=== PATIENT | female | born 1955 | race Caucasian/White ===

== ENCOUNTER 2018-08-30 13:46 | Inpatient (IN) | payer BC ==
[2018-08-30] MEDS ORDERED: Sodium Chloride 0.9% 1,000 ML IV SCH ×2 (14:15→15:00)
[2018-08-30] MEDS ORDERED: Ondansetron 4 MG/2 ML SDV IVPUSH ONE (14:18)
--- NOTE | 2018-08-30 14:24 | EDM.PDOC ---
<Humberto Rodríguez - Last Filed: 08/30/18 16:40> ED HPI GENERAL MEDICAL PROBLEM - General Chief Complaint: Diabetic Complaint Stated Complaint: PT CAME BY [facility] Time Seen by Provider: 08/30/18 14:05 - Related Data Allergies Allergy/AdvReac Type Severity Reaction Status Date / Time No Known Allergies Allergy Verified 08/30/18 13:55 Home Meds: Home Meds Aspirin [Halfprin] 81 mg PO DAILY 08/31/18 [History] Glimepiride 4 mg PO BIDMEALS 08/31/18 [History] Insulin Glargine,Hum.Rec.Anlog [Lantus Solostar] 48 unit SQ DAILY 08/31/18 [ History] Losartan [Cozaar] 50 mg PO DAILY 08/31/18 [History] Pantoprazole [ProTONIX] 40 mg PO DAILY 08/31/18 [History] Simvastatin 20 mg PO DAILY 08/31/18 [History] SitaGLIPtin [Januvia] 100 mg PO DAILY 08/31/18 [History] carBAMazepine [Carbamazepine ER] 400 mg PO BID 08/31/18 [History] metFORMIN [Glucophage] 1,000 mg PO 2100 08/31/18 [History] metFORMIN [Glucophage] 1,500 mg PO 0800 08/31/18 [History] Course - Vital Signs Last Recorded V/S: Last Vital Signs Temp 36.7 C 09/02/18 08:00 Pulse 117 H 09/02/18 04:16 Resp 33 H 09/02/18 08:00 BP 134/80 09/02/18 08:00 Pulse Ox 88 L 09/02/18 08:00 - Orders/Labs/Meds Orders: Medication Orders Acetaminophen (Tylenol) 650 mg PO Q4H PRN PRN Reason: Pain (Mild 1-3)/fever Last Admin: 08/31/18 20:10 Dose: 650 mg Admin: 08/31/18 06:43 Dose: 650 mg Admin: 08/31/18 00:54 Dose: 650 mg Hydrocodone Bitart/Acetaminophen ([place] 325-5 Mg) 1 tab PO Q4H PRN PRN Reason: Pain (moderate 4-6) Alogliptin Benzoate (Alogliptin) 25 mg PO DAILY DAGOBERTO Last Admin: 09/01/18 09:16 Dose: 25 mg Admin: 08/31/18 10:54 Dose: 25 mg Aspirin (Halfprin) 81 mg PO DAILY [facility] Last Admin: 09/01/18 09:17 Dose: 81 mg Bisacodyl (Dulcolax) 5 mg PO DAILY PRN PRN Reason: Constipation Carbamazepine (Tegretol Tab) 400 mg PO BID [facility] Last Admin: 09/01/18 20:38 Dose: 400 mg Admin: 09/01/18 09:16 Dose: 400 mg Admin: 08/31/18 23:06 Dose: 400 mg Admin: 08/31/18 10:54 Dose: 400 mg Dextrose/Water (Dextrose 50% In Water) 50 ml IVPUSH ASDIRECTED PRN PRN Reason: Hypoglycemia Diltiazem HCl (Cardizem) 10 mg IVPUSH Q4H PRN PRN Reason: tachy >110 Last Admin: 09/02/18 06:52 Dose: 10 mg Admin: 09/02/18 02:24 Dose: 10 mg Admin: 09/01/18 18:33 Dose: 10 mg Docusate Sodium (Colace) 100 mg PO BID PRN PRN Reason: Constipation Enoxaparin Sodium (Lovenox) 40 mg SUBCUT DAILY [facility] Last Admin: 09/01/18 17:15 Dose: 40 mg Admin: 08/31/18 10:54 Dose: 40 mg Famotidine (Pepcid) 20 mg PO BID [facility] Last Admin: 09/01/18 20:40 Dose: 20 mg Admin: 09/01/18 09:17 Dose: 20 mg Admin: 08/31/18 23:07 Dose: 20 mg Admin: 08/31/18 08:48 Dose: 20 mg Admin: 08/30/18 21:24 Dose: 20 mg Glimepiride (Glimepiride) 4 mg PO BIDMEALS [facility] Last Admin: 09/02/18 06:07 Dose: 4 mg Admin: 09/01/18 16:23 Dose: 4 mg Admin: 09/01/18 09:17 Dose: 4 mg Admin: 08/31/18 21:31 Dose: Not Given Guaifenesin/Phenylephrine HCl (Robitussin Dm) 10 ml PO TID@0700,1400,2100 [facility] Last Admin: 09/02/18 06:07 Dose: 10 ml Admin: 09/01/18 20:40 Dose: 10 ml Admin: 09/01/18 14:01 Dose: 10 ml Hydralazine HCl (Apresoline) 10 mg IVPUSH Q4H PRN PRN Reason: Hypertension Hydromorphone HCl (Dilaudid) 0.25 mg IVPUSH Q2H PRN PRN Reason: Pain (severe 7-10) Promethazine HCl 6.25 mg/ (Sodium Chloride) 50.25 mls @ 100 mls/hr IV Q6H PRN PRN Reason: Nausea/Vomiting Sodium Chloride (Normal Saline) 1,000 mls @ 75 mls/hr IV ASDIRECTED [facility] Last Admin: 09/02/18 04:15 Dose: 75 mls/hr Infusion: 09/02/18 04:15 Dose: 75 mls/hr Admin: 09/01/18 15:09 Dose: 75 mls/hr Infusion: 09/01/18 14:48 Dose: 75 mls/hr Admin: 09/01/18 01:28 Dose: 75 mls/hr Infusion: 09/01/18 01:28 Dose: 75 mls/hr Admin: 08/31/18 15:29 Dose: 75 mls/hr Dexamethasone 40 mg/ Sodium (Chloride) 54 mls @ 108 mls/hr IV BID@0700,1900 [facility] Stop: 09/02/18 20:31 Last Admin: 09/02/18 06:13 Dose: 108 mls/hr Infusion: 09/01/18 18:29 Dose: 108 mls/hr Admin: 09/01/18 17:59 Dose: 108 mls/hr Infusion: 09/01/18 06:44 Dose: 108 mls/hr Admin: 09/01/18 06:14 Dose: 108 mls/hr Infusion: 08/31/18 21:26 Dose: 108 mls/hr Admin: 08/31/18 20:56 Dose: 108 mls/hr Ceftriaxone Sodium 2 gm/ (Sodium Chloride) 100 mls @ 200 mls/hr IV Q24H [facility] Last Admin: 09/01/18 22:21 Dose: 200 mls/hr Infusion: 08/31/18 23:58 Dose: 200 mls/hr Admin: 08/31/18 23:28 Dose: 200 mls/hr Levofloxacin/Dextrose 750 mg/ (Premix) 150 mls @ 100 mls/hr IV Q24H [facility] Insulin Human Lispro (Humalog) 0 unit SUBCUT QIDACANDBED [facility]; Protocol Last Admin: 09/02/18 06:52 Dose: 2 units Admin: 09/01/18 21:10 Dose: 2 units Admin: 09/01/18 17:50 Dose: 4 units Admin: 09/01/18 12:20 Dose: 8 units Admin: 09/01/18 09:13 Dose: 4 units Admin: 08/31/18 22:57 Dose: 4 units Ipratropium [place] (Atrovent) 0.5 mg NEB QIDRT [facility] Last Admin: 09/02/18 05:03 Dose: 0.5 mg Admin: 09/01/18 20:04 Dose: 0.5 mg Admin: 09/01/18 15:05 Dose: 0.5 mg Levalbuterol HCl (Xopenex) 1.25 mg NEB QIDRT [facility] Last Admin: 09/02/18 05:03 Dose: 1.25 mg Admin: 09/01/18 20:04 Dose: 1.25 mg Admin: 09/01/18 15:05 Dose: 1.25 mg Levalbuterol HCl (Xopenex) 1.25 mg NEB Q2H PRN PRN Reason: sob Last Admin: 09/02/18 07:10 Dose: 1.25 mg Admin: 09/02/18 02:37 Dose: 1.25 mg Admin: 09/01/18 17:36 Dose: 1.25 mg Lorazepam (Ativan) 2 mg IVPUSH Q4H PRN PRN Reason: Seizures Magnesium Hydroxide (Milk Of Magnesia) 30 ml PO Q12H PRN PRN Reason: Constipation Metoprolol Succinate (Toprol Xl) 25 mg PO BID [facility] Last Admin: 09/01/18 20:38 Dose: 25 mg Admin: 09/01/18 16:23 Dose: 25 mg Metoprolol Tartrate (Lopressor) 5 mg IVPUSH Q4H PRN PRN Reason: Tachycardia Last Admin: 09/02/18 04:16 Dose: 5 mg Admin: 09/01/18 22:24 Dose: 5 mg Admin: 09/01/18 17:19 Dose: 5 mg Oseltamivir Phosphate (Tamiflu) 75 mg PO BID [facility] Last Admin: 09/01/18 20:38 Dose: 75 mg Admin: 09/01/18 09:15 Dose: 75 mg Admin: 08/31/18 23:07 Dose: 75 mg Admin: 08/31/18 08:48 Dose: 75 mg Admin: 08/30/18 21:24 Dose: 75 mg Polyethylene Glycol (Miralax) 17 gm PO DAILY PRN PRN Reason: Constipation Promethazine HCl (Phenergan) 25 mg PO Q6H PRN PRN Reason: Nausea/Vomiting Saccharomyces Boulardii (Florastor) 250 mg PO BID [facility] Last Admin: 09/01/18 20:38 Dose: 250 mg Admin: 09/01/18 09:15 Dose: 250 mg Admin: 08/31/18 23:07 Dose: 250 mg Admin: 08/31/18 08:48 Dose: 250 mg Admin: 08/30/18 21:22 Dose: 250 mg Senna/Docusate Sodium (Senna Plus) 1 tab PO BID PRN PRN Reason: Constipation Temazepam (Restoril) 7.5 mg PO BEDTIME PRN PRN Reason: Sleep Labs: Laboratory Tests 08/30/18 08/30/18 08/30/18 Range/Units 13:55 14:49 14:50 WBC 4.62 (3.98-10.04) K/mm3 RBC 4.73 (3.98-5.22) M/mm3 Hgb 13.1 (11.2-15.7) gm/L Hct 38.8 (34.1-44.9) % MCV 82.0 (79.4-94.8) fl MCH 27.7 (25.6-32.2) pg MCHC 33.8 (32.2-35.5) g/dl RDW Std Deviation 40.4 (36.4-46.3) fL Plt Count 193 (182-369) K/mm3 MPV 9.2 L (9.4-12.3) fl Neutrophils % (Manual) 86 H (40-60) % Band Neutrophils % 3 (0-10) % Lymphocytes % (Manual) 9 L (20-40) % Atypical Lymphs % 0 % Monocytes % (Manual) 2 (2-10) % Eosinophils % (Manual) 0 L (0.7-5.8) % Basophils % (Manual) 0 L (0.1-1.2) Platelet Estimate Adequate Poikilocytosis 1+ slight Ovalocytes 1+ slight RBC Morph Comment Not Reportable ESR (0-20) mm/hr PT (9.5-12.1) SECONDS INR Sodium (136-145) mEq/L Potassium (3.5-5.1) mEq/L Chloride (98-107) mEq/L Carbon Dioxide (21-32) mEq/L Anion Gap (5-15) BUN (7-18) mg/dL Creatinine (0.55-1.02) mg/dL Est Cr Clr Drug Dosing Estimated GFR (MDRD) (>60) mL/min BUN/Creatinine Ratio (14-18) Glucose (80-115) mg/dL POC Glucose 320 H (80-115) mg/dL Lactic Acid (0.4-2.0) mmol/L Calcium (8.5-10.1) mg/dL Magnesium (1.8-2.4) mg/dl Total Bilirubin (0.2-1.0) mg/dL AST (15-37) U/L ALT (14-59) U/L Alkaline Phosphatase (46-116) U/L CK-MB (CK-2) (0-3.6) ng/ml Troponin I (0.00-0.056) ng/mL C-Reactive Protein (<1.0) mg/dL NT-Pro-B Natriuret Pep (0-125) pg/mL Total Protein (6.4-8.2) g/dl Albumin (3.4-5.0) g/dl Globulin gm/dL Albumin/Globulin Ratio (1-2) Urine Color Yellow (Yellow) Urine Appearance Slt cloudy H (Clear) Urine pH 5.5 (5.0-8.0) Ur Specific [place] 1.020 (1.005-1.030) Urine Protein 1+ H (Negative) Urine Glucose (UA) Trace H (Negative) Urine Ketones Trace H (Negative) Urine Occult Blood Negative (Negative) Urine Nitrite Negative (Negative) Urine Bilirubin Negative (Negative) Urine Urobilinogen 0.2 (0.2-1.0) Ur Leukocyte Esterase Negative (Negative) Urine RBC 0-5 (0-5) /hpf Urine WBC 5-10 H (0-5) /hpf Ur Epithelial Cells 0-5 (0-5) /hpf Urine Bacteria Moderate H (FEW) /hpf Hyaline Casts 0-5 (0-5) /lpf Urine Mucus Few (FEW) /hpf Mycoplasma pneumon IgM (NEGATIVE) 08/30/18 08/30/18 08/30/18 Range/Units 14:50 14:50 14:50 WBC (3.98-10.04) K/mm3 RBC (3.98-5.22) M/mm3 Hgb (11.2-15.7) gm/L Hct (34.1-44.9) % MCV (79.4-94.8) fl MCH (25.6-32.2) pg MCHC (32.2-35.5) g/dl RDW Std Deviation (36.4-46.3) fL Plt Count (182-369) K/mm3 MPV (9.4-12.3) fl Neutrophils % (Manual) (40-60) % Band Neutrophils % (0-10) % Lymphocytes % (Manual) (20-40) % Atypical Lymphs % % Monocytes % (Manual) (2-10) % Eosinophils % (Manual) (0.7-5.8) % Basophils % (Manual) (0.1-1.2) Platelet Estimate Poikilocytosis Ovalocytes RBC Morph Comment ESR (0-20) mm/hr PT (9.5-12.1) SECONDS INR Sodium 129 L (136-145) mEq/L Potassium 4.5 (3.5-5.1) mEq/L Chloride 93 L (98-107) mEq/L Carbon Dioxide 23 (21-32) mEq/L Anion Gap 17.5 H (5-15) BUN 32 H (7-18) mg/dL Creatinine 1.0 (0.55-1.02) mg/dL Est Cr Clr Drug Dosing TNP Estimated GFR (MDRD) 56 (>60) mL/min BUN/Creatinine Ratio 32.0 H (14-18) Glucose 296 H (80-115) mg/dL POC Glucose (80-115) mg/dL Lactic Acid 3.2 H (0.4-2.0) mmol/L Calcium 8.9 (8.5-10.1) mg/dL Magnesium 2.2 (1.8-2.4) mg/dl Total Bilirubin 0.2 (0.2-1.0) mg/dL AST 49 H (15-37) U/L ALT 37 (14-59) U/L Alkaline Phosphatase 71 (46-116) U/L CK-MB (CK-2) 0.9 (0-3.6) ng/ml Troponin I < 0.017 (0.00-0.056) ng/mL C-Reactive Protein 15.4 H* (<1.0) mg/dL NT-Pro-B Natriuret Pep 55 (0-125) pg/mL Total Protein 7.2 (6.4-8.2) g/dl Albumin 3.2 L (3.4-5.0) g/dl Globulin 4.0 gm/dL Albumin/Globulin Ratio 0.8 L (1-2) Urine Color (Yellow) Urine Appearance (Clear) Urine pH (5.0-8.0) Ur Specific [place] (1.005-1.030) Urine Protein (Negative) Urine Glucose (UA) (Negative) Urine Ketones (Negative) Urine Occult Blood (Negative) Urine Nitrite (Negative) Urine Bilirubin (Negative) Urine Urobilinogen (0.2-1.0) Ur Leukocyte Esterase (Negative) Urine RBC (0-5) /hpf Urine WBC (0-5) /hpf Ur Epithelial Cells (0-5) /hpf Urine Bacteria (FEW) /hpf Hyaline Casts (0-5) /lpf Urine Mucus (FEW) /hpf Mycoplasma pneumon IgM (NEGATIVE) 08/30/18 08/30/18 08/30/18 Range/Units 15:05 15:05 16:05 WBC (3.98-10.04) K/mm3 RBC (3.98-5.22) M/mm3 Hgb (11.2-15.7) gm/L Hct (34.1-44.9) % MCV (79.4-94.8) fl MCH (25.6-32.2) pg MCHC (32.2-35.5) g/dl RDW Std Deviation (36.4-46.3) fL Plt Count (182-369) K/mm3 MPV (9.4-12.3) fl Neutrophils % (Manual) (40-60) % Band Neutrophils % (0-10) % Lymphocytes % (Manual) (20-40) % Atypical Lymphs % % Monocytes % (Manual) (2-10) % Eosinophils % (Manual) (0.7-5.8) % Basophils % (Manual) (0.1-1.2) Platelet Estimate Poikilocytosis Ovalocytes RBC Morph Comment ESR 22 H (0-20) mm/hr PT 10.8 (9.5-12.1) SECONDS INR 0.99 Sodium (136-145) mEq/L Potassium (3.5-5.1) mEq/L Chloride (98-107) mEq/L Carbon Dioxide (21-32) mEq/L Anion Gap (5-15) BUN (7-18) mg/dL Creatinine (0.55-1.02) mg/dL Est Cr Clr Drug Dosing Estimated GFR (MDRD) (>60) mL/min BUN/Creatinine Ratio (14-18) Glucose (80-115) mg/dL POC Glucose (80-115) mg/dL Lactic Acid (0.4-2.0) mmol/L Calcium (8.5-10.1) mg/dL Magnesium (1.8-2.4) mg/dl Total Bilirubin (0.2-1.0) mg/dL AST (15-37) U/L ALT (14-59) U/L Alkaline Phosphatase (46-116) U/L CK-MB (CK-2) (0-3.6) ng/ml Troponin I (0.00-0.056) ng/mL C-Reactive Protein (<1.0) mg/dL NT-Pro-B Natriuret Pep (0-125) pg/mL Total Protein (6.4-8.2) g/dl Albumin (3.4-5.0) g/dl Globulin gm/dL Albumin/Globulin Ratio (1-2) Urine Color (Yellow) Urine Appearance (Clear) Urine pH (5.0-8.0) Ur Specific [place] (1.005-1.030) Urine Protein (Negative) Urine Glucose (UA) (Negative) Urine Ketones (Negative) Urine Occult Blood (Negative) Urine Nitrite (Negative) Urine Bilirubin (Negative) Urine Urobilinogen (0.2-1.0) Ur Leukocyte Esterase (Negative) Urine RBC (0-5) /hpf Urine WBC (0-5) /hpf Ur Epithelial Cells (0-5) /hpf Urine Bacteria (FEW) /hpf Hyaline Casts (0-5) /lpf Urine Mucus (FEW) /hpf Mycoplasma pneumon IgM Negative (NEGATIVE) 08/30/18 Range/Units 16:52 WBC (3.98-10.04) K/mm3 RBC (3.98-5.22) M/mm3 Hgb (11.2-15.7) gm/L Hct (34.1-44.9) % MCV (79.4-94.8) fl MCH (25.6-32.2) pg MCHC (32.2-35.5) g/dl RDW Std Deviation (36.4-46.3) fL Plt Count (182-369) K/mm3 MPV (9.4-12.3) fl Neutrophils % (Manual) (40-60) % Band Neutrophils % (0-10) % Lymphocytes % (Manual) (20-40) % Atypical Lymphs % % Monocytes % (Manual) (2-10) % Eosinophils % (Manual) (0.7-5.8) % Basophils % (Manual) (0.1-1.2) Platelet Estimate Poikilocytosis Ovalocytes RBC Morph Comment ESR (0-20) mm/hr PT (9.5-12.1) SECONDS INR Sodium (136-145) mEq/L Potassium (3.5-5.1) mEq/L Chloride (98-107) mEq/L Carbon Dioxide (21-32) mEq/L Anion Gap (5-15) BUN (7-18) mg/dL Creatinine (0.55-1.02) mg/dL Est Cr Clr Drug Dosing Estimated GFR (MDRD) (>60) mL/min BUN/Creatinine Ratio (14-18) Glucose (80-115) mg/dL POC Glucose 252 H (80-115) mg/dL Lactic Acid (0.4-2.0) mmol/L Calcium (8.5-10.1) mg/dL Magnesium (1.8-2.4) mg/dl Total Bilirubin (0.2-1.0) mg/dL AST (15-37) U/L ALT (14-59) U/L Alkaline Phosphatase (46-116) U/L CK-MB (CK-2) (0-3.6) ng/ml Troponin I (0.00-0.056) ng/mL C-Reactive Protein (<1.0) mg/dL NT-Pro-B Natriuret Pep (0-125) pg/mL Total Protein (6.4-8.2) g/dl Albumin (3.4-5.0) g/dl Globulin gm/dL Albumin/Globulin Ratio (1-2) Urine Color (Yellow) Urine Appearance (Clear) Urine pH (5.0-8.0) Ur Specific [place] (1.005-1.030) Urine Protein (Negative) Urine Glucose (UA) (Negative) Urine Ketones (Negative) Urine Occult Blood (Negative) Urine Nitrite (Negative) Urine Bilirubin (Negative) Urine Urobilinogen (0.2-1.0) Ur Leukocyte Esterase (Negative) Urine RBC (0-5) /hpf Urine WBC (0-5) /hpf Ur Epithelial Cells (0-5) /hpf Urine Bacteria (FEW) /hpf Hyaline Casts (0-5) /lpf Urine Mucus (FEW) /hpf Mycoplasma pneumon IgM (NEGATIVE) Meds: Medications Generic Name Dose Route Start Last Admin Trade Name Freq PRN Reason Stop Dose Admin Acetaminophen 650 mg 08/30/18 17:49 08/31/18 20:10 Tylenol PO 650 mg Q4H PRN Administration Pain (Mild 1-3)/fever Hydrocodone Bitart/Acetaminophen 1 tab 08/30/18 17:49 [place] 325-5 Mg PO Q4H PRN Pain (moderate 4-6) Alogliptin Benzoate 25 mg 08/31/18 09:45 09/01/18 09:16 Alogliptin PO 25 mg DAILY DAGOBERTO Administration Aspirin 81 mg 09/01/18 09:00 09/01/18 09:17 Halfprin PO 81 mg DAILY DAG[facility]ERTO Administration Bisacodyl 5 mg 08/30/18 17:49 Dulcolax PO DAILY PRN Constipation Carbamazepine 400 mg 08/31/18 09:45 09/01/18 20:38 Tegretol Tab PO 400 mg BID DAG[facility]ERTO Administration Dextrose/Water 50 ml 08/30/18 17:44 Dextrose 50% In Water IVPUSH ASDIRECTED PRN Hypoglycemia Diltiazem HCl 10 mg 09/01/18 16:43 09/02/18 06:52 Cardizem IVPUSH 10 mg Q4H PRN Administration tachy >110 Docusate Sodium 100 mg 08/30/18 17:49 Colace PO BID PRN Constipation Enoxaparin Sodium 40 mg 08/31/18 09:00 09/01/18 17:15 Lovenox SUBCUT 40 mg DAILY [facility]AG[facility]ERTO Administration Famotidine 20 mg 08/30/18 21:00 09/01/18 20:40 Pepcid PO 20 mg BID DAG[facility]ERTO Administration Glimepiride 4 mg 08/31/18 17:00 09/02/18 06:07 Glimepiride PO 4 mg BIDMEALS DAGOBERTO Administration Guaifenesin/Phenylephrine HCl 10 ml 09/01/18 14:00 09/02/18 06:07 Robitussin Dm PO 10 ml TID@0700,1400,2100 [facility] Administration Hydralazine HCl 10 mg 08/30/18 17:45 Apresoline IVPUSH Q4H PRN Hypertension Hydromorphone HCl 0.25 mg 08/30/18 17:49 Dilaudid IVPUSH Q2H PRN Pain (severe 7-10) Promethazine HCl 6.25 mg/ 50.25 mls @ 100 mls/hr 08/30/18 17:49 Sodium Chloride IV Q6H PRN Nausea/Vomiting Sodium Chloride 1,000 mls @ 75 mls/hr 08/31/18 13:15 09/02/18 04:15 Normal Saline IV 75 mls/hr ASDIRECTED [facility]AGOBERTO Administration Dexamethasone 40 mg/ Sodium 54 mls @ 108 mls/hr 08/31/18 20:30 09/02/18 06:13 Chloride IV 09/02/18 20:31 108 mls/hr BID@0700,1900 [facility] Administration Ceftriaxone Sodium 2 gm/ 100 mls @ 200 mls/hr 08/31/18 23:00 09/01/18 22:21 Sodium Chloride IV 200 mls/hr Q24H [facility] Administration Levofloxacin/Dextrose 750 mg/ 150 mls @ 100 mls/hr 09/02/18 10:30 Premix IV Q24H [facility] Insulin Human Lispro 0 unit 08/31/18 22:00 09/02/18 06:52 Humalog SUBCUT 2 units QIDACANDBED [facility]AGOBERTO Administration Protocol Ipratropium [place] 0.5 mg 09/01/18 16:00 09/02/18 05:03 Atrovent NEB 0.5 mg QIDRT [facility]AG[facility]ERTO Administration Levalbuterol HCl 1.25 mg 09/01/18 16:00 09/02/18 05:03 Xopenex NEB 1.25 mg QIDRT [facility]AG[facility]ERTO Administration Levalbuterol HCl 1.25 mg 09/01/18 17:28 09/02/18 07:10 Xopenex NEB 1.25 mg Q2H PRN Administration sob Lorazepam 2 mg 08/30/18 17:53 Ativan IVPUSH Q4H PRN Seizures Magnesium Hydroxide 30 ml 08/30/18 17:49 Milk Of Magnesia PO Q12H PRN Constipation Metoprolol Succinate 25 mg 09/01/18 16:15 09/01/18 20:38 Toprol Xl PO 25 mg BID DAGOBERTO Administration Metoprolol Tartrate 5 mg 08/30/18 17:46 09/02/18 04:16 Lopressor IVPUSH 5 mg Q4H PRN Administration Tachycardia Oseltamivir Phosphate 75 mg 08/30/18 21:00 09/01/18 20:38 Tamiflu PO 75 mg BID DAGOBERTO Administration Polyethylene Glycol 17 gm 08/30/18 17:49 Miralax PO DAILY PRN Constipation Promethazine HCl 25 mg 08/30/18 17:49 Phenergan PO Q6H PRN Nausea/Vomiting Saccharomyces Boulardii 250 mg 08/30/18 21:00 09/01/18 20:38 Florastor PO 250 mg BID DAG[facility]ERTO Administration Senna/Docusate Sodium 1 tab 08/30/18 17:49 Senna Plus PO BID PRN Constipation Temazepam 7.5 mg 08/30/18 17:49 Restoril PO BEDTIME PRN Sleep Discontinued Medications Generic Name Dose Route Start Last Admin Trade Name Freq PRN Reason Stop Dose Admin Acetaminophen 975 mg 08/30/18 14:26 08/30/18 14:51 Tylenol PO 08/30/18 14:27 975 mg NOW ONE Administration Albuterol 2.5 mg 08/30/18 17:49 08/31/18 23:15 Proventil Neb Soln NEB 2.5 mg Q2H PRN Administration Shortness Of Breath/wheezing Albuterol/Ipratropium 3 ml 08/30/18 17:49 08/31/18 10:44 Duoneb 3.0-0.5 Mg/3 Ml NEB 3 ml Q4H PRN Administration Shortness Of Breath/wheezing Albuterol/Ipratropium 3 ml 08/31/18 16:00 09/01/18 08:59 Duoneb 3.0-0.5 Mg/3 Ml NEB 3 ml QIDRT DAGOBERTO Administration Ampicillin Sodium Confirm 08/31/18 21:18 08/31/18 21:33 Ampicillin Administered 08/31/18 21:19 Not Given Dose 1 gm .ROUTE .STK-MED ONE Ceftriaxone Sodium 2 gm 08/31/18 16:00 Rocephin IVPUSH Q24H DAG[facility]ERTO Dexamethasone Confirm 08/31/18 19:52 08/31/18 20:15 Dexamethasone Administered 08/31/18 19:53 Not Given Dose 40 mg .ROUTE .STK-MED ONE Dexamethasone 40 mg 09/01/18 07:00 Dexamethasone IVPUSH 09/03/18 07:01 Q12HR DAGOBERTO Furosemide 40 mg 08/30/18 14:50 08/30/18 14:58 Lasix IVPUSH 08/30/18 14:51 40 mg NOW ONE Administration Sodium Chloride 1,000 mls @ 150 mls/hr 08/30/18 14:15 08/30/18 14:26 Normal Saline IV 150 mls/hr ASDIRECTED DAGOBERTO Administration Sodium Chloride 1,000 mls @ 75 mls/hr 08/30/18 15:00 Normal Saline IV ASDIRECTED DAGOBERTO Ceftriaxone Sodium 1 gm/ 100 mls @ 200 mls/hr 08/30/18 15:59 08/30/18 16:57 Sodium Chloride IV 08/30/18 16:28 200 mls/hr ONETIME ONE Administration Azithromycin 500 mg/ Sodium 250 mls @ 250 mls/hr 08/30/18 18:00 08/30/18 21: 15 Chloride IV 250 mls/hr Q24H DAGOBERTO Administration Sodium Chloride 1,000 mls @ 125 mls/hr 08/30/18 18:00 08/31/18 00:55 Normal Saline IV 125 mls/hr ASDIRECTED DAGOBERTO Administration Ceftriaxone Sodium 1 gm/ 100 mls @ 200 mls/hr 08/30/18 18:45 08/30/18 19:28 Sodium Chloride IV 08/30/18 19:14 200 mls/hr ONETIME ONE Administration Ceftriaxone Sodium 2 gm/ 100 mls @ 200 mls/hr 08/31/18 16:00 Sodium Chloride IV Q24H DAGOBERTO Dextrose/Sodium Chloride 1,000 mls @ 125 mls/hr 08/31/18 07:45 08/31/18 08:05 Dextrose 5%-Normal Saline IV 125 mls/hr ASDIRECTED DAGOBERTO Administration Piperacillin Sod/Tazobactam 100 mls @ 200 mls/hr 08/31/18 10:00 08/31/18 11: 28 Sod 4.5 gm/ Sodium Chloride IV 08/31/18 10:29 Not Given ONETIME ONE Piperacillin Sod/Tazobactam 100 mls @ 25 mls/hr 08/31/18 18:00 08/31/18 23:34 Sod 4.5 gm/ Sodium Chloride IV Not Given Q8H DAGOBERTO Vancomycin HCl 1 gm/ Sodium 250 mls @ 250 mls/hr 08/31/18 10:30 09/01/18 21: 37 Chloride IV 250 mls/hr Q12H DAGOBERTO Administration Sodium Chloride Confirm 08/31/18 10:48 08/31/18 11:29 Normal Saline Administered 08/31/18 10:49 Not Given Dose 100 mls @ as directed .ROUTE .STK-MED ONE Piperacillin Sod/Tazobactam 100 mls @ 200 mls/hr 08/31/18 11:15 08/31/18 12: 56 Sod 4.5 gm/ Sodium Chloride IV 08/31/18 11:44 200 mls/hr ONETIME ONE Administration Magnesium Sulfate/Dextrose Confirm 08/31/18 19:52 08/31/18 20:15 Magnesium 1 Gm In D5w 100 Ml Administered 08/31/18 19:53 Not Given Dose 100 mls @ as directed .ROUTE .STK-MED ONE Acyclovir 1,000 mg/ Sodium 120 mls @ 100 mls/hr 08/31/18 20:00 09/02/18 04:09 Chloride IV 100 mls/hr Q8H DAGOBERTO Administration Ampicillin Sodium 1 gm/ Sodium 100 mls @ 200 mls/hr 08/31/18 20:00 08/31/18 23:34 Chloride IV Not Given Q4H DAGOBERTO Magnesium Sulfate 2 gm/ Premix 50 mls @ 25 mls/hr 08/31/18 20:14 08/31/18 21: 26 IV 08/31/18 22:13 Not Given ONETIME ONE Magnesium Sulfate/Dextrose 1 100 mls @ 100 mls/hr 08/31/18 20:30 08/31/18 20: 35 gm/ Premix IV 08/31/18 21:29 100 mls/hr ONETIME ONE Administration Ampicillin Sodium 1 gm/ Sodium 100 mls @ 200 mls/hr 08/31/18 21:20 09/01/18 11:17 Chloride IV Not Given Q4H DAGOBERTO Sodium Chloride Confirm 08/31/18 21:20 08/31/18 21:29 Normal Saline Administered 08/31/18 21:21 Not Given Dose 100 mls @ as directed .ROUTE .STK-MED ONE Sodium Chloride 250 mls @ 999 mls/hr 08/31/18 21:10 08/31/18 23:07 Normal Saline IV 08/31/18 21:25 Not Given ONETIME ONE Ampicillin Sodium 1 gm/ Sodium 100 mls @ 200 mls/hr 09/01/18 10:00 09/02/18 05:41 Chloride IV 200 mls/hr Q4H DAGOBERTO Administration Insulin Human Lispro 0 unit 08/30/18 22:00 08/31/18 20:54 Humalog SUBCUT 3 unit QIDACANDBED DAGOBERTO Administration Protocol Insulin Human Regular 8 unit 08/30/18 14:54 08/30/18 15:06 Humulin R SUBCUT 08/30/18 14:55 8 units ONETIME ONE Administration Ondansetron HCl 4 mg 08/30/18 14:18 08/30/18 14:29 Zofran IVPUSH 08/30/18 14:19 4 mg ONETIME ONE Administration Oseltamivir Phosphate 75 mg 08/30/18 14:42 08/30/18 15:02 Tamiflu PO 08/30/18 14:43 75 mg ONETIME ONE Administration Vancomycin HCl 1 dose 08/31/18 09:30 Pharmacy To Dose - Vancomycin .XX ASDIRECTED [facility] - Re-Assessments/Exams Free Text/Narrative Re-Assessment/Exam: 08/30/18 16: 20. Have assumed care from Dr. Jade after changes shift, awaiting lab work. As noted she does have influenza A. Catheter UA does show some bacteria, 5-10 WBCs so she does have UTI as well. Blood Cultures were obtained. Lactic acid was mildly elevated. Rocephin 1 g IV has been ordered. 08/30/18 16:44. He will be admitted Med Surg. Telemetry for further treatment. Departure - Departure Time of Disposition: 16:43 Disposition: Admitted As Inpatient 65 Clinical Impression: Influenza A Congestive heart failure Qualifiers: Heart failure type: systolic Heart failure chronicity: acute on chronic Qualified Code(s): I50.23 - Acute on chronic systolic (congestive) heart failure Type 2 diabetes mellitus Qualifiers: Diabetes mellitus intermodal truck driver insulin use: with intermodal truck driver use Diabetes mellitus complication status: with hyperglycemia Qualified Code(s): E11.65 - Type 2 diabetes mellitus with hyperglycemia - Discharge Information ED Communication - Discussed Case With (1) Discussed Case With (1): Admitting Provider (Dr Petty, decision to admit at about 16:30) <Brian Jade - Last Filed: 09/02/18 08:33> ED HPI GENERAL MEDICAL PROBLEM - General Source of Information: Reports: Patient, Family History Limitations: Reports: No Limitations - History of Present Illness INITIAL COMMENTS - FREE TEXT/NARRATIVE: 63-year-old female presents to the ED per ambulance. She has been struggling with illness for the last 3 days. Recent productive sounding cough. Increased weakness to the point that she went down on the bathroom floor this afternoon and was unable to get up even with the help of her . For the ambulance was summoned. Here she is identified of a favorable 102.1. Post rectal. Her productive sounding cough. She reports she is short of breath on exertion. She missed a dose of insulin yesterday but didn't take her insulin this morning. In blood sugar this morning was 389. Blood sugar at this time is to 269. She has not had any Tylenol for fever relief today. She is mildly nauseated with no diarrhea. O2 sats only 82% on arrival. Placed on 3 L/m by nasal prongs Onset: Gradual Onset Date: 08/28/18 Duration: Day(s):, Getting Worse Location: Reports: Chest (Generalized weakness. Increased fever with associated chills and productive cough active sounding cough), Generalized Quality: Reports: Other Severity: Moderate (Cough) Improves with: Reports: None Worsens with: Reports: None Context: Denies: Activity, Exercise, Lifting, Sick Contact, Trauma, Other Associated Symptoms: Reports: Chest Pain, Cough (Dr. newton she's not spitting anything up.), cough w sputum, Diaphoresis, Fever/Chills, Loss of Appetite, Malaise, Nausea/Vomiting, Shortness of Breath (She did have some cereal this morning), Weakness (Nausea without vomiting generalized weakness). Denies: No Other Symptoms (Port some central chest pain most likely from coughing), Confusion, Headaches, Rash, Seizure, Syncope Treatments MGMT CONSULTANT: Reports: IV/IO, Oxygen Past Medical History Cardiovascular History: Reports: High Cholesterol, Hypertension Gastrointestinal History: Reports: GERD Neurological History: Reports: Seizure Other Neuro History: is on tegretol, last seizure in 2002 Endocrine/Metabolic History: Reports: Diabetes, Type II Social & Family History - Family History Family Medical History: Noncontributory - Tobacco Use Smoking Status *Q: Never Smoker - Caffeine Use Caffeine Use: Reports: Coffee - Recreational Drug Use Recreational Drug Use: No - Living Situation & Occupation Living situation: Reports: with Spouse Occupation: Employed ED ROS GENERAL - Review of Systems Review Of Systems: See Below Constitutional: Reports: Fever, Chills, Malaise, Weakness, Fatigue, Decreased Appetite HEENT: Reports: Glasses Respiratory: Reports: Shortness of Breath, Wheezing, Cough, Sputum Cardiovascular: Reports: Chest Pain (Antral chest pain from coughing presumably) , Blood Pressure Problem, Dyspnea on Exertion (Chronically). Denies: Claudication, Edema, Lightheadedness, Orthopnea Endocrine: Reports: Fatigue GI/Abdominal: Denies: Abdominal Pain : Reports: Frequency, Incontinence (Has had a bladder sling procedure for stress incontinence.) Musculoskeletal: Reports: Back Pain, Joint Pain (Knees hips neck at times) Skin: Reports: Other (Has a chronic skin lesion right upper back for many years. No formal diagnosis is ever been made.) Neurological: Reports: No Symptoms Psychiatric: Reports: No Symptoms Hematologic/Lymphatic: Reports: No Symptoms Immunologic: Reports: No Symptoms ED EXAM GENERAL NO PERIP PULSE - Physical Exam Exam: See Below Exam Limited By: No Limitations General Appearance: Alert, Lethargic, Other (She appears to be mildly lethargic. She is very warm to palpation.) Eye Exam: Bilateral Eye: Normal Inspection (No scleral icterus.) Ears: Other (Has a right serous otitis media. Left is normal) Throat/Mouth: Other (Tongue is very dry and coated.) Head: Atraumatic, Normocephalic Neck: Normal Inspection, Supple, Non-Tender, Full Range of Motion. No: Lymphadenopathy (L), Lymphadenopathy (R) Respiratory/Chest: Respiratory Distress (Moderate tachypnea at rest 31/m. O2 sats only 82% on room air. 94% on 3 L.), Rales (Rales both lower lung temple with scattered rhonchi throughout both upper lobes anteriorly and posteriorly. No productive sounding cough.) Cardiovascular: Normal Peripheral Pulses, Regular Rate, Rhythm, No Edema, No Gallop, No Murmur GI/Abdominal: Distended ( She has a surgical scar infraumbilical compatible with bladder sling procedure. No other scars are identified distended and tympanitic to percussion throughout. Firm to palpation no organomegaly could be palpated ), Other (The abdomen is firm to palpation slightly distended and tympanitic to percussion compatible with some degree of aerophagia.) Back Exam: Normal Inspection, Full Range of Motion. No: CVA Tenderness (L), CVA Tenderness (R) Extremities: Normal Inspection, Normal Range of Motion, Non-Tender, No Pedal Edema Neurological: Alert, Oriented, CN II-XII Intact, Normal Cognition, Normal Gait, No Motor/Sensory Deficits Psychiatric: Flat Affect Skin Exam: Warm, Dry, Intact, Normal Color, Other (Patient has a circular 4.5 cm diameter lesion right upper back over the shoulder blade with no irregular edges and perhaps some mild central clearing. Etiology of this lesion is unclear.-Reports is been present for years he has no other areas of psoriasis) EKG INTERPRETATION EKG Date: 08/30/18 Time: 14:42 Rhythm: NSR Rate (Beats/Min): 93 [place]: Normal P-Wave: Enlarged QRS: Other (Etc. left atrial hypertrophy pattern there is a nonspecific intraventricular conduction delay. There is a diffuse early repolarization pattern. Q waves in leads 3 and aVF consider old inferior wall myocardial infarction) ST-T: Normal QT: Normal EKG Interpretation Comments: Abnormal ECG Course - Orders/Labs/Meds Labs: Laboratory Tests 08/30/18 08/30/18 08/30/18 Range/Units 13:55 14:49 14:50 WBC 4.62 (3.98-10.04) K/mm3 RBC 4.73 (3.98-5.22) M/mm3 Hgb 13.1 (11.2-15.7) gm/L Hct 38.8 (34.1-44.9) % MCV 82.0 (79.4-94.8) fl MCH 27.7 (25.6-32.2) pg MCHC 33.8 (32.2-35.5) g/dl RDW Std Deviation 40.4 (36.4-46.3) fL Plt Count 193 (182-369) K/mm3 MPV 9.2 L (9.4-12.3) fl Neutrophils % (Manual) 86 H (40-60) % Band Neutrophils % 3 (0-10) % Lymphocytes % (Manual) 9 L (20-40) % Atypical Lymphs % 0 % Monocytes % (Manual) 2 (2-10) % Eosinophils % (Manual) 0 L (0.7-5.8) % Basophils % (Manual) 0 L (0.1-1.2) Platelet Estimate Adequate Poikilocytosis 1+ slight Ovalocytes 1+ slight RBC Morph Comment Not Reportable ESR (0-20) mm/hr PT (9.5-12.1) SECONDS INR Sodium (136-145) mEq/L Potassium (3.5-5.1) mEq/L Chloride (98-107) mEq/L Carbon Dioxide (21-32) mEq/L Anion Gap (5-15) BUN (7-18) mg/dL Creatinine (0.55-1.02) mg/dL Est Cr Clr Drug Dosing Estimated GFR (MDRD) (>60) mL/min BUN/Creatinine Ratio (14-18) Glucose (80-115) mg/dL POC Glucose 320 H (80-115) mg/dL Lactic Acid (0.4-2.0) mmol/L Calcium (8.5-10.1) mg/dL Magnesium (1.8-2.4) mg/dl Total Bilirubin (0.2-1.0) mg/dL AST (15-37) U/L ALT (14-59) U/L Alkaline Phosphatase (46-116) U/L CK-MB (CK-2) (0-3.6) ng/ml Troponin I (0.00-0.056) ng/mL C-Reactive Protein (<1.0) mg/dL NT-Pro-B Natriuret Pep (0-125) pg/mL Total Protein (6.4-8.2) g/dl Albumin (3.4-5.0) g/dl Globulin gm/dL Albumin/Globulin Ratio (1-2) Urine Color Yellow (Yellow) Urine Appearance Slt cloudy H (Clear) Urine pH 5.5 (5.0-8.0) Ur Specific [place] 1.020 (1.005-1.030) Urine Protein 1+ H (Negative) Urine Glucose (UA) Trace H (Negative) Urine Ketones Trace H (Negative) Urine Occult Blood Negative (Negative) Urine Nitrite Negative (Negative) Urine Bilirubin Negative (Negative) Urine Urobilinogen 0.2 (0.2-1.0) Ur Leukocyte Esterase Negative (Negative) Urine RBC 0-5 (0-5) /hpf Urine WBC 5-10 H (0-5) /hpf Ur Epithelial Cells 0-5 (0-5) /hpf Urine Bacteria Moderate H (FEW) /hpf Hyaline Casts 0-5 (0-5) /lpf Urine Mucus Few (FEW) /hpf Mycoplasma pneumon IgM (NEGATIVE) 08/30/18 08/30/18 08/30/18 Range/Units 14:50 14:50 14:50 WBC (3.98-10.04) K/mm3 RBC (3.98-5.22) M/mm3 Hgb (11.2-15.7) gm/L Hct (34.1-44.9) % MCV (79.4-94.8) fl MCH (25.6-32.2) pg MCHC (32.2-35.5) g/dl RDW Std Deviation (36.4-46.3) fL Plt Count (182-369) K/mm3 MPV (9.4-12.3) fl Neutrophils % (Manual) (40-60) % Band Neutrophils % (0-10) % Lymphocytes % (Manual) (20-40) % Atypical Lymphs % % Monocytes % (Manual) (2-10) % Eosinophils % (Manual) (0.7-5.8) % Basophils % (Manual) (0.1-1.2) Platelet Estimate Poikilocytosis Ovalocytes RBC Morph Comment ESR (0-20) mm/hr PT (9.5-12.1) SECONDS INR Sodium 129 L (136-145) mEq/L Potassium 4.5 (3.5-5.1) mEq/L Chloride 93 L (98-107) mEq/L Carbon Dioxide 23 (21-32) mEq/L Anion Gap 17.5 H (5-15) BUN 32 H (7-18) mg/dL Creatinine 1.0 (0.55-1.02) mg/dL Est Cr Clr Drug Dosing TNP Estimated GFR (MDRD) 56 (>60) mL/min BUN/Creatinine Ratio 32.0 H (14-18) Glucose 296 H (80-115) mg/dL POC Glucose (80-115) mg/dL Lactic Acid 3.2 H (0.4-2.0) mmol/L Calcium 8.9 (8.5-10.1) mg/dL Magnesium 2.2 (1.8-2.4) mg/dl Total Bilirubin 0.2 (0.2-1.0) mg/dL AST 49 H (15-37) U/L ALT 37 (14-59) U/L Alkaline Phosphatase 71 (46-116) U/L CK-MB (CK-2) 0.9 (0-3.6) ng/ml Troponin I < 0.017 (0.00-0.056) ng/mL C-Reactive Protein 15.4 H* (<1.0) mg/dL NT-Pro-B Natriuret Pep 55 (0-125) pg/mL Total Protein 7.2 (6.4-8.2) g/dl Albumin 3.2 L (3.4-5.0) g/dl Globulin 4.0 gm/dL Albumin/Globulin Ratio 0.8 L (1-2) Urine Color (Yellow) Urine Appearance (Clear) Urine pH (5.0-8.0) Ur Specific [place] (1.005-1.030) Urine Protein (Negative) Urine Glucose (UA) (Negative) Urine Ketones (Negative) Urine Occult Blood (Negative) Urine Nitrite (Negative) Urine Bilirubin (Negative) Urine Urobilinogen (0.2-1.0) Ur Leukocyte Esterase (Negative) Urine RBC (0-5) /hpf Urine WBC (0-5) /hpf Ur Epithelial Cells (0-5) /hpf Urine Bacteria (FEW) /hpf Hyaline Casts (0-5) /lpf Urine Mucus (FEW) /hpf Mycoplasma pneumon IgM (NEGATIVE) 08/30/18 08/30/18 08/30/18 Range/Units 15:05 15:05 16:05 WBC (3.98-10.04) K/mm3 RBC (3.98-5.22) M/mm3 Hgb (11.2-15.7) gm/L Hct (34.1-44.9) % MCV (79.4-94.8) fl MCH (25.6-32.2) pg MCHC (32.2-35.5) g/dl RDW Std Deviation (36.4-46.3) fL Plt Count (182-369) K/mm3 MPV (9.4-12.3) fl Neutrophils % (Manual) (40-60) % Band Neutrophils % (0-10) % Lymphocytes % (Manual) (20-40) % Atypical Lymphs % % Monocytes % (Manual) (2-10) % Eosinophils % (Manual) (0.7-5.8) % Basophils % (Manual) (0.1-1.2) Platelet Estimate Poikilocytosis Ovalocytes RBC Morph Comment ESR 22 H (0-20) mm/hr PT 10.8 (9.5-12.1) SECONDS INR 0.99 Sodium (136-145) mEq/L Potassium (3.5-5.1) mEq/L Chloride (98-107) mEq/L Carbon Dioxide (21-32) mEq/L Anion Gap (5-15) BUN (7-18) mg/dL Creatinine (0.55-1.02) mg/dL Est Cr Clr Drug Dosing Estimated GFR (MDRD) (>60) mL/min BUN/Creatinine Ratio (14-18) Glucose (80-115) mg/dL POC Glucose (80-115) mg/dL Lactic Acid (0.4-2.0) mmol/L Calcium (8.5-10.1) mg/dL Magnesium (1.8-2.4) mg/dl Total Bilirubin (0.2-1.0) mg/dL AST (15-37) U/L ALT (14-59) U/L Alkaline Phosphatase (46-116) U/L CK-MB (CK-2) (0-3.6) ng/ml Troponin I (0.00-0.056) ng/mL C-Reactive Protein (<1.0) mg/dL NT-Pro-B Natriuret Pep (0-125) pg/mL Total Protein (6.4-8.2) g/dl Albumin (3.4-5.0) g/dl Globulin gm/dL Albumin/Globulin Ratio (1-2) Urine Color (Yellow) Urine Appearance (Clear) Urine pH (5.0-8.0) Ur Specific [place] (1.005-1.030) Urine Protein (Negative) Urine Glucose (UA) (Negative) Urine Ketones (Negative) Urine Occult Blood (Negative) Urine Nitrite (Negative) Urine Bilirubin (Negative) Urine Urobilinogen (0.2-1.0) Ur Leukocyte Esterase (Negative) Urine RBC (0-5) /hpf Urine WBC (0-5) /hpf Ur Epithelial Cells (0-5) /hpf Urine Bacteria (FEW) /hpf Hyaline Casts (0-5) /lpf Urine Mucus (FEW) /hpf Mycoplasma pneumon IgM Negative (NEGATIVE) 08/30/18 Range/Units 16:52 WBC (3.98-10.04) K/mm3 RBC (3.98-5.22) M/mm3 Hgb (11.2-15.7) gm/L Hct (34.1-44.9) % MCV (79.4-94.8) fl MCH (25.6-32.2) pg MCHC (32.2-35.5) g/dl RDW Std Deviation (36.4-46.3) fL Plt Count (182-369) K/mm3 MPV (9.4-12.3) fl Neutrophils % (Manual) (40-60) % Band Neutrophils % (0-10) % Lymphocytes % (Manual) (20-40) % Atypical Lymphs % % Monocytes % (Manual) (2-10) % Eosinophils % (Manual) (0.7-5.8) % Basophils % (Manual) (0.1-1.2) Platelet Estimate Poikilocytosis Ovalocytes RBC Morph Comment ESR (0-20) mm/hr PT (9.5-12.1) SECONDS INR Sodium (136-145) mEq/L Potassium (3.5-5.1) mEq/L Chloride (98-107) mEq/L Carbon Dioxide (21-32) mEq/L Anion Gap (5-15) BUN (7-18) mg/dL Creatinine (0.55-1.02) mg/dL Est Cr Clr Drug Dosing Estimated GFR (MDRD) (>60) mL/min BUN/Creatinine Ratio (14-18) Glucose (80-115) mg/dL POC Glucose 252 H (80-115) mg/dL Lactic Acid (0.4-2.0) mmol/L Calcium (8.5-10.1) mg/dL Magnesium (1.8-2.4) mg/dl Total Bilirubin (0.2-1.0) mg/dL AST (15-37) U/L ALT (14-59) U/L Alkaline Phosphatase (46-116) U/L CK-MB (CK-2) (0-3.6) ng/ml Troponin I (0.00-0.056) ng/mL C-Reactive Protein (<1.0) mg/dL NT-Pro-B Natriuret Pep (0-125) pg/mL Total Protein (6.4-8.2) g/dl Albumin (3.4-5.0) g/dl Globulin gm/dL Albumin/Globulin Ratio (1-2) Urine Color (Yellow) Urine Appearance (Clear) Urine pH (5.0-8.0) Ur Specific [place] (1.005-1.030) Urine Protein (Negative) Urine Glucose (UA) (Negative) Urine Ketones (Negative) Urine Occult Blood (Negative) Urine Nitrite (Negative) Urine Bilirubin (Negative) Urine Urobilinogen (0.2-1.0) Ur Leukocyte Esterase (Negative) Urine RBC (0-5) /hpf Urine WBC (0-5) /hpf Ur Epithelial Cells (0-5) /hpf Urine Bacteria (FEW) /hpf Hyaline Casts (0-5) /lpf Urine Mucus (FEW) /hpf Mycoplasma pneumon IgM (NEGATIVE) Meds: Medications Generic Name Dose Route Start Last Admin Trade Name Freq PRN Reason Stop Dose Admin Acetaminophen 650 mg 08/30/18 17:49 08/31/18 20:10 Tylenol PO 650 mg Q4H PRN Administration Pain (Mild 1-3)/fever Hydrocodone Bitart/Acetaminophen 1 tab 08/30/18 17:49 [place] 325-5 Mg PO Q4H PRN Pain (moderate 4-6) Alogliptin Benzoate 25 mg 08/31/18 09:45 09/01/18 09:16 Alogliptin PO 25 mg DAILY DAGOBERTO Administration Aspirin 81 mg 09/01/18 09:00 09/01/18 09:17 Halfprin PO 81 mg DAILY DAGOBERTO Administration Bisacodyl 5 mg 08/30/18 17:49 Dulcolax PO DAILY PRN Constipation Carbamazepine 400 mg 08/31/18 09:45 09/01/18 20:38 Tegretol Tab PO 400 mg BID DAGOBERTO Administration Dextrose/Water 50 ml 08/30/18 17:44 Dextrose 50% In Water IVPUSH ASDIRECTED PRN Hypoglycemia Diltiazem HCl 10 mg 09/01/18 16:43 09/02/18 06:52 Cardizem IVPUSH 10 mg Q4H PRN Administration tachy >110 Docusate Sodium 100 mg 08/30/18 17:49 Colace PO BID PRN Constipation Enoxaparin Sodium 40 mg 08/31/18 09:00 09/01/18 17:15 Lovenox SUBCUT 40 mg DAILY DAGOBERTO Administration Famotidine 20 mg 08/30/18 21:00 09/01/18 20:40 Pepcid PO 20 mg BID DAGOBERTO Administration Glimepiride 4 mg 08/31/18 17:00 09/02/18 06:07 Glimepiride PO 4 mg BIDMEALS DAGOBERTO Administration Guaifenesin/Phenylephrine HCl 10 ml 09/01/18 14:00 09/02/18 06:07 Robitussin Dm PO 10 ml TID@0700,1400,2100 DAGOBERTO Administration Hydralazine HCl 10 mg 08/30/18 17:45 Apresoline IVPUSH Q4H PRN Hypertension Hydromorphone HCl 0.25 mg 08/30/18 17:49 Dilaudid IVPUSH Q2H PRN Pain (severe 7-10) Promethazine HCl 6.25 mg/ 50.25 mls @ 100 mls/hr 08/30/18 17:49 Sodium Chloride IV Q6H PRN Nausea/Vomiting Sodium Chloride 1,000 mls @ 75 mls/hr 08/31/18 13:15 09/02/18 04:15 Normal Saline IV 75 mls/hr ASDIRECTED DAGOBERTO Administration Dexamethasone 40 mg/ Sodium 54 mls @ 108 mls/hr 08/31/18 20:30 09/02/18 06:13 Chloride IV 09/02/18 20:31 108 mls/hr BID@0700,1900 [facility] Administration Ceftriaxone Sodium 2 gm/ 100 mls @ 200 mls/hr 08/31/18 23:00 09/01/18 22:21 Sodium Chloride IV 200 mls/hr Q24H DAGOBERTO Administration Levofloxacin/Dextrose 750 mg/ 150 mls @ 100 mls/hr 09/02/18 10:30 Premix IV Q24H [facility] Insulin Human Lispro 0 unit 08/31/18 22:00 09/02/18 06:52 Humalog SUBCUT 2 units QIDACANDBED [facility] Administration Protocol Ipratropium [place] 0.5 mg 09/01/18 16:00 09/02/18 05:03 Atrovent NEB 0.5 mg QIDRT DAGOBERTO Administration Levalbuterol HCl 1.25 mg 09/01/18 16:00 09/02/18 05:03 Xopenex NEB 1.25 mg QIDRT DAGOBERTO Administration Levalbuterol HCl 1.25 mg 09/01/18 17:28 09/02/18 07:10 Xopenex NEB 1.25 mg Q2H PRN Administration sob Lorazepam 2 mg 08/30/18 17:53 Ativan IVPUSH Q4H PRN Seizures Magnesium Hydroxide 30 ml 08/30/18 17:49 Milk Of Magnesia PO Q12H PRN Constipation Metoprolol Succinate 25 mg 09/01/18 16:15 09/01/18 20:38 Toprol Xl PO 25 mg BID DAGOBERTO Administration Metoprolol Tartrate 5 mg 08/30/18 17:46 09/02/18 04:16 Lopressor IVPUSH 5 mg Q4H PRN Administration Tachycardia Oseltamivir Phosphate 75 mg 08/30/18 21:00 09/01/18 20:38 Tamiflu PO 75 mg BID [facility] Administration Polyethylene Glycol 17 gm 08/30/18 17:49 Miralax PO DAILY PRN Constipation Promethazine HCl 25 mg 08/30/18 17:49 Phenergan PO Q6H PRN Nausea/Vomiting Saccharomyces Boulardii 250 mg 08/30/18 21:00 09/01/18 20:38 Florastor PO 250 mg BID DAGOBERTO Administration Senna/Docusate Sodium 1 tab 08/30/18 17:49 Senna Plus PO BID PRN Constipation Temazepam 7.5 mg 08/30/18 17:49 Restoril PO BEDTIME PRN Sleep Discontinued Medications Generic Name Dose Route Start Last Admin Trade Name Freq PRN Reason Stop Dose Admin Acetaminophen 975 mg 08/30/18 14:26 08/30/18 14:51 Tylenol PO 08/30/18 14:27 975 mg NOW ONE Administration Albuterol 2.5 mg 08/30/18 17:49 08/31/18 23:15 Proventil Neb Soln NEB 2.5 mg Q2H PRN Administration Shortness Of Breath/wheezing Albuterol/Ipratropium 3 ml 08/30/18 17:49 08/31/18 10:44 Duoneb 3.0-0.5 Mg/3 Ml NEB 3 ml Q4H PRN Administration Shortness Of Breath/wheezing Albuterol/Ipratropium 3 ml 08/31/18 16:00 09/01/18 08:59 Duoneb 3.0-0.5 Mg/3 Ml NEB 3 ml QIDRT DAGOBERTO Administration Ampicillin Sodium Confirm 08/31/18 21:18 08/31/18 21:33 Ampicillin Administered 08/31/18 21:19 Not Given Dose 1 gm .ROUTE .STK-MED ONE Ceftriaxone Sodium 2 gm 08/31/18 16:00 Rocephin IVPUSH Q24H DAGOBERTO Dexamethasone Confirm 08/31/18 19:52 08/31/18 20:15 Dexamethasone Administered 08/31/18 19:53 Not Given Dose 40 mg .ROUTE .STK-MED ONE Dexamethasone 40 mg 09/01/18 07:00 Dexamethasone IVPUSH 09/03/18 07:01 Q12HR DAGOBERTO Furosemide 40 mg 08/30/18 14:50 08/30/18 14:58 Lasix IVPUSH 08/30/18 14:51 40 mg NOW ONE Administration Sodium Chloride 1,000 mls @ 150 mls/hr 08/30/18 14:15 08/30/18 14:26 Normal Saline IV 150 mls/hr ASDIRECTED DAGOBERTO Administration Sodium Chloride 1,000 mls @ 75 mls/hr 08/30/18 15:00 Normal Saline IV ASDIRECTED DAGOBERTO Ceftriaxone Sodium 1 gm/ 100 mls @ 200 mls/hr 08/30/18 15:59 08/30/18 16:57 Sodium Chloride IV 08/30/18 16:28 200 mls/hr ONETIME ONE Administration Azithromycin 500 mg/ Sodium 250 mls @ 250 mls/hr 08/30/18 18:00 08/30/18 21: 15 Chloride IV 250 mls/hr Q24H DAGOBERTO Administration Sodium Chloride 1,000 mls @ 125 mls/hr 08/30/18 18:00 08/31/18 00:55 Normal Saline IV 125 mls/hr ASDIRECTED DAGOBERTO Administration Ceftriaxone Sodium 1 gm/ 100 mls @ 200 mls/hr 08/30/18 18:45 08/30/18 19:28 Sodium Chloride IV 08/30/18 19:14 200 mls/hr ONETIME ONE Administration Ceftriaxone Sodium 2 gm/ 100 mls @ 200 mls/hr 08/31/18 16:00 Sodium Chloride IV Q24H DAGOBERTO Dextrose/Sodium Chloride 1,000 mls @ 125 mls/hr 08/31/18 07:45 08/31/18 08:05 Dextrose 5%-Normal Saline IV 125 mls/hr ASDIRECTED DAGOBERTO Administration Piperacillin Sod/Tazobactam 100 mls @ 200 mls/hr 08/31/18 10:00 08/31/18 11: 28 Sod 4.5 gm/ Sodium Chloride IV 08/31/18 10:29 Not Given ONETIME ONE Piperacillin Sod/Tazobactam 100 mls @ 25 mls/hr 08/31/18 18:00 08/31/18 23:34 Sod 4.5 gm/ Sodium Chloride IV Not Given Q8H DAGOBERTO Vancomycin HCl 1 gm/ Sodium 250 mls @ 250 mls/hr 08/31/18 10:30 09/01/18 21: 37 Chloride IV 250 mls/hr Q12H DAGOBERTO Administration Sodium Chloride Confirm 08/31/18 10:48 08/31/18 11:29 Normal Saline Administered 08/31/18 10:49 Not Given Dose 100 mls @ as directed .ROUTE .STK-MED ONE Piperacillin Sod/Tazobactam 100 mls @ 200 mls/hr 08/31/18 11:15 08/31/18 12: 56 Sod 4.5 gm/ Sodium Chloride IV 08/31/18 11:44 200 mls/hr ONETIME ONE Administration Magnesium Sulfate/Dextrose Confirm 08/31/18 19:52 08/31/18 20:15 Magnesium 1 Gm In D5w 100 Ml Administered 08/31/18 19:53 Not Given Dose 100 mls @ as directed .ROUTE .STK-MED ONE Acyclovir 1,000 mg/ Sodium 120 mls @ 100 mls/hr 08/31/18 20:00 09/02/18 04:09 Chloride IV 100 mls/hr Q8H DAGOBERTO Administration Ampicillin Sodium 1 gm/ Sodium 100 mls @ 200 mls/hr 08/31/18 20:00 08/31/18 23:34 Chloride IV Not Given Q4H DAGOBERTO Magnesium Sulfate 2 gm/ Premix 50 mls @ 25 mls/hr 08/31/18 20:14 08/31/18 21: 26 IV 08/31/18 22:13 Not Given ONETIME ONE Magnesium Sulfate/Dextrose 1 100 mls @ 100 mls/hr 08/31/18 20:30 08/31/18 20: 35 gm/ Premix IV 08/31/18 21:29 100 mls/hr ONETIME ONE Administration Ampicillin Sodium 1 gm/ Sodium 100 mls @ 200 mls/hr 08/31/18 21:20 09/01/18 11:17 Chloride IV Not Given Q4H DAGOBERTO Sodium Chloride Confirm 08/31/18 21:20 08/31/18 21:29 Normal Saline Administered 08/31/18 21:21 Not Given Dose 100 mls @ as directed .ROUTE .STK-MED ONE Sodium Chloride 250 mls @ 999 mls/hr 08/31/18 21:10 08/31/18 23:07 Normal Saline IV 08/31/18 21:25 Not Given ONETIME ONE Ampicillin Sodium 1 gm/ Sodium 100 mls @ 200 mls/hr 09/01/18 10:00 09/02/18 05:41 Chloride IV 200 mls/hr Q4H DAGOBERTO Administration Insulin Human Lispro 0 unit 08/30/18 22:00 08/31/18 20:54 Humalog SUBCUT 3 unit QIDACANDBED DAGOBERTO Administration Protocol Insulin Human Regular 8 unit 08/30/18 14:54 08/30/18 15:06 Humulin R SUBCUT 08/30/18 14:55 8 units ONETIME ONE Administration Ondansetron HCl 4 mg 08/30/18 14:18 08/30/18 14:29 Zofran IVPUSH 08/30/18 14:19 4 mg ONETIME ONE Administration Oseltamivir Phosphate 75 mg 08/30/18 14:42 08/30/18 15:02 Tamiflu PO 08/30/18 14:43 75 mg ONETIME ONE Administration Vancomycin HCl 1 dose 08/31/18 09:30 Pharmacy To Dose - Vancomycin .XX ASDIRECTED DAGOBERTO - Radiology Interpretation Free Text/Narrative:: 63-year-old female presents to the ED by ambulance. This was after collapse and fall to the floor in the bathroom at home. She does not appear to have suffered any injuries from the fall. She has a healing lesion to her left forehead which is a couple days old. She is febrile at 102.1 rectally. She has a very productive sounding cough suggestive of underlying pneumonia. She is an insulin- dependent diabetic and current blood sugars were 269 and I believe. She missed yesterday's insulin but hasn't eaten very much the last 2 days. There's been no nausea or vomiting. Generalized weakness. Plan septic workup to be carried out including lactic acid at this time as well as repeat in 6 hours time. - Re-Assessments/Exams Free Text/Narrative Re-Assessment/Exam: 08/30/18 14:55 portable chest x-ray reveals evidence of marked congestive failure particularly centrally. No pleural effusion is evident. The left costophrenic angle is mildly blunted by the heart this is the reason for her significant hypoxia her elevated fever and heart rate has pushed her into congestive failure. Will give her 40 mg of Lasix IV. Blood sugar is currently 320. I will therefore give her 8 units of regular insulin subcutaneously. 08/30/18 15:01 Urinalysis obtained by catheterization shows 1+ proteinuria and 5 -10 wbc's by high power field. Moderate bacteria present. Urine culture ordered the remainder the labs are not yet available. She is positive for influenza A virus. She does not receive a flu shot. Will therefore give first dose of Tamiflu 75 mg by mouth. 08/30/18 15:19 I did speak with insulation cutter and former hospitalist Dr. Petty and let him know that this patient will require admission to the hospital. I am going off shift and Dr. Enriquez is taking over her care. The only thing that isn't back is her labs. Saleem Moyeren will give him a call in the labs are back. Departure - Departure Condition: Poor - Discharge Information *PRESCRIPTION DRUG MONITORING PROGRAM REVIEWED*: Not Applicable *COPY OF PRESCRIPTION DRUG MONITORING REPORT IN PATIENT ISIAH: Not Applicable
[2018-08-30] MEDS ORDERED: Acetaminophen 325 MG Tab PO ONE (14:26)
[2018-08-30] MEDS ORDERED: Oseltamivir 75 MG Cap PO ONE (14:42)
[2018-08-30] MEDS ORDERED: Furosemide 40 MG/4 ML VIAL IVPUSH ONE (14:50)
[2018-08-30] MEDS ORDERED: Insulin Regular, Human 100 Units/ML 3 ML Vial SUBCUT ONE (14:54)
--- NOTE | 2018-08-30 15:30 | CR ---
Chest: Portable view of the chest was obtained. Comparison: No previous chest x-ray. Heart size is normal. Tortuous thoracic aorta is seen. Increased density is noted within the left mid and lower lung. Right lung shows mild increased central lung markings. Bony structures are grossly intact. Impression: 1. Findings felt compatible with mild bilateral bronchitis with areas of pneumonia within the left mid and lower lung. Diagnostic code #3
[2018-08-30] MEDS ORDERED: cefTRIAXone 1 GM in Sodium Chloride 0.9% 100 ML IV ONE ×2 (15:59→18:45)
--- NOTE | 2018-08-30 17:16 | PCM.HP ---
H&P History of Present Illness - General Date of Service: 08/30/18 Source of Information: Patient, Provider History Limitations: Reports: No Limitations - History of Present Illness Initial Comments - Free Text/Narative: This is a 63 yo female with past medical h/o HLD, HTN, GERD, Seizures on tegretol (last seizure 2002), DM2 who comes in for PNA, Influenza A, possible UTI, Sepsis. She c/o of F/C, productive cough, SOB w/ exertion, nausea, increased weakness x3 days. Denies chest pain, abdominal pain, vomiting, diarrhea or other GI/ complaints. Her initial workup in the ED shows a CBC remarkable for MPV 9.2, Neut 86% with 3 % bandemia, Lymph 9%, ESR 22. Coagulation studies show PT 10.8, INR 0.99. Her chemistry is remarkable for Na 129, Cl 93, AGap 17.5, BUN 32, GFR 56, Glu 296, POC Glu 320, LA 3.2, AST 49, CRP 15.4, Albumin 3.2. Temperature 102.2F. O2 82% RA. Mycoplasma negative. Influenza A positive. UA suspicious for UTI. CXR shows mild bilateral bronchitis with areas of PNA within the left mid and lower lung. She is subsequently admitted to the medical floor. She is a Full Code. PCP is Dr. Nasreen Edmond. - Related Data Allergies/Adverse Reactions: Allergies Allergy/AdvReac Type Severity Reaction Status Date / Time No Known Allergies Allergy Verified 08/30/18 13:55 Past Medical History Cardiovascular History: Reports: High Cholesterol, Hypertension Gastrointestinal History: Reports: GERD Neurological History: Reports: Seizure Other Neuro History: is on tegretol, last seizure in 2002 Endocrine/Metabolic History: Reports: Diabetes, Type II Social & Family History - Family History Family Medical History: Noncontributory - Tobacco Use Smoking Status *Q: Never Smoker - Caffeine Use Caffeine Use: Reports: Coffee - Recreational Drug Use Recreational Drug Use: No - Living Situation & Occupation Living situation: Reports: with Spouse Occupation: Employed H&P Review of Systems - Review of Systems: Review Of Systems: See Below General: Reports: Fever, Chills, Malaise, Weakness, Fatigue, Decreased Appetite HEENT: Reports: Glasses Pulmonary: Reports: Shortness of Breath, Wheezing, Cough, Sputum Cardiovascular: Reports: Chest Pain, Dyspnea on Exertion, Blood Pressure Problem. Denies: Orthopnea, Edema, Lightheadedness, Claudication Gastrointestinal: Reports: Decreased Appetite. Denies: Abdominal Pain, Diarrhea , Nausea, Vomiting Genitourinary: Reports: Frequency, Incontinence. Denies: Dysuria, Burning, Pain , Hematuria Musculoskeletal: Reports: Back Pain (chronic), Joint Pain (chronic) Skin: Reports: No Symptoms Psychiatric: Reports: No Symptoms Neurological: Reports: No Symptoms Hematologic/Lymphatic: Reports: No Symptoms Immunologic: Reports: No Symptoms Exam - Exam Exam: See Below - Vital Signs Vital Signs: Last Vital Signs Temp 96.9 F 08/30/18 16:50 Pulse 92 08/30/18 16:50 Resp 30 H 08/30/18 16:50 BP 108/56 L 08/30/18 16:50 Pulse Ox 92 L 08/30/18 16:50 Weight: 180 lb - Exam Quality Assessment: Supplemental Oxygen (4L NC), Urinary Catheter, DVT Prophylaxis General: Alert, Oriented, Cooperative HEENT: Conjunctiva Clear, EACs Clear, EOMI, Hearing Intact, Mucosa Moist & [place] , Nares Patent, Normal Nasal Septum, Posterior Pharynx Clear, PERRLA Neck: Supple, Trachea Midline, 2 Lungs: Rales (lower lungs), Rhonchi (upper lungs) Cardiovascular: Regular Rate, Regular Rhythm GI/Abdominal Exam: Normal Bowel Sounds, Soft, Non-Tender, No Organomegaly, No Distention, No Abnormal Bruit, No Mass, Pelvis Stable (Female) Exam: Deferred Rectal (Female) Exam: Deferred Back Exam: Normal Inspection Extremities: Normal Inspection, Normal Range of Motion, Non-Tender, No Pedal Edema, Normal Capillary Refill Peripheral Pulses: 2+: Posterior Tibial (L), Posterior Tibial (R), Dorsalis Pedis (L), Dorsalis Pedis (R) Skin: Warm, Dry, Intact Neurological: Cranial Nerves Intact (grossly) Neuro Extensive - Mental Status: Alert, Oriented x3, Normal Mood/Affect, Normal Cognition, Memory Intact Psychiatric: Alert, Other (flat affect) - Patient Data Lab Results Last 24 hrs: Laboratory Results - last 24 hr 08/30/18 08/30/18 08/30/18 Range/Units 13:55 14:49 14:50 WBC 4.62 (3.98-10.04) K/mm3 RBC 4.73 (3.98-5.22) M/mm3 Hgb 13.1 (11.2-15.7) gm/L Hct 38.8 (34.1-44.9) % MCV 82.0 (79.4-94.8) fl MCH 27.7 (25.6-32.2) pg MCHC 33.8 (32.2-35.5) g/dl RDW Std Deviation 40.4 (36.4-46.3) fL Plt Count 193 (182-369) K/mm3 MPV 9.2 L (9.4-12.3) fl Neutrophils % (Manual) 86 H (40-60) % Band Neutrophils % 3 (0-10) % Lymphocytes % (Manual) 9 L (20-40) % Atypical Lymphs % 0 % Monocytes % (Manual) 2 (2-10) % Eosinophils % (Manual) 0 L (0.7-5.8) % Basophils % (Manual) 0 L (0.1-1.2) Platelet Estimate Adequate Poikilocytosis 1+ slight Ovalocytes 1+ slight RBC Morph Comment Not Reportable ESR (0-20) mm/hr PT (9.5-12.1) SECONDS INR Sodium (136-145) mEq/L Potassium (3.5-5.1) mEq/L Chloride (98-107) mEq/L Carbon Dioxide (21-32) mEq/L Anion Gap (5-15) BUN (7-18) mg/dL Creatinine (0.55-1.02) mg/dL Est Cr Clr Drug Dosing Estimated GFR (MDRD) (>60) mL/min BUN/Creatinine Ratio (14-18) Glucose (80-115) mg/dL POC Glucose 320 H (80-115) mg/dL Lactic Acid (0.4-2.0) mmol/L Calcium (8.5-10.1) mg/dL Magnesium (1.8-2.4) mg/dl Total Bilirubin (0.2-1.0) mg/dL AST (15-37) U/L ALT (14-59) U/L Alkaline Phosphatase (46-116) U/L CK-MB (CK-2) (0-3.6) ng/ml Troponin I (0.00-0.056) ng/mL C-Reactive Protein (<1.0) mg/dL NT-Pro-B Natriuret Pep (0-125) pg/mL Total Protein (6.4-8.2) g/dl Albumin (3.4-5.0) g/dl Globulin gm/dL Albumin/Globulin Ratio (1-2) Urine Color Yellow (Yellow) Urine Appearance Slt cloudy H (Clear) Urine pH 5.5 (5.0-8.0) Ur Specific Brice 1.020 (1.005-1.030) Urine Protein 1+ H (Negative) Urine Glucose (UA) Trace H (Negative) Urine Ketones Trace H (Negative) Urine Occult Blood Negative (Negative) Urine Nitrite Negative (Negative) Urine Bilirubin Negative (Negative) Urine Urobilinogen 0.2 (0.2-1.0) Ur Leukocyte Esterase Negative (Negative) Urine RBC 0-5 (0-5) /hpf Urine WBC 5-10 H (0-5) /hpf Ur Epithelial Cells 0-5 (0-5) /hpf Urine Bacteria Moderate H (FEW) /hpf Hyaline Casts 0-5 (0-5) /lpf Urine Mucus Few (FEW) /hpf Mycoplasma pneumon IgM (NEGATIVE) 08/30/18 08/30/18 08/30/18 Range/Units 14:50 14:50 14:50 WBC (3.98-10.04) K/mm3 RBC (3.98-5.22) M/mm3 Hgb (11.2-15.7) gm/L Hct (34.1-44.9) % MCV (79.4-94.8) fl MCH (25.6-32.2) pg MCHC (32.2-35.5) g/dl RDW Std Deviation (36.4-46.3) fL Plt Count (182-369) K/mm3 MPV (9.4-12.3) fl Neutrophils % (Manual) (40-60) % Band Neutrophils % (0-10) % Lymphocytes % (Manual) (20-40) % Atypical Lymphs % % Monocytes % (Manual) (2-10) % Eosinophils % (Manual) (0.7-5.8) % Basophils % (Manual) (0.1-1.2) Platelet Estimate Poikilocytosis Ovalocytes RBC Morph Comment ESR (0-20) mm/hr PT (9.5-12.1) SECONDS INR Sodium 129 L (136-145) mEq/L Potassium 4.5 (3.5-5.1) mEq/L Chloride 93 L (98-107) mEq/L Carbon Dioxide 23 (21-32) mEq/L Anion Gap 17.5 H (5-15) BUN 32 H (7-18) mg/dL Creatinine 1.0 (0.55-1.02) mg/dL Est Cr Clr Drug Dosing TNP Estimated GFR (MDRD) 56 (>60) mL/min BUN/Creatinine Ratio 32.0 H (14-18) Glucose 296 H (80-115) mg/dL POC Glucose (80-115) mg/dL Lactic Acid 3.2 H (0.4-2.0) mmol/L Calcium 8.9 (8.5-10.1) mg/dL Magnesium 2.2 (1.8-2.4) mg/dl Total Bilirubin 0.2 (0.2-1.0) mg/dL AST 49 H (15-37) U/L ALT 37 (14-59) U/L Alkaline Phosphatase 71 (46-116) U/L CK-MB (CK-2) 0.9 (0-3.6) ng/ml Troponin I < 0.017 (0.00-0.056) ng/mL C-Reactive Protein 15.4 H* (<1.0) mg/dL NT-Pro-B Natriuret Pep 55 (0-125) pg/mL Total Protein 7.2 (6.4-8.2) g/dl Albumin 3.2 L (3.4-5.0) g/dl Globulin 4.0 gm/dL Albumin/Globulin Ratio 0.8 L (1-2) Urine Color (Yellow) Urine Appearance (Clear) Urine pH (5.0-8.0) Ur Specific Brice (1.005-1.030) Urine Protein (Negative) Urine Glucose (UA) (Negative) Urine Ketones (Negative) Urine Occult Blood (Negative) Urine Nitrite (Negative) Urine Bilirubin (Negative) Urine Urobilinogen (0.2-1.0) Ur Leukocyte Esterase (Negative) Urine RBC (0-5) /hpf Urine WBC (0-5) /hpf Ur Epithelial Cells (0-5) /hpf Urine Bacteria (FEW) /hpf Hyaline Casts (0-5) /lpf Urine Mucus (FEW) /hpf Mycoplasma pneumon IgM (NEGATIVE) 08/30/18 08/30/18 08/30/18 Range/Units 15:05 15:05 16:05 WBC (3.98-10.04) K/mm3 RBC (3.98-5.22) M/mm3 Hgb (11.2-15.7) gm/L Hct (34.1-44.9) % MCV (79.4-94.8) fl MCH (25.6-32.2) pg MCHC (32.2-35.5) g/dl RDW Std Deviation (36.4-46.3) fL Plt Count (182-369) K/mm3 MPV (9.4-12.3) fl Neutrophils % (Manual) (40-60) % Band Neutrophils % (0-10) % Lymphocytes % (Manual) (20-40) % Atypical Lymphs % % Monocytes % (Manual) (2-10) % Eosinophils % (Manual) (0.7-5.8) % Basophils % (Manual) (0.1-1.2) Platelet Estimate Poikilocytosis Ovalocytes RBC Morph Comment ESR 22 H (0-20) mm/hr PT 10.8 (9.5-12.1) SECONDS INR 0.99 Sodium (136-145) mEq/L Potassium (3.5-5.1) mEq/L Chloride (98-107) mEq/L Carbon Dioxide (21-32) mEq/L Anion Gap (5-15) BUN (7-18) mg/dL Creatinine (0.55-1.02) mg/dL Est Cr Clr Drug Dosing Estimated GFR (MDRD) (>60) mL/min BUN/Creatinine Ratio (14-18) Glucose (80-115) mg/dL POC Glucose (80-115) mg/dL Lactic Acid (0.4-2.0) mmol/L Calcium (8.5-10.1) mg/dL Magnesium (1.8-2.4) mg/dl Total Bilirubin (0.2-1.0) mg/dL AST (15-37) U/L ALT (14-59) U/L Alkaline Phosphatase (46-116) U/L CK-MB (CK-2) (0-3.6) ng/ml Troponin I (0.00-0.056) ng/mL C-Reactive Protein (<1.0) mg/dL NT-Pro-B Natriuret Pep (0-125) pg/mL Total Protein (6.4-8.2) g/dl Albumin (3.4-5.0) g/dl Globulin gm/dL Albumin/Globulin Ratio (1-2) Urine Color (Yellow) Urine Appearance (Clear) Urine pH (5.0-8.0) Ur Specific [place] (1.005-1.030) Urine Protein (Negative) Urine Glucose (UA) (Negative) Urine Ketones (Negative) Urine Occult Blood (Negative) Urine Nitrite (Negative) Urine Bilirubin (Negative) Urine Urobilinogen (0.2-1.0) Ur Leukocyte Esterase (Negative) Urine RBC (0-5) /hpf Urine WBC (0-5) /hpf Ur Epithelial Cells (0-5) /hpf Urine Bacteria (FEW) /hpf Hyaline Casts (0-5) /lpf Urine Mucus (FEW) /hpf Mycoplasma pneumon IgM Negative (NEGATIVE) 08/30/18 Range/Units 16:52 WBC (3.98-10.04) K/mm3 RBC (3.98-5.22) M/mm3 Hgb (11.2-15.7) gm/L Hct (34.1-44.9) % MCV (79.4-94.8) fl MCH (25.6-32.2) pg MCHC (32.2-35.5) g/dl RDW Std Deviation (36.4-46.3) fL Plt Count (182-369) K/mm3 MPV (9.4-12.3) fl Neutrophils % (Manual) (40-60) % Band Neutrophils % (0-10) % Lymphocytes % (Manual) (20-40) % Atypical Lymphs % % Monocytes % (Manual) (2-10) % Eosinophils % (Manual) (0.7-5.8) % Basophils % (Manual) (0.1-1.2) Platelet Estimate Poikilocytosis Ovalocytes RBC Morph Comment ESR (0-20) mm/hr PT (9.5-12.1) SECONDS INR Sodium (136-145) mEq/L Potassium (3.5-5.1) mEq/L Chloride (98-107) mEq/L Carbon Dioxide (21-32) mEq/L Anion Gap (5-15) BUN (7-18) mg/dL Creatinine (0.55-1.02) mg/dL Est Cr Clr Drug Dosing Estimated GFR (MDRD) (>60) mL/min BUN/Creatinine Ratio (14-18) Glucose (80-115) mg/dL POC Glucose 252 H (80-115) mg/dL Lactic Acid (0.4-2.0) mmol/L Calcium (8.5-10.1) mg/dL Magnesium (1.8-2.4) mg/dl Total Bilirubin (0.2-1.0) mg/dL AST (15-37) U/L ALT (14-59) U/L Alkaline Phosphatase (46-116) U/L CK-MB (CK-2) (0-3.6) ng/ml Troponin I (0.00-0.056) ng/mL C-Reactive Protein (<1.0) mg/dL NT-Pro-B Natriuret Pep (0-125) pg/mL Total Protein (6.4-8.2) g/dl Albumin (3.4-5.0) g/dl Globulin gm/dL Albumin/Globulin Ratio (1-2) Urine Color (Yellow) Urine Appearance (Clear) Urine pH (5.0-8.0) Ur Specific [place]ice (1.005-1.030) Urine Protein (Negative) Urine Glucose (UA) (Negative) Urine Ketones (Negative) Urine Occult Blood (Negative) Urine Nitrite (Negative) Urine Bilirubin (Negative) Urine Urobilinogen (0.2-1.0) Ur Leukocyte Esterase (Negative) Urine RBC (0-5) /hpf Urine WBC (0-5) /hpf Ur Epithelial Cells (0-5) /hpf Urine Bacteria (FEW) /hpf Hyaline Casts (0-5) /lpf Urine Mucus (FEW) /hpf Mycoplasma pneumon IgM (NEGATIVE) Result Diagrams: 08/30/18 14:50 08/30/18 14:50 Alireza Results Last 24 hrs: Microbiology 08/30/18 14:05 Influenza Type A Antigen Screen - Final Nasal, Left Positive Influenza A Ag Influenza Type B Antigen Screen - Final NEGATIVE INFLUENZA B VIRUS AG - Problem List (1) Influenza A SNOMED Code(s): 620264259 ICD Code: J10.1 - FLU DUE TO OTH IDENT INFLUENZA VIRUS W OTH RESP MANIFEST Status: Acute Priority: High Current Visit: Yes (2) Type 2 diabetes mellitus SNOMED Code(s): 27383875 ICD Code: E11.9 - TYPE 2 DIABETES MELLITUS WITHOUT COMPLICATIONS Status: Acute Priority: High Current Visit: Yes Qualifiers: Diabetes mellitus residential insulin use: with residential use Diabetes mellitus complication status: with hyperglycemia Qualified Code(s): E11.65 - Type 2 diabetes mellitus with hyperglycemia; Z79.4 - senior living (current) use of insulin (3) PNA (pneumonia) SNOMED Code(s): 614736276 ICD Code: J18.9 - PNEUMONIA, UNSPECIFIED ORGANISM Status: Acute Priority : High Current Visit: Yes Qualifiers: Pneumonia type: due to unspecified organism Laterality: left Lung location: lower lobe of lung Qualified Code(s): J18.1 - Lobar pneumonia, unspecified organism (4) Sepsis SNOMED Code(s): 77022294 ICD Code: A41.9 - SEPSIS, UNSPECIFIED ORGANISM Status: Acute Priority: High Current Visit: Yes Qualifiers: Sepsis type: sepsis due to unspecified organism Qualified Code(s): A41.9 - Sepsis, unspecified organism Problem List Initiated/Reviewed/Updated: Yes Orders Last 24hrs: Active Orders 24 hr Category Date Time Status Blood Glucose Check, Bedside [RC] ONETIME Care 08/30/18 14:21 Active EKG Documentation Completion [RC] STAT Care 08/30/18 14:21 Active Insert Kam Catheter [Insert Urinary Catheter] [OM.PC] Care 08/30/18 13:30 Ordered Stat Oxygen Therapy [RC] ASDIRECTED Care 08/30/18 14:22 Active Oxygen Therapy [RC] ASDIRECTED Care 08/30/18 14:28 Active Urinary Catheter Assessment [RC] ASDIRECTED Care 08/30/18 13:30 Active CULTURE BLOOD [BC] Stat Lab 08/30/18 14:50 Received CULTURE BLOOD [BC] Stat Lab 08/30/18 15:05 Received CULTURE URINE [RM] Stat Lab 08/30/18 15:12 Ordered LACTATE SEPSIS W/ REFLEX [CHEM] Routine Lab 08/30/18 19:00 Ordered LACTIC ACID [CHEM] Stat Lab 08/30/18 20:23 Ordered Sodium Chloride 0.9% [Normal Saline] 1,000 ml Med 08/30/18 15:00 Active IV ASDIRECTED Blood Culture x2 Reflex Set [OM.PC] Stat Oth 08/30/18 14:22 Ordered Medication Orders Sodium Chloride (Normal Saline) 1,000 mls @ 75 mls/hr IV ASDIRECTED DAGOBERTO Assessment/Plan Comment:: Assessment/Plan: Acute: PNA L lower and mid lung w/ hypoxia * Fever, productive cough, SOB w/ exertion x 3 days * O2 82% RA--> 92% 4L NC * No leukocytosis, Neut 86% with 3% bandemia, CRP 15.4 * CXR: Findings felt compatible with mild bilateral bronchitis with areas of pneumonia within the left mid and lower lung. * Mycoplasma negative * RVP, Strep pneumo, Sputum culture pending * RT/Duonebs/IS/Acapella * Repeat CXR in 2 days * Rocephin started in ED--> Continue and add Azithromycin Influenza A * Fever and increased weakness x3 days * Tamiflu started in ED--> continue BID Possible UTI * Risk factors: Frequency, Incontinence * UA suspicious for UTI * Urine culture pending * Rocephin started in ED--> continue Sepsis, Improving * Likely 2/2 above * Temperature 102.2F, Hypoxic, Tachypneic, Tachycardia, source of infection present * LA 3.2--> 2.1 * Serial LA * Rocephin started in ED--> continue * IVF started in ED--> continue * Blood cultures pending Dehydration * Likely 2/2 decreased intake * AGap 17.5 * IVF started in ED--> Continue * Monitor Hyperglycemia w/ DM2 * She missed a dose of insulin yesterday, didn't take her insulin this AM * Blood sugar this AM 389, Blood sugar in ED 320 * Blood glucose checks, insulin sliding scale * A1C pending Chronic: HLD * Lipids pending HTN GERD Seizures on Tegretol (last seizure 2002) DM2 Plan: Admit to Medical Floor Droplet precautions Routine AM Labs ADA diet DVT/GI prophylaxis CM/SW PT/OT Code Status: Full Code; PCP: Dr. Nasreen Edmond
[2018-08-30] MEDS ORDERED: 50% Dextrose in Water 50 ML Syringe IVPUSH PRN (17:44)
[2018-08-30] MEDS ORDERED: Temazepam 7.5 MG Cap PO PRN (17:49)
[2018-08-30] MEDS ORDERED: Magnesium Hydroxide 400 MG/5 ML Susp 30 ML Cup PO PRN (17:49)
[2018-08-30] MEDS ORDERED: Polyethylene Glycol 3350 Powder 17 GM Packet PO PRN (17:49)
[2018-08-30] MEDS ORDERED: Acetaminophen/HYDROcodone 325-5 MG Tab PO PRN (17:49)
[2018-08-30] MEDS ORDERED: HYDROmorphone 1 MG/ML Syringe IVPUSH PRN (17:49)
[2018-08-30] MEDS ORDERED: Promethazine 25 MG Tab PO PRN (17:49)
[2018-08-30] MEDS ORDERED: Promethazine 6.25 MG in Sodium Chloride 0.9% 50 ML IV PRN (17:49)
[2018-08-30] MEDS ORDERED: Docusate Sodium 100 MG Cap PO PRN (17:49)
[2018-08-30] MEDS ORDERED: Bisacodyl 5 MG Tab PO PRN (17:49)
[2018-08-30] MEDS ORDERED: LORazepam 2 MG/ML SDV IVPUSH PRN (17:53)
[2018-08-30] MEDS ORDERED: Azithromycin 500 MG in Sodium Chloride 0.9% 250 ML IV SCH (18:00)
[2018-08-30] MEDS: Albuterol/Ipratropium 3.0-0.5 MG/3 ML Neb Soln NEB PRN (20:06)
[2018-08-30] MEDS: Sodium Chloride 0.9% 1,000 ML IV SCH (20:50)
[2018-08-30] MEDS: Saccharomyces Boulardii (Probiotic) 250 MG Cap PO SCH (21:22)
[2018-08-30] MEDS: Famotidine 20 MG Tab PO SCH (21:24)
[2018-08-30] MEDS: Oseltamivir 75 MG Cap PO SCH (21:24)
[2018-08-30] MEDS: Insulin Lispro 100 UNIT/ML 10 ML VIAL SUBCUT SCH (21:43)
[2018-08-31] MEDS: Acetaminophen 325 MG Tab PO PRN ×3 (00:54→20:10)
[2018-08-31] MEDS: Sodium Chloride 0.9% 1,000 ML IV SCH ×2 (00:55→15:29)
[2018-08-31] MEDS: Albuterol/Ipratropium 3.0-0.5 MG/3 ML Neb Soln NEB PRN ×2 (05:33→10:44)
[2018-08-31] MEDS: Insulin Lispro 100 UNIT/ML 10 ML VIAL SUBCUT SCH ×5 (06:52→22:57)
[2018-08-31 06:59] LABS: HEMOGLOBIN A1C 7.7 % (4.50-6.20)
[2018-08-31] MEDS ORDERED: Dextrose 5%-0.9% NaCl 1,000 ML IV SCH (07:45)
[2018-08-31] MEDS: Albuterol 0.083% 2.5 MG/3 ML Neb Soln NEB PRN ×2 (07:58→23:15)
[2018-08-31] MEDS: Famotidine 20 MG Tab PO SCH ×2 (08:48→23:07)
[2018-08-31] MEDS: Saccharomyces Boulardii (Probiotic) 250 MG Cap PO SCH ×2 (08:48→23:07)
[2018-08-31] MEDS: Oseltamivir 75 MG Cap PO SCH ×2 (08:48→23:07)
[2018-08-31] MEDS ORDERED: Piperacillin/Tazobactam 4.5 GM in Sodium Chloride 0.9% 100 ML IV ONE ×2 (10:00→11:15)
--- NOTE | 2018-08-31 10:00 | CT ---
Head CT Technique: Multiple axial sections through the brain were obtained. Intravenous contrast was not utilized. Comparison: No prior intracranial imaging is available. Findings: Ventricles along with basal cisterns and sulci over the convexities are mildly prominent. No abnormal parenchymal densities are seen. No evidence of intracranial hemorrhage. No midline shift or mass effect is seen. Bone window settings were reviewed which show mucosal thickening within the ethmoid and sphenoid sinus. Minimal mucosal thickening is seen within a portion of the inferior right mastoid sinuses. No acute calvarial abnormality is appreciated. Impression: 1. Sinus disease most likely chronic if patient has no acute symptoms. 2. Mild generalized atrophy. 3. Nothing acute is otherwise seen on noncontrast head CT exam. Diagnostic code #2
[2018-08-31] MEDS ORDERED: Sodium Chloride 0.9% 100 ML ONE ×2 (10:48→21:20)
[2018-08-31] MEDS: Enoxaparin 40 MG/0.4 ML Syringe SUBCUT SCH (10:54)
[2018-08-31] MEDS: carBAMazepine 200 MG Tab PO SCH ×2 (10:54→23:06)
--- NOTE | 2018-08-31 12:27 | PCM.SN ---
- Free Text/Narrative Note: Notified by nursing this AM that Shereen has been having worsening mental status and increased oxygen demand. Chart reviewed and it was noted patient fell in bathroom and was found by . At bedside patient was more alert and neuro exam was negative. Head CT scan was ordered and was negative for acute findings. Lactic acid was noted to be elevated on admission and repeat lactic acid was drawn and WNL. Patient has had continuing fevers so antibiotics were changed to zosyn and Vancomycin after discussion with Dr. Petty. Chest physiotherapy was ordered. ABG was obtained noting low oxygen saturations and RT was going to work with patient on this aggressively. CT of chest ordered. Of note patient does had left sided eyelid droop and small tremor on left hand that reports is baseline for her. Plan to repeat ABG later this afternoon. Patient was up to bathroom with nursing and no deficits were noted then aside from her being sleepy. CT of chest is back showing worsening densities in both lungs and swollen lymph nodes, most likely 2/2 infectious process. Patient was also placed on continuous pulse oximetry.
--- NOTE | 2018-08-31 13:39 | CT ---
CT chest Technique: Multiple axial sections through the chest were obtained from above the lung apices inferiorly through the lung bases. Intravenous contrast was not utilized. Comparison: Previous chest x-ray of 08/30/18. Findings: Slightly prominent mediastinal and right hilar lymph nodes are seen. Fullness to the left hilum is seen uncertain if this is due to lymph nodes or vascular structures. Lymph nodes may be prominent on an inflammatory basis. Aorta shows no aneurysm. No pericardial thickening is seen. Small portion of the noncontrast visualized upper abdomen appears within normal limits. Diffuse scattered parenchymal densities are seen within both sides of the chest being more confluent within the lingula and within both lower lungs. No pleural effusions are seen. No acute bony abnormality is identified. Impression: 1. Diffuse parenchymal densities throughout both size of the chest more confluent within the lingula and within both lower lungs. Findings have progressed from prior chest x-ray. Findings are most likely infectious in etiology. Continued follow-up is recommended. 2. Mildly prominent lymph nodes most likely on an inflammatory basis from the lung process. Diagnostic code #3
--- NOTE | 2018-08-31 15:31 | PCM.PN ---
- General Info Date of Service: 08/31/18 Admission Dx/Problem (Free Text): Influenza A Subjective Update: In to see Shereen. She is laying comfortably in bed sleeping. She awakens when I say her name, but does not open her eyes. She is able to answer all questions, she is A+O x3, so at this point this seems to be more of lethargy than AMS which was a concern this AM. Her Head CT came back showing no acute changes. Lactic Acid has trended down. Procalcitonin pending. Her need for O2 has increased as she is now 91% on 12L O2. RT working with her and giving treatments and chest physiotherapy. ABG and repeat ABG done showing low O2 saturation. CT chest showed worsening densities within the lungs. She did have continuous fever per morning report, so antibiotics have been switched to Zosyn and Vanco for more aggressive treatment. Will monitor progress. May need to consider LP if she starts to have AMS. No other concerns from nursing at this time. Will discuss results with when he returns to the hospital. Functional Status: Reports: Pain Controlled, Tolerating Diet, Ambulating, Urinating - Review of Systems General: Reports: Fatigue, Malaise. Denies: Fever, Chills HEENT: Reports: Glasses Pulmonary: Reports: Shortness of Breath, Cough, Sputum Cardiovascular: Reports: Dyspnea on Exertion. Denies: Chest Pain, Edema Gastrointestinal: Reports: No Symptoms. Denies: Abdominal Pain, Diarrhea, Difficulty Swallowing, Nausea, Vomiting Genitourinary: Reports: Frequency, Incontinence. Denies: Dysuria, Burning, Pain , Urgency Musculoskeletal: Reports: No Symptoms Skin: Reports: No Symptoms Neurological: Reports: Pre-Existing Deficit (left sided eyelid droop and small tremor on left hand, baseline per ), Weakness. Denies: Confusion Psychiatric: Reports: No Symptoms. Denies: Confusion - Patient Data Vitals - Most Recent: Last Vital Signs Temp 98.6 F 08/31/18 11:27 Pulse 90 08/31/18 11:30 Resp 24 H 08/31/18 11:27 BP 136/53 L 08/31/18 11:27 Pulse Ox 92 L 08/31/18 11:30 Weight - Most Recent: 200 lb 8 oz I&O - Last 24 Hours: Intake & Output 08/31/18 08/31/18 08/31/18 06:59 14:59 22:59 Intake Total 1883 300 Balance 1883 300 Lab Results Last 24 Hours: Laboratory Results - last 24 hr 08/30/18 08/30/18 08/30/18 Range/Units 14:50 14:50 14:50 WBC 4.62 (3.98-10.04) K/mm3 RBC 4.73 (3.98-5.22) M/mm3 Hgb 13.1 (11.2-15.7) gm/L Hct 38.8 (34.1-44.9) % MCV 82.0 (79.4-94.8) fl MCH 27.7 (25.6-32.2) pg MCHC 33.8 (32.2-35.5) g/dl RDW Std Deviation 40.4 (36.4-46.3) fL Plt Count 193 (182-369) K/mm3 MPV 9.2 L (9.4-12.3) fl Neut % (Auto) (34.0-71.1) % Lymph % (Auto) (19.3-51.7) % [place] % (Auto) (4.7-12.5) % Eos % (Auto) (0.7-5.8) Baso % (Auto) (0.1-1.2) % Neut # (Auto) (1.56-6.13) K/mm3 Lymph # (Auto) (1.18-3.74) K/mm3 [place] # (Auto) (0.24-0.36) K/mm3 Eos # (Auto) (0.04-0.36) K/mm3 Baso # (Auto) (0.01-0.08) K/mm3 Neutrophils % (Manual) 86 H (40-60) % Band Neutrophils % 3 (0-10) % Lymphocytes % (Manual) 9 L (20-40) % Atypical Lymphs % 0 % Monocytes % (Manual) 2 (2-10) % Eosinophils % (Manual) 0 L (0.7-5.8) % Basophils % (Manual) 0 L (0.1-1.2) Manual Slide Review Platelet Estimate Adequate Poikilocytosis 1+ slight Ovalocytes 1+ slight RBC Morph Comment Not Reportable ESR (0-20) mm/hr PT (9.5-12.1) SECONDS INR Puncture Site ABG pH (7.35-7.45) ABG pCO2 (35.0-45.0) mmHg ABG pO2 (80.0-100.0) mmHg ABG HCO3 (22.0-26.0) meq/L ABG O2 Saturation (96.0-97.0) % ABG Base Excess (-2-2.0) Aston Test O2 Delivery Device Oxygen Flow Rate FiO2 (21.00-100.00) % Pressure Support cmH2O Sodium 129 L (136-145) mEq/L Potassium 4.5 (3.5-5.1) mEq/L Chloride 93 L (98-107) mEq/L Carbon Dioxide 23 (21-32) mEq/L Anion Gap 17.5 H (5-15) BUN 32 H (7-18) mg/dL Creatinine 1.0 (0.55-1.02) mg/dL Est Cr Clr Drug Dosing TNP Estimated GFR (MDRD) 56 (>60) mL/min BUN/Creatinine Ratio 32.0 H (14-18) Glucose 296 H (80-115) mg/dL POC Glucose (80-115) mg/dL Hemoglobin A1c (4.50-6.20) % Lactic Acid (0.4-2.0) mmol/L Calcium 8.9 (8.5-10.1) mg/dL Magnesium 2.2 (1.8-2.4) mg/dl Total Bilirubin 0.2 (0.2-1.0) mg/dL AST 49 H (15-37) U/L ALT 37 (14-59) U/L Alkaline Phosphatase 71 (46-116) U/L CK-MB (CK-2) 0.9 (0-3.6) ng/ml Troponin I < 0.017 (0.00-0.056) ng/mL C-Reactive Protein 15.4 H* (<1.0) mg/dL NT-Pro-B Natriuret Pep 55 (0-125) pg/mL Total Protein 7.2 (6.4-8.2) g/dl Albumin 3.2 L (3.4-5.0) g/dl Globulin 4.0 gm/dL Albumin/Globulin Ratio 0.8 L (1-2) Triglycerides (<150) mg/dL Cholesterol (<200) mg/dL LDL Cholesterol Direct (<100) mg/dL HDL Cholesterol (40-59) mg/dL Mycoplasma pneumon IgM (NEGATIVE) MRSA (PCR) 08/30/18 08/30/18 08/30/18 Range/Units 14:50 15:05 15:05 WBC (3.98-10.04) K/mm3 RBC (3.98-5.22) M/mm3 Hgb (11.2-15.7) gm/L Hct (34.1-44.9) % MCV (79.4-94.8) fl MCH (25.6-32.2) pg MCHC (32.2-35.5) g/dl RDW Std Deviation (36.4-46.3) fL Plt Count (182-369) K/mm3 MPV (9.4-12.3) fl Neut % (Auto) (34.0-71.1) % Lymph % (Auto) (19.3-51.7) % [place] % (Auto) (4.7-12.5) % Eos % (Auto) (0.7-5.8) Baso % (Auto) (0.1-1.2) % Neut # (Auto) (1.56-6.13) K/mm3 Lymph # (Auto) (1.18-3.74) K/mm3 [place] # (Auto) (0.24-0.36) K/mm3 Eos # (Auto) (0.04-0.36) K/mm3 Baso # (Auto) (0.01-0.08) K/mm3 Neutrophils % (Manual) (40-60) % Band Neutrophils % (0-10) % Lymphocytes % (Manual) (20-40) % Atypical Lymphs % % Monocytes % (Manual) (2-10) % Eosinophils % (Manual) (0.7-5.8) % Basophils % (Manual) (0.1-1.2) Manual Slide Review Platelet Estimate Poikilocytosis Ovalocytes RBC Morph Comment ESR 22 H (0-20) mm/hr PT 10.8 (9.5-12.1) SECONDS INR 0.99 Puncture Site ABG pH (7.35-7.45) ABG pCO2 (35.0-45.0) mmHg ABG pO2 (80.0-100.0) mmHg ABG HCO3 (22.0-26.0) meq/L ABG O2 Saturation (96.0-97.0) % ABG Base Excess (-2-2.0) Aston Test O2 Delivery Device Oxygen Flow Rate FiO2 (21.00-100.00) % Pressure Support cmH2O Sodium (136-145) mEq/L Potassium (3.5-5.1) mEq/L Chloride (98-107) mEq/L Carbon Dioxide (21-32) mEq/L Anion Gap (5-15) BUN (7-18) mg/dL Creatinine (0.55-1.02) mg/dL Est Cr Clr Drug Dosing Estimated GFR (MDRD) (>60) mL/min BUN/Creatinine Ratio (14-18) Glucose (80-115) mg/dL POC Glucose (80-115) mg/dL Hemoglobin A1c (4.50-6.20) % Lactic Acid 3.2 H (0.4-2.0) mmol/L Calcium (8.5-10.1) mg/dL Magnesium (1.8-2.4) mg/dl Total Bilirubin (0.2-1.0) mg/dL AST (15-37) U/L ALT (14-59) U/L Alkaline Phosphatase (46-116) U/L CK-MB (CK-2) (0-3.6) ng/ml Troponin I (0.00-0.056) ng/mL C-Reactive Protein (<1.0) mg/dL NT-Pro-B Natriuret Pep (0-125) pg/mL Total Protein (6.4-8.2) g/dl Albumin (3.4-5.0) g/dl Globulin gm/dL Albumin/Globulin Ratio (1-2) Triglycerides (<150) mg/dL Cholesterol (<200) mg/dL LDL Cholesterol Direct (<100) mg/dL HDL Cholesterol (40-59) mg/dL Mycoplasma pneumon IgM (NEGATIVE) MRSA (PCR) 08/30/18 08/30/18 08/30/18 Range/Units 16:05 16:52 18:55 WBC (3.98-10.04) K/mm3 RBC (3.98-5.22) M/mm3 Hgb (11.2-15.7) gm/L Hct (34.1-44.9) % MCV (79.4-94.8) fl MCH (25.6-32.2) pg MCHC (32.2-35.5) g/dl RDW Std Deviation (36.4-46.3) fL Plt Count (182-369) K/mm3 MPV (9.4-12.3) fl Neut % (Auto) (34.0-71.1) % Lymph % (Auto) (19.3-51.7) % [place] % (Auto) (4.7-12.5) % Eos % (Auto) (0.7-5.8) Baso % (Auto) (0.1-1.2) % Neut # (Auto) (1.56-6.13) K/mm3 Lymph # (Auto) (1.18-3.74) K/mm3 [place] # (Auto) (0.24-0.36) K/mm3 Eos # (Auto) (0.04-0.36) K/mm3 Baso # (Auto) (0.01-0.08) K/mm3 Neutrophils % (Manual) (40-60) % Band Neutrophils % (0-10) % Lymphocytes % (Manual) (20-40) % Atypical Lymphs % % Monocytes % (Manual) (2-10) % Eosinophils % (Manual) (0.7-5.8) % Basophils % (Manual) (0.1-1.2) Manual Slide Review Platelet Estimate Poikilocytosis Ovalocytes RBC Morph Comment ESR (0-20) mm/hr PT (9.5-12.1) SECONDS INR Puncture Site ABG pH (7.35-7.45) ABG pCO2 (35.0-45.0) mmHg ABG pO2 (80.0-100.0) mmHg ABG HCO3 (22.0-26.0) meq/L ABG O2 Saturation (96.0-97.0) % ABG Base Excess (-2-2.0) Aston Test O2 Delivery Device Oxygen Flow Rate FiO2 (21.00-100.00) % Pressure Support cmH2O Sodium (136-145) mEq/L Potassium (3.5-5.1) mEq/L Chloride (98-107) mEq/L Carbon Dioxide (21-32) mEq/L Anion Gap (5-15) BUN (7-18) mg/dL Creatinine (0.55-1.02) mg/dL Est Cr Clr Drug Dosing Estimated GFR (MDRD) (>60) mL/min BUN/Creatinine Ratio (14-18) Glucose (80-115) mg/dL POC Glucose 252 H (80-115) mg/dL Hemoglobin A1c (4.50-6.20) % Lactic Acid 2.1 H (0.4-2.0) mmol/L Calcium (8.5-10.1) mg/dL Magnesium (1.8-2.4) mg/dl Total Bilirubin (0.2-1.0) mg/dL AST (15-37) U/L ALT (14-59) U/L Alkaline Phosphatase (46-116) U/L CK-MB (CK-2) (0-3.6) ng/ml Troponin I (0.00-0.056) ng/mL C-Reactive Protein (<1.0) mg/dL NT-Pro-B Natriuret Pep (0-125) pg/mL Total Protein (6.4-8.2) g/dl Albumin (3.4-5.0) g/dl Globulin gm/dL Albumin/Globulin Ratio (1-2) Triglycerides (<150) mg/dL Cholesterol (<200) mg/dL LDL Cholesterol Direct (<100) mg/dL HDL Cholesterol (40-59) mg/dL Mycoplasma pneumon IgM Negative (NEGATIVE) MRSA (PCR) 08/30/18 08/31/18 08/31/18 Range/Units 21:26 05:25 05:25 WBC (3.98-10.04) K/mm3 RBC (3.98-5.22) M/mm3 Hgb (11.2-15.7) gm/L Hct (34.1-44.9) % MCV (79.4-94.8) fl MCH (25.6-32.2) pg MCHC (32.2-35.5) g/dl RDW Std Deviation (36.4-46.3) fL Plt Count (182-369) K/mm3 MPV (9.4-12.3) fl Neut % (Auto) (34.0-71.1) % Lymph % (Auto) (19.3-51.7) % [place] % (Auto) (4.7-12.5) % Eos % (Auto) (0.7-5.8) Baso % (Auto) (0.1-1.2) % Neut # (Auto) (1.56-6.13) K/mm3 Lymph # (Auto) (1.18-3.74) K/mm3 [place] # (Auto) (0.24-0.36) K/mm3 Eos # (Auto) (0.04-0.36) K/mm3 Baso # (Auto) (0.01-0.08) K/mm3 Neutrophils % (Manual) (40-60) % Band Neutrophils % (0-10) % Lymphocytes % (Manual) (20-40) % Atypical Lymphs % % Monocytes % (Manual) (2-10) % Eosinophils % (Manual) (0.7-5.8) % Basophils % (Manual) (0.1-1.2) Manual Slide Review Platelet Estimate Poikilocytosis Ovalocytes RBC Morph Comment ESR (0-20) mm/hr PT (9.5-12.1) SECONDS INR Puncture Site ABG pH (7.35-7.45) ABG pCO2 (35.0-45.0) mmHg ABG pO2 (80.0-100.0) mmHg ABG HCO3 (22.0-26.0) meq/L ABG O2 Saturation (96.0-97.0) % ABG Base Excess (-2-2.0) Aston Test O2 Delivery Device Oxygen Flow Rate FiO2 (21.00-100.00) % Pressure Support cmH2O Sodium 136 (136-145) mEq/L Potassium 3.9 (3.5-5.1) mEq/L Chloride 101 (98-107) mEq/L Carbon Dioxide 25 (21-32) mEq/L Anion Gap 13.9 (5-15) BUN 25 H (7-18) mg/dL Creatinine 0.8 (0.55-1.02) mg/dL Est Cr Clr Drug Dosing 63.93 Estimated GFR (MDRD) > 60 (>60) mL/min BUN/Creatinine Ratio 31.3 H (14-18) Glucose 69 L (80-115) mg/dL POC Glucose 150 H (80-115) mg/dL Hemoglobin A1c 7.70 H (4.50-6.20) % Lactic Acid (0.4-2.0) mmol/L Calcium 8.4 L (8.5-10.1) mg/dL Magnesium 2.0 (1.8-2.4) mg/dl Total Bilirubin (0.2-1.0) mg/dL AST (15-37) U/L ALT (14-59) U/L Alkaline Phosphatase (46-116) U/L CK-MB (CK-2) (0-3.6) ng/ml Troponin I (0.00-0.056) ng/mL C-Reactive Protein 17.6 H* (<1.0) mg/dL NT-Pro-B Natriuret Pep (0-125) pg/mL Total Protein (6.4-8.2) g/dl Albumin (3.4-5.0) g/dl Globulin gm/dL Albumin/Globulin Ratio (1-2) Triglycerides 82 (<150) mg/dL Cholesterol 86 (<200) mg/dL LDL Cholesterol Direct 40 (<100) mg/dL HDL Cholesterol 41.0 (40-59) mg/dL Mycoplasma pneumon IgM (NEGATIVE) MRSA (PCR) 08/31/18 08/31/18 08/31/18 Range/Units 05:25 06:35 07:13 WBC 4.31 (3.98-10.04) K/mm3 RBC 4.35 (3.98-5.22) M/mm3 Hgb 12.0 (11.2-15.7) gm/L Hct 36.1 (34.1-44.9) % MCV 83.0 (79.4-94.8) fl MCH 27.6 (25.6-32.2) pg MCHC 33.2 (32.2-35.5) g/dl RDW Std Deviation 41.5 (36.4-46.3) fL Plt Count 184 (182-369) K/mm3 MPV 9.7 (9.4-12.3) fl Neut % (Auto) 78.9 H (34.0-71.1) % Lymph % (Auto) 17.4 L (19.3-51.7) % [place] % (Auto) 3.0 L (4.7-12.5) % Eos % (Auto) 0 L (0.7-5.8) Baso % (Auto) 0.5 (0.1-1.2) % Neut # (Auto) 3.40 (1.56-6.13) K/mm3 Lymph # (Auto) 0.75 L (1.18-3.74) K/mm3 [place] # (Auto) 0.13 L (0.24-0.36) K/mm3 Eos # (Auto) 0.00 L (0.04-0.36) K/mm3 Baso # (Auto) 0.02 (0.01-0.08) K/mm3 Neutrophils % (Manual) (40-60) % Band Neutrophils % (0-10) % Lymphocytes % (Manual) (20-40) % Atypical Lymphs % % Monocytes % (Manual) (2-10) % Eosinophils % (Manual) (0.7-5.8) % Basophils % (Manual) (0.1-1.2) Manual Slide Review Normal smear Platelet Estimate Poikilocytosis Ovalocytes RBC Morph Comment ESR (0-20) mm/hr PT (9.5-12.1) SECONDS INR Puncture Site ABG pH (7.35-7.45) ABG pCO2 (35.0-45.0) mmHg ABG pO2 (80.0-100.0) mmHg ABG HCO3 (22.0-26.0) meq/L ABG O2 Saturation (96.0-97.0) % ABG Base Excess (-2-2.0) Aston Test O2 Delivery Device Oxygen Flow Rate FiO2 (21.00-100.00) % Pressure Support cmH2O Sodium (136-145) mEq/L Potassium (3.5-5.1) mEq/L Chloride (98-107) mEq/L Carbon Dioxide (21-32) mEq/L Anion Gap (5-15) BUN (7-18) mg/dL Creatinine (0.55-1.02) mg/dL Est Cr Clr Drug Dosing Estimated GFR (MDRD) (>60) mL/min BUN/Creatinine Ratio (14-18) Glucose (80-115) mg/dL POC Glucose 82 (80-115) mg/dL Hemoglobin A1c (4.50-6.20) % Lactic Acid 0.9 (0.4-2.0) mmol/L Calcium (8.5-10.1) mg/dL Magnesium (1.8-2.4) mg/dl Total Bilirubin (0.2-1.0) mg/dL AST (15-37) U/L ALT (14-59) U/L Alkaline Phosphatase (46-116) U/L CK-MB (CK-2) (0-3.6) ng/ml Troponin I (0.00-0.056) ng/mL C-Reactive Protein (<1.0) mg/dL NT-Pro-B Natriuret Pep (0-125) pg/mL Total Protein (6.4-8.2) g/dl Albumin (3.4-5.0) g/dl Globulin gm/dL Albumin/Globulin Ratio (1-2) Triglycerides (<150) mg/dL Cholesterol (<200) mg/dL LDL Cholesterol Direct (<100) mg/dL HDL Cholesterol (40-59) mg/dL Mycoplasma pneumon IgM (NEGATIVE) MRSA (PCR) 08/31/18 08/31/18 08/31/18 Range/Units 08:04 08:19 10:58 WBC (3.98-10.04) K/mm3 RBC (3.98-5.22) M/mm3 Hgb (11.2-15.7) gm/L Hct (34.1-44.9) % MCV (79.4-94.8) fl MCH (25.6-32.2) pg MCHC (32.2-35.5) g/dl RDW Std Deviation (36.4-46.3) fL Plt Count (182-369) K/mm3 MPV (9.4-12.3) fl Neut % (Auto) (34.0-71.1) % Lymph % (Auto) (19.3-51.7) % [place] % (Auto) (4.7-12.5) % Eos % (Auto) (0.7-5.8) Baso % (Auto) (0.1-1.2) % Neut # (Auto) (1.56-6.13) K/mm3 Lymph # (Auto) (1.18-3.74) K/mm3 [place] # (Auto) (0.24-0.36) K/mm3 Eos # (Auto) (0.04-0.36) K/mm3 Baso # (Auto) (0.01-0.08) K/mm3 Neutrophils % (Manual) (40-60) % Band Neutrophils % (0-10) % Lymphocytes % (Manual) (20-40) % Atypical Lymphs % % Monocytes % (Manual) (2-10) % Eosinophils % (Manual) (0.7-5.8) % Basophils % (Manual) (0.1-1.2) Manual Slide Review Platelet Estimate Poikilocytosis Ovalocytes RBC Morph Comment ESR (0-20) mm/hr PT (9.5-12.1) SECONDS INR Puncture Site Lt radial ABG pH 7.37 (7.35-7.45) ABG pCO2 37.4 (35.0-45.0) mmHg ABG pO2 53.0 L (80.0-100.0) mmHg ABG HCO3 20.9 L (22.0-26.0) meq/L ABG O2 Saturation 86.8 L (96.0-97.0) % ABG Base Excess -3.4 L (-2-2.0) Aston Test Positive O2 Delivery Device Nasal cannula Oxygen Flow Rate 5.0 FiO2 0.00 L (21.00-100.00) % Pressure Support 0.0 cmH2O Sodium (136-145) mEq/L Potassium (3.5-5.1) mEq/L Chloride (98-107) mEq/L Carbon Dioxide (21-32) mEq/L Anion Gap (5-15) BUN (7-18) mg/dL Creatinine (0.55-1.02) mg/dL Est Cr Clr Drug Dosing Estimated GFR (MDRD) (>60) mL/min BUN/Creatinine Ratio (14-18) Glucose (80-115) mg/dL POC Glucose 94 306 H (80-115) mg/dL Hemoglobin A1c (4.50-6.20) % Lactic Acid (0.4-2.0) mmol/L Calcium (8.5-10.1) mg/dL Magnesium (1.8-2.4) mg/dl Total Bilirubin (0.2-1.0) mg/dL AST (15-37) U/L ALT (14-59) U/L Alkaline Phosphatase (46-116) U/L CK-MB (CK-2) (0-3.6) ng/ml Troponin I (0.00-0.056) ng/mL C-Reactive Protein (<1.0) mg/dL NT-Pro-B Natriuret Pep (0-125) pg/mL Total Protein (6.4-8.2) g/dl Albumin (3.4-5.0) g/dl Globulin gm/dL Albumin/Globulin Ratio (1-2) Triglycerides (<150) mg/dL Cholesterol (<200) mg/dL LDL Cholesterol Direct (<100) mg/dL HDL Cholesterol (40-59) mg/dL Mycoplasma pneumon IgM (NEGATIVE) MRSA (PCR) 08/31/18 08/31/18 Range/Units 11:00 14:27 WBC (3.98-10.04) K/mm3 RBC (3.98-5.22) M/mm3 Hgb (11.2-15.7) gm/L Hct (34.1-44.9) % MCV (79.4-94.8) fl MCH (25.6-32.2) pg MCHC (32.2-35.5) g/dl RDW Std Deviation (36.4-46.3) fL Plt Count (182-369) K/mm3 MPV (9.4-12.3) fl Neut % (Auto) (34.0-71.1) % Lymph % (Auto) (19.3-51.7) % [place] % (Auto) (4.7-12.5) % Eos % (Auto) (0.7-5.8) Baso % (Auto) (0.1-1.2) % Neut # (Auto) (1.56-6.13) K/mm3 Lymph # (Auto) (1.18-3.74) K/mm3 [place] # (Auto) (0.24-0.36) K/mm3 Eos # (Auto) (0.04-0.36) K/mm3 Baso # (Auto) (0.01-0.08) K/mm3 Neutrophils % (Manual) (40-60) % Band Neutrophils % (0-10) % Lymphocytes % (Manual) (20-40) % Atypical Lymphs % % Monocytes % (Manual) (2-10) % Eosinophils % (Manual) (0.7-5.8) % Basophils % (Manual) (0.1-1.2) Manual Slide Review Platelet Estimate Poikilocytosis Ovalocytes RBC Morph Comment ESR (0-20) mm/hr PT (9.5-12.1) SECONDS INR Puncture Site Rt radial ABG pH 7.34 L (7.35-7.45) ABG pCO2 40.2 (35.0-45.0) mmHg ABG pO2 59.0 L (80.0-100.0) mmHg ABG HCO3 20.8 L (22.0-26.0) meq/L ABG O2 Saturation 89.7 L (96.0-97.0) % ABG Base Excess -4.1 L (-2-2.0) Aston Test Positive O2 Delivery Device Mask Oxygen Flow Rate 12.0 FiO2 0.00 L (21.00-100.00) % Pressure Support cmH2O Sodium (136-145) mEq/L Potassium (3.5-5.1) mEq/L Chloride (98-107) mEq/L Carbon Dioxide (21-32) mEq/L Anion Gap (5-15) BUN (7-18) mg/dL Creatinine (0.55-1.02) mg/dL Est Cr Clr Drug Dosing Estimated GFR (MDRD) (>60) mL/min BUN/Creatinine Ratio (14-18) Glucose (80-115) mg/dL POC Glucose (80-115) mg/dL Hemoglobin A1c (4.50-6.20) % Lactic Acid (0.4-2.0) mmol/L Calcium (8.5-10.1) mg/dL Magnesium (1.8-2.4) mg/dl Total Bilirubin (0.2-1.0) mg/dL AST (15-37) U/L ALT (14-59) U/L Alkaline Phosphatase (46-116) U/L CK-MB (CK-2) (0-3.6) ng/ml Troponin I (0.00-0.056) ng/mL C-Reactive Protein (<1.0) mg/dL NT-Pro-B Natriuret Pep (0-125) pg/mL Total Protein (6.4-8.2) g/dl Albumin (3.4-5.0) g/dl Globulin gm/dL Albumin/Globulin Ratio (1-2) Triglycerides (<150) mg/dL Cholesterol (<200) mg/dL LDL Cholesterol Direct (<100) mg/dL HDL Cholesterol (40-59) mg/dL Mycoplasma pneumon IgM (NEGATIVE) MRSA (PCR) Negative [facility] Results Last 24 Hours: Microbiology 08/30/18 14:50 Aerobic Blood Culture - Preliminary Blood - Venous NO GROWTH AFTER 1 DAY Anaerobic Blood Culture - Preliminary NO GROWTH AFTER 1 DAY 08/30/18 15:05 Aerobic Blood Culture - Preliminary Blood - Venous - Lab Draw NO GROWTH AFTER 1 DAY Anaerobic Blood Culture - Final 08/30/18 15:35 Urine Culture - Preliminary Urine, Catheterized NO GROWTH AFTER 1 DAY 08/30/18 14:05 Influenza Type A Antigen Screen - Final Nasal, Left Positive Influenza A Ag Influenza Type B Antigen Screen - Final NEGATIVE INFLUENZA B VIRUS AG Med Orders - Current: Current Medications Acetaminophen (Tylenol) 650 mg PO Q4H PRN PRN Reason: Pain (Mild 1-3)/fever Last Admin: 08/31/18 06:43 Dose: 650 mg Hydrocodone Bitart/Acetaminophen ([place] 325-5 Mg) 1 tab PO Q4H PRN PRN Reason: Pain (moderate 4-6) Albuterol (Proventil Neb Soln) 2.5 mg NEB Q2H PRN PRN Reason: Shortness Of Breath/wheezing Last Admin: 08/31/18 07:58 Dose: 2.5 mg Albuterol/Ipratropium (Duoneb 3.0-0.5 Mg/3 Ml) 3 ml NEB QIDRT [facility] Alogliptin Benzoate (Alogliptin) 25 mg PO DAILY [facility] Last Admin: 08/31/18 10:54 Dose: 25 mg Bisacodyl (Dulcolax) 5 mg PO DAILY PRN PRN Reason: Constipation Carbamazepine (Tegretol Tab) 400 mg PO BID [facility] Last Admin: 08/31/18 10:54 Dose: 400 mg Dextrose/Water (Dextrose 50% In Water) 50 ml IVPUSH ASDIRECTED PRN PRN Reason: Hypoglycemia Docusate Sodium (Colace) 100 mg PO BID PRN PRN Reason: Constipation Enoxaparin Sodium (Lovenox) 40 mg SUBCUT DAILY [facility] Last Admin: 08/31/18 10:54 Dose: 40 mg Famotidine (Pepcid) 20 mg PO BID [facility] Last Admin: 08/31/18 08:48 Dose: 20 [facility] Hydral[facility] (Apresoline) 10 mg IVPUSH Q4H PRN PRN Reason: Hypertension Hydromorphone HCl (Dilaudid) 0.25 mg IVPUSH Q2H PRN PRN Reason: Pain (severe 7-10) Promethazine HCl 6.25 mg/ (Sodium Chloride) 50.25 mls @ 100 mls/hr IV Q6H PRN PRN Reason: Nausea/Vomiting Piperacillin Sod/Tazobactam (Sod 4.5 gm/ Sodium Chloride) 100 mls @ 25 mls/hr IV Q8H [facility] Vancomycin HCl 1 gm/ Sodium (Chloride) 250 mls @ 250 mls/hr IV Q12H [facility] Last Admin: 08/31/18 11:19 Dose: 250 mls/hr Sodium Chloride (Normal Saline) 1,000 mls @ 75 mls/hr IV ASDIRECTED [facility] Insulin Human Lispro (Humalog) 0 unit SUBCUT QIDACANDBED [facility]; Protocol Last Admin: 08/31/18 11:49 Dose: 4 unit Lorazepam (Ativan) 2 mg IVPUSH Q4H PRN PRN Reason: Seizures Magnesium Hydroxide (Milk Of Magnesia) 30 ml PO Q12H PRN PRN Reason: Constipation Metoprolol Tartrate (Lopressor) 5 mg IVPUSH Q4H PRN PRN Reason: Tachycardia Oseltamivir Phosphate (Tamiflu) 75 mg PO BID [facility] Last Admin: 08/31/18 08:48 Dose: 75 mg Polyethylene Glycol (Miralax) 17 gm PO DAILY PRN PRN Reason: Constipation Promethazine HCl (Phenergan) 25 mg PO Q6H PRN PRN Reason: Nausea/Vomiting Saccharomyces Boulardii (Florastor) 250 mg PO BID [facility] Last Admin: 08/31/18 08:48 Dose: 250 mg Senna/Docusate Sodium (Senna Plus) 1 tab PO BID PRN PRN Reason: Constipation Temazepam (Restoril) 7.5 mg PO BEDTIME PRN PRN Reason: Sleep Vancomycin HCl (Pharmacy To Dose - Vancomycin) 1 dose .XX ASDIRECTED [facility] Discontinued Medications Acetaminophen (Tylenol) 975 mg PO NOW ONE Stop: 08/30/18 14:27 Last Admin: 08/30/18 14:51 Dose: 975 mg Albuterol/Ipratropium (Duoneb 3.0-0.5 Mg/3 Ml) 3 ml NEB Q4H PRN PRN Reason: Shortness Of Breath/wheezing Last Admin: 08/31/18 10:44 Dose: 3 ml Ceftriaxone Sodium (Rocephin) 2 gm IVPUSH Q24H [facility] Furosemide (Lasix) 40 mg IVPUSH NOW ONE Stop: 08/30/18 14:51 Last Admin: 08/30/18 14:58 Dose: 40 mg Sodium Chloride (Normal Saline) 1,000 mls @ 150 mls/hr IV ASDIRECTED [facility] Last Admin: 08/30/18 14:26 Dose: 150 mls/hr Sodium Chloride (Normal Saline) 1,000 mls @ 75 mls/hr IV ASDIRECTED [facility] Ceftriaxone Sodium 1 gm/ (Sodium Chloride) 100 mls @ 200 mls/hr IV ONETIME ONE Stop: 08/30/18 16:28 Last Admin: 08/30/18 16:57 Dose: 200 mls/hr Azithromycin 500 mg/ Sodium (Chloride) 250 mls @ 250 mls/hr IV Q24H [facility] Last Admin: 08/30/18 21:15 Dose: 250 mls/hr Sodium Chloride (Normal Saline) 1,000 mls @ 125 mls/hr IV ASDIRECTED [facility] Last Admin: 08/31/18 00:55 Dose: 125 mls/hr Ceftriaxone Sodium 1 gm/ (Sodium Chloride) 100 mls @ 200 mls/hr IV ONETIME ONE Stop: 08/30/18 19:14 Last Admin: 08/30/18 19:28 Dose: 200 mls/hr Ceftriaxone Sodium 2 gm/ (Sodium Chloride) 100 mls @ 200 mls/hr IV Q24H [facility] Dextrose/Sodium Chloride (Dextrose 5%-Normal Saline) 1,000 mls @ 125 mls/hr IV ASDIRECTED [facility] Last Admin: 08/31/18 08:05 Dose: 125 mls/hr Piperacillin Sod/Tazobactam (Sod 4.5 gm/ Sodium Chloride) 100 mls @ 200 mls/hr IV ONETIME ONE Stop: 08/31/18 10:29 Last Admin: 08/31/18 11:28 Dose: Not Given Sodium Chloride (Normal Saline) Confirm Administered Dose 100 mls @ as directed .ROUTE .STK-MED ONE Stop: 08/31/18 10:49 Last Admin: 08/31/18 11:29 Dose: Not Given Piperacillin Sod/Tazobactam (Sod 4.5 gm/ Sodium Chloride) 100 mls @ 200 mls/hr IV ONETIME ONE Stop: 08/31/18 11:44 Last Admin: 08/31/18 12:56 Dose: 200 mls/hr Insulin Human Regular (Humulin R) 8 unit SUBCUT ONETIME ONE Stop: 08/30/18 14:55 Last Admin: 08/30/18 15:06 Dose: 8 units Ondansetron HCl (Zofran) 4 mg IVPUSH ONETIME ONE Stop: 08/30/18 14:19 Last Admin: 08/30/18 14:29 Dose: 4 mg Oseltamivir Phosphate (Tamiflu) 75 mg PO ONETIME ONE Stop: 08/30/18 14:43 Last Admin: 08/30/18 15:02 Dose: 75 mg - Exam Quality Assessment: Supplemental Oxygen (12L ), Urine Catheter, DVT Prophylaxis General: Alert, Oriented, Cooperative, Lethargic HEENT: Pupils Equal, Pupils Reactive, EOMI, Mucous Membr. Moist/Sebastian Neck: Supple Lungs: Rales, Rhonchi Cardiovascular: Regular Rate, Regular Rhythm GI/Abdominal Exam: Normal Bowel Sounds, Soft, Non-Tender, No Organomegaly, No Distention, No Abnormal Bruit, No Mass, Pelvis Stable (Female) Exam: Deferred Back Exam: Normal Inspection Extremities: Normal Inspection, Normal Range of Motion, Non-Tender, No Pedal Edema, Normal Capillary Refill Peripheral Pulses: 2+: Posterior Tibial (L), Posterior Tibial (R), Dorsalis Pedis (L), Dorsalis Pedis (R) Skin: Warm, Dry, Intact Neurological: No New Focal Deficit Psy/Mental Status: Alert - Problem List & Annotations (1) Influenza A SNOMED Code(s): 992889056 Code(s): J10.1 - FLU DUE TO OTH IDENT INFLUENZA VIRUS W OTH RESP MANIFEST Status: Acute Priority: High Current Visit: Yes (2) Type 2 diabetes mellitus SNOMED Code(s): 89501364 Code(s): E11.9 - TYPE 2 DIABETES MELLITUS WITHOUT COMPLICATIONS Status: Acute Priority: High Current Visit: Yes Qualifiers: Diabetes mellitus watermaster insulin use: with detention use Diabetes mellitus complication status: with hyperglycemia Qualified Code(s): E11.65 - Type 2 diabetes mellitus with hyperglycemia; Z79.4 - residential (current) use of insulin (3) PNA (pneumonia) SNOMED Code(s): 491212350 Code(s): J18.9 - PNEUMONIA, UNSPECIFIED ORGANISM Status: Acute Priority: High Current Visit: Yes Qualifiers: Pneumonia type: due to unspecified organism Laterality: left Lung location: lower lobe of lung Qualified Code(s): J18.1 - Lobar pneumonia, unspecified organism (4) Sepsis SNOMED Code(s): 53073284 Code(s): A41.9 - SEPSIS, UNSPECIFIED ORGANISM Status: Acute Priority: High Current Visit: Yes Qualifiers: Sepsis type: sepsis due to unspecified organism Qualified Code(s): A41.9 - Sepsis, unspecified organism - Problem List Review Problem List Initiated/Reviewed/Updated: Yes - My Orders Last 24 Hours: My Active Orders 08/30/18 17:44 Dextrose 50% in Water 50 ml IVPUSH ASDIRECTED PRN 08/30/18 17:45 Blood Glucose Check, Bedside [RC] QIDACANDBED hydrALAZINE [Apresoline] 10 mg IVPUSH Q4H PRN 08/30/18 17:46 CULTURE SPUTUM + SMEAR [RM] Routine Metoprolol Tartrate [Lopressor] 5 mg IVPUSH Q4H PRN 08/30/18 17:49 Height and Weight [RC] 04 Intake and Output [RC] ,08 December Shower [RC] DAILY Up With Assistance [RC] DAILY VTE/DVT Education [RC] BID Vital Signs [RC] 00,04,08,12,16,20 Consult to Case Management/Industrial Roofer Helper [CONS] Routine Consult to Diabetic Nurse Specialist [CONS] Routine OT Evaluation and Treatment [CONS] Routine PT Evaluation and Treatment [CONS] Routine Respiratory Care Assess and Treatment [CONS] Routine Acetaminophen [Tylenol] 650 mg PO Q4H PRN Acetaminophen/HYDROcodone [Wild Rose 325-5 MG] 1 tab PO Q4H PRN Albuterol [Proventil Neb Soln] 2.5 mg NEB Q2H PRN Bisacodyl [Dulcolax] 5 mg PO DAILY PRN Docusate Sodium [Colace] 100 mg PO BID PRN Docusate Sodium/Sennosides [Senna Plus] 1 tab PO BID PRN HYDROmorphone [Dilaudid] 0.25 mg IVPUSH Q2H PRN Magnesium Hydroxide [Milk of Magnesia] 30 ml PO Q12H PRN Polyethylene Glycol 3350 [MiraLAX] 17 gm PO DAILY PRN Promethazine [Phenergan] 25 mg PO Q6H PRN Promethazine [Phenergan] 6.25 mg Sodium Chloride 0.9% [Normal Saline] 50 ml IV Q6H Temazepam [Restoril] 7.5 mg PO BEDTIME PRN 08/30/18 17:51 RT Aerosol Therapy [RC] .PRN 08/30/18 17:53 LORazepam [Ativan] 2 mg IVPUSH Q4H PRN 08/30/18 19:35 Code Status [Resuscitation Status] Routine 08/30/18 21:00 Famotidine [Pepcid] 20 mg PO BID Oseltamivir [Tamiflu] 75 mg PO BID Saccharomyces Boulardii [Florastor] 250 mg PO BID 08/30/18 22:00 Insulin Lispro [HumaLOG] See Protocol SUBCUT QIDACANDBED 08/31/18 09:00 Enoxaparin [Lovenox] 40 mg SUBCUT DAILY 08/31/18 Breakfast [employer] Diet [DIET] 09/01/18 05:11 BASIC METABOLIC PANEL,BMP [CHEM] AM C-REACTIVE PROTEIN [CHEM] AM CBC WITH AUTO DIFF [HEME] AM MAGNESIUM [CHEM] AM 09/01/18 09:00 CXR [Chest 2V] [CR] Routine 09/02/18 05:11 BASIC METABOLIC PANEL,BMP [CHEM] AM C-REACTIVE PROTEIN [CHEM] AM CBC WITH AUTO DIFF [HEME] AM MAGNESIUM [CHEM] AM 09/03/18 05:11 BASIC METABOLIC PANEL,BMP [CHEM] AM C-REACTIVE PROTEIN [CHEM] AM CBC WITH AUTO DIFF [HEME] AM MAGNESIUM [CHEM] AM 09/04/18 05:11 BASIC METABOLIC PANEL,BMP [CHEM] AM C-REACTIVE PROTEIN [CHEM] AM CBC WITH AUTO DIFF [HEME] AM MAGNESIUM [CHEM] AM - Plan Plan:: Assessment/Plan: Acute: PNA L lower and mid lung w/ hypoxia, worsening * Fever, productive cough, SOB w/ exertion x 3 days * O2 82% RA--> 92% 4L NC--> 91% 12L mask--> 89-91% 15L non-rebreather * No leukocytosis, Neut 86% with 3% bandemia, CRP 15.4--> 17.6 * CXR 08/30/18: Findings felt compatible with mild bilateral bronchitis with areas of pneumonia within the left mid and lower lung. * CT Chest 08/31/18: * 1. Diffuse parenchymal densities throughout both size of the chest more confluent within the lingula and within both lower lungs. Findings have progressed from prior chest x-ray. Findings are most likely infectious in etiology. Continued follow-up is recommended. * 2. Mildly prominent lymph nodes most likely on an inflammatory basis from the lung process. * Mycoplasma negative * RVP, Strep pneumo, Sputum culture pending * RT/Duonebs/IS/Acapella/Chest Physiotherapy * ABG shows low O2 sat: 86.8%--> 89.7% * Repeat CXR in 2 days * Rocephin started in ED--> Continue and add Azithromycin--> D/C * Start Zosyn and Vanco for more aggressive tx * d/t increased O2 demand and lethargy, D/C Zosyn, continue Vanco, add Rocephin , Ampicillin, Acyclovir * Dexamethasone BID x2 days * Magnesium 1g x1 dose for bronchospasm * R/O PE: * D-dimer elevated at 1.1 * CTA pending * ECHO pending Influenza A * Fever and increased weakness x3 days * Tamiflu started in ED--> continue BID Sepsis * Likely 2/2 above * Temperature 102.2F, Hypoxic, Tachypneic, Tachycardia, source of infection present * LA 3.2--> 2.1--> 0.9 * Procalcitonin elevated at 0.18 * Rocephin started in ED--> continue * IVF started in ED--> continue * Blood cultures show no growth Possible AMS * Per , seemed more confused than usual this AM * Risk Factors: Current illness/sepsis, increased O2 demand, unwitnessed fall yesterday ( unsure if she hit her head; she does have a scab on her forehead but per notes it is a couple days old) * CT Head 08/31/18: * 1. Diffuse parenchymal densities throughout both sides of the chest more confluent within the lingual and within both lower lungs. Findings have progressed from prior chest x-ray. Findings are most likely infectious in etiology. Continued follow-up is recommended. * 2. Mildly prominent lymph nodes most likely on an inflammatory basis from the lung process. * Normal neuro exam, A+O x3, seems to be very lethargic * If continues to worsen/has AMS: * Transfer to ICU * LP in AM (hold Lovenox) * Switch Abx to Rocephin, Ampicillin, Acyclovir, continue Vanco and D/C Zosyn * CT Head in AM if still lethargic or AMS Hyperglycemia w/ DM2 * She missed a dose of insulin yesterday, didn't take her insulin this AM * Blood sugar this AM 389, Blood sugar in ED 320 * Blood glucose checks, insulin sliding scale * A1C 7.7 * Started on Dexamethasone--> increase ISS to medium dose Resolved: Dehydration * Likely 2/2 decreased intake * AGap 17.5--> * IVF started in ED--> Continue * Monitor Possible UTI--> CULTURE NEGATIVE * Risk factors: Frequency, Incontinence * UA suspicious for UTI * Urine culture shows no growth * Rocephin started in ED--> continue Chronic: HLD * Lipids WNL HTN GERD Seizures on Tegretol (last seizure 2002) DM2 Plan: Admit to Medical Floor Droplet precautions Routine AM Labs ADA diet DVT/GI prophylaxis CM/SW PT/OT Code Status: Full Code; PCP: Dr. Nasreen Edmond
[2018-08-31] MEDS ORDERED: cefTRIAXone 2 GM in Sodium Chloride 0.9% 100 ML IV SCH (16:00)
[2018-08-31] MEDS ORDERED: cefTRIAXone 2 GM Vial IVPUSH SCH ×2 (16:00→21:00)
[2018-08-31] MEDS: Albuterol/Ipratropium 3.0-0.5 MG/3 ML Neb Soln NEB SCH ×2 (16:08→20:40)
[2018-08-31] MEDS ORDERED: Piperacillin/Tazobactam 4.5 GM in Sodium Chloride 0.9% 100 ML IV SCH (18:00)
[2018-08-31] MEDS ORDERED: Dexamethasone 10 MG/ML SDV ONE (19:52)
[2018-08-31] MEDS ORDERED: Ampicillin 1 GM in Sodium Chloride 0.9% 100 ML IV SCH (20:00)
[2018-08-31] MEDS ORDERED: Magnesium Sulfate/Water 2 GM in Premix Bag 1 BAG IV ONE (20:14)
[2018-08-31] MEDS: Dexamethasone 40 MG in Sodium Chloride 0.9% 50 ML IV SCH (20:56)
[2018-08-31] MEDS ORDERED: Sodium Chloride 0.9% 250 ML IV ONE (21:10)
[2018-08-31] MEDS ORDERED: Ampicillin 1 GM Vial ONE (21:18)
[2018-08-31] MEDS: Ampicillin 1 GM in Sodium Chloride 0.9% 100 ML IV SCH (21:30)
[2018-08-31] MEDS: Glimepiride 4 MG Tab PO SCH (21:31)
[2018-08-31] MEDS: cefTRIAXone 2 GM in Sodium Chloride 0.9% 100 ML IV SCH (23:28)
[2018-09-01] MEDS: Ampicillin 1 GM in Sodium Chloride 0.9% 100 ML IV SCH ×7 (00:37→21:47)
[2018-09-01] MEDS: Sodium Chloride 0.9% 1,000 ML IV SCH ×2 (01:28→15:09)
[2018-09-01] MEDS: Albuterol/Ipratropium 3.0-0.5 MG/3 ML Neb Soln NEB SCH ×2 (05:20→08:59)
[2018-09-01] MEDS: Dexamethasone 40 MG in Sodium Chloride 0.9% 50 ML IV SCH ×2 (06:14→17:59)
[2018-09-01] MEDS ORDERED: Dexamethasone 10 MG/ML SDV IVPUSH SCH (07:00)
[2018-09-01] MEDS: Insulin Lispro 100 UNIT/ML 10 ML VIAL SUBCUT SCH ×4 (09:13→21:10)
[2018-09-01] MEDS: Saccharomyces Boulardii (Probiotic) 250 MG Cap PO SCH ×2 (09:15→20:38)
[2018-09-01] MEDS: Oseltamivir 75 MG Cap PO SCH ×2 (09:15→20:38)
[2018-09-01] MEDS: carBAMazepine 200 MG Tab PO SCH ×2 (09:16→20:38)
[2018-09-01] MEDS: Famotidine 20 MG Tab PO SCH ×2 (09:17→20:40)
[2018-09-01] MEDS: Aspirin 81 MG Tab.EC PO SCH (09:17)
[2018-09-01] MEDS: Glimepiride 4 MG Tab PO SCH ×2 (09:17→16:23)
--- NOTE | 2018-09-01 10:19 | CT ---
CT chest Technique: Multiple axial sections through the chest were obtained. Intravenous contrast was utilized. Study has been performed as a pulmonary angiogram protocol. Comparison: Prior CT chest performed without contrast dated performed earlier on the same day (12:48 PM). Findings: Pulmonary arteries are not optimally opacified. No filling defects seen within the main or segmental branches. Smaller distal subsegmental pulmonary emboli could be missed. Stable lymph nodes noted within the mediastinum and right hilar region. Diffuse increased density noted within both lung bases which appears similar to previous chest CT. Multiple gallstones seen within the gallbladder. Impression: 1. Diffuse parenchymal densities throughout both lungs which appears similar to previous CT study. 2. Less than optimal opacification of the pulmonary arteries. No larger pulmonary embolism seen within the main or segmental branches. 3. Stable mediastinal and hilar lymph nodes. 4. Multiple calcified gallstones are seen within the gallbladder. Diagnostic code #3 I agree with preliminary report from [facility], finalized on 09/01/18, 1:53 AM Central Time
--- NOTE | 2018-09-01 10:51 | CR ---
Chest: Two views of the chest are obtained. Comparison: Prior chest x-ray of 08/30/18 and previous chest CTs performed on 08/31/18. Diffuse parenchymal densities are noted on both sides of the chest, worse on the left side. Findings are an interval change from prior chest x-ray but appear similar to the prior two chest CTs. Heart size is slightly enlarged. Tortuous thoracic aorta is seen. Bony structures are unremarkable. Impression: 1. Diffuse parenchymal densities as described above. Differential includes irregular areas of pulmonary edema versus diffuse multifocal areas of pneumonia. 2. Heart is slightly enlarged. Diagnostic code #3
[2018-09-01] MEDS: guaiFENesin/Dextromethorphan 100-10 MG/5 ML Soln 5 ML Cup PO SCH ×2 (14:01→20:40)
--- NOTE | 2018-09-01 14:38 | PCM.PN ---
- General Info Date of Service: 09/01/18 Admission Dx/Problem (Free Text): Influenza A Subjective Update: In to see Shereen. She is laying comfortably in bed resting with her BiPAP on. She currently has no complaints. CTA negative for pulmonary embolism. ECHO pending. CXR stable. ABG improved to 93.3% O2 sat. RVP and Strep pneumo pending. LP canceled d/t improvement of clinical disposition. Continue current antibiotic/antiviral treatment as she seems to be improving. Continue breathing treatments with RT- change to Xopenex d/t tachycardia. BiPAP as needed- was able to tolerate just NC this morning. No other concerns from nursing. Pt ambulating and more alert today. Updated by nursing that pt has gone into new-onset Afib. Likely 2/2 Sepsis. 12 lead EKG ordered. Will start metoprolol 25 BID and restart Lovenox for DVT/PE prophylaxis. Continue to monitor on telemetry. O2 need also increasing- is now on 15L BiPAP at 90%. Continue to monitor and use BiPAP. ABG as needed. Functional Status: Reports: Pain Controlled, Tolerating Diet, Ambulating, Urinating - Review of Systems General: Reports: Fatigue (improving), Malaise (improving). Denies: Fever, Chills HEENT: Reports: Glasses Pulmonary: Reports: Shortness of Breath, Cough, Sputum. Denies: Pleuritic Chest Pain Cardiovascular: Reports: No Symptoms. Denies: Chest Pain, Edema Gastrointestinal: Reports: No Symptoms. Denies: Abdominal Pain, Diarrhea, Nausea, Vomiting Genitourinary: Reports: No Symptoms Musculoskeletal: Reports: No Symptoms Skin: Reports: No Symptoms Neurological: Reports: No Symptoms Psychiatric: Reports: No Symptoms - Patient Data Vitals - Most Recent: Last Vital Signs Temp 98.9 F 09/01/18 12:00 Pulse 83 09/01/18 12:00 Resp 16 09/01/18 12:00 BP 126/74 09/01/18 12:00 Pulse Ox 90 L 09/01/18 12:00 Weight - Most Recent: 213 lb 9.6 oz I&O - Last 24 Hours: Intake & Output 08/31/18 09/01/18 09/01/18 22:59 06:59 14:59 Intake Total 680 1880 120 Output Total 400 350 Balance 280 1530 120 Lab Results Last 24 Hours: Laboratory Results - last 24 hr 08/31/18 08/31/18 08/31/18 Range/Units 10:23 14:27 17:13 WBC (3.98-10.04) K/mm3 RBC (3.98-5.22) M/mm3 Hgb (11.2-15.7) gm/L Hct (34.1-44.9) % MCV (79.4-94.8) fl MCH (25.6-32.2) pg MCHC (32.2-35.5) g/dl RDW Std Deviation (36.4-46.3) fL Plt Count (182-369) K/mm3 MPV (9.4-12.3) fl Neut % (Auto) (34.0-71.1) % Lymph % (Auto) (19.3-51.7) % [place] % (Auto) (4.7-12.5) % Eos % (Auto) (0.7-5.8) Baso % (Auto) (0.1-1.2) % Neut # (Auto) (1.56-6.13) K/mm3 Lymph # (Auto) (1.18-3.74) K/mm3 [place] # (Auto) (0.24-0.36) K/mm3 Eos # (Auto) (0.04-0.36) K/mm3 Baso # (Auto) (0.01-0.08) K/mm3 Manual Slide Review D-Dimer, Quantitative (0.19-0.50) mg/L Puncture Site Rt radial ABG pH 7.34 L (7.35-7.45) ABG pCO2 40.2 (35.0-45.0) mmHg ABG pO2 59.0 L (80.0-100.0) mmHg ABG HCO3 20.8 L (22.0-26.0) meq/L ABG O2 Saturation 89.7 L (96.0-97.0) % ABG Base Excess -4.1 L (-2-2.0) Aston Test Positive A-a Gradient mmHg O2 Delivery Device Mask Oxygen Flow Rate 12.0 FiO2 0.00 L (21.00-100.00) % Sodium (136-145) mEq/L Potassium (3.5-5.1) mEq/L Chloride (98-107) mEq/L Carbon Dioxide (21-32) mEq/L Anion Gap (5-15) BUN (7-18) mg/dL Creatinine (0.55-1.02) mg/dL Est Cr Clr Drug Dosing mL/min Estimated GFR (MDRD) (>60) mL/min BUN/Creatinine Ratio (14-18) Glucose (80-115) mg/dL POC Glucose 259 H (80-115) mg/dL Calcium (8.5-10.1) mg/dL Magnesium (1.8-2.4) mg/dl Troponin I (0.00-0.056) ng/mL C-Reactive Protein (<1.0) mg/dL Procalcitonin 0.18 H (<0.10) ng/mL 08/31/18 08/31/18 08/31/18 Range/Units 19:52 19:52 19:59 WBC (3.98-10.04) K/mm3 RBC (3.98-5.22) M/mm3 Hgb (11.2-15.7) gm/L Hct (34.1-44.9) % MCV (79.4-94.8) fl MCH (25.6-32.2) pg MCHC (32.2-35.5) g/dl RDW Std Deviation (36.4-46.3) fL Plt Count (182-369) K/mm3 MPV (9.4-12.3) fl Neut % (Auto) (34.0-71.1) % Lymph % (Auto) (19.3-51.7) % [place] % (Auto) (4.7-12.5) % Eos % (Auto) (0.7-5.8) Baso % (Auto) (0.1-1.2) % Neut # (Auto) (1.56-6.13) K/mm3 Lymph # (Auto) (1.18-3.74) K/mm3 [place] # (Auto) (0.24-0.36) K/mm3 Eos # (Auto) (0.04-0.36) K/mm3 Baso # (Auto) (0.01-0.08) K/mm3 Manual Slide Review D-Dimer, Quantitative 1.10 H (0.19-0.50) mg/L Puncture Site ABG pH (7.35-7.45) ABG pCO2 (35.0-45.0) mmHg ABG pO2 (80.0-100.0) mmHg ABG HCO3 (22.0-26.0) meq/L ABG O2 Saturation (96.0-97.0) % ABG Base Excess (-2-2.0) Aston Test A-a Gradient mmHg O2 Delivery Device Oxygen Flow Rate FiO2 (21.00-100.00) % Sodium (136-145) mEq/L Potassium (3.5-5.1) mEq/L Chloride (98-107) mEq/L Carbon Dioxide (21-32) mEq/L Anion Gap (5-15) BUN (7-18) mg/dL Creatinine (0.55-1.02) mg/dL Est Cr Clr Drug Dosing mL/min Estimated GFR (MDRD) (>60) mL/min BUN/Creatinine Ratio (14-18) Glucose (80-115) mg/dL POC Glucose 253 H (80-115) mg/dL Calcium (8.5-10.1) mg/dL Magnesium (1.8-2.4) mg/dl Troponin I 0.028 (0.00-0.056) ng/mL C-Reactive Protein (<1.0) mg/dL Procalcitonin (<0.10) ng/mL 08/31/18 08/31/18 09/01/18 Range/Units 20:00 22:50 00:10 WBC (3.98-10.04) K/mm3 RBC (3.98-5.22) M/mm3 Hgb (11.2-15.7) gm/L Hct (34.1-44.9) % MCV (79.4-94.8) fl MCH (25.6-32.2) pg MCHC (32.2-35.5) g/dl RDW Std Deviation (36.4-46.3) fL Plt Count (182-369) K/mm3 MPV (9.4-12.3) fl Neut % (Auto) (34.0-71.1) % Lymph % (Auto) (19.3-51.7) % [place] % (Auto) (4.7-12.5) % Eos % (Auto) (0.7-5.8) Baso % (Auto) (0.1-1.2) % Neut # (Auto) (1.56-6.13) K/mm3 Lymph # (Auto) (1.18-3.74) K/mm3 [place] # (Auto) (0.24-0.36) K/mm3 Eos # (Auto) (0.04-0.36) K/mm3 Baso # (Auto) (0.01-0.08) K/mm3 Manual Slide Review D-Dimer, Quantitative (0.19-0.50) mg/L Puncture Site Rt radial Rt radial ABG pH 7.37 7.35 (7.35-7.45) ABG pCO2 37.9 39.9 (35.0-45.0) mmHg ABG pO2 64.0 L 59.0 L (80.0-100.0) mmHg ABG HCO3 21.1 L 21.3 L (22.0-26.0) meq/L ABG O2 Saturation 92.0 L 89.5 L (96.0-97.0) % ABG Base Excess -3.3 L -3.6 L (-2-2.0) Aston Test Positive Positive A-a Gradient 324 531 mmHg O2 Delivery Device Nonrebreather Nonrebreather Oxygen Flow Rate 12.0 15.0 FiO2 (21.00-100.00) % Sodium (136-145) mEq/L Potassium (3.5-5.1) mEq/L Chloride (98-107) mEq/L Carbon Dioxide (21-32) mEq/L Anion Gap (5-15) BUN (7-18) mg/dL Creatinine (0.55-1.02) mg/dL Est Cr Clr Drug Dosing mL/min Estimated GFR (MDRD) (>60) mL/min BUN/Creatinine Ratio (14-18) Glucose (80-115) mg/dL POC Glucose 236 H (80-115) mg/dL Calcium (8.5-10.1) mg/dL Magnesium (1.8-2.4) mg/dl Troponin I (0.00-0.056) ng/mL C-Reactive Protein (<1.0) mg/dL Procalcitonin (<0.10) ng/mL 09/01/18 09/01/18 09/01/18 Range/Units 05:09 05:59 06:00 WBC 3.61 L (3.98-10.04) K/mm3 RBC 3.90 L (3.98-5.22) M/mm3 Hgb 10.7 L (11.2-15.7) gm/L Hct 32.7 L (34.1-44.9) % MCV 83.8 (79.4-94.8) fl MCH 27.4 (25.6-32.2) pg MCHC 32.7 (32.2-35.5) g/dl RDW Std Deviation 41.5 (36.4-46.3) fL Plt Count 163 L (182-369) K/mm3 MPV 9.9 (9.4-12.3) fl Neut % (Auto) 82.7 H (34.0-71.1) % Lymph % (Auto) 13.9 L (19.3-51.7) % [place] % (Auto) 2.5 L (4.7-12.5) % Eos % (Auto) 0 L (0.7-5.8) Baso % (Auto) 0.6 (0.1-1.2) % Neut # (Auto) 2.99 (1.56-6.13) K/mm3 Lymph # (Auto) 0.50 L (1.18-3.74) K/mm3 [place] # (Auto) 0.09 L (0.24-0.36) K/mm3 Eos # (Auto) 0.00 L (0.04-0.36) K/mm3 Baso # (Auto) 0.02 (0.01-0.08) K/mm3 Manual Slide Review Abnormal smear D-Dimer, Quantitative (0.19-0.50) mg/L Puncture Site Lt radial ABG pH 7.33 L (7.35-7.45) ABG pCO2 41.0 (35.0-45.0) mmHg ABG pO2 69.0 L (80.0-100.0) mmHg ABG HCO3 21.2 L (22.0-26.0) meq/L ABG O2 Saturation 93.3 L (96.0-97.0) % ABG Base Excess -3.8 L (-2-2.0) Aston Test Positive A-a Gradient 238 mmHg O2 Delivery Device Bipap Oxygen Flow Rate 9.0 FiO2 (21.00-100.00) % Sodium (136-145) mEq/L Potassium (3.5-5.1) mEq/L Chloride (98-107) mEq/L Carbon Dioxide (21-32) mEq/L Anion Gap (5-15) BUN (7-18) mg/dL Creatinine (0.55-1.02) mg/dL Est Cr Clr Drug Dosing mL/min Estimated GFR (MDRD) (>60) mL/min BUN/Creatinine Ratio (14-18) Glucose (80-115) mg/dL POC Glucose 232 H (80-115) mg/dL Calcium (8.5-10.1) mg/dL Magnesium (1.8-2.4) mg/dl Troponin I (0.00-0.056) ng/mL C-Reactive Protein (<1.0) mg/dL Procalcitonin (<0.10) ng/mL 09/01/18 09/01/18 Range/Units 06:00 11:06 WBC (3.98-10.04) K/mm3 RBC (3.98-5.22) M/mm3 Hgb (11.2-15.7) gm/L Hct (34.1-44.9) % MCV (79.4-94.8) fl MCH (25.6-32.2) pg MCHC (32.2-35.5) g/dl RDW Std Deviation (36.4-46.3) fL Plt Count (182-369) K/mm3 MPV (9.4-12.3) fl Neut % (Auto) (34.0-71.1) % Lymph % (Auto) (19.3-51.7) % [place] % (Auto) (4.7-12.5) % Eos % (Auto) (0.7-5.8) Baso % (Auto) (0.1-1.2) % Neut # (Auto) (1.56-6.13) K/mm3 Lymph # (Auto) (1.18-3.74) K/mm3 [place] # (Auto) (0.24-0.36) K/mm3 Eos # (Auto) (0.04-0.36) K/mm3 Baso # (Auto) (0.01-0.08) K/mm3 Manual Slide Review D-Dimer, Quantitative (0.19-0.50) mg/L Puncture Site ABG pH (7.35-7.45) ABG pCO2 (35.0-45.0) mmHg ABG pO2 (80.0-100.0) mmHg ABG HCO3 (22.0-26.0) meq/L ABG O2 Saturation (96.0-97.0) % ABG Base Excess (-2-2.0) Aston Test A-a Gradient mmHg O2 Delivery Device Oxygen Flow Rate FiO2 (21.00-100.00) % Sodium 134 L (136-145) mEq/L Potassium 4.1 (3.5-5.1) mEq/L Chloride 100 (98-107) mEq/L Carbon Dioxide 24 (21-32) mEq/L Anion Gap 14.1 (5-15) BUN 14 (7-18) mg/dL Creatinine 0.6 (0.55-1.02) mg/dL Est Cr Clr Drug Dosing 85.24 mL/min Estimated GFR (MDRD) > 60 (>60) mL/min BUN/Creatinine Ratio 23.3 H (14-18) Glucose 230 H (80-115) mg/dL POC Glucose 321 H (80-115) mg/dL Calcium 7.6 L (8.5-10.1) mg/dL Magnesium 1.9 (1.8-2.4) mg/dl Troponin I (0.00-0.056) ng/mL C-Reactive Protein 16.1 H* (<1.0) mg/dL Procalcitonin (<0.10) ng/mL Alireza Results Last 24 Hours: Microbiology 08/30/18 15:35 Urine Culture - Final Urine, Catheterized NO GROWTH AFTER 2 DAYS 08/30/18 14:50 Aerobic Blood Culture - Preliminary Blood - Venous NO GROWTH AFTER 1 DAY Anaerobic Blood Culture - Preliminary NO GROWTH AFTER 1 DAY 08/30/18 15:05 Aerobic Blood Culture - Preliminary Blood - Venous - Lab Draw NO GROWTH AFTER 1 DAY Anaerobic Blood Culture - Final Med Orders - Current: Current Medications Acetaminophen (Tylenol) 650 mg PO Q4H PRN PRN Reason: Pain (Mild 1-3)/fever Last Admin: 08/31/18 20:10 Dose: 650 mg Hydrocodone Bitart/Acetaminophen ([place] 325-5 Mg) 1 tab PO Q4H PRN PRN Reason: Pain (moderate 4-6) Albuterol (Proventil Neb Soln) 2.5 mg NEB Q2H PRN PRN Reason: Shortness Of Breath/wheezing Last Admin: 08/31/18 23:15 Dose: 2.5 mg Alogliptin Benzoate (Alogliptin) 25 mg PO DAILY REPLACED BY [facility] Last Admin: 09/01/18 09:16 Dose: 25 mg Aspirin (Halfprin) 81 mg PO DAILY REPLACED BY [facility] Last Admin: 09/01/18 09:17 Dose: 81 mg Bisacodyl (Dulcolax) 5 mg PO DAILY PRN PRN Reason: Constipation Carbamazepine (Tegretol Tab) 400 mg PO BID REPLACED BY [facility] Last Admin: 09/01/18 09:16 Dose: 400 mg Dextrose/Water (Dextrose 50% In Water) 50 ml IVPUSH ASDIRECTED PRN PRN Reason: Hypoglycemia Docusate Sodium (Colace) 100 mg PO BID PRN PRN Reason: Constipation Enoxaparin Sodium (Lovenox) 40 mg SUBCUT DAILY REPLACED BY [facility] Last Admin: 08/31/18 10:54 Dose: 40 mg Famotidine (Pepcid) 20 mg PO BID REPLACED BY [facility] Last Admin: 09/01/18 09:17 Dose: 20 mg Glimepiride (Glimepiride) 4 mg PO BIDMEALS REPLACED BY [facility] Last Admin: 09/01/18 09:17 Dose: 4 mg Guaifenesin/Phenylephrine HCl (Robitussin Dm) 10 ml PO TID@0700,1400,2100 REPLACED BY [facility] Last Admin: 09/01/18 14:01 Dose: 10 ml Hydralazine HCl (Apresoline) 10 mg IVPUSH Q4H PRN PRN Reason: Hypertension Hydromorphone HCl (Dilaudid) 0.25 mg IVPUSH Q2H PRN PRN Reason: Pain (severe 7-10) Promethazine HCl 6.25 mg/ (Sodium Chloride) 50.25 mls @ 100 mls/hr IV Q6H PRN PRN Reason: Nausea/Vomiting Vancomycin HCl 1 gm/ Sodium (Chloride) 250 mls @ 250 mls/hr IV Q12H REPLACED BY [facility] Last Admin: 09/01/18 10:59 Dose: 250 mls/hr Sodium Chloride (Normal Saline) 1,000 mls @ 75 mls/hr IV ASDIRECTED REPLACED BY [facility] Last Admin: 09/01/18 01:28 Dose: 75 mls/hr Acyclovir 1,000 mg/ Sodium (Chloride) 120 mls @ 100 mls/hr IV Q8H REPLACED BY [facility] Last Admin: 09/01/18 12:20 Dose: 100 mls/hr Dexamethasone 40 mg/ Sodium (Chloride) 54 mls @ 108 mls/hr IV BID@0700,1900 REPLACED BY [facility] Stop: 09/02/18 20:31 Last Admin: 09/01/18 06:14 Dose: 108 mls/hr Ceftriaxone Sodium 2 gm/ (Sodium Chloride) 100 mls @ 200 mls/hr IV Q24H REPLACED BY [facility] Last Admin: 08/31/18 23:28 Dose: 200 mls/hr Ampicillin Sodium 1 gm/ Sodium (Chloride) 100 mls @ 200 mls/hr IV Q4H REPLACED BY [facility] Last Admin: 09/01/18 14:01 Dose: 200 mls/hr Insulin Human Lispro (Humalog) 0 unit SUBCUT QIDACANDBED REPLACED BY [facility]; Protocol Last Admin: 09/01/18 12:20 Dose: 8 units Ipratropium [place] (Atrovent) 0.5 mg NEB QIDRT REPLACED BY [facility] Levalbuterol HCl (Xopenex) 1.25 mg NEB QIDRT DAGOBERTO Lorazepam (Ativan) 2 mg IVPUSH Q4H PRN PRN Reason: Seizures Magnesium Hydroxide (Milk Of Magnesia) 30 ml PO Q12H PRN PRN Reason: Constipation Metoprolol Tartrate (Lopressor) 5 mg IVPUSH Q4H PRN PRN Reason: Tachycardia Oseltamivir Phosphate (Tamiflu) 75 mg PO BID REPLACED BY [facility] Last Admin: 09/01/18 09:15 Dose: 75 mg Polyethylene Glycol (Miralax) 17 gm PO DAILY PRN PRN Reason: Constipation Promethazine HCl (Phenergan) 25 mg PO Q6H PRN PRN Reason: Nausea/Vomiting Saccharomyces Boulardii (Florastor) 250 mg PO BID REPLACED BY [facility] Last Admin: 09/01/18 09:15 Dose: 250 mg Senna/Docusate Sodium (Senna Plus) 1 tab PO BID PRN PRN Reason: Constipation Temazepam (Restoril) 7.5 mg PO BEDTIME PRN PRN Reason: Sleep Vancomycin HCl (Pharmacy To Dose - Vancomycin) 1 dose .XX ASDIRECTED REPLACED BY [facility] Discontinued Medications Acetaminophen (Tylenol) 975 mg PO NOW ONE Stop: 08/30/18 14:27 Last Admin: 08/30/18 14:51 Dose: 975 mg Albuterol/Ipratropium (Duoneb 3.0-0.5 Mg/3 Ml) 3 ml NEB Q4H PRN PRN Reason: Shortness Of Breath/wheezing Last Admin: 08/31/18 10:44 Dose: 3 ml Albuterol/Ipratropium (Duoneb 3.0-0.5 Mg/3 Ml) 3 ml NEB QIDRT REPLACED BY [facility] Last Admin: 09/01/18 08:59 Dose: 3 ml Ampicillin Sodium (Ampicillin) Confirm Administered Dose 1 gm .ROUTE .STK-MED ONE Stop: 08/31/18 21:19 Last Admin: 08/31/18 21:33 Dose: Not Given Ceftriaxone Sodium (Rocephin) 2 gm IVPUSH Q24H REPLACED BY [facility] Dexamethasone (Dexamethasone) Confirm Administered Dose 40 mg .ROUTE .STK-MED ONE Stop: 08/31/18 19:53 Last Admin: 08/31/18 20:15 Dose: Not Given Dexamethasone (Dexamethasone) 40 mg IVPUSH Q12HR DAGOBERTO Stop: 09/03/18 07:01 Furosemide (Lasix) 40 mg IVPUSH NOW ONE Stop: 08/30/18 14:51 Last Admin: 08/30/18 14:58 Dose: 40 mg Sodium Chloride (Normal Saline) 1,000 mls @ 150 mls/hr IV ASDIRECTED REPLACED BY [facility] Last Admin: 08/30/18 14:26 Dose: 150 mls/hr Sodium Chloride (Normal Saline) 1,000 mls @ 75 mls/hr IV ASDIRECTED REPLACED BY [facility] Ceftriaxone Sodium 1 gm/ (Sodium Chloride) 100 mls @ 200 mls/hr IV ONETIME ONE Stop: 08/30/18 16:28 Last Admin: 08/30/18 16:57 Dose: 200 mls/hr Azithromycin 500 mg/ Sodium (Chloride) 250 mls @ 250 mls/hr IV Q24H REPLACED BY [facility] Last Admin: 08/30/18 21:15 Dose: 250 mls/hr Sodium Chloride (Normal Saline) 1,000 mls @ 125 mls/hr IV ASDIRECTED REPLACED BY [facility] Last Admin: 08/31/18 00:55 Dose: 125 mls/hr Ceftriaxone Sodium 1 gm/ (Sodium Chloride) 100 mls @ 200 mls/hr IV ONETIME ONE Stop: 08/30/18 19:14 Last Admin: 08/30/18 19:28 Dose: 200 mls/hr Ceftriaxone Sodium 2 gm/ (Sodium Chloride) 100 mls @ 200 mls/hr IV Q24H REPLACED BY [facility] Dextrose/Sodium Chloride (Dextrose 5%-Normal Saline) 1,000 mls @ 125 mls/hr IV ASDIRECTED REPLACED BY [facility] Last Admin: 08/31/18 08:05 Dose: 125 mls/hr Piperacillin Sod/Tazobactam (Sod 4.5 gm/ Sodium Chloride) 100 mls @ 200 mls/hr IV ONETIME ONE Stop: 08/31/18 10:29 Last Admin: 08/31/18 11:28 Dose: Not Given Piperacillin Sod/Tazobactam (Sod 4.5 gm/ Sodium Chloride) 100 mls @ 25 mls/hr IV Q8H REPLACED BY [facility] Last Admin: 08/31/18 23:34 Dose: Not Given Sodium Chloride (Normal Saline) Confirm Administered Dose 100 mls @ as directed .ROUTE .STK-MED ONE Stop: 08/31/18 10:49 Last Admin: 08/31/18 11:29 Dose: Not Given Piperacillin Sod/Tazobactam (Sod 4.5 gm/ Sodium Chloride) 100 mls @ 200 mls/hr IV ONETIME ONE Stop: 08/31/18 11:44 Last Admin: 08/31/18 12:56 Dose: 200 mls/hr Magnesium Sulfate/Dextrose (Magnesium 1 Gm In D5w 100 Ml) Confirm Administered Dose 100 mls @ as directed .ROUTE .STK-MED ONE Stop: 08/31/18 19:53 Last Admin: 08/31/18 20:15 Dose: Not Given Ampicillin Sodium 1 gm/ Sodium (Chloride) 100 mls @ 200 mls/hr IV Q4H REPLACED BY [facility] Last Admin: 08/31/18 23:34 Dose: Not Given Magnesium Sulfate 2 gm/ Premix 50 mls @ 25 mls/hr IV ONETIME ONE Stop: 08/31/18 22:13 Last Admin: 08/31/18 21:26 Dose: Not Given Magnesium Sulfate/Dextrose 1 (gm/ Premix) 100 mls @ 100 mls/hr IV ONETIME ONE Stop: 08/31/18 21:29 Last Admin: 08/31/18 20:35 Dose: 100 mls/hr Ampicillin Sodium 1 gm/ Sodium (Chloride) 100 mls @ 200 mls/hr IV Q4H REPLACED BY [facility] Last Admin: 09/01/18 11:17 Dose: Not Given Sodium Chloride (Normal Saline) Confirm Administered Dose 100 mls @ as directed .ROUTE .STK-MED ONE Stop: 08/31/18 21:21 Last Admin: 08/31/18 21:29 Dose: Not Given Sodium Chloride (Normal Saline) 250 mls @ 999 mls/hr IV ONETIME ONE Stop: 08/31/18 21:25 Last Admin: 08/31/18 23:07 Dose: Not Given Insulin Human Lispro (Humalog) 0 unit SUBCUT QIDACANDBED REPLACED BY [facility]; Protocol Last Admin: 08/31/18 20:54 Dose: 3 unit Insulin Human Regular (Humulin R) 8 unit SUBCUT ONETIME ONE Stop: 08/30/18 14:55 Last Admin: 08/30/18 15:06 Dose: 8 units Ondansetron HCl (Zofran) 4 mg IVPUSH ONETIME ONE Stop: 08/30/18 14:19 Last Admin: 08/30/18 14:29 Dose: 4 mg Oseltamivir Phosphate (Tamiflu) 75 mg PO ONETIME ONE Stop: 08/30/18 14:43 Last Admin: 08/30/18 15:02 Dose: 75 mg - Exam Quality Assessment: Supplemental Oxygen (8L BiPAP), DVT Prophylaxis General: Alert, Oriented, Cooperative HEENT: Pupils Equal, Pupils Reactive, EOMI, Mucous Membr. Moist/[place] Neck: Supple Lungs: Rales, Rhonchi Cardiovascular: Regular Rate, Regular Rhythm GI/Abdominal Exam: Normal Bowel Sounds, Soft, Non-Tender, No Organomegaly, No Distention, No Abnormal Bruit, No Mass, Pelvis Stable (Female) Exam: Deferred Back Exam: Normal Inspection Extremities: Normal Inspection, Normal Range of Motion, Non-Tender, No Pedal Edema, Normal Capillary Refill Peripheral Pulses: 2+: Posterior Tibial (L), Posterior Tibial (R), Dorsalis Pedis (L), Dorsalis Pedis (R) Skin: Warm, Dry, Intact Neurological: No New Focal Deficit Psy/Mental Status: Alert, Normal Affect, Normal Mood - Problem List & Annotations (1) Influenza A SNOMED Code(s): 970145890 Code(s): J10.1 - FLU DUE TO OTH IDENT INFLUENZA VIRUS W OTH RESP MANIFEST Status: Acute Priority: High Current Visit: Yes (2) Type 2 diabetes mellitus SNOMED Code(s): 32488821 Code(s): E11.9 - TYPE 2 DIABETES MELLITUS WITHOUT COMPLICATIONS Status: Acute Priority: High Current Visit: Yes Qualifiers: Diabetes mellitus [facility] insulin use: with [facility] use Diabetes mellitus complication status: with hyperglycemia Qualified Code(s): E11.65 - Type 2 diabetes mellitus with hyperglycemia; Z79.4 - intermediate (current) use of insulin (3) PNA (pneumonia) SNOMED Code(s): 922090023 Code(s): J18.9 - PNEUMONIA, UNSPECIFIED ORGANISM Status: Acute Priority: High Current Visit: Yes Qualifiers: Pneumonia type: due to unspecified organism Laterality: left Lung location: lower lobe of lung Qualified Code(s): J18.1 - Lobar pneumonia, unspecified organism (4) Sepsis SNOMED Code(s): 15181703 Code(s): A41.9 - SEPSIS, UNSPECIFIED ORGANISM Status: Acute Priority: High Current Visit: Yes Qualifiers: Sepsis type: sepsis due to unspecified organism Qualified Code(s): A41.9 - Sepsis, unspecified organism - Problem List Review Problem List Initiated/Reviewed/Updated: Yes - My Orders Last 24 Hours: My Active Orders 08/31/18 16:21 Assess Neurological Status [RC] Q4HR 08/31/18 20:00 Acyclovir [Zovirax] 1,000 mg Sodium Chloride 0.9% [Normal Saline] 100 ml IV Q8H 08/31/18 20:30 Dexamethasone 40 mg Sodium Chloride 0.9% [Normal Saline] 50 ml IV BID@0700, 1900 08/31/18 20:58 Flat in Bed [RC] AM Procedure Tray at Bedside [RC] AM Verify Patient Consent Obtain [RC] AMPROC 08/31/18 21:02 Antiembolic Devices [RC] PER UNIT ROUTINE SCD [Sequential Compression Device] [OM.PC] Routine 08/31/18 22:00 Insulin Lispro [HumaLOG] See Protocol SUBCUT QIDACANDBED 08/31/18 22:07 RESPIRATORY PANEL Routine STREP PNEUMONIAE ANTIGEN [MREF] Routine 08/31/18 23:00 cefTRIAXone [Rocephin] 2 gm Sodium Chloride 0.9% [Normal Saline] 100 ml IV Q24H 09/01/18 00:00 RT Arterial Blood Gases, ABG [RC] Click to Edit 09/01/18 00:23 RT BiPAP/CPAP [RC] ASDIRECTED 09/01/18 09:00 Aspirin [Halfprin] 81 mg PO DAILY 09/01/18 10:00 Ampicillin 1 gm Sodium Chloride 0.9% [Normal Saline] 100 ml IV Q4H 09/02/18 05:11 BASIC METABOLIC PANEL,BMP [CHEM] AM C-REACTIVE PROTEIN [CHEM] AM CBC WITH AUTO DIFF [HEME] AM MAGNESIUM [CHEM] AM 09/02/18 09:00 Echo Comp wo Cont [US] Routine 09/03/18 05:11 BASIC METABOLIC PANEL,BMP [CHEM] AM C-REACTIVE PROTEIN [CHEM] AM CBC WITH AUTO DIFF [HEME] AM MAGNESIUM [CHEM] AM 09/04/18 05:11 BASIC METABOLIC PANEL,BMP [CHEM] AM C-REACTIVE PROTEIN [CHEM] AM CBC WITH AUTO DIFF [HEME] AM MAGNESIUM [CHEM] AM - Plan Plan:: Assessment/Plan: Acute: PNA L lower and mid lung w/ hypoxia, clinically improving but O2 demand worsening * Fever, productive cough, SOB w/ exertion x 3 days * O2 82% RA--> 92% 4L NC--> 91% 12L mask--> 89-91% 15L non-rebreather--> 15L BiPAP * No leukocytosis, Neut 86% with 3% bandemia, CRP 15.4--> 17.6 * CXR 08/30/18: Findings felt compatible with mild bilateral bronchitis with areas of pneumonia within the left mid and lower lung. * CT Chest 08/31/18: * 1. Diffuse parenchymal densities throughout both size of the chest more confluent within the lingula and within both lower lungs. Findings have progressed from prior chest x-ray. Findings are most likely infectious in etiology. Continued follow-up is recommended. * 2. Mildly prominent lymph nodes most likely on an inflammatory basis from the lung process. * Mycoplasma negative * RVP, Strep pneumo, Sputum culture pending * RT/Duonebs/IS/Acapella/Chest Physiotherapy * ABG shows low O2 sat: 86.8%--> 89.7%--> 93.3 * Repeat CXR 09/01/18: * 1. Diffuse parenchymal densities as described above. Differential includes irregular areas of pulmonary edema vs diffuse multifocal areas of pneumonia. * 2. Heart is slightly enlarged * Rocephin started in ED--> Continue and add Azithromycin--> D/C * Start Zosyn and Vanco for more aggressive tx * d/t increased O2 demand and lethargy, D/C Zosyn, continue Vanco, add Rocephin , Ampicillin, Acyclovir * Dexamethasone BID x2 days * Magnesium 1g x1 dose for bronchospasm * R/O PE: * D-dimer elevated at 1.1 * CTA negative for PE * ECHO pending * Recommend PFT outpt Influenza A, Improving * Fever and increased weakness x3 days--> Increased energy and alertness today * Tamiflu started in ED--> continue BID Sepsis * Likely 2/2 above * Temperature 102.2F, Hypoxic, Tachypneic, Tachycardia, source of infection present * LA 3.2--> 2.1--> 0.9 * Procalcitonin elevated at 0.18 * Rocephin started in ED--> continue * IVF started in ED--> continue * Blood cultures show no growth Possible AMS * Per , seemed more confused than usual this AM * Risk Factors: Current illness/sepsis, increased O2 demand, unwitnessed fall yesterday ( unsure if she hit her head; she does have a scab on her forehead but per notes it is a couple days old) * CT Head 08/31/18: * 1. Diffuse parenchymal densities throughout both sides of the chest more confluent within the lingual and within both lower lungs. Findings have progressed from prior chest x-ray. Findings are most likely infectious in etiology. Continued follow-up is recommended. * 2. Mildly prominent lymph nodes most likely on an inflammatory basis from the lung process. * Normal neuro exam, A+O x3, seems to be very lethargic * If continues to worsen/has AMS: * Transfer to ICU * LP in AM --> Cancelled d/t improved clinical disposition * Switch Abx to Rocephin, Ampicillin, Acyclovir, continue Vanco and D/C Zosyn * CT Head in AM if still lethargic or AMS--> not needed at this time Hyperglycemia w/ DM2 * She missed a dose of insulin yesterday, didn't take her insulin this AM * Blood sugar this AM 389, Blood sugar in ED 320 * Blood glucose checks, insulin sliding scale * A1C 7.7 * Started on Dexamethasone--> increase ISS to medium dose New-onset Afib * Risk factor: Sepsis * 12 lead EKG done, HR 100's-118 * Metoprolol 25 BID * Lovenox 40 restarted * ECHO pending * Monitor on telemetry Resolved: Dehydration * Likely 2/2 decreased intake * AGap 17.5--> 14.1 * IVF started in ED--> Continue * Monitor Possible UTI--> CULTURE NEGATIVE * Risk factors: Frequency, Incontinence * UA suspicious for UTI * Urine culture shows no growth * Rocephin started in ED--> continue Chronic: HLD * Lipids WNL HTN GERD Seizures on Tegretol (last seizure 2002) DM2 Plan: Admit to Medical Floor Droplet precautions Routine AM Labs ADA diet DVT/GI prophylaxis CM/SW PT/OT Code Status: Full Code; PCP: Dr. Nasreen Edmond
[2018-09-01] MEDS: Levalbuterol HCl 1.25 MG/0.5 ML Neb NEB SCH ×2 (15:05→20:04)
[2018-09-01] MEDS: Ipratropium 0.02% 0.5 MG/2.5 ML Neb Soln NEB SCH ×2 (15:05→20:04)
[2018-09-01] MEDS: Metoprolol Succinate 25 MG Tab.ER PO SCH ×2 (16:23→20:38)
[2018-09-01] MEDS: Enoxaparin 40 MG/0.4 ML Syringe SUBCUT SCH (17:15)
[2018-09-01] MEDS: Metoprolol Tartrate 5 MG/5 ML SDV IVPUSH PRN ×2 (17:19→22:24)
[2018-09-01] MEDS: Levalbuterol HCl 1.25 MG/3 ML Neb NEB PRN (17:36)
[2018-09-01] MEDS: Diltiazem 50 MG/10 ML SDV IVPUSH PRN (18:33)
[2018-09-01] MEDS: cefTRIAXone 2 GM in Sodium Chloride 0.9% 100 ML IV SCH (22:21)
[2018-09-02] MEDS: Ampicillin 1 GM in Sodium Chloride 0.9% 100 ML IV SCH ×2 (01:47→05:41)
[2018-09-02] MEDS: Diltiazem 50 MG/10 ML SDV IVPUSH PRN ×2 (02:24→06:52)
[2018-09-02] MEDS: Levalbuterol HCl 1.25 MG/3 ML Neb NEB PRN ×2 (02:37→07:10)
[2018-09-02] MEDS: Sodium Chloride 0.9% 1,000 ML IV SCH (04:15)
[2018-09-02] MEDS: Metoprolol Tartrate 5 MG/5 ML SDV IVPUSH PRN (04:16)
[2018-09-02] MEDS: Levalbuterol HCl 1.25 MG/0.5 ML Neb NEB SCH ×4 (05:03→20:08)
[2018-09-02] MEDS: Ipratropium 0.02% 0.5 MG/2.5 ML Neb Soln NEB SCH ×4 (05:03→20:08)
[2018-09-02] MEDS: Glimepiride 4 MG Tab PO SCH ×2 (06:07→17:22)
[2018-09-02] MEDS: guaiFENesin/Dextromethorphan 100-10 MG/5 ML Soln 5 ML Cup PO SCH ×3 (06:07→20:18)
[2018-09-02] MEDS: Dexamethasone 40 MG in Sodium Chloride 0.9% 50 ML IV SCH ×2 (06:13→18:08)
[2018-09-02] MEDS: Insulin Lispro 100 UNIT/ML 10 ML VIAL SUBCUT SCH ×4 (06:52→21:16)
--- NOTE | 2018-09-02 07:55 | PCM.SN ---
- Free Text/Narrative Note: Patient seen and examined at beside. 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 She is on BIPAP with a flow rate of 15 pretty much overnight. Her RR has been in the 30s all night but this morning she starts to go up in the 40s. She is however arousable and able to engage. She opens her eyes with verbal calls and able to maintain a good conversations. Her heart rate is controlled and her repeat EKG shows sinus rhythm (no longer in afib). Ordered ABG with pending result. Talked to patient at bedside, informed her she would need intubation at this point. She said "no". Again, re-iterated the need for more invasive airway ( vent machine) but she refused it in front of the respiratory therapist (Nenita) . Called her and let him know his 's wishes. He said he will be coming over to speak with her.
[2018-09-02] MEDS: Saccharomyces Boulardii (Probiotic) 250 MG Cap PO SCH ×2 (09:07→20:19)
[2018-09-02] MEDS: Oseltamivir 75 MG Cap PO SCH ×2 (09:07→20:18)
[2018-09-02] MEDS: Metoprolol Succinate 25 MG Tab.ER PO SCH ×2 (09:07→20:19)
[2018-09-02] MEDS: carBAMazepine 200 MG Tab PO SCH ×2 (09:07→20:19)
[2018-09-02] MEDS: Famotidine 20 MG Tab PO SCH ×2 (09:07→20:19)
[2018-09-02] MEDS: Enoxaparin 40 MG/0.4 ML Syringe SUBCUT SCH (09:08)
[2018-09-02] MEDS: Aspirin 81 MG Tab.EC PO SCH (09:08)
[2018-09-02] MEDS: Levofloxacin/Dextrose 5%-Water 750 MG in Premix Bag 1 BAG IV SCH (11:28)
[2018-09-02] MEDS ORDERED: Furosemide 20 MG/2 ML VIAL IVPUSH ONE ×2 (12:17→21:00)
--- NOTE | 2018-09-02 13:48 | PCM.PN ---
- General Info Date of Service: 09/02/18 Functional Status: Reports: Pain Controlled, Tolerating Diet (minimal oral intake), Urinating - Review of Systems General: Reports: Weakness, Malaise HEENT: Reports: No Symptoms Pulmonary: Reports: Shortness of Breath Cardiovascular: Reports: No Symptoms Gastrointestinal: Reports: No Symptoms Genitourinary: Reports: No Symptoms Musculoskeletal: Reports: No Symptoms Skin: Reports: No Symptoms Neurological: Reports: No Symptoms Psychiatric: Reports: No Symptoms - Patient Data Vitals - Most Recent: Last Vital Signs Temp 36.9 C 09/02/18 12:00 Pulse 84 09/02/18 09:07 Resp 28 H 09/02/18 12:00 BP 143/79 H 09/02/18 12:00 Pulse Ox 95 09/02/18 12:00 Weight - Most Recent: 97.069 kg I&O - Last 24 Hours: Intake & Output 09/01/18 09/02/18 09/02/18 22:59 06:59 14:59 Intake Total 2230 1595 Balance 2230 1595 Lab Results Last 24 Hours: Laboratory Results - last 24 hr 08/31/18 09/01/18 09/01/18 Range/Units 22:07 17:17 20:35 WBC (3.98-10.04) K/mm3 RBC (3.98-5.22) M/mm3 Hgb (11.2-15.7) gm/L Hct (34.1-44.9) % MCV (79.4-94.8) fl MCH (25.6-32.2) pg MCHC (32.2-35.5) g/dl RDW Std Deviation (36.4-46.3) fL Plt Count (182-369) K/mm3 MPV (9.4-12.3) fl Neut % (Auto) (34.0-71.1) % Lymph % (Auto) (19.3-51.7) % Prentiss % (Auto) (4.7-12.5) % Eos % (Auto) (0.7-5.8) Baso % (Auto) (0.1-1.2) % Neut # (Auto) (1.56-6.13) K/mm3 Lymph # (Auto) (1.18-3.74) K/mm3 Prentiss # (Auto) (0.24-0.36) K/mm3 Eos # (Auto) (0.04-0.36) K/mm3 Baso # (Auto) (0.01-0.08) K/mm3 Manual Slide Review Puncture Site ABG pH (7.35-7.45) ABG pCO2 (35.0-45.0) mmHg ABG pO2 (80.0-100.0) mmHg ABG HCO3 (22.0-26.0) meq/L ABG O2 Saturation (96.0-97.0) % ABG Base Excess (-2-2.0) Aston Test O2 Delivery Device Oxygen Flow Rate FiO2 (21.00-100.00) % PEEP cmH20 Pressure Support cmH2O Sodium (136-145) mEq/L Potassium (3.5-5.1) mEq/L Chloride (98-107) mEq/L Carbon Dioxide (21-32) mEq/L Anion Gap (5-15) BUN (7-18) mg/dL Creatinine (0.55-1.02) mg/dL Est Cr Clr Drug Dosing mL/min Estimated GFR (MDRD) (>60) mL/min BUN/Creatinine Ratio (14-18) Glucose (80-115) mg/dL POC Glucose 240 H 189 H (80-115) mg/dL Lactic Acid (0.4-2.0) mmol/L Calcium (8.5-10.1) mg/dL Magnesium (1.8-2.4) mg/dl C-Reactive Protein (<1.0) mg/dL NT-Pro-B Natriuret Pep (0-125) pg/mL Adenovirus (PCR) Not detected (Not Detected) B. pertussis DNA (PCR) Not detected (Not Detected) B.parapertussis DNA PCR Not detected (Not Detected) C. pneumoniae DNA (PCR) Not detected (Not Detected) Coronavirus (PCR) Not detected (Not Detected) Human Metapneumovir PCR Not detected (Not Detected) Influ A (H1N1/09) PCR Detected H (Not Detected) Influenza B (RT-PCR) Not detected (Not Detected) M. pneumoniae (PCR) Not detected (Not Detected) Parainfluen 1,2,3,4 PCR Not detected (Not Detected) RSV (PCR) Not detected (Not Detected) Entero/Rhino (PCR) Not detected (Not Detected) 09/02/18 09/02/18 09/02/18 Range/Units 06:04 06:08 06:08 WBC 6.90 (3.98-10.04) K/mm3 RBC 4.37 (3.98-5.22) M/mm3 Hgb 11.8 (11.2-15.7) gm/L Hct 36.0 (34.1-44.9) % MCV 82.4 (79.4-94.8) fl MCH 27.0 (25.6-32.2) pg MCHC 32.8 (32.2-35.5) g/dl RDW Std Deviation 41.9 (36.4-46.3) fL Plt Count 208 (182-369) K/mm3 MPV 9.6 (9.4-12.3) fl Neut % (Auto) 79.9 H (34.0-71.1) % Lymph % (Auto) 15.8 L (19.3-51.7) % Prentiss % (Auto) 3.6 L (4.7-12.5) % Eos % (Auto) 0 L (0.7-5.8) Baso % (Auto) 0.3 (0.1-1.2) % Neut # (Auto) 5.51 (1.56-6.13) K/mm3 Lymph # (Auto) 1.09 L (1.18-3.74) K/mm3 Prentiss # (Auto) 0.25 (0.24-0.36) K/mm3 Eos # (Auto) 0.00 L (0.04-0.36) K/mm3 Baso # (Auto) 0.02 (0.01-0.08) K/mm3 Manual Slide Review Abnormal smear Puncture Site ABG pH (7.35-7.45) ABG pCO2 (35.0-45.0) mmHg ABG pO2 (80.0-100.0) mmHg ABG HCO3 (22.0-26.0) meq/L ABG O2 Saturation (96.0-97.0) % ABG Base Excess (-2-2.0) Aston Test O2 Delivery Device Oxygen Flow Rate FiO2 (21.00-100.00) % PEEP cmH20 Pressure Support cmH2O Sodium 140 (136-145) mEq/L Potassium 3.5 (3.5-5.1) mEq/L Chloride 105 (98-107) mEq/L Carbon Dioxide 23 (21-32) mEq/L Anion Gap 15.5 H (5-15) BUN 14 (7-18) mg/dL Creatinine 0.6 (0.55-1.02) mg/dL Est Cr Clr Drug Dosing 85.24 mL/min Estimated GFR (MDRD) > 60 (>60) mL/min BUN/Creatinine Ratio 23.3 H (14-18) Glucose 192 H (80-115) mg/dL POC Glucose 182 H (80-115) mg/dL Lactic Acid (0.4-2.0) mmol/L Calcium 7.5 L (8.5-10.1) mg/dL Magnesium 1.9 (1.8-2.4) mg/dl C-Reactive Protein 6.5 H* (<1.0) mg/dL NT-Pro-B Natriuret Pep (0-125) pg/mL Adenovirus (PCR) (Not Detected) B. pertussis DNA (PCR) (Not Detected) B.parapertussis DNA PCR (Not Detected) C. pneumoniae DNA (PCR) (Not Detected) Coronavirus (PCR) (Not Detected) Human Metapneumovir PCR (Not Detected) Influ A (H1N1/09) PCR (Not Detected) Influenza B (RT-PCR) (Not Detected) M. pneumoniae (PCR) (Not Detected) Parainfluen 1,2,3,4 PCR (Not Detected) RSV (PCR) (Not Detected) Entero/Rhino (PCR) (Not Detected) 09/02/18 09/02/18 09/02/18 Range/Units 07:52 10:12 10:12 WBC (3.98-10.04) K/mm3 RBC (3.98-5.22) M/mm3 Hgb (11.2-15.7) gm/L Hct (34.1-44.9) % MCV (79.4-94.8) fl MCH (25.6-32.2) pg MCHC (32.2-35.5) g/dl RDW Std Deviation (36.4-46.3) fL Plt Count (182-369) K/mm3 MPV (9.4-12.3) fl Neut % (Auto) (34.0-71.1) % Lymph % (Auto) (19.3-51.7) % Prentiss % (Auto) (4.7-12.5) % Eos % (Auto) (0.7-5.8) Baso % (Auto) (0.1-1.2) % Neut # (Auto) (1.56-6.13) K/mm3 Lymph # (Auto) (1.18-3.74) K/mm3 Prentiss # (Auto) (0.24-0.36) K/mm3 Eos # (Auto) (0.04-0.36) K/mm3 Baso # (Auto) (0.01-0.08) K/mm3 Manual Slide Review Puncture Site Rt radial ABG pH 7.37 (7.35-7.45) ABG pCO2 36.4 (35.0-45.0) mmHg ABG pO2 57.0 L (80.0-100.0) mmHg ABG HCO3 20.5 L (22.0-26.0) meq/L ABG O2 Saturation 88.1 L (96.0-97.0) % ABG Base Excess -3.7 L (-2-2.0) Aston Test Positive O2 Delivery Device Bipap Oxygen Flow Rate 15.0 FiO2 0.00 L (21.00-100.00) % PEEP 7.0 cmH20 Pressure Support 14.0 cmH2O Sodium (136-145) mEq/L Potassium (3.5-5.1) mEq/L Chloride (98-107) mEq/L Carbon Dioxide (21-32) mEq/L Anion Gap (5-15) BUN (7-18) mg/dL Creatinine (0.55-1.02) mg/dL Est Cr Clr Drug Dosing mL/min Estimated GFR (MDRD) (>60) mL/min BUN/Creatinine Ratio (14-18) Glucose (80-115) mg/dL POC Glucose (80-115) mg/dL Lactic Acid 1.0 (0.4-2.0) mmol/L Calcium (8.5-10.1) mg/dL Magnesium (1.8-2.4) mg/dl C-Reactive Protein (<1.0) mg/dL NT-Pro-B Natriuret Pep 2906 H (0-125) pg/mL Adenovirus (PCR) (Not Detected) B. pertussis DNA (PCR) (Not Detected) B.parapertussis DNA PCR (Not Detected) C. pneumoniae DNA (PCR) (Not Detected) Coronavirus (PCR) (Not Detected) Human Metapneumovir PCR (Not Detected) Influ A (H1N1/09) PCR (Not Detected) Influenza B (RT-PCR) (Not Detected) M. pneumoniae (PCR) (Not Detected) Parainfluen 1,2,3,4 PCR (Not Detected) RSV (PCR) (Not Detected) Entero/Rhino (PCR) (Not Detected) 09/02/18 Range/Units 11:28 WBC (3.98-10.04) K/mm3 RBC (3.98-5.22) M/mm3 Hgb (11.2-15.7) gm/L Hct (34.1-44.9) % MCV (79.4-94.8) fl MCH (25.6-32.2) pg MCHC (32.2-35.5) g/dl RDW Std Deviation (36.4-46.3) fL Plt Count (182-369) K/mm3 MPV (9.4-12.3) fl Neut % (Auto) (34.0-71.1) % Lymph % (Auto) (19.3-51.7) % Prentiss % (Auto) (4.7-12.5) % Eos % (Auto) (0.7-5.8) Baso % (Auto) (0.1-1.2) % Neut # (Auto) (1.56-6.13) K/mm3 Lymph # (Auto) (1.18-3.74) K/mm3 Prentiss # (Auto) (0.24-0.36) K/mm3 Eos # (Auto) (0.04-0.36) K/mm3 Baso # (Auto) (0.01-0.08) K/mm3 Manual Slide Review Puncture Site ABG pH (7.35-7.45) ABG pCO2 (35.0-45.0) mmHg ABG pO2 (80.0-100.0) mmHg ABG HCO3 (22.0-26.0) meq/L ABG O2 Saturation (96.0-97.0) % ABG Base Excess (-2-2.0) Aston Test O2 Delivery Device Oxygen Flow Rate FiO2 (21.00-100.00) % PEEP cmH20 Pressure Support cmH2O Sodium (136-145) mEq/L Potassium (3.5-5.1) mEq/L Chloride (98-107) mEq/L Carbon Dioxide (21-32) mEq/L Anion Gap (5-15) BUN (7-18) mg/dL Creatinine (0.55-1.02) mg/dL Est Cr Clr Drug Dosing mL/min Estimated GFR (MDRD) (>60) mL/min BUN/Creatinine Ratio (14-18) Glucose (80-115) mg/dL POC Glucose 228 H (80-115) mg/dL Lactic Acid (0.4-2.0) mmol/L Calcium (8.5-10.1) mg/dL Magnesium (1.8-2.4) mg/dl C-Reactive Protein (<1.0) mg/dL NT-Pro-B Natriuret Pep (0-125) pg/mL Adenovirus (PCR) (Not Detected) B. pertussis DNA (PCR) (Not Detected) B.parapertussis DNA PCR (Not Detected) C. pneumoniae DNA (PCR) (Not Detected) Coronavirus (PCR) (Not Detected) Human Metapneumovir PCR (Not Detected) Influ A (H1N1/09) PCR (Not Detected) Influenza B (RT-PCR) (Not Detected) M. pneumoniae (PCR) (Not Detected) Parainfluen 1,2,3,4 PCR (Not Detected) RSV (PCR) (Not Detected) Entero/Rhino (PCR) (Not Detected) Alireza Results Last 24 Hours: Microbiology 08/30/18 13:55 Streptococcus pneumoniae Antigen (M - Final Urine 08/30/18 14:50 Aerobic Blood Culture - Preliminary Blood - Venous NO GROWTH AFTER 2 DAYS Anaerobic Blood Culture - Preliminary NO GROWTH AFTER 2 DAYS 08/30/18 15:05 Aerobic Blood Culture - Preliminary Blood - Venous - Lab Draw NO GROWTH AFTER 2 DAYS Anaerobic Blood Culture - Final 08/30/18 15:35 Urine Culture - Final Urine, Catheterized NO GROWTH AFTER 2 DAYS Med Orders - Current: Current Medications Acetaminophen (Tylenol) 650 mg PO Q4H PRN PRN Reason: Pain (Mild 1-3)/fever Last Admin: 08/31/18 20:10 Dose: 650 mg Hydrocodone Bitart/Acetaminophen ([place] 325-5 Mg) 1 tab PO Q4H PRN PRN Reason: Pain (moderate 4-6) Alogliptin Benzoate (Alogliptin) 25 mg PO DAILY [facility] Last Admin: 09/02/18 09:07 Dose: 25 mg Aspirin (Halfprin) 81 mg PO DAILY [facility] Last Admin: 09/02/18 09:08 Dose: 81 mg Bisacodyl (Dulcolax) 5 mg PO DAILY PRN PRN Reason: Constipation Carbamazepine (Tegretol Tab) 400 mg PO BID [facility] Last Admin: 09/02/18 09:07 Dose: 400 mg Dextrose/Water (Dextrose 50% In Water) 50 ml IVPUSH ASDIRECTED PRN PRN Reason: Hypoglycemia Diltiazem HCl (Cardizem) 10 mg IVPUSH Q4H PRN PRN Reason: tachy >110 Last Admin: 09/02/18 06:52 Dose: 10 mg Docusate Sodium (Colace) 100 mg PO BID PRN PRN Reason: Constipation Enoxaparin Sodium (Lovenox) 40 mg SUBCUT DAILY [facility] Last Admin: 09/02/18 09:08 Dose: 40 mg Famotidine (Pepcid) 20 mg PO BID [facility] Last Admin: 09/02/18 09:07 Dose: 20 mg Glimepiride (Glimepiride) 4 mg PO BIDMEALS [facility] Last Admin: 09/02/18 06:07 Dose: 4 mg Guaifenesin/Phenylephrine HCl (Robitussin Dm) 10 ml PO TID@0700,1400,2100 [facility] Last Admin: 09/02/18 13:46 Dose: 10 ml Hydralazine HCl (Apresoline) 10 mg IVPUSH Q4H PRN PRN Reason: Hypertension Hydromorphone HCl (Dilaudid) 0.25 mg IVPUSH Q2H PRN PRN Reason: Pain (severe 7-10) Promethazine HCl 6.25 mg/ (Sodium Chloride) 50.25 mls @ 100 mls/hr IV Q6H PRN PRN Reason: Nausea/Vomiting Sodium Chloride (Normal Saline) 1,000 mls @ 75 mls/hr IV ASDIRECTED [facility] Last Admin: 09/02/18 04:15 Dose: 75 mls/hr Dexamethasone 40 mg/ Sodium (Chloride) 54 mls @ 108 mls/hr IV BID@0700,1900 [facility] Stop: 09/02/18 20:31 Last Admin: 09/02/18 06:13 Dose: 108 mls/hr Ceftriaxone Sodium 2 gm/ (Sodium Chloride) 100 mls @ 200 mls/hr IV Q24H [facility] Last Admin: 09/01/18 22:21 Dose: 200 mls/hr Levofloxacin/Dextrose 750 mg/ (Premix) 150 mls @ 100 mls/hr IV Q24H [facility] Last Admin: 09/02/18 11:28 Dose: 100 mls/hr Insulin Human Lispro (Humalog) 0 unit SUBCUT QIDACANDBED [facility]; Protocol Last Admin: 09/02/18 12:14 Dose: 4 units Ipratropium [place] (Atrovent) 0.5 mg NEB QIDRT [facility] Last Admin: 09/02/18 09:20 Dose: 0.5 mg Levalbuterol HCl (Xopenex) 1.25 mg NEB QIDRT [facility] Last Admin: 09/02/18 09:20 Dose: 1.25 mg Levalbuterol HCl (Xopenex) 1.25 mg NEB Q2H PRN PRN Reason: sob Last Admin: 09/02/18 07:10 Dose: 1.25 mg Lorazepam (Ativan) 2 mg IVPUSH Q4H PRN PRN Reason: Seizures Magnesium Hydroxide (Milk Of Magnesia) 30 ml PO Q12H PRN PRN Reason: Constipation Metoprolol Succinate (Toprol Xl) 25 mg PO BID [facility] Last Admin: 09/02/18 09:07 Dose: 25 mg Metoprolol Tartrate (Lopressor) 5 mg IVPUSH Q4H PRN PRN Reason: Tachycardia Last Admin: 09/02/18 04:16 Dose: 5 mg Oseltamivir Phosphate (Tamiflu) 75 mg PO BID [facility] Last Admin: 09/02/18 09:07 Dose: 75 mg Polyethylene Glycol (Miralax) 17 gm PO DAILY PRN PRN Reason: Constipation Promethazine HCl (Phenergan) 25 mg PO Q6H PRN PRN Reason: Nausea/Vomiting Saccharomyces Boulardii (Florastor) 250 mg PO BID [facility] Last Admin: 09/02/18 09:07 Dose: 250 mg Senna/Docusate Sodium (Senna Plus) 1 tab PO BID PRN PRN Reason: Constipation Temazepam (Restoril) 7.5 mg PO BEDTIME PRN PRN Reason: Sleep Discontinued Medications Acetaminophen (Tylenol) 975 mg PO NOW ONE Stop: 08/30/18 14:27 Last Admin: 08/30/18 14:51 Dose: 975 mg Albuterol (Proventil Neb Soln) 2.5 mg NEB Q2H PRN PRN Reason: Shortness Of Breath/wheezing Last Admin: 08/31/18 23:15 Dose: 2.5 mg Albuterol/Ipratropium (Duoneb 3.0-0.5 Mg/3 Ml) 3 ml NEB Q4H PRN PRN Reason: Shortness Of Breath/wheezing Last Admin: 08/31/18 10:44 Dose: 3 ml Albuterol/Ipratropium (Duoneb 3.0-0.5 Mg/3 Ml) 3 ml NEB QIDRT [facility] Last Admin: 09/01/18 08:59 Dose: 3 ml Ampicillin Sodium (Ampicillin) Confirm Administered Dose 1 gm .ROUTE .STK-MED ONE Stop: 08/31/18 21:19 Last Admin: 08/31/18 21:33 Dose: Not Given Ceftriaxone Sodium (Rocephin) 2 gm IVPUSH Q24H [facility] Dexamethasone (Dexamethasone) Confirm Administered Dose 40 mg .ROUTE .STK-MED ONE Stop: 08/31/18 19:53 Last Admin: 08/31/18 20:15 Dose: Not Given Dexamethasone (Dexamethasone) 40 mg IVPUSH Q12HR DAGOBERTO Stop: 09/03/18 07:01 Furosemide (Lasix) 40 mg IVPUSH NOW ONE Stop: 08/30/18 14:51 Last Admin: 08/30/18 14:58 Dose: 40 mg Furosemide (Lasix) 20 mg IVPUSH NOW ONE Stop: 09/02/18 12:18 Last Admin: 09/02/18 13:45 Dose: 20 mg Sodium Chloride (Normal Saline) 1,000 mls @ 150 mls/hr IV ASDIRECTED [facility] Last Admin: 08/30/18 14:26 Dose: 150 mls/hr Sodium Chloride (Normal Saline) 1,000 mls @ 75 mls/hr IV ASDIRECTED [facility] Ceftriaxone Sodium 1 gm/ (Sodium Chloride) 100 mls @ 200 mls/hr IV ONETIME ONE Stop: 08/30/18 16:28 Last Admin: 08/30/18 16:57 Dose: 200 mls/hr Azithromycin 500 mg/ Sodium (Chloride) 250 mls @ 250 mls/hr IV Q24H [facility] Last Admin: 08/30/18 21:15 Dose: 250 mls/hr Sodium Chloride (Normal Saline) 1,000 mls @ 125 mls/hr IV ASDIRECTED [facility] Last Admin: 08/31/18 00:55 Dose: 125 mls/hr Ceftriaxone Sodium 1 gm/ (Sodium Chloride) 100 mls @ 200 mls/hr IV ONETIME ONE Stop: 08/30/18 19:14 Last Admin: 08/30/18 19:28 Dose: 200 mls/hr Ceftriaxone Sodium 2 gm/ (Sodium Chloride) 100 mls @ 200 mls/hr IV Q24H [facility] Dextrose/Sodium Chloride (Dextrose 5%-Normal Saline) 1,000 mls @ 125 mls/hr IV ASDIRECTED [facility] Last Admin: 08/31/18 08:05 Dose: 125 mls/hr Piperacillin Sod/Tazobactam (Sod 4.5 gm/ Sodium Chloride) 100 mls @ 200 mls/hr IV ONETIME ONE Stop: 08/31/18 10:29 Last Admin: 08/31/18 11:28 Dose: Not Given Piperacillin Sod/Tazobactam (Sod 4.5 gm/ Sodium Chloride) 100 mls @ 25 mls/hr IV Q8H [facility] Last Admin: 08/31/18 23:34 Dose: Not Given Vancomycin HCl 1 gm/ Sodium (Chloride) 250 mls @ 250 mls/hr IV Q12H [facility] Last Admin: 09/01/18 21:37 Dose: 250 mls/hr Sodium Chloride (Normal Saline) Confirm Administered Dose 100 mls @ as directed .ROUTE .STK-MED ONE Stop: 08/31/18 10:49 Last Admin: 08/31/18 11:29 Dose: Not Given Piperacillin Sod/Tazobactam (Sod 4.5 gm/ Sodium Chloride) 100 mls @ 200 mls/hr IV ONETIME ONE Stop: 08/31/18 11:44 Last Admin: 08/31/18 12:56 Dose: 200 mls/hr Magnesium Sulfate/Dextrose (Magnesium 1 Gm In D5w 100 Ml) Confirm Administered Dose 100 mls @ as directed .ROUTE .[facility] ONE Stop: 08/31/18 19:53 Last Admin: 08/31/18 20:15 Dose: Not Given Acyclovir 1,000 mg/ Sodium (Chloride) 120 mls @ 100 mls/hr IV Q8H [facility] Last Admin: 09/02/18 04:09 Dose: 100 mls/hr Ampicillin Sodium 1 gm/ Sodium (Chloride) 100 mls @ 200 mls/hr IV Q4H [facility] Last Admin: 08/31/18 23:34 Dose: Not Given Magnesium Sulfate 2 gm/ Premix 50 mls @ 25 mls/hr IV ONETIME ONE Stop: 08/31/18 22:13 Last Admin: 08/31/18 21:26 Dose: Not Given Magnesium Sulfate/Dextrose 1 (gm/ Premix) 100 mls @ 100 mls/hr IV ONETIME ONE Stop: 08/31/18 21:29 Last Admin: 08/31/18 20:35 Dose: 100 mls/hr Ampicillin Sodium 1 gm/ Sodium (Chloride) 100 mls @ 200 mls/hr IV Q4H [facility] Last Admin: 09/01/18 11:17 Dose: Not Given Sodium Chloride (Normal Saline) Confirm Administered Dose 100 mls @ as directed .ROUTE .[facility] ONE Stop: 08/31/18 21:21 Last Admin: 08/31/18 21:29 Dose: Not Given Sodium Chloride (Normal Saline) 250 mls @ 999 mls/hr IV ONETIME ONE Stop: 08/31/18 21:25 Last Admin: 08/31/18 23:07 Dose: Not Given Ampicillin Sodium 1 gm/ Sodium (Chloride) 100 mls @ 200 mls/hr IV Q4H [facility] Last Admin: 09/02/18 05:41 Dose: 200 mls/hr Insulin Human Lispro (Humalog) 0 unit SUBCUT QIDACANDBED [facility]; Protocol Last Admin: 08/31/18 20:54 Dose: 3 unit Insulin Human Regular (Humulin R) 8 unit SUBCUT ONETIME ONE Stop: 08/30/18 14:55 Last Admin: 08/30/18 15:06 Dose: 8 units Ondansetron HCl (Zofran) 4 mg IVPUSH ONETIME ONE Stop: 08/30/18 14:19 Last Admin: 08/30/18 14:29 Dose: 4 mg Oseltamivir Phosphate (Tamiflu) 75 mg PO ONETIME ONE Stop: 08/30/18 14:43 Last Admin: 08/30/18 15:02 Dose: 75 mg Vancomycin HCl (Pharmacy To Dose - Vancomycin) 1 dose .XX ASDIRECTED DAGOBERTO - Exam Quality Assessment: Supplemental Oxygen, Urine Catheter, DVT Prophylaxis General: Alert, Oriented, Cooperative, No Acute Distress HEENT: Pupils Equal, Pupils Reactive, EOMI Neck: Trachea Midline, No JVD Lungs: Normal Respiratory Effort, Decreased Breath Sounds, Rhonchi Cardiovascular: Regular Rate, Regular Rhythm GI/Abdominal Exam: Normal Bowel Sounds, Soft, Non-Tender, No Organomegaly, No Distention (Female) Exam: Deferred Back Exam: Normal Inspection Extremities: Normal Capillary Refill Skin: Warm Neurological: No New Focal Deficit Psy/Mental Status: Alert - Problem List Review Problem List Initiated/Reviewed/Updated: Yes - My Orders Last 24 Hours: My Active Orders 09/02/18 11:49 C DIFFICILE BY PCR W/NAP1 [MOLEC] Stat - Plan Plan:: Assessment/Plan: Acute: Influenza with secondary bacterial PNA PNA L lower and mid lung w/ hypoxia, clinically lalitha hypoxic * Fever, productive cough, SOB w/ exertion x 3 days * O2 82% RA--> 92% 4L NC--> 91% 12L mask--> 89-91% 15L non-rebreather--> 15L BiPAP; frequent changes required; improved O2 sat after diuresis * No leukocytosis, Neut 86% with 3% bandemia, CRP 15.4--> 17.6 * CXR 08/30/18: Findings felt compatible with mild bilateral bronchitis with areas of pneumonia within the left mid and lower lung. * CT Chest 08/31/18: * 1. Diffuse parenchymal densities throughout both size of the chest more confluent within the lingula and within both lower lungs. Findings have progressed from prior chest x-ray. Findings are most likely infectious in etiology. Continued follow-up is recommended. * 2. Mildly prominent lymph nodes most likely on an inflammatory basis from the lung process. * Mycoplasma negative * RVP, Strep pneumo, Sputum culture pending * RT/Duonebs/IS/Acapella/Chest Physiotherapy * ABG shows low O2 sat: 86.8%--> 89.7%--> 93.3 * Repeat CXR 09/01/18: * 1. Diffuse parenchymal densities as described above. Differential includes irregular areas of pulmonary edema vs diffuse multifocal areas of pneumonia. * 2. Heart is slightly enlarged Most recent ATB : Rocephin/Levoquin * Dexamethasone BID x2 days * Magnesium 1g x1 dose for bronchospasm * R/O PE: * D-dimer elevated at 1.1 * CTA negative for PE * ECHO LVEF--WNL; grade 2/4 diastolic dysfunction * * Recommend PFT outpt Influenza A, Improving * Fever and increased weakness x3 days--> Increased energy and alertness today * Tamiflu started in ED--> continue BID Sepsis * Likely 2/2 above * Temperature 102.2F, Hypoxic, Tachypneic, Tachycardia, source of infection present * LA 3.2--> 2.1--> 0.9 * Procalcitonin elevated at 0.18 * Rocephin started in ED--> continue * IVF started in ED--> continue * Blood cultures show no growth Possible AMS * Per , seemed more confused than usual this AM * Risk Factors: Current illness/sepsis, increased O2 demand, unwitnessed fall yesterday ( unsure if she hit her head; she does have a scab on her forehead but per notes it is a couple days old) * CT Head 08/31/18: * 1. Diffuse parenchymal densities throughout both sides of the chest more confluent within the lingual and within both lower lungs. Findings have progressed from prior chest x-ray. Findings are most likely infectious in etiology. Continued follow-up is recommended. * 2. Mildly prominent lymph nodes most likely on an inflammatory basis from the lung process. * Normal neuro exam, A+O x3, seems to be very lethargic * If continues to worsen/has AMS: * ICU care * LP in AM --> Cancelled d/t improved clinical disposition * CT Head in AM if still lethargic or AMS--> not needed at this time Hyperglycemia w/ DM2 * She missed a dose of insulin yesterday, didn't take her insulin this AM * Blood sugar this AM 389, Blood sugar in ED 320 * Blood glucose checks, insulin sliding scale * A1C 7.7 * Started on Dexamethasone--> increase ISS to medium dose New-onset Afib * Risk factor: Sepsis * 12 lead EKG done, HR 100's-118 * Metoprolol 25 BID * Lovenox 40 restarted * ECHO pending * Monitor on telemetry Resolved: Dehydration * Likely 2/2 decreased intake * AGap 17.5--> 14.1 * IVF started in ED--> Continue * Monitor Possible UTI--> CULTURE NEGATIVE * Risk factors: Frequency, Incontinence * UA suspicious for UTI * Urine culture shows no growth * Rocephin started in ED--> continue Chronic: HLD * Lipids WNL HTN GERD Seizures on Tegretol (last seizure 2002) DM2 Plan: Admit to Medical Floor Droplet precautions Routine AM Labs ADA diet DVT/GI prophylaxis CM/SW PT/OT Code Status: Full Code; PCP: Dr. Nasreen Edmond
--- NOTE | 2018-09-02 14:43 | PCM.PN ---
- General Info Date of Service: 09/02/18 - Patient Data Vitals - Most Recent: Last Vital Signs Temp 36.9 C 09/02/18 12:00 Pulse 84 09/02/18 09:07 Resp 28 H 09/02/18 12:00 BP 143/79 H 09/02/18 12:00 Pulse Ox 94 L 09/02/18 14:27 Weight - Most Recent: 97.069 kg I&O - Last 24 Hours: Intake & Output 09/01/18 09/02/18 09/02/18 22:59 06:59 14:59 Intake Total 2230 1595 Output Total 800 Balance 2230 1595 -800 Lab Results Last 24 Hours: Laboratory Results - last 24 hr 08/31/18 09/01/18 09/01/18 Range/Units 22:07 17:17 20:35 WBC (3.98-10.04) K/mm3 RBC (3.98-5.22) M/mm3 Hgb (11.2-15.7) gm/L Hct (34.1-44.9) % MCV (79.4-94.8) fl MCH (25.6-32.2) pg MCHC (32.2-35.5) g/dl RDW Std Deviation (36.4-46.3) fL Plt Count (182-369) K/mm3 MPV (9.4-12.3) fl Neut % (Auto) (34.0-71.1) % Lymph % (Auto) (19.3-51.7) % [place] % (Auto) (4.7-12.5) % Eos % (Auto) (0.7-5.8) Baso % (Auto) (0.1-1.2) % Neut # (Auto) (1.56-6.13) K/mm3 Lymph # (Auto) (1.18-3.74) K/mm3 [place] # (Auto) (0.24-0.36) K/mm3 Eos # (Auto) (0.04-0.36) K/mm3 Baso # (Auto) (0.01-0.08) K/mm3 Manual Slide Review Puncture Site ABG pH (7.35-7.45) ABG pCO2 (35.0-45.0) mmHg ABG pO2 (80.0-100.0) mmHg ABG HCO3 (22.0-26.0) meq/L ABG O2 Saturation (96.0-97.0) % ABG Base Excess (-2-2.0) Aston Test O2 Delivery Device Oxygen Flow Rate FiO2 (21.00-100.00) % PEEP cmH20 Pressure Support cmH2O Sodium (136-145) mEq/L Potassium (3.5-5.1) mEq/L Chloride (98-107) mEq/L Carbon Dioxide (21-32) mEq/L Anion Gap (5-15) BUN (7-18) mg/dL Creatinine (0.55-1.02) mg/dL Est Cr Clr Drug Dosing mL/min Estimated GFR (MDRD) (>60) mL/min BUN/Creatinine Ratio (14-18) Glucose (80-115) mg/dL POC Glucose 240 H 189 H (80-115) mg/dL Lactic Acid (0.4-2.0) mmol/L Calcium (8.5-10.1) mg/dL Magnesium (1.8-2.4) mg/dl C-Reactive Protein (<1.0) mg/dL NT-Pro-B Natriuret Pep (0-125) pg/mL Adenovirus (PCR) Not detected (Not Detected) B. pertussis DNA (PCR) Not detected (Not Detected) B.parapertussis DNA PCR Not detected (Not Detected) C. pneumoniae DNA (PCR) Not detected (Not Detected) Coronavirus (PCR) Not detected (Not Detected) Human Metapneumovir PCR Not detected (Not Detected) Influ A (H1N1/09) PCR Detected H (Not Detected) Influenza B (RT-PCR) Not detected (Not Detected) M. pneumoniae (PCR) Not detected (Not Detected) Parainfluen 1,2,3,4 PCR Not detected (Not Detected) RSV (PCR) Not detected (Not Detected) Entero/Rhino (PCR) Not detected (Not Detected) 09/02/18 09/02/18 09/02/18 Range/Units 06:04 06:08 06:08 WBC 6.90 (3.98-10.04) K/mm3 RBC 4.37 (3.98-5.22) M/mm3 Hgb 11.8 (11.2-15.7) gm/L Hct 36.0 (34.1-44.9) % MCV 82.4 (79.4-94.8) fl MCH 27.0 (25.6-32.2) pg MCHC 32.8 (32.2-35.5) g/dl RDW Std Deviation 41.9 (36.4-46.3) fL Plt Count 208 (182-369) K/mm3 MPV 9.6 (9.4-12.3) fl Neut % (Auto) 79.9 H (34.0-71.1) % Lymph % (Auto) 15.8 L (19.3-51.7) % [place] % (Auto) 3.6 L (4.7-12.5) % Eos % (Auto) 0 L (0.7-5.8) Baso % (Auto) 0.3 (0.1-1.2) % Neut # (Auto) 5.51 (1.56-6.13) K/mm3 Lymph # (Auto) 1.09 L (1.18-3.74) K/mm3 [place] # (Auto) 0.25 (0.24-0.36) K/mm3 Eos # (Auto) 0.00 L (0.04-0.36) K/mm3 Baso # (Auto) 0.02 (0.01-0.08) K/mm3 Manual Slide Review Abnormal smear Puncture Site ABG pH (7.35-7.45) ABG pCO2 (35.0-45.0) mmHg ABG pO2 (80.0-100.0) mmHg ABG HCO3 (22.0-26.0) meq/L ABG O2 Saturation (96.0-97.0) % ABG Base Excess (-2-2.0) Aston Test O2 Delivery Device Oxygen Flow Rate FiO2 (21.00-100.00) % PEEP cmH20 Pressure Support cmH2O Sodium 140 (136-145) mEq/L Potassium 3.5 (3.5-5.1) mEq/L Chloride 105 (98-107) mEq/L Carbon Dioxide 23 (21-32) mEq/L Anion Gap 15.5 H (5-15) BUN 14 (7-18) mg/dL Creatinine 0.6 (0.55-1.02) mg/dL Est Cr Clr Drug Dosing 85.24 mL/min Estimated GFR (MDRD) > 60 (>60) mL/min BUN/Creatinine Ratio 23.3 H (14-18) Glucose 192 H (80-115) mg/dL POC Glucose 182 H (80-115) mg/dL Lactic Acid (0.4-2.0) mmol/L Calcium 7.5 L (8.5-10.1) mg/dL Magnesium 1.9 (1.8-2.4) mg/dl C-Reactive Protein 6.5 H* (<1.0) mg/dL NT-Pro-B Natriuret Pep (0-125) pg/mL Adenovirus (PCR) (Not Detected) B. pertussis DNA (PCR) (Not Detected) B.parapertussis DNA PCR (Not Detected) C. pneumoniae DNA (PCR) (Not Detected) Coronavirus (PCR) (Not Detected) Human Metapneumovir PCR (Not Detected) Influ A (H1N1/09) PCR (Not Detected) Influenza B (RT-PCR) (Not Detected) M. pneumoniae (PCR) (Not Detected) Parainfluen 1,2,3,4 PCR (Not Detected) RSV (PCR) (Not Detected) Entero/Rhino (PCR) (Not Detected) 09/02/18 09/02/18 09/02/18 Range/Units 07:52 10:12 10:12 WBC (3.98-10.04) K/mm3 RBC (3.98-5.22) M/mm3 Hgb (11.2-15.7) gm/L Hct (34.1-44.9) % MCV (79.4-94.8) fl MCH (25.6-32.2) pg MCHC (32.2-35.5) g/dl RDW Std Deviation (36.4-46.3) fL Plt Count (182-369) K/mm3 MPV (9.4-12.3) fl Neut % (Auto) (34.0-71.1) % Lymph % (Auto) (19.3-51.7) % [place] % (Auto) (4.7-12.5) % Eos % (Auto) (0.7-5.8) Baso % (Auto) (0.1-1.2) % Neut # (Auto) (1.56-6.13) K/mm3 Lymph # (Auto) (1.18-3.74) K/mm3 [place] # (Auto) (0.24-0.36) K/mm3 Eos # (Auto) (0.04-0.36) K/mm3 Baso # (Auto) (0.01-0.08) K/mm3 Manual Slide Review Puncture Site Rt radial ABG pH 7.37 (7.35-7.45) ABG pCO2 36.4 (35.0-45.0) mmHg ABG pO2 57.0 L (80.0-100.0) mmHg ABG HCO3 20.5 L (22.0-26.0) meq/L ABG O2 Saturation 88.1 L (96.0-97.0) % ABG Base Excess -3.7 L (-2-2.0) Aston Test Positive O2 Delivery Device Bipap Oxygen Flow Rate 15.0 FiO2 0.00 L (21.00-100.00) % PEEP 7.0 cmH20 Pressure Support 14.0 cmH2O Sodium (136-145) mEq/L Potassium (3.5-5.1) mEq/L Chloride (98-107) mEq/L Carbon Dioxide (21-32) mEq/L Anion Gap (5-15) BUN (7-18) mg/dL Creatinine (0.55-1.02) mg/dL Est Cr Clr Drug Dosing mL/min Estimated GFR (MDRD) (>60) mL/min BUN/Creatinine Ratio (14-18) Glucose (80-115) mg/dL POC Glucose (80-115) mg/dL Lactic Acid 1.0 (0.4-2.0) mmol/L Calcium (8.5-10.1) mg/dL Magnesium (1.8-2.4) mg/dl C-Reactive Protein (<1.0) mg/dL NT-Pro-B Natriuret Pep 2906 H (0-125) pg/mL Adenovirus (PCR) (Not Detected) B. pertussis DNA (PCR) (Not Detected) B.parapertussis DNA PCR (Not Detected) C. pneumoniae DNA (PCR) (Not Detected) Coronavirus (PCR) (Not Detected) Human Metapneumovir PCR (Not Detected) Influ A (H1N1/09) PCR (Not Detected) Influenza B (RT-PCR) (Not Detected) M. pneumoniae (PCR) (Not Detected) Parainfluen 1,2,3,4 PCR (Not Detected) RSV (PCR) (Not Detected) Entero/Rhino (PCR) (Not Detected) 09/02/18 Range/Units 11:28 WBC (3.98-10.04) K/mm3 RBC (3.98-5.22) M/mm3 Hgb (11.2-15.7) gm/L Hct (34.1-44.9) % MCV (79.4-94.8) fl MCH (25.6-32.2) pg MCHC (32.2-35.5) g/dl RDW Std Deviation (36.4-46.3) fL Plt Count (182-369) K/mm3 MPV (9.4-12.3) fl Neut % (Auto) (34.0-71.1) % Lymph % (Auto) (19.3-51.7) % [place] % (Auto) (4.7-12.5) % Eos % (Auto) (0.7-5.8) Baso % (Auto) (0.1-1.2) % Neut # (Auto) (1.56-6.13) K/mm3 Lymph # (Auto) (1.18-3.74) K/mm3 [place] # (Auto) (0.24-0.36) K/mm3 Eos # (Auto) (0.04-0.36) K/mm3 Baso # (Auto) (0.01-0.08) K/mm3 Manual Slide Review Puncture Site ABG pH (7.35-7.45) ABG pCO2 (35.0-45.0) mmHg ABG pO2 (80.0-100.0) mmHg ABG HCO3 (22.0-26.0) meq/L ABG O2 Saturation (96.0-97.0) % ABG Base Excess (-2-2.0) Aston Test O2 Delivery Device Oxygen Flow Rate FiO2 (21.00-100.00) % PEEP cmH20 Pressure Support cmH2O Sodium (136-145) mEq/L Potassium (3.5-5.1) mEq/L Chloride (98-107) mEq/L Carbon Dioxide (21-32) mEq/L Anion Gap (5-15) BUN (7-18) mg/dL Creatinine (0.55-1.02) mg/dL Est Cr Clr Drug Dosing mL/min Estimated GFR (MDRD) (>60) mL/min BUN/Creatinine Ratio (14-18) Glucose (80-115) mg/dL POC Glucose 228 H (80-115) mg/dL Lactic Acid (0.4-2.0) mmol/L Calcium (8.5-10.1) mg/dL Magnesium (1.8-2.4) mg/dl C-Reactive Protein (<1.0) mg/dL NT-Pro-B Natriuret Pep (0-125) pg/mL Adenovirus (PCR) (Not Detected) B. pertussis DNA (PCR) (Not Detected) B.parapertussis DNA PCR (Not Detected) C. pneumoniae DNA (PCR) (Not Detected) Coronavirus (PCR) (Not Detected) Human Metapneumovir PCR (Not Detected) Influ A (H1N1/09) PCR (Not Detected) Influenza B (RT-PCR) (Not Detected) M. pneumoniae (PCR) (Not Detected) Parainfluen 1,2,3,4 PCR (Not Detected) RSV (PCR) (Not Detected) Entero/Rhino (PCR) (Not Detected) Alireza Results Last 24 Hours: Microbiology 08/30/18 13:55 Streptococcus pneumoniae Antigen (M - Final Urine 08/30/18 14:50 Aerobic Blood Culture - Preliminary Blood - Venous NO GROWTH AFTER 2 DAYS Anaerobic Blood Culture - Preliminary NO GROWTH AFTER 2 DAYS 08/30/18 15:05 Aerobic Blood Culture - Preliminary Blood - Venous - Lab Draw NO GROWTH AFTER 2 DAYS Anaerobic Blood Culture - Final 08/30/18 15:35 Urine Culture - Final Urine, Catheterized NO GROWTH AFTER 2 DAYS Med Orders - Current: Current Medications Acetaminophen (Tylenol) 650 mg PO Q4H PRN PRN Reason: Pain (Mild 1-3)/fever Last Admin: 08/31/18 20:10 Dose: 650 mg Hydrocodone Bitart/Acetaminophen ([place] 325-5 Mg) 1 tab PO Q4H PRN PRN Reason: Pain (moderate 4-6) Alogliptin Benzoate (Alogliptin) 25 mg PO DAILY DAGOBERTO Last Admin: 09/02/18 09:07 Dose: 25 mg Aspirin (Halfprin) 81 mg PO DAILY [facility] Last Admin: 09/02/18 09:08 Dose: 81 mg Bisacodyl (Dulcolax) 5 mg PO DAILY PRN PRN Reason: Constipation Carbamazepine (Tegretol Tab) 400 mg PO BID [facility] Last Admin: 09/02/18 09:07 Dose: 400 mg Dextrose/Water (Dextrose 50% In Water) 50 ml IVPUSH ASDIRECTED PRN PRN Reason: Hypoglycemia Diltiazem HCl (Cardizem) 10 mg IVPUSH Q4H PRN PRN Reason: tachy >110 Last Admin: 09/02/18 06:52 Dose: 10 mg Docusate Sodium (Colace) 100 mg PO BID PRN PRN Reason: Constipation Enoxaparin Sodium (Lovenox) 40 mg SUBCUT DAILY [facility] Last Admin: 09/02/18 09:08 Dose: 40 mg Famotidine (Pepcid) 20 mg PO BID [facility] Last Admin: 09/02/18 09:07 Dose: 20 mg Glimepiride (Glimepiride) 4 mg PO BIDMEALS [facility] Last Admin: 09/02/18 06:07 Dose: 4 mg Guaifenesin/Phenylephrine HCl (Robitussin Dm) 10 ml PO TID@0700,1400,2100 [facility] Last Admin: 09/02/18 13:46 Dose: 10 ml Hydralazine HCl (Apresoline) 10 mg IVPUSH Q4H PRN PRN Reason: Hypertension Hydromorphone HCl (Dilaudid) 0.25 mg IVPUSH Q2H PRN PRN Reason: Pain (severe 7-10) Promethazine HCl 6.25 mg/ (Sodium Chloride) 50.25 mls @ 100 mls/hr IV Q6H PRN PRN Reason: Nausea/Vomiting Dexamethasone 40 mg/ Sodium (Chloride) 54 mls @ 108 mls/hr IV BID@0700,1900 [facility] Stop: 09/02/18 20:31 Last Admin: 09/02/18 06:13 Dose: 108 mls/hr Ceftriaxone Sodium 2 gm/ (Sodium Chloride) 100 mls @ 200 mls/hr IV Q24H [facility] Last Admin: 09/01/18 22:21 Dose: 200 mls/hr Levofloxacin/Dextrose 750 mg/ (Premix) 150 mls @ 100 mls/hr IV Q24H [facility] Last Admin: 09/02/18 11:28 Dose: 100 mls/hr Insulin Human Lispro (Humalog) 0 unit SUBCUT QIDACANDBED [facility]; Protocol Last Admin: 09/02/18 12:14 Dose: 4 units Ipratropium [place] (Atrovent) 0.5 mg NEB QIDRT [facility] Last Admin: 09/02/18 09:20 Dose: 0.5 mg Levalbuterol HCl (Xopenex) 1.25 mg NEB QIDRT [facility] Last Admin: 09/02/18 09:20 Dose: 1.25 mg Levalbuterol HCl (Xopenex) 1.25 mg NEB Q2H PRN PRN Reason: sob Last Admin: 09/02/18 07:10 Dose: 1.25 mg Lorazepam (Ativan) 2 mg IVPUSH Q4H PRN PRN Reason: Seizures Magnesium Hydroxide (Milk Of Magnesia) 30 ml PO Q12H PRN PRN Reason: Constipation Metoprolol Succinate (Toprol Xl) 25 mg PO BID [facility] Last Admin: 09/02/18 09:07 Dose: 25 mg Metoprolol Tartrate (Lopressor) 5 mg IVPUSH Q4H PRN PRN Reason: Tachycardia Last Admin: 09/02/18 04:16 Dose: 5 mg Oseltamivir Phosphate (Tamiflu) 75 mg PO BID [facility] Last Admin: 09/02/18 09:07 Dose: 75 mg Polyethylene Glycol (Miralax) 17 gm PO DAILY PRN PRN Reason: Constipation Promethazine HCl (Phenergan) 25 mg PO Q6H PRN PRN Reason: Nausea/Vomiting Saccharomyces Boulardii (Florastor) 250 mg PO BID [facility] Last Admin: 09/02/18 09:07 Dose: 250 mg Senna/Docusate Sodium (Senna Plus) 1 tab PO BID PRN PRN Reason: Constipation Temazepam (Restoril) 7.5 mg PO BEDTIME PRN PRN Reason: Sleep Discontinued Medications Acetaminophen (Tylenol) 975 mg PO NOW ONE Stop: 08/30/18 14:27 Last Admin: 08/30/18 14:51 Dose: 975 mg Albuterol (Proventil Neb Soln) 2.5 mg NEB Q2H PRN PRN Reason: Shortness Of Breath/wheezing Last Admin: 08/31/18 23:15 Dose: 2.5 mg Albuterol/Ipratropium (Duoneb 3.0-0.5 Mg/3 Ml) 3 ml NEB Q4H PRN PRN Reason: Shortness Of Breath/wheezing Last Admin: 08/31/18 10:44 Dose: 3 ml Albuterol/Ipratropium (Duoneb 3.0-0.5 Mg/3 Ml) 3 ml NEB QIDRT [facility] Last Admin: 09/01/18 08:59 Dose: 3 ml Ampicillin Sodium (Ampicillin) Confirm Administered Dose 1 gm .ROUTE .STK-MED ONE Stop: 08/31/18 21:19 Last Admin: 08/31/18 21:33 Dose: Not Given Ceftriaxone Sodium (Rocephin) 2 gm IVPUSH Q24H [facility] Dexamethasone (Dexamethasone) Confirm Administered Dose 40 mg .ROUTE .STK-MED ONE Stop: 08/31/18 19:53 Last Admin: 08/31/18 20:15 Dose: Not Given Dexamethasone (Dexamethasone) 40 mg IVPUSH Q12HR [facility]AGOBERTO Stop: 09/03/18 07:01 Furosemide (Lasix) 40 mg IVPUSH NOW ONE Stop: 08/30/18 14:51 Last Admin: 08/30/18 14:58 Dose: 40 mg Furosemide (Lasix) 20 mg IVPUSH NOW ONE Stop: 09/02/18 12:18 Last Admin: 09/02/18 13:45 Dose: 20 mg Sodium Chloride (Normal Saline) 1,000 mls @ 150 mls/hr IV ASDIRECTED [facility] Last Admin: 08/30/18 14:26 Dose: 150 mls/hr Sodium Chloride (Normal Saline) 1,000 mls @ 75 mls/hr IV ASDIRECTED [facility] Ceftriaxone Sodium 1 gm/ (Sodium Chloride) 100 mls @ 200 mls/hr IV ONETIME ONE Stop: 08/30/18 16:28 Last Admin: 08/30/18 16:57 Dose: 200 mls/hr Azithromycin 500 mg/ Sodium (Chloride) 250 mls @ 250 mls/hr IV Q24H [facility] Last Admin: 08/30/18 21:15 Dose: 250 mls/hr Sodium Chloride (Normal Saline) 1,000 mls @ 125 mls/hr IV ASDIRECTED [facility] Last Admin: 08/31/18 00:55 Dose: 125 mls/hr Ceftriaxone Sodium 1 gm/ (Sodium Chloride) 100 mls @ 200 mls/hr IV ONETIME ONE Stop: 08/30/18 19:14 Last Admin: 08/30/18 19:28 Dose: 200 mls/hr Ceftriaxone Sodium 2 gm/ (Sodium Chloride) 100 mls @ 200 mls/hr IV Q24H [facility] Dextrose/Sodium Chloride (Dextrose 5%-Normal Saline) 1,000 mls @ 125 mls/hr IV ASDIRECTED [facility] Last Admin: 08/31/18 08:05 Dose: 125 mls/hr Piperacillin Sod/Tazobactam (Sod 4.5 gm/ Sodium Chloride) 100 mls @ 200 mls/hr IV ONETIME ONE Stop: 08/31/18 10:29 Last Admin: 08/31/18 11:28 Dose: Not Given Piperacillin Sod/Tazobactam (Sod 4.5 gm/ Sodium Chloride) 100 mls @ 25 mls/hr IV Q8H [facility] Last Admin: 08/31/18 23:34 Dose: Not Given Vancomycin HCl 1 gm/ Sodium (Chloride) 250 mls @ 250 mls/hr IV Q12H [facility] Last Admin: 09/01/18 21:37 Dose: 250 mls/hr Sodium Chloride (Normal Saline) Confirm Administered Dose 100 mls @ as directed .ROUTE .STK-MED ONE Stop: 08/31/18 10:49 Last Admin: 08/31/18 11:29 Dose: Not Given Piperacillin Sod/Tazobactam (Sod 4.5 gm/ Sodium Chloride) 100 mls @ 200 mls/hr IV ONETIME ONE Stop: 08/31/18 11:44 Last Admin: 08/31/18 12:56 Dose: 200 mls/hr Sodium Chloride (Normal Saline) 1,000 mls @ 75 mls/hr IV ASDIRECTED [facility] Last Admin: 09/02/18 04:15 Dose: 75 mls/hr Magnesium Sulfate/Dextrose (Magnesium 1 Gm In D5w 100 Ml) Confirm Administered Dose 100 mls @ as directed .ROUTE .STK-MED ONE Stop: 08/31/18 19:53 Last Admin: 08/31/18 20:15 Dose: Not Given Acyclovir 1,000 mg/ Sodium (Chloride) 120 mls @ 100 mls/hr IV Q8H [facility] Last Admin: 09/02/18 04:09 Dose: 100 mls/hr Ampicillin Sodium 1 gm/ Sodium (Chloride) 100 mls @ 200 mls/hr IV Q4H [facility] Last Admin: 08/31/18 23:34 Dose: Not Given Magnesium Sulfate 2 gm/ Premix 50 mls @ 25 mls/hr IV ONETIME ONE Stop: 08/31/18 22:13 Last Admin: 08/31/18 21:26 Dose: Not Given Magnesium Sulfate/Dextrose 1 (gm/ Premix) 100 mls @ 100 mls/hr IV ONETIME ONE Stop: 08/31/18 21:29 Last Admin: 08/31/18 20:35 Dose: 100 mls/hr Ampicillin Sodium 1 gm/ Sodium (Chloride) 100 mls @ 200 mls/hr IV Q4H [facility] Last Admin: 09/01/18 11:17 Dose: Not Given Sodium Chloride (Normal Saline) Confirm Administered Dose 100 mls @ as directed .ROUTE .STK-MED ONE Stop: 08/31/18 21:21 Last Admin: 08/31/18 21:29 Dose: Not Given Sodium Chloride (Normal Saline) 250 mls @ 999 mls/hr IV ONETIME ONE Stop: 08/31/18 21:25 Last Admin: 08/31/18 23:07 Dose: Not Given Ampicillin Sodium 1 gm/ Sodium (Chloride) 100 mls @ 200 mls/hr IV Q4H [facility] Last Admin: 09/02/18 05:41 Dose: 200 mls/hr Insulin Human Lispro (Humalog) 0 unit SUBCUT QIDACANDBED [facility]; Protocol Last Admin: 08/31/18 20:54 Dose: 3 unit Insulin Human Regular (Humulin R) 8 unit SUBCUT ONETIME ONE Stop: 08/30/18 14:55 Last Admin: 08/30/18 15:06 Dose: 8 units Ondansetron HCl (Zofran) 4 mg IVPUSH ONETIME ONE Stop: 08/30/18 14:19 Last Admin: 08/30/18 14:29 Dose: 4 mg Oseltamivir Phosphate (Tamiflu) 75 mg PO ONETIME ONE Stop: 08/30/18 14:43 Last Admin: 08/30/18 15:02 Dose: 75 mg Vancomycin HCl (Pharmacy To Dose - Vancomycin) 1 dose .XX ASDIRECTED [facility] - My Orders Last 24 Hours: My Active Orders 09/02/18 11:49 C DIFFICILE BY PCR W/NAP1 [MOLEC] Stat - Plan Plan:: Assessment/Plan: Acute: PNA L lower and mid lung w/ hypoxia, clinically improving but O2 demand worsening * Fever, productive cough, SOB w/ exertion x 3 days * O2 82% RA--> 92% 4L NC--> 91% 12L mask--> 89-91% 15L non-rebreather--> 15L BiPAP * No leukocytosis, Neut 86% with 3% bandemia, CRP 15.4--> 17.6 * CXR 08/30/18: Findings felt compatible with mild bilateral bronchitis with areas of pneumonia within the left mid and lower lung. * CT Chest 08/31/18: * 1. Diffuse parenchymal densities throughout both size of the chest more confluent within the lingula and within both lower lungs. Findings have progressed from prior chest x-ray. Findings are most likely infectious in etiology. Continued follow-up is recommended. * 2. Mildly prominent lymph nodes most likely on an inflammatory basis from the lung process. * Mycoplasma negative * RVP, Strep pneumo, Sputum culture pending * RT/Duonebs/IS/Acapella/Chest Physiotherapy * ABG shows low O2 sat: 86.8%--> 89.7%--> 93.3 * Repeat CXR 09/01/18: * 1. Diffuse parenchymal densities as described above. Differential includes irregular areas of pulmonary edema vs diffuse multifocal areas of pneumonia. * 2. Heart is slightly enlarged * Rocephin started in ED--> Continue and add Azithromycin--> D/C * Start Zosyn and Vanco for more aggressive tx * d/t increased O2 demand and lethargy, D/C Zosyn, continue Vanco, add Rocephin , Ampicillin, Acyclovir * Dexamethasone BID x2 days * Magnesium 1g x1 dose for bronchospasm * R/O PE: * D-dimer elevated at 1.1 * CTA negative for PE * ECHO pending * Recommend PFT outpt Influenza A, Improving * Fever and increased weakness x3 days--> Increased energy and alertness today * Tamiflu started in ED--> continue BID Sepsis * Likely 2/2 above * Temperature 102.2F, Hypoxic, Tachypneic, Tachycardia, source of infection present * LA 3.2--> 2.1--> 0.9 * Procalcitonin elevated at 0.18 * Rocephin started in ED--> continue * IVF started in ED--> continue * Blood cultures show no growth Possible AMS * Per , seemed more confused than usual this AM * Risk Factors: Current illness/sepsis, increased O2 demand, unwitnessed fall yesterday ( unsure if she hit her head; she does have a scab on her forehead but per notes it is a couple days old) * CT Head 08/31/18: * 1. Diffuse parenchymal densities throughout both sides of the chest more confluent within the lingual and within both lower lungs. Findings have progressed from prior chest x-ray. Findings are most likely infectious in etiology. Continued follow-up is recommended. * 2. Mildly prominent lymph nodes most likely on an inflammatory basis from the lung process. * Normal neuro exam, A+O x3, seems to be very lethargic * If continues to worsen/has AMS: * Transfer to ICU * LP in AM --> Cancelled d/t improved clinical disposition * Switch Abx to Rocephin, Ampicillin, Acyclovir, continue Vanco and D/C Zosyn * CT Head in AM if still lethargic or AMS--> not needed at this time Hyperglycemia w/ DM2 * She missed a dose of insulin yesterday, didn't take her insulin this AM * Blood sugar this AM 389, Blood sugar in ED 320 * Blood glucose checks, insulin sliding scale * A1C 7.7 * Started on Dexamethasone--> increase ISS to medium dose New-onset Afib * Risk factor: Sepsis * 12 lead EKG done, HR 100's-118 * Metoprolol 25 BID * Lovenox 40 restarted * ECHO pending * Monitor on telemetry Resolved: Dehydration * Likely 2/2 decreased intake * AGap 17.5--> 14.1 * IVF started in ED--> Continue * Monitor Possible UTI--> CULTURE NEGATIVE * Risk factors: Frequency, Incontinence * UA suspicious for UTI * Urine culture shows no growth * Rocephin started in ED--> continue Chronic: HLD * Lipids WNL HTN GERD Seizures on Tegretol (last seizure 2002) DM2 Plan: Admit to Medical Floor Droplet precautions Routine AM Labs ADA diet DVT/GI prophylaxis CM/SW PT/OT Code Status: Full Code; PCP: Dr. Nasreen Edmond
[2018-09-02] MEDS: Morphine 2 MG/ML Syringe IVPUSH PRN (21:09)
[2018-09-02] MEDS: cefTRIAXone 2 GM in Sodium Chloride 0.9% 100 ML IV SCH (23:19)
[2018-09-03] MEDS: Ipratropium 0.02% 0.5 MG/2.5 ML Neb Soln NEB SCH ×4 (06:13→21:40)
[2018-09-03] MEDS: Levalbuterol HCl 1.25 MG/0.5 ML Neb NEB SCH ×4 (06:13→21:40)
[2018-09-03] MEDS: Morphine 2 MG/ML Syringe IVPUSH PRN ×5 (06:35→19:43)
[2018-09-03] MEDS: guaiFENesin/Dextromethorphan 100-10 MG/5 ML Soln 5 ML Cup PO SCH ×3 (06:43→23:11)
[2018-09-03] MEDS: Glimepiride 4 MG Tab PO SCH (09:05)
[2018-09-03] MEDS: Aspirin 81 MG Tab.EC PO SCH (09:05)
[2018-09-03] MEDS: Saccharomyces Boulardii (Probiotic) 250 MG Cap PO SCH ×2 (09:05→21:29)
[2018-09-03] MEDS: Oseltamivir 75 MG Cap PO SCH ×2 (09:06→21:30)
[2018-09-03] MEDS: Famotidine 20 MG Tab PO SCH (09:06)
[2018-09-03] MEDS: carBAMazepine 200 MG Tab PO SCH ×2 (09:06→21:29)
[2018-09-03] MEDS: Enoxaparin 40 MG/0.4 ML Syringe SUBCUT SCH (09:07)
[2018-09-03] MEDS: Insulin Lispro 100 UNIT/ML 10 ML VIAL SUBCUT SCH ×4 (09:17→22:52)
[2018-09-03] MEDS: Metoprolol Succinate 25 MG Tab.ER PO SCH ×2 (09:19→21:28)
--- NOTE | 2018-09-03 09:28 | CR ---
Chest: Portable view of the chest was obtained. Comparison: Prior chest x-ray 09/01/18. Diffuse increased parenchymal densities seen within both sides of the chest which has significantly worsened from previous exam. Uncertain how much of this represents worsening infection versus pulmonary edema versus pulmonary hemorrhage. Heart size is slightly enlarged. Tortuous thoracic aorta is seen. Impression: 1. Worsening parenchymal change within both sides of the chest. Differential as described above. Diagnostic code #5
[2018-09-03] MEDS ORDERED: Furosemide 20 MG/2 ML VIAL IVPUSH ONE (09:48)
[2018-09-03] MEDS ORDERED: LORazepam 2 MG/ML SDV IVPUSH PRN (09:55)
[2018-09-03] MEDS ORDERED: D5 1/2 NS w/ 40 mEq/L KCl 1,000 ML IV SCH (10:00)
[2018-09-03] MEDS ORDERED: Famotidine 20 MG/2 ML SDV IVPUSH SCH (10:00)
[2018-09-03] MEDS: Potassium Chloride 10 MEQ in Premix Bag 1 BAG IV SCH ×2 (11:04→12:32)
[2018-09-03] MEDS: Levofloxacin/Dextrose 5%-Water 750 MG in Premix Bag 1 BAG IV SCH (11:15)
--- NOTE | 2018-09-03 14:49 | PCM.PN ---
- General Info Date of Service: 09/03/18 Subjective Update: The patient has been occasionally short of breath and has had increased resp rate. BIPAP settings are being adjusted as needed. She has a current setting 07/01, VT > 650; ABG pH 7.45 pCO2 33.0 pO2 70 O2 sat 94.6% At the request of family (seeking a higher level of care), a discussion occurred with Jakob One [facility] with Tad and Dr Pak, hospitalist. The patient has showed improvement with lab values. CXR has documented pulm infiltrates and pulm congestion without significant improvement. Lab result for strep pneumo is positive. The patient has coverage with three ATBs: Rocephin, Levoquin, Vanco. Renal function has remained stable. Family meetings total time in person with /son and on the phone with her sister, Daria Villalobos is 45 minutes. Jakob calls total three, time spent 30 minutes. Jakob has declined transfer and will take the patient should a higher level of care is needed. Dr Pak suggested that case management be utilized to expedite transfer if the patient has no additional needs. Functional Status: Reports: Pain Controlled, Urinating - Review of Systems General: Reports: Weakness HEENT: Reports: No Symptoms Pulmonary: Reports: Shortness of Breath Cardiovascular: Reports: No Symptoms Gastrointestinal: Reports: No Symptoms Genitourinary: Reports: No Symptoms Musculoskeletal: Reports: No Symptoms Skin: Reports: No Symptoms Neurological: Reports: No Symptoms Psychiatric: Reports: No Symptoms - Patient Data Vitals - Most Recent: Last Vital Signs Temp 36.7 C 09/03/18 11:33 Pulse 81 09/03/18 11:33 Resp 35 H 09/03/18 11:33 BP 154/84 H 09/03/18 11:33 Pulse Ox 97 09/03/18 11:33 Weight - Most Recent: 97.069 kg I&O - Last 24 Hours: Intake & Output 09/02/18 09/03/18 09/03/18 22:59 06:59 14:59 Intake Total 180 120 Output Total 8025 064 5674 Balance -7990 395 -1600 Lab Results Last 24 Hours: Laboratory Results - last 24 hr 09/02/18 09/02/18 09/02/18 Range/Units 11:49 17:08 17:49 WBC (3.98-10.04) K/mm3 RBC (3.98-5.22) M/mm3 Hgb (11.2-15.7) gm/L Hct (34.1-44.9) % MCV (79.4-94.8) fl MCH (25.6-32.2) pg MCHC (32.2-35.5) g/dl RDW Std Deviation (36.4-46.3) fL Plt Count (182-369) K/mm3 MPV (9.4-12.3) fl Neut % (Auto) (34.0-71.1) % Lymph % (Auto) (19.3-51.7) % Roberts % (Auto) (4.7-12.5) % Eos % (Auto) (0.7-5.8) Baso % (Auto) (0.1-1.2) % Neut # (Auto) (1.56-6.13) K/mm3 Lymph # (Auto) (1.18-3.74) K/mm3 Roberts # (Auto) (0.24-0.36) K/mm3 Eos # (Auto) (0.04-0.36) K/mm3 Baso # (Auto) (0.01-0.08) K/mm3 Manual Slide Review Puncture Site Rt radial ABG pH 7.44 (7.35-7.45) ABG pCO2 31.9 L (35.0-45.0) mmHg ABG pO2 60.0 L (80.0-100.0) mmHg ABG HCO3 21.2 L (22.0-26.0) meq/L ABG O2 Saturation 91.9 L (96.0-97.0) % ABG Base Excess -1.8 (-2-2.0) Aston Test Positive O2 Delivery Device Bipap FiO2 0.00 L (21.00-100.00) % PEEP 7.0 cmH20 Pressure Support 14.0 cmH2O Sodium (136-145) mEq/L Potassium (3.5-5.1) mEq/L Chloride (98-107) mEq/L Carbon Dioxide (21-32) mEq/L Anion Gap (5-15) BUN (7-18) mg/dL Creatinine (0.55-1.02) mg/dL Est Cr Clr Drug Dosing mL/min Estimated GFR (MDRD) (>60) mL/min BUN/Creatinine Ratio (14-18) Glucose (80-115) mg/dL POC Glucose 256 H (80-115) mg/dL Calcium (8.5-10.1) mg/dL Magnesium (1.8-2.4) mg/dl C-Reactive Protein (<1.0) mg/dL NT-Pro-B Natriuret Pep (0-125) pg/mL C.difficile [id number] Presumptive negative C. difficile Tox (PCR) Negative 09/02/18 09/03/18 09/03/18 Range/Units 20:29 05:35 05:35 WBC 5.52 (3.98-10.04) K/mm3 RBC 4.19 (3.98-5.22) M/mm3 Hgb 11.5 (11.2-15.7) gm/L Hct 34.4 (34.1-44.9) % MCV 82.1 (79.4-94.8) fl MCH 27.4 (25.6-32.2) pg MCHC 33.4 (32.2-35.5) g/dl RDW Std Deviation 41.5 (36.4-46.3) fL Plt Count 223 (182-369) K/mm3 MPV 9.7 (9.4-12.3) fl Neut % (Auto) 74.1 H (34.0-71.1) % Lymph % (Auto) 19.0 L (19.3-51.7) % Roberts % (Auto) 6.5 (4.7-12.5) % Eos % (Auto) 0 L (0.7-5.8) Baso % (Auto) 0.2 (0.1-1.2) % Neut # (Auto) 4.09 (1.56-6.13) K/mm3 Lymph # (Auto) 1.05 L (1.18-3.74) K/mm3 Roberts # (Auto) 0.36 (0.24-0.36) K/mm3 Eos # (Auto) 0.00 L (0.04-0.36) K/mm3 Baso # (Auto) 0.01 (0.01-0.08) K/mm3 Manual Slide Review Abnormal smear Puncture Site ABG pH (7.35-7.45) ABG pCO2 (35.0-45.0) mmHg ABG pO2 (80.0-100.0) mmHg ABG HCO3 (22.0-26.0) meq/L ABG O2 Saturation (96.0-97.0) % ABG Base Excess (-2-2.0) Aston Test O2 Delivery Device FiO2 (21.00-100.00) % PEEP cmH20 Pressure Support cmH2O Sodium 141 (136-145) mEq/L Potassium 3.3 L (3.5-5.1) mEq/L Chloride 106 (98-107) mEq/L Carbon Dioxide 25 (21-32) mEq/L Anion Gap 13.3 (5-15) BUN 19 H (7-18) mg/dL Creatinine 0.6 (0.55-1.02) mg/dL Est Cr Clr Drug Dosing 85.24 mL/min Estimated GFR (MDRD) > 60 (>60) mL/min BUN/Creatinine Ratio 31.7 H (14-18) Glucose 199 H (80-115) mg/dL POC Glucose 185 H (80-115) mg/dL Calcium 7.8 L (8.5-10.1) mg/dL Magnesium 1.8 (1.8-2.4) mg/dl C-Reactive Protein 6.2 H* (<1.0) mg/dL NT-Pro-B Natriuret Pep (0-125) pg/mL C.difficile [id number] C. difficile Tox (PCR) 09/03/18 09/03/18 09/03/18 Range/Units 05:35 05:35 10:47 WBC (3.98-10.04) K/mm3 RBC (3.98-5.22) M/mm3 Hgb (11.2-15.7) gm/L Hct (34.1-44.9) % MCV (79.4-94.8) fl MCH (25.6-32.2) pg MCHC (32.2-35.5) g/dl RDW Std Deviation (36.4-46.3) fL Plt Count (182-369) K/mm3 MPV (9.4-12.3) fl Neut % (Auto) (34.0-71.1) % Lymph % (Auto) (19.3-51.7) % Roberts % (Auto) (4.7-12.5) % Eos % (Auto) (0.7-5.8) Baso % (Auto) (0.1-1.2) % Neut # (Auto) (1.56-6.13) K/mm3 Lymph # (Auto) (1.18-3.74) K/mm3 Roberts # (Auto) (0.24-0.36) K/mm3 Eos # (Auto) (0.04-0.36) K/mm3 Baso # (Auto) (0.01-0.08) K/mm3 Manual Slide Review Puncture Site Lt radial ABG pH 7.45 (7.35-7.45) ABG pCO2 33.0 L (35.0-45.0) mmHg ABG pO2 70.0 L (80.0-100.0) mmHg ABG HCO3 22.5 (22.0-26.0) meq/L ABG O2 Saturation 94.6 L (96.0-97.0) % ABG Base Excess -0.4 (-2-2.0) Aston Test Positive O2 Delivery Device Bipap FiO2 0.00 L (21.00-100.00) % PEEP 7.0 cmH20 Pressure Support 14.0 cmH2O Sodium (136-145) mEq/L Potassium (3.5-5.1) mEq/L Chloride (98-107) mEq/L Carbon Dioxide (21-32) mEq/L Anion Gap (5-15) BUN (7-18) mg/dL Creatinine (0.55-1.02) mg/dL Est Cr Clr Drug Dosing mL/min Estimated GFR (MDRD) (>60) mL/min BUN/Creatinine Ratio (14-18) Glucose (80-115) mg/dL POC Glucose 206 H (80-115) mg/dL Calcium (8.5-10.1) mg/dL Magnesium (1.8-2.4) mg/dl C-Reactive Protein (<1.0) mg/dL NT-Pro-B Natriuret Pep 2041 H (0-125) pg/mL C.difficile [id number]-NAP1-B1 C. difficile Tox (PCR) 09/03/18 09/03/18 Range/Units 12:04 12:49 WBC (3.98-10.04) K/mm3 RBC (3.98-5.22) M/mm3 Hgb (11.2-15.7) gm/L Hct (34.1-44.9) % MCV (79.4-94.8) fl MCH (25.6-32.2) pg MCHC (32.2-35.5) g/dl RDW Std Deviation (36.4-46.3) fL Plt Count (182-369) K/mm3 MPV (9.4-12.3) fl Neut % (Auto) (34.0-71.1) % Lymph % (Auto) (19.3-51.7) % Roberts % (Auto) (4.7-12.5) % Eos % (Auto) (0.7-5.8) Baso % (Auto) (0.1-1.2) % Neut # (Auto) (1.56-6.13) K/mm3 Lymph # (Auto) (1.18-3.74) K/mm3 Roberts # (Auto) (0.24-0.36) K/mm3 Eos # (Auto) (0.04-0.36) K/mm3 Baso # (Auto) (0.01-0.08) K/mm3 Manual Slide Review Puncture Site Lt radial ABG pH 7.47 H (7.35-7.45) ABG pCO2 33.0 L (35.0-45.0) mmHg ABG pO2 71.0 L (80.0-100.0) mmHg ABG HCO3 23.9 (22.0-26.0) meq/L ABG O2 Saturation 95.2 L (96.0-97.0) % ABG Base Excess 1.1 (-2-2.0) Aston Test Positive O2 Delivery Device Bipap FiO2 0.00 L (21.00-100.00) % PEEP 7.0 cmH20 Pressure Support 12.0 cmH2O Sodium (136-145) mEq/L Potassium (3.5-5.1) mEq/L Chloride (98-107) mEq/L Carbon Dioxide (21-32) mEq/L Anion Gap (5-15) BUN (7-18) mg/dL Creatinine (0.55-1.02) mg/dL Est Cr Clr Drug Dosing mL/min Estimated GFR (MDRD) (>60) mL/min BUN/Creatinine Ratio (14-18) Glucose (80-115) mg/dL POC Glucose 230 H (80-115) mg/dL Calcium (8.5-10.1) mg/dL Magnesium (1.8-2.4) mg/dl C-Reactive Protein (<1.0) mg/dL NT-Pro-B Natriuret Pep (0-125) pg/mL C.difficile [id number]-[id number] C. difficile Tox (PCR) Alireza Results Last 24 Hours: Microbiology 08/30/18 14:50 Aerobic Blood Culture - Preliminary Blood - Venous NO GROWTH AFTER 3 DAYS Anaerobic Blood Culture - Preliminary NO GROWTH AFTER 3 DAYS 08/30/18 15:05 Aerobic Blood Culture - Preliminary Blood - Venous - Lab Draw NO GROWTH AFTER 3 DAYS Anaerobic Blood Culture - Final 08/30/18 13:55 Streptococcus pneumoniae Antigen (M - Final Urine Med Orders - Current: Current Medications Acetaminophen (Tylenol) 650 mg PO Q4H PRN PRN Reason: Pain (Mild 1-3)/fever Last Admin: 08/31/18 20:10 Dose: 650 mg Hydrocodone Bitart/Acetaminophen ([place]iffard 325-5 Mg) 1 tab PO Q4H PRN PRN Reason: Pain (moderate 4-6) Alogliptin Benzoate (Alogliptin) 25 mg PO DAILY [facility] Last Admin: 09/03/18 09:05 Dose: 25 mg Aspirin (Halfprin) 81 mg PO DAILY [facility] Last Admin: 09/03/18 09:05 Dose: 81 mg Bisacodyl (Dulcolax) 5 mg PO DAILY PRN PRN Reason: Constipation Carbamazepine (Tegretol Tab) 400 mg PO BID [facility] Last Admin: 09/03/18 09:06 Dose: 400 mg Dextrose/Water (Dextrose 50% In Water) 50 ml IVPUSH ASDIRECTED PRN PRN Reason: Hypoglycemia Diltiazem HCl (Cardizem) 10 mg IVPUSH Q4H PRN PRN Reason: tachy >110 Last Admin: 09/02/18 06:52 Dose: 10 mg Docusate Sodium (Colace) 100 mg PO BID PRN PRN Reason: Constipation Enoxaparin Sodium (Lovenox) 40 mg SUBCUT DAILY [facility] Last Admin: 09/03/18 09:07 Dose: 40 mg Famotidine (Pepcid) 20 mg IVPUSH BID [facility] Guaifenesin/Phenylephrine HCl (Robitussin Dm) 10 ml PO TID@0700,1400,2100 [facility] Last Admin: 09/03/18 13:38 Dose: 10 ml Hydralazine HCl (Apresoline) 10 mg IVPUSH Q4H PRN PRN Reason: Hypertension Promethazine HCl 6.25 mg/ (Sodium Chloride) 50.25 mls @ 100 mls/hr IV Q6H PRN PRN Reason: Nausea/Vomiting Ceftriaxone Sodium 2 gm/ (Sodium Chloride) 100 mls @ 200 mls/hr IV Q24H [facility] Last Admin: 09/02/18 23:19 Dose: 200 mls/hr Levofloxacin/Dextrose 750 mg/ (Premix) 150 mls @ 100 mls/hr IV Q24H [facility] Last Admin: 09/03/18 11:15 Dose: 100 mls/hr Potassium Chloride/Dextrose/Sod Cl (D5 1/2 Ns W/ 40 Meq/L Kcl) 1,000 mls @ 75 mls/hr IV ASDIRECTED [facility] Last Admin: 09/03/18 10:51 Dose: 75 mls/hr Vancomycin HCl 1 gm/ Sodium (Chloride) 250 mls @ 250 mls/hr IV Q12H [facility] Last Admin: 09/03/18 11:25 Dose: 250 mls/hr Insulin Human Lispro (Humalog) 0 unit SUBCUT QIDACANDBED [facility]; Protocol Last Admin: 09/03/18 12:29 Dose: 2 units Ipratropium [place] (Atrovent) 0.5 mg NEB QIDRT [facility] Last Admin: 09/03/18 09:26 Dose: 0.5 mg Levalbuterol HCl (Xopenex) 1.25 mg NEB QIDRT [facility] Last Admin: 09/03/18 09:26 Dose: 1.25 mg Levalbuterol HCl (Xopenex) 1.25 mg NEB Q2H PRN PRN Reason: sob Last Admin: 09/02/18 07:10 Dose: 1.25 mg Lorazepam (Ativan) 2 mg IVPUSH Q6H PRN PRN Reason: Seizures Magnesium Hydroxide (Milk Of Magnesia) 30 ml PO Q12H PRN PRN Reason: Constipation Metoprolol Succinate (Toprol Xl) 25 mg PO BID [facility] Last Admin: 09/03/18 09:19 Dose: 25 mg Metoprolol Tartrate (Lopressor) 5 mg IVPUSH Q4H PRN PRN Reason: Tachycardia Last Admin: 09/02/18 04:16 Dose: 5 mg Morphine Sulfate (Morphine) 2 mg IVPUSH Q4H PRN PRN Reason: Shortness of Breath Last Admin: 09/03/18 13:37 Dose: 2 mg Oseltamivir Phosphate (Tamiflu) 75 mg PO BID [facility] Stop: 09/03/18 21:01 Last Admin: 09/03/18 09:06 Dose: 75 mg Polyethylene Glycol (Miralax) 17 gm PO DAILY PRN PRN Reason: Constipation Promethazine HCl (Phenergan) 25 mg PO Q6H PRN PRN Reason: Nausea/Vomiting Saccharomyces Boulardii (Florastor) 250 mg PO BID [facility] Last Admin: 09/03/18 09:05 Dose: 250 mg Senna/Docusate Sodium (Senna Plus) 1 tab PO BID PRN PRN Reason: Constipation Temazepam (Restoril) 7.5 mg PO BEDTIME PRN PRN Reason: Sleep Vancomycin HCl (Pharmacy To Dose - Vancomycin) 1 dose .XX ASDIRECTED [facility] Discontinued Medications Acetaminophen (Tylenol) 975 mg PO NOW ONE Stop: 08/30/18 14:27 Last Admin: 08/30/18 14:51 Dose: 975 mg Albuterol (Proventil Neb Soln) 2.5 mg NEB Q2H PRN PRN Reason: Shortness Of Breath/wheezing Last Admin: 08/31/18 23:15 Dose: 2.5 mg Albuterol/Ipratropium (Duoneb 3.0-0.5 Mg/3 Ml) 3 ml NEB Q4H PRN PRN Reason: Shortness Of Breath/wheezing Last Admin: 08/31/18 10:44 Dose: 3 ml Albuterol/Ipratropium (Duoneb 3.0-0.5 Mg/3 Ml) 3 ml NEB QIDRT [facility] Last Admin: 09/01/18 08:59 Dose: 3 ml Ampicillin Sodium (Ampicillin) Confirm Administered Dose 1 gm .ROUTE .STK-MED ONE Stop: 08/31/18 21:19 Last Admin: 08/31/18 21:33 Dose: Not Given Ceftriaxone Sodium (Rocephin) 2 gm IVPUSH Q24H [facility] Dexamethasone (Dexamethasone) Confirm Administered Dose 40 mg .ROUTE .STK-MED ONE Stop: 08/31/18 19:53 Last Admin: 08/31/18 20:15 Dose: Not Given Dexamethasone (Dexamethasone) 40 mg IVPUSH Q12HR DAGOBERTO Stop: 09/03/18 07:01 Famotidine (Pepcid) 20 mg PO BID [facility] Last Admin: 09/03/18 09:06 Dose: 20 mg Famotidine (Pepcid) 20 mg IVPUSH BID [facility] Furosemide (Lasix) 40 mg IVPUSH NOW ONE Stop: 08/30/18 14:51 Last Admin: 08/30/18 14:58 Dose: 40 mg Furosemide (Lasix) 20 mg IVPUSH NOW ONE Stop: 09/02/18 12:18 Last Admin: 09/02/18 13:45 Dose: 20 mg Furosemide (Lasix) 20 mg IVPUSH NOW ONE Stop: 09/02/18 21:01 Last Admin: 09/02/18 20:18 Dose: 20 mg Furosemide (Lasix) 20 mg IVPUSH NOW ONE Stop: 09/03/18 09:49 Last Admin: 09/03/18 10:27 Dose: 20 mg Glimepiride (Glimepiride) 4 mg PO BIDMEALS [facility] Last Admin: 09/03/18 09:05 Dose: 4 mg Hydromorphone HCl (Dilaudid) 0.25 mg IVPUSH Q2H PRN PRN Reason: Pain (severe 7-10) Sodium Chloride (Normal Saline) 1,000 mls @ 150 mls/hr IV ASDIRECTED [facility] Last Admin: 08/30/18 14:26 Dose: 150 mls/hr Sodium Chloride (Normal Saline) 1,000 mls @ 75 mls/hr IV ASDIRECTED [facility] Ceftriaxone Sodium 1 gm/ (Sodium Chloride) 100 mls @ 200 mls/hr IV ONETIME ONE Stop: 08/30/18 16:28 Last Admin: 08/30/18 16:57 Dose: 200 mls/hr Azithromycin 500 mg/ Sodium (Chloride) 250 mls @ 250 mls/hr IV Q24H [facility] Last Admin: 08/30/18 21:15 Dose: 250 mls/hr Sodium Chloride (Normal Saline) 1,000 mls @ 125 mls/hr IV ASDIRECTED [facility] Last Admin: 08/31/18 00:55 Dose: 125 mls/hr Ceftriaxone Sodium 1 gm/ (Sodium Chloride) 100 mls @ 200 mls/hr IV ONETIME ONE Stop: 08/30/18 19:14 Last Admin: 08/30/18 19:28 Dose: 200 mls/hr Ceftriaxone Sodium 2 gm/ (Sodium Chloride) 100 mls @ 200 mls/hr IV Q24H [facility] Dextrose/Sodium Chloride (Dextrose 5%-Normal Saline) 1,000 mls @ 125 mls/hr IV ASDIRECTED [facility] Last Admin: 08/31/18 08:05 Dose: 125 mls/hr Piperacillin Sod/Tazobactam (Sod 4.5 gm/ Sodium Chloride) 100 mls @ 200 mls/hr IV ONETIME ONE Stop: 08/31/18 10:29 Last Admin: 08/31/18 11:28 Dose: Not Given Piperacillin Sod/Tazobactam (Sod 4.5 gm/ Sodium Chloride) 100 mls @ 25 mls/hr IV Q8H [facility] Last Admin: 08/31/18 23:34 Dose: Not Given Vancomycin HCl 1 gm/ Sodium (Chloride) 250 mls @ 250 mls/hr IV Q12H [facility] Last Admin: 09/01/18 21:37 Dose: 250 mls/hr Sodium Chloride (Normal Saline) Confirm Administered Dose 100 mls @ as directed .ROUTE .STK-MED ONE Stop: 08/31/18 10:49 Last Admin: 08/31/18 11:29 Dose: Not Given Piperacillin Sod/Tazobactam (Sod 4.5 gm/ Sodium Chloride) 100 mls @ 200 mls/hr IV ONETIME ONE Stop: 08/31/18 11:44 Last Admin: 08/31/18 12:56 Dose: 200 mls/hr Sodium Chloride (Normal Saline) 1,000 mls @ 75 mls/hr IV ASDIRECTED [facility] Last Admin: 09/02/18 04:15 Dose: 75 mls/hr Magnesium Sulfate/Dextrose (Magnesium 1 Gm In D5w 100 Ml) Confirm Administered Dose 100 mls @ as directed .ROUTE .STK-MED ONE Stop: 08/31/18 19:53 Last Admin: 08/31/18 20:15 Dose: Not Given Acyclovir 1,000 mg/ Sodium (Chloride) 120 mls @ 100 mls/hr IV Q8H [facility] Last Admin: 09/02/18 04:09 Dose: 100 mls/hr Ampicillin Sodium 1 gm/ Sodium (Chloride) 100 mls @ 200 mls/hr IV Q4H [facility] Last Admin: 08/31/18 23:34 Dose: Not Given Dexamethasone 40 mg/ Sodium (Chloride) 54 mls @ 108 mls/hr IV BID@0700,1900 [facility] Stop: 09/02/18 20:31 Last Admin: 09/02/18 18:08 Dose: 108 mls/hr Magnesium Sulfate 2 gm/ Premix 50 mls @ 25 mls/hr IV ONETIME ONE Stop: 08/31/18 22:13 Last Admin: 08/31/18 21:26 Dose: Not Given Magnesium Sulfate/Dextrose 1 (gm/ Premix) 100 mls @ 100 mls/hr IV ONETIME ONE Stop: 08/31/18 21:29 Last Admin: 08/31/18 20:35 Dose: 100 mls/hr Ampicillin Sodium 1 gm/ Sodium (Chloride) 100 mls @ 200 mls/hr IV Q4H [facility] Last Admin: 09/01/18 11:17 Dose: Not Given Sodium Chloride (Normal Saline) Confirm Administered Dose 100 mls @ as directed .ROUTE .STK-MED ONE Stop: 08/31/18 21:21 Last Admin: 08/31/18 21:29 Dose: Not Given Sodium Chloride (Normal Saline) 250 mls @ 999 mls/hr IV ONETIME ONE Stop: 08/31/18 21:25 Last Admin: 08/31/18 23:07 Dose: Not Given Ampicillin Sodium 1 gm/ Sodium (Chloride) 100 mls @ 200 mls/hr IV Q4H [facility] Last Admin: 09/02/18 05:41 Dose: 200 mls/hr Potassium Chloride 10 meq/ (Premix) 100 mls @ 100 mls/hr IV Q1H [facility] Stop: 09/03/18 11:59 Last Admin: 09/03/18 12:32 Dose: 100 mls/hr Insulin Human Lispro (Humalog) 0 unit SUBCUT QIDACANDBED [facility]; Protocol Last Admin: 08/31/18 20:54 Dose: 3 unit Insulin Human Regular (Humulin R) 8 unit SUBCUT ONETIME ONE Stop: 08/30/18 14:55 Last Admin: 08/30/18 15:06 Dose: 8 units Lorazepam (Ativan) 2 mg IVPUSH Q4H PRN PRN Reason: Seizures Morphine Sulfate (Morphine) 1 mg IVPUSH Q4H PRN PRN Reason: Shortness of Breath Last Admin: 09/03/18 06:35 Dose: 1 mg Ondansetron HCl (Zofran) 4 mg IVPUSH ONETIME ONE Stop: 08/30/18 14:19 Last Admin: 08/30/18 14:29 Dose: 4 mg Oseltamivir Phosphate (Tamiflu) 75 mg PO ONETIME ONE Stop: 08/30/18 14:43 Last Admin: 08/30/18 15:02 Dose: 75 mg Vancomycin HCl (Pharmacy To Dose - Vancomycin) 1 dose .XX ASDIRECTED DAGOBERTO - Exam Quality Assessment: Supplemental Oxygen, Urine Catheter, DVT Prophylaxis General: Alert, Cooperative, No Acute Distress, Other (transient resp distress after trial of CPAP.) HEENT: Pupils Equal, Pupils Reactive, EOMI Neck: Trachea Midline Lungs: Decreased Breath Sounds, Rhonchi, Wheezing Cardiovascular: Regular Rate, Regular Rhythm GI/Abdominal Exam: Normal Bowel Sounds, Soft, Non-Tender, No Organomegaly, No Distention (Female) Exam: Deferred Back Exam: Normal Inspection Extremities: Normal Inspection, Non-Tender, Slow Capillary Refill Skin: Warm Neurological: No New Focal Deficit Psy/Mental Status: Alert - Problem List & Annotations (1) Streptococcal pneumonia SNOMED Code(s): 51087333 Code(s): J15.4 - PNEUMONIA DUE TO OTHER STREPTOCOCCI Status: Acute Current Visit: Yes (2) Hypoxia SNOMED Code(s): 586382102 Code(s): R09.02 - HYPOXEMIA Status: Acute Current Visit: Yes (3) Respiratory distress, acute SNOMED Code(s): 081307718 Code(s): R06.03 - ACUTE RESPIRATORY DISTRESS Status: Acute Current Visit : Yes - Problem List Review Problem List Initiated/Reviewed/Updated: Yes - My Orders Last 24 Hours: My Active Orders 09/03/18 09:55 LORazepam [Ativan] 2 mg IVPUSH Q6H PRN Morphine 2 mg IVPUSH Q4H PRN 09/03/18 10:00 D5 1/2 NS w/ 40 mEq/L KCl 1,000 ml IV ASDIRECTED Pharmacy to Dose - Vancomycin 1 dose .XX ASDIRECTED 09/03/18 10:30 Vancomycin [Vancocin] 1 gm Sodium Chloride 0.9% [Normal Saline] 250 ml IV Q12H 09/03/18 21:00 Famotidine [Pepcid] 20 mg IVPUSH BID 09/03/18 Lunch NPO Now [Nothing per Oral Now Diet] [DIET] 09/04/18 22:00 VANCOMYCIN TROUGH [CHEM] Timed - Plan Plan:: Assessment/Plan: Acute: Influenza with secondary bacterial PNA, Strep Pneumo PNA L lower and mid lung w/ hypoxia, clinically lalitha hypoxic * Fever, productive cough, SOB w/ exertion x 3 days * O2 82% RA--> 92% 4L NC--> 91% 12L mask--> 89-91% 15L non-rebreather--> 15L BiPAP; frequent changes required; improved O2 sat after diuresis * No leukocytosis, Neut 86% with 3% bandemia, CRP 15.4--> 17.6 * CXR 08/30/18: Findings felt compatible with mild bilateral bronchitis with areas of pneumonia within the left mid and lower lung. * CT Chest 08/31/18: * 1. Diffuse parenchymal densities throughout both size of the chest more confluent within the lingula and within both lower lungs. Findings have progressed from prior chest x-ray. Findings are most likely infectious in etiology. Continued follow-up is recommended. * 2. Mildly prominent lymph nodes most likely on an inflammatory basis from the lung process. * Mycoplasma negative * RVP was negative; Strep pneumo--->positive * RT/Duonebs/IS/Acapella/Chest Physiotherapy * ABG shows low O2 sat: 86.8%--> 89.7%--> 93.3 * Repeat CXR 09/01/18: * 1. Diffuse parenchymal densities as described above. Differential includes irregular areas of pulmonary edema vs diffuse multifocal areas of pneumonia. * 2. Heart is slightly enlarged Most recent ATB : Rocephin/Levoquin/Vanco * Dexamethasone BID x2 days-->completed; started solumedrol 125 mg daily * Magnesium as needed * R/O PE: * D-dimer elevated at 1.1 * CTA negative for PE * ECHO LVEF--WNL; grade 2/4 diastolic dysfunction * Pulmonary toilet * Recommend PFT outpt Influenza A, 8/9 day course * Fever and increased weakness x3 days--> Increased energy and alertness today * Tamiflu started in ED--> continue BID Sepsis * Likely 2/2 above * Temperature 102.2F, Hypoxic, Tachypneic, Tachycardia, source of infection present * LA 3.2--> 2.1--> 0.9 * Procalcitonin elevated at 0.18 * Rocephin started in ED--> continue * IVF started in ED--> continue * Blood cultures show no growth Possible AMS * Per , seemed more confused than usual this AM * Risk Factors: Current illness/sepsis, increased O2 demand, unwitnessed fall yesterday ( unsure if she hit her head; she does have a scab on her forehead but per notes it is a couple days old) * CT Head 08/31/18: * 1. Diffuse parenchymal densities throughout both sides of the chest more confluent within the lingual and within both lower lungs. Findings have progressed from prior chest x-ray. Findings are most likely infectious in etiology. Continued follow-up is recommended. * 2. Mildly prominent lymph nodes most likely on an inflammatory basis from the lung process. * Normal neuro exam, A+O x3, seems to be very lethargic * If continues to worsen/has AMS: * ICU care * LP in AM --> Cancelled d/t improved clinical disposition * CT Head in AM if still lethargic or AMS--> not needed at this time Hyperglycemia w/ DM2 * She missed a dose of insulin yesterday, didn't take her insulin this AM * Blood sugar this AM 389, Blood sugar in ED 320 * Blood glucose checks, insulin sliding scale * A1C 7.7 * Solumedrol 125 mg daily New-onset Afib, resolved maintaining SR * Risk factor: Sepsis * 12 lead EKG done, HR 100's-118 * Metoprolol 25 BID * Lovenox 40 restarted * ECHO ---nl LVEF, grade 2 diastolic dysfunction * Monitor on telemetry DHF * Diurese as needed; 2 D echo documented nl LVEF, grade 2 diastolic dysfunction Abnormal electrolytes * Correct K, Mg, Na as needed Resolved: Dehydration * Likely 2/2 decreased intake * AGap 17.5--> 14.1 * IVF started in ED--> Continue * Monitor Possible UTI--> CULTURE NEGATIVE * Risk factors: Frequency, Incontinence * UA suspicious for UTI * Urine culture shows no growth * Rocephin started in ED--> continue Chronic: HLD * Lipids WNL HTN GERD Seizures on Tegretol (last seizure 2002) DM2 Plan: Continue ICU care Decline for transfer, will follow closely and seek transfer if needed. Droplet precautions Routine AM Labs ADA diet as tolerated TPN may be needed, will follow; currently on D5 0.45 with KCL 40 mEq Accuchecks adjusted for minimal oral intake DVT/GI prophylaxis CM/SW PT/OT Code Status: Full Code; PCP: Dr. Nasreen Edmond LOS>96 hours with slow response to treatment for Influenza/PNA
[2018-09-03] MEDS: hydrALAZINE 20 MG/ML SDV IVPUSH PRN (18:33)
[2018-09-03] MEDS: Levalbuterol HCl 1.25 MG/3 ML Neb NEB PRN (19:24)
[2018-09-03] MEDS: Metoprolol Tartrate 5 MG/5 ML SDV IVPUSH PRN (19:25)
[2018-09-03] MEDS ORDERED: methylPREDNISolone Sodium Succinate 125 MG/2 ML SDV IVPUSH ONE (19:32)
[2018-09-03] MEDS ORDERED: Magnesium Sulfate/Water 2 GM in Premix Bag 1 BAG IV ONE (19:51)
--- NOTE | 2018-09-03 20:23 | CR ---
Chest: Portable view of the chest was obtained. Comparison: Previous chest x-ray performed on the same day (7:58 AM) Diffuse parenchymal density is seen on both sides of the chest. Findings may be slightly increased in prominence from previous exam. Heart size slightly enlarged. Bony structures are grossly intact. Impression: 1. Diffuse parenchymal densities on both sides possibly slightly increased in prominence from previous study. Differential remains the same as previous study being worsening infection as well as pulmonary edema or pulmonary hemorrhage. Diagnostic code #5
[2018-09-03] MEDS ORDERED: cefTRIAXone 2 GM Vial IVPUSH SCH (20:30)
[2018-09-03] MEDS: cefTRIAXone 2 GM in Sodium Chloride 0.9% 100 ML IV SCH (21:26)
[2018-09-03] MEDS: Famotidine 20 MG/2 ML SDV IVPUSH SCH (21:27)
[2018-09-04] MEDS: D5 1/2 NS w/ 40 mEq/L KCl 1,000 ML IV SCH ×2 (00:09→12:33)
[2018-09-04] MEDS: Morphine 2 MG/ML Syringe IVPUSH PRN ×3 (02:07→12:35)
[2018-09-04] MEDS ORDERED: Furosemide 40 MG/4 ML VIAL IVPUSH ONE (06:00)
[2018-09-04] MEDS: Levalbuterol HCl 1.25 MG/0.5 ML Neb NEB SCH ×4 (06:17→20:58)
[2018-09-04] MEDS: Ipratropium 0.02% 0.5 MG/2.5 ML Neb Soln NEB SCH ×4 (06:17→20:58)
[2018-09-04] MEDS: Insulin Lispro 100 UNIT/ML 10 ML VIAL SUBCUT SCH ×4 (06:32→22:08)
[2018-09-04] MEDS: guaiFENesin/Dextromethorphan 100-10 MG/5 ML Soln 5 ML Cup PO SCH ×3 (06:32→20:18)
[2018-09-04] MEDS ORDERED: methylPREDNISolone Sodium Succinate 125 MG/2 ML SDV IVPUSH SCH (08:00)
[2018-09-04] MEDS: methylPREDNISolone Sodium Succinate 125 MG/2 ML SDV IVPUSH SCH (08:30)
[2018-09-04] MEDS: Enoxaparin 40 MG/0.4 ML Syringe SUBCUT SCH (08:30)
[2018-09-04] MEDS: Famotidine 20 MG/2 ML SDV IVPUSH SCH ×2 (08:30→20:15)
[2018-09-04] MEDS: Saccharomyces Boulardii (Probiotic) 250 MG Cap PO SCH ×2 (08:31→20:15)
[2018-09-04] MEDS: carBAMazepine 200 MG Tab PO SCH ×2 (08:31→20:15)
[2018-09-04] MEDS: Metoprolol Succinate 25 MG Tab.ER PO SCH ×2 (08:31→20:16)
[2018-09-04] MEDS: cefTRIAXone 2 GM in Sodium Chloride 0.9% 100 ML IV SCH ×2 (08:33→20:16)
[2018-09-04] MEDS: Aspirin 81 MG Tab.EC PO SCH (08:33)
[2018-09-04] MEDS ORDERED: diphenhydrAMINE 50 MG/ML SDV IVPUSH ONE (10:24)
[2018-09-04] MEDS ORDERED: Magnesium Sulfate/Water 2 GM in Premix Bag 1 BAG IV ONE (10:44)
[2018-09-04] MEDS: hydrALAZINE 20 MG/ML SDV IVPUSH PRN (10:49)
[2018-09-04] MEDS: Levofloxacin/Dextrose 5%-Water 750 MG in Premix Bag 1 BAG IV SCH (11:10)
[2018-09-04] MEDS ORDERED: Morphine 4 MG/ML Syringe IVPUSH ONE (11:53)
[2018-09-04] MEDS ORDERED: LORazepam 2 MG/ML SDV IVPUSH ONE (11:56)
[2018-09-04] MEDS ORDERED: Furosemide 20 MG/2 ML VIAL IVPUSH ONE ×2 (12:30→20:00)
--- NOTE | 2018-09-04 12:51 | PCM.PN ---
- General Info Date of Service: 09/04/18 Subjective Update: Adjusting MSO4 for symptom relief, VSS; updated the patient's spouse. He is aware of influenza and strep pneumo and will also inform the patient's sister, Sultana Villalobos. BIPAP settings are unchanged. PICC has been requested, routine order. Functional Status: Reports: Urinating - Review of Systems General: Reports: Weakness HEENT: Reports: No Symptoms Pulmonary: Reports: Shortness of Breath Cardiovascular: Reports: No Symptoms Gastrointestinal: Reports: No Symptoms Genitourinary: Reports: No Symptoms Musculoskeletal: Reports: No Symptoms Skin: Reports: No Symptoms Neurological: Reports: No Symptoms Psychiatric: Reports: No Symptoms - Patient Data Vitals - Most Recent: Last Vital Signs Temp 37.1 C 09/04/18 12:00 Pulse 91 09/04/18 08:31 Resp 32 H 09/04/18 12:00 BP 151/78 H 09/04/18 12:00 Pulse Ox 98 09/04/18 12:08 Weight - Most Recent: 97.069 kg I&O - Last 24 Hours: Intake & Output 09/03/18 09/04/18 09/04/18 22:59 06:59 14:59 Intake Total 956 1020 60 Output Total 630 1590 1000 Balance 326 570 940 Lab Results Last 24 Hours: Laboratory Results - last 24 hr 09/03/18 09/03/18 09/03/18 Range/Units 12:49 18:06 22:39 WBC (3.98-10.04) K/mm3 RBC (3.98-5.22) M/mm3 Hgb (11.2-15.7) gm/L Hct (34.1-44.9) % MCV (79.4-94.8) fl MCH (25.6-32.2) pg MCHC (32.2-35.5) g/dl RDW Std Deviation (36.4-46.3) fL Plt Count (182-369) K/mm3 MPV (9.4-12.3) fl Neut % (Auto) (34.0-71.1) % Lymph % (Auto) (19.3-51.7) % Ripley % (Auto) (4.7-12.5) % Eos % (Auto) (0.7-5.8) Baso % (Auto) (0.1-1.2) % Neut # (Auto) (1.56-6.13) K/mm3 Lymph # (Auto) (1.18-3.74) K/mm3 Ripley # (Auto) (0.24-0.36) K/mm3 Eos # (Auto) (0.04-0.36) K/mm3 Baso # (Auto) (0.01-0.08) K/mm3 Manual Slide Review Puncture Site Lt radial ABG pH 7.47 H (7.35-7.45) ABG pCO2 33.0 L (35.0-45.0) mmHg ABG pO2 71.0 L (80.0-100.0) mmHg ABG HCO3 23.9 (22.0-26.0) meq/L ABG O2 Saturation 95.2 L (96.0-97.0) % ABG Base Excess 1.1 (-2-2.0) Aston Test Positive O2 Delivery Device Bipap FiO2 0.00 L (21.00-100.00) % PEEP 7.0 cmH20 Pressure Support 12.0 cmH2O Sodium (136-145) mEq/L Potassium (3.5-5.1) mEq/L Chloride (98-107) mEq/L Carbon Dioxide (21-32) mEq/L Anion Gap (5-15) BUN (7-18) mg/dL Creatinine (0.55-1.02) mg/dL Est Cr Clr Drug Dosing mL/min Estimated GFR (MDRD) (>60) mL/min BUN/Creatinine Ratio (14-18) Glucose (80-115) mg/dL POC Glucose 249 H 289 H (80-115) mg/dL Calcium (8.5-10.1) mg/dL Magnesium (1.8-2.4) mg/dl C-Reactive Protein (<1.0) mg/dL NT-Pro-B Natriuret Pep (0-125) pg/mL 09/04/18 09/04/18 09/04/18 Range/Units 06:13 06:13 06:13 WBC 6.05 (3.98-10.04) K/mm3 RBC 4.27 (3.98-5.22) M/mm3 Hgb 11.6 (11.2-15.7) gm/L Hct 34.9 (34.1-44.9) % MCV 81.7 (79.4-94.8) fl MCH 27.2 (25.6-32.2) pg MCHC 33.2 (32.2-35.5) g/dl RDW Std Deviation 41.5 (36.4-46.3) fL Plt Count 211 (182-369) K/mm3 MPV 9.9 (9.4-12.3) fl Neut % (Auto) 80.2 H (34.0-71.1) % Lymph % (Auto) 13.4 L (19.3-51.7) % Ripley % (Auto) 5.6 (4.7-12.5) % Eos % (Auto) 0.3 L (0.7-5.8) Baso % (Auto) 0.2 (0.1-1.2) % Neut # (Auto) 4.85 (1.56-6.13) K/mm3 Lymph # (Auto) 0.81 L (1.18-3.74) K/mm3 Ripley # (Auto) 0.34 (0.24-0.36) K/mm3 Eos # (Auto) 0.02 L (0.04-0.36) K/mm3 Baso # (Auto) 0.01 (0.01-0.08) K/mm3 Manual Slide Review Abnormal smear Puncture Site ABG pH (7.35-7.45) ABG pCO2 (35.0-45.0) mmHg ABG pO2 (80.0-100.0) mmHg ABG HCO3 (22.0-26.0) meq/L ABG O2 Saturation (96.0-97.0) % ABG Base Excess (-2-2.0) Aston Test O2 Delivery Device FiO2 (21.00-100.00) % PEEP cmH20 Pressure Support cmH2O Sodium 141 (136-145) mEq/L Potassium 3.6 (3.5-5.1) mEq/L Chloride 105 (98-107) mEq/L Carbon Dioxide 26 (21-32) mEq/L Anion Gap 13.6 (5-15) BUN 14 (7-18) mg/dL Creatinine 0.6 (0.55-1.02) mg/dL Est Cr Clr Drug Dosing 85.24 mL/min Estimated GFR (MDRD) > 60 (>60) mL/min BUN/Creatinine Ratio 23.3 H (14-18) Glucose 240 H (80-115) mg/dL POC Glucose 237 H (80-115) mg/dL Calcium 8.0 L (8.5-10.1) mg/dL Magnesium 2.0 (1.8-2.4) mg/dl C-Reactive Protein 19.8 H* (<1.0) mg/dL NT-Pro-B Natriuret Pep (0-125) pg/mL 09/04/18 09/04/18 09/04/18 Range/Units 09:51 10:13 10:14 WBC (3.98-10.04) K/mm3 RBC (3.98-5.22) M/mm3 Hgb (11.2-15.7) gm/L Hct (34.1-44.9) % MCV (79.4-94.8) fl MCH (25.6-32.2) pg MCHC (32.2-35.5) g/dl RDW Std Deviation (36.4-46.3) fL Plt Count (182-369) K/mm3 MPV (9.4-12.3) fl Neut % (Auto) (34.0-71.1) % Lymph % (Auto) (19.3-51.7) % Ripley % (Auto) (4.7-12.5) % Eos % (Auto) (0.7-5.8) Baso % (Auto) (0.1-1.2) % Neut # (Auto) (1.56-6.13) K/mm3 Lymph # (Auto) (1.18-3.74) K/mm3 Ripley # (Auto) (0.24-0.36) K/mm3 Eos # (Auto) (0.04-0.36) K/mm3 Baso # (Auto) (0.01-0.08) K/mm3 Manual Slide Review Puncture Site Lt radial ABG pH 7.48 H (7.35-7.45) ABG pCO2 31.0 L (35.0-45.0) mmHg ABG pO2 70.0 L (80.0-100.0) mmHg ABG HCO3 22.6 (22.0-26.0) meq/L ABG O2 Saturation 94.8 L (96.0-97.0) % ABG Base Excess 0.2 (-2-2.0) Aston Test Positive O2 Delivery Device Bipap FiO2 0.00 L (21.00-100.00) % PEEP 7.0 cmH20 Pressure Support 12.0 cmH2O Sodium (136-145) mEq/L Potassium (3.5-5.1) mEq/L Chloride (98-107) mEq/L Carbon Dioxide (21-32) mEq/L Anion Gap (5-15) BUN (7-18) mg/dL Creatinine (0.55-1.02) mg/dL Est Cr Clr Drug Dosing mL/min Estimated GFR (MDRD) (>60) mL/min BUN/Creatinine Ratio (14-18) Glucose (80-115) mg/dL POC Glucose 271 H (80-115) mg/dL Calcium (8.5-10.1) mg/dL Magnesium (1.8-2.4) mg/dl C-Reactive Protein (<1.0) mg/dL NT-Pro-B Natriuret Pep 3315 H (0-125) pg/mL Alireza Results Last 24 Hours: Microbiology 08/30/18 14:50 Aerobic Blood Culture - Preliminary Blood - Venous NO GROWTH AFTER 4 DAYS Anaerobic Blood Culture - Preliminary NO GROWTH AFTER 4 DAYS 08/30/18 15:05 Aerobic Blood Culture - Preliminary Blood - Venous - Lab Draw NO GROWTH AFTER 4 DAYS Anaerobic Blood Culture - Final Med Orders - Current: Current Medications Acetaminophen (Tylenol) 650 mg PO Q4H PRN PRN Reason: Pain (Mild 1-3)/fever Last Admin: 08/31/18 20:10 Dose: 650 mg Alogliptin Benzoate (Alogliptin) 25 mg PO DAILY [facility] Last Admin: 09/04/18 08:33 Dose: 25 mg Aspirin (Halfprin) 81 mg PO DAILY [facility] Last Admin: 09/04/18 08:33 Dose: 81 mg Bisacodyl (Dulcolax) 5 mg PO DAILY PRN PRN Reason: Constipation Carbamazepine (Tegretol Tab) 400 mg PO BID [facility] Last Admin: 09/04/18 08:31 Dose: 400 mg Dextrose/Water (Dextrose 50% In Water) 50 ml IVPUSH ASDIRECTED PRN PRN Reason: Hypoglycemia Diltiazem HCl (Cardizem) 10 mg IVPUSH Q4H PRN PRN Reason: tachy >110 Last Admin: 09/02/18 06:52 Dose: 10 mg Docusate Sodium (Colace) 100 mg PO BID PRN PRN Reason: Constipation Enoxaparin Sodium (Lovenox) 40 mg SUBCUT DAILY [facility] Last Admin: 09/04/18 08:30 Dose: 40 mg Famotidine (Pepcid) 20 mg IVPUSH BID [facility] Last Admin: 09/04/18 08:30 Dose: 20 mg Guaifenesin/Phenylephrine HCl (Robitussin Dm) 10 ml PO TID@0700,1400,2100 [facility] Last Admin: 09/04/18 06:32 Dose: 10 ml Hydralazine HCl (Apresoline) 10 mg IVPUSH Q4H PRN PRN Reason: Hypertension Last Admin: 09/04/18 10:49 Dose: 10 mg Promethazine HCl 6.25 mg/ (Sodium Chloride) 50.25 mls @ 100 mls/hr IV Q6H PRN PRN Reason: Nausea/Vomiting Levofloxacin/Dextrose 750 mg/ (Premix) 150 mls @ 100 mls/hr IV Q24H [facility] Last Admin: 09/04/18 11:10 Dose: 100 mls/hr Vancomycin HCl 1 gm/ Sodium (Chloride) 250 mls @ 250 mls/hr IV Q12H [facility] Last Admin: 09/04/18 10:14 Dose: 250 mls/hr Ceftriaxone Sodium 2 gm/ (Sodium Chloride) 100 mls @ 200 mls/hr IV Q12H [facility] Last Admin: 09/04/18 08:33 Dose: 200 mls/hr Potassium Chloride/Dextrose/Sod Cl (D5 1/2 Ns W/ 40 Meq/L Kcl) 1,000 mls @ 125 mls/hr IV ASDIRECTED [facility] Last Admin: 09/04/18 12:33 Dose: 75 mls/hr Insulin Human Lispro (Humalog) 0 unit SUBCUT QIDACANDBED [facility]; Protocol Last Admin: 09/04/18 11:09 Dose: 6 units Ipratropium Combes (Atrovent) 0.5 mg NEB QIDRT [facility] Last Admin: 09/04/18 09:00 Dose: 0.5 mg Levalbuterol HCl (Xopenex) 1.25 mg NEB QIDRT [facility] Last Admin: 09/04/18 09:00 Dose: 1.25 mg Levalbuterol HCl (Xopenex) 1.25 mg NEB Q2H PRN PRN Reason: sob Last Admin: 09/03/18 19:24 Dose: 1.25 mg Lorazepam (Ativan) 2 mg IVPUSH Q6H PRN PRN Reason: Seizures Last Admin: 09/03/18 16:23 Dose: 2 mg Magnesium Hydroxide (Milk Of Magnesia) 30 ml PO Q12H PRN PRN Reason: Constipation Methylprednisolone Sodium Succinate (Solu-Medrol) 125 mg IVPUSH DAILY [facility] Last Admin: 09/04/18 08:30 Dose: 125 mg Metoprolol Succinate (Toprol Xl) 25 mg PO BID [facility] Last Admin: 09/04/18 08:31 Dose: 25 mg Metoprolol Tartrate (Lopressor) 5 mg IVPUSH Q4H PRN PRN Reason: Tachycardia Last Admin: 09/03/18 19:25 Dose: 5 mg Morphine Sulfate (Morphine) 2 mg IVPUSH Q2H PRN PRN Reason: Shortness of Breath Last Admin: 09/04/18 12:35 Dose: 2 mg Polyethylene Glycol (Miralax) 17 gm PO DAILY PRN PRN Reason: Constipation Promethazine HCl (Phenergan) 25 mg PO Q6H PRN PRN Reason: Nausea/Vomiting Saccharomyces Boulardii (Florastor) 250 mg PO BID [facility] Last Admin: 09/04/18 08:31 Dose: 250 mg Senna/Docusate Sodium (Senna Plus) 1 tab PO BID PRN PRN Reason: Constipation Temazepam (Restoril) 7.5 mg PO BEDTIME PRN PRN Reason: Sleep Vancomycin HCl (Pharmacy To Dose - Vancomycin) 1 dose .XX ASDIRECTED [facility] Discontinued Medications Acetaminophen (Tylenol) 975 mg PO NOW ONE Stop: 08/30/18 14:27 Last Admin: 08/30/18 14:51 Dose: 975 mg Hydrocodone Bitart/Acetaminophen ([place] 325-5 Mg) 1 tab PO Q4H PRN PRN Reason: Pain (moderate 4-6) Albuterol (Proventil Neb Soln) 2.5 mg NEB Q2H PRN PRN Reason: Shortness Of Breath/wheezing Last Admin: 08/31/18 23:15 Dose: 2.5 mg Albuterol/Ipratropium (Duoneb 3.0-0.5 Mg/3 Ml) 3 ml NEB Q4H PRN PRN Reason: Shortness Of Breath/wheezing Last Admin: 08/31/18 10:44 Dose: 3 ml Albuterol/Ipratropium (Duoneb 3.0-0.5 Mg/3 Ml) 3 ml NEB QIDRT DAGOBERTO Last Admin: 09/01/18 08:59 Dose: 3 ml Ampicillin Sodium (Ampicillin) Confirm Administered Dose 1 gm .ROUTE .STK-MED ONE Stop: 08/31/18 21:19 Last Admin: 08/31/18 21:33 Dose: Not Given Ceftriaxone Sodium (Rocephin) 2 gm IVPUSH Q24H DAGOBERTO Ceftriaxone Sodium (Rocephin) 2 gm IVPUSH Q12H [facility] Dexamethasone (Dexamethasone) Confirm Administered Dose 40 mg .ROUTE .STK-MED ONE Stop: 08/31/18 19:53 Last Admin: 08/31/18 20:15 Dose: Not Given Dexamethasone (Dexamethasone) 40 mg IVPUSH Q12HR [facility] Stop: 09/03/18 07:01 Diphenhydramine HCl (Benadryl) 25 mg IVPUSH ONETIME ONE Stop: 09/04/18 10:25 Last Admin: 09/04/18 10:49 Dose: 25 mg Famotidine (Pepcid) 20 mg PO BID [facility] Last Admin: 09/03/18 09:06 Dose: 20 mg Famotidine (Pepcid) 20 mg IVPUSH BID [facility] Furosemide (Lasix) 40 mg IVPUSH NOW ONE Stop: 08/30/18 14:51 Last Admin: 08/30/18 14:58 Dose: 40 mg Furosemide (Lasix) 20 mg IVPUSH NOW ONE Stop: 09/02/18 12:18 Last Admin: 09/02/18 13:45 Dose: 20 mg Furosemide (Lasix) 20 mg IVPUSH NOW ONE Stop: 09/02/18 21:01 Last Admin: 09/02/18 20:18 Dose: 20 mg Furosemide (Lasix) 20 mg IVPUSH NOW ONE Stop: 09/03/18 09:49 Last Admin: 09/03/18 10:27 Dose: 20 mg Furosemide (Lasix) 20 mg IVPUSH ONETIME ONE Stop: 09/04/18 06:01 Last Admin: 09/04/18 05:48 Dose: 20 mg Furosemide (Lasix) 20 mg IVPUSH NOW ONE Stop: 09/04/18 12:31 Last Admin: 09/04/18 12:32 Dose: 20 mg Glimepiride (Glimepiride) 4 mg PO BIDMEALS [facility] Last Admin: 09/03/18 09:05 Dose: 4 mg Hydromorphone HCl (Dilaudid) 0.25 mg IVPUSH Q2H PRN PRN Reason: Pain (severe 7-10) Sodium Chloride (Normal Saline) 1,000 mls @ 150 mls/hr IV ASDIRECTED [facility] Last Admin: 08/30/18 14:26 Dose: 150 mls/hr Sodium Chloride (Normal Saline) 1,000 mls @ 75 mls/hr IV ASDIRECTED [facility] Ceftriaxone Sodium 1 gm/ (Sodium Chloride) 100 mls @ 200 mls/hr IV ONETIME ONE Stop: 08/30/18 16:28 Last Admin: 08/30/18 16:57 Dose: 200 mls/hr Azithromycin 500 mg/ Sodium (Chloride) 250 mls @ 250 mls/hr IV Q24H [facility] Last Admin: 08/30/18 21:15 Dose: 250 mls/hr Sodium Chloride (Normal Saline) 1,000 mls @ 125 mls/hr IV ASDIRECTED [facility] Last Admin: 08/31/18 00:55 Dose: 125 mls/hr Ceftriaxone Sodium 1 gm/ (Sodium Chloride) 100 mls @ 200 mls/hr IV ONETIME ONE Stop: 08/30/18 19:14 Last Admin: 08/30/18 19:28 Dose: 200 mls/hr Ceftriaxone Sodium 2 gm/ (Sodium Chloride) 100 mls @ 200 mls/hr IV Q24H [facility] Dextrose/Sodium Chloride (Dextrose 5%-Normal Saline) 1,000 mls @ 125 mls/hr IV ASDIRECTED [facility] Last Admin: 08/31/18 08:05 Dose: 125 mls/hr Piperacillin Sod/Tazobactam (Sod 4.5 gm/ Sodium Chloride) 100 mls @ 200 mls/hr IV ONETIME ONE Stop: 08/31/18 10:29 Last Admin: 08/31/18 11:28 Dose: Not Given Piperacillin Sod/Tazobactam (Sod 4.5 gm/ Sodium Chloride) 100 mls @ 25 mls/hr IV Q8H [facility] Last Admin: 08/31/18 23:34 Dose: Not Given Vancomycin HCl 1 gm/ Sodium (Chloride) 250 mls @ 250 mls/hr IV Q12H [facility] Last Admin: 09/01/18 21:37 Dose: 250 mls/hr Sodium Chloride (Normal Saline) Confirm Administered Dose 100 mls @ as directed .ROUTE .STK-MED ONE Stop: 08/31/18 10:49 Last Admin: 08/31/18 11:29 Dose: Not Given Piperacillin Sod/Tazobactam (Sod 4.5 gm/ Sodium Chloride) 100 mls @ 200 mls/hr IV ONETIME ONE Stop: 08/31/18 11:44 Last Admin: 08/31/18 12:56 Dose: 200 mls/hr Sodium Chloride (Normal Saline) 1,000 mls @ 75 mls/hr IV ASDIRECTED [facility] Last Admin: 09/02/18 04:15 Dose: 75 mls/hr Magnesium Sulfate/Dextrose (Magnesium 1 Gm In D5w 100 Ml) Confirm Administered Dose 100 mls @ as directed .ROUTE .STK-MED ONE Stop: 08/31/18 19:53 Last Admin: 08/31/18 20:15 Dose: Not Given Acyclovir 1,000 mg/ Sodium (Chloride) 120 mls @ 100 mls/hr IV Q8H [facility] Last Admin: 09/02/18 04:09 Dose: 100 mls/hr Ampicillin Sodium 1 gm/ Sodium (Chloride) 100 mls @ 200 mls/hr IV Q4H [facility] Last Admin: 08/31/18 23:34 Dose: Not Given Dexamethasone 40 mg/ Sodium (Chloride) 54 mls @ 108 mls/hr IV BID@0700,1900 [facility] Stop: 09/02/18 20:31 Last Admin: 09/02/18 18:08 Dose: 108 mls/hr Magnesium Sulfate 2 gm/ Premix 50 mls @ 25 mls/hr IV ONETIME ONE Stop: 08/31/18 22:13 Last Admin: 08/31/18 21:26 Dose: Not Given Magnesium Sulfate/Dextrose 1 (gm/ Premix) 100 mls @ 100 mls/hr IV ONETIME ONE Stop: 08/31/18 21:29 Last Admin: 08/31/18 20:35 Dose: 100 mls/hr Ampicillin Sodium 1 gm/ Sodium (Chloride) 100 mls @ 200 mls/hr IV Q4H [facility] Last Admin: 09/01/18 11:17 Dose: Not Given Sodium Chloride (Normal Saline) Confirm Administered Dose 100 mls @ as directed .ROUTE .STK-MED ONE Stop: 08/31/18 21:21 Last Admin: 08/31/18 21:29 Dose: Not Given Sodium Chloride (Normal Saline) 250 mls @ 999 mls/hr IV ONETIME ONE Stop: 08/31/18 21:25 Last Admin: 08/31/18 23:07 Dose: Not Given Ceftriaxone Sodium 2 gm/ (Sodium Chloride) 100 mls @ 200 mls/hr IV Q24H [facility] Last Admin: 09/02/18 23:19 Dose: 200 mls/hr Ampicillin Sodium 1 gm/ Sodium (Chloride) 100 mls @ 200 mls/hr IV Q4H [facility] Last Admin: 09/02/18 05:41 Dose: 200 mls/hr Potassium Chloride/Dextrose/Sod Cl (D5 1/2 Ns W/ 40 Meq/L Kcl) 1,000 mls @ 75 mls/hr IV ASDIRECTED [facility] Last Infusion: 09/03/18 20:30 Dose: 125 mls/hr Potassium Chloride 10 meq/ (Premix) 100 mls @ 100 mls/hr IV Q1H [facility] Stop: 09/03/18 11:59 Last Admin: 09/03/18 12:32 Dose: 100 mls/hr Magnesium Sulfate 2 gm/ Premix 50 mls @ 25 mls/hr IV ONETIME ONE Stop: 09/03/18 21:50 Last Admin: 09/03/18 20:13 Dose: 25 mls/hr Magnesium Sulfate 2 gm/ Premix 50 mls @ 25 mls/hr IV ONETIME ONE Stop: 09/04/18 12:43 Last Admin: 09/04/18 11:09 Dose: 25 mls/hr Insulin Human Lispro (Humalog) 0 unit SUBCUT QIDACANDBED [facility]; Protocol Last Admin: 08/31/18 20:54 Dose: 3 unit Insulin Human Regular (Humulin R) 8 unit SUBCUT ONETIME ONE Stop: 08/30/18 14:55 Last Admin: 08/30/18 15:06 Dose: 8 units Lorazepam (Ativan) 2 mg IVPUSH Q4H PRN PRN Reason: Seizures Lorazepam (Ativan) 1 mg IVPUSH ONETIME ONE Stop: 09/04/18 11:57 Last Admin: 09/04/18 12:32 Dose: 1 mg Methylprednisolone Sodium Succinate (Solu-Medrol) 125 mg IVPUSH ONETIME ONE Stop: 09/03/18 19:33 Last Admin: 09/03/18 19:39 Dose: 125 mg Methylprednisolone Sodium Succinate (Solu-Medrol) 125 mg IVPUSH Q12H DAGOBERTO Morphine Sulfate (Morphine) 1 mg IVPUSH Q4H PRN PRN Reason: Shortness of Breath Last Admin: 09/03/18 06:35 Dose: 1 mg Morphine Sulfate (Morphine) 2 mg IVPUSH Q4H PRN PRN Reason: Shortness of Breath Last Admin: 09/03/18 19:43 Dose: 2 mg Morphine Sulfate (Morphine) 4 mg IVPUSH ONETIME ONE Stop: 09/04/18 11:54 Last Admin: 09/04/18 11:57 Dose: Not Given Ondansetron HCl (Zofran) 4 mg IVPUSH ONETIME ONE Stop: 08/30/18 14:19 Last Admin: 08/30/18 14:29 Dose: 4 mg Oseltamivir Phosphate (Tamiflu) 75 mg PO ONETIME ONE Stop: 08/30/18 14:43 Last Admin: 08/30/18 15:02 Dose: 75 mg Oseltamivir Phosphate (Tamiflu) 75 mg PO BID DAGOBERTO Stop: 09/03/18 21:01 Last Admin: 09/03/18 21:30 Dose: 75 mg Vancomycin HCl (Pharmacy To Dose - Vancomycin) 1 dose .XX ASDIRECTED DAGOBERTO - Exam Quality Assessment: Supplemental Oxygen, Central Line/PICC (requested.), Urine Catheter, DVT Prophylaxis General: Alert, Oriented, Mild Distress (resolved) HEENT: Pupils Equal, Pupils Reactive, EOMI Neck: Trachea Midline, No JVD Lungs: Normal Respiratory Effort, Decreased Breath Sounds, Rhonchi, Wheezing Cardiovascular: Regular Rate, Regular Rhythm GI/Abdominal Exam: Normal Bowel Sounds, Soft, Non-Tender, No Organomegaly, No Distention (Female) Exam: Deferred Back Exam: Normal Inspection Extremities: Normal Inspection, Normal Range of Motion, Non-Tender, Normal Capillary Refill Skin: Warm Neurological: No New Focal Deficit, Normal Speech Psy/Mental Status: Alert, Normal Affect, Normal Mood - Problem List & Annotations (1) Streptococcal pneumonia SNOMED Code(s): 90633034 Code(s): J15.4 - PNEUMONIA DUE TO OTHER STREPTOCOCCI Status: Acute Current Visit: Yes (2) Hypoxia SNOMED Code(s): 338332320 Code(s): R09.02 - HYPOXEMIA Status: Acute Current Visit: Yes (3) Respiratory distress, acute SNOMED Code(s): 996214777 Code(s): R06.03 - ACUTE RESPIRATORY DISTRESS Status: Acute Current Visit : Yes - Problem List Review Problem List Initiated/Reviewed/Updated: Yes - My Orders Last 24 Hours: My Active Orders 09/03/18 20:21 Morphine 2 mg IVPUSH Q2H PRN 09/03/18 20:30 D5 1/2 NS w/ 40 mEq/L KCl 1,000 ml IV ASDIRECTED 09/03/18 20:41 Blood Culture x2 Reflex Set [OM.PC] Stat 09/03/18 21:00 Famotidine [Pepcid] 20 mg IVPUSH BID cefTRIAXone [Rocephin] 2 gm Sodium Chloride 0.9% [Normal Saline] 100 ml IV Q12H 09/03/18 21:20 CULTURE BLOOD [BC] Stat 09/03/18 21:25 CULTURE BLOOD [BC] Stat 09/04/18 09:00 methylPREDNISolone Sod Succ [Solu-MEDROL] 125 mg IVPUSH DAILY 09/04/18 10:30 PICC Line Insertion [CR] Routine 09/04/18 16:00 LACTIC ACID [CHEM] Routine 09/04/18 22:00 VANCOMYCIN TROUGH [CHEM] Timed 09/05/18 05:00 LACTIC ACID [CHEM] DAILY PRO B-TYPE NATRIUR PEPT,BNPPRO [CHEM] DAILY PROCALCITONIN [REF] Routine 09/06/18 05:00 LACTIC ACID [CHEM] DAILY PRO B-TYPE NATRIUR PEPT,BNPPRO [CHEM] DAILY 09/07/18 05:00 LACTIC ACID [CHEM] DAILY PRO B-TYPE NATRIUR PEPT,BNPPRO [CHEM] DAILY 09/08/18 05:00 LACTIC ACID [CHEM] DAILY - Plan Plan:: Assessment/Plan: Acute: Influenza with secondary bacterial PNA, Strep Pneumo PNA L lower and mid lung w/ hypoxia, clinically lalitha hypoxic * Fever, productive cough, SOB w/ exertion x 3 days * O2 82% RA--> 92% 4L NC--> 91% 12L mask--> 89-91% 15L non-rebreather--> 15L BiPAP; FIO2 0.70 12/7...O2 sat 97% on pulse ox/ABG pH 7.48 pCO2 31.0 pO2 70 sO2 94.8%; frequent changes required. * No leukocytosis, Neut 86% with 3% bandemia, CRP 15.4--> 17.6 * CXR 08/30/18: Findings felt compatible with mild bilateral bronchitis with areas of pneumonia within the left mid and lower lung. * CT Chest 08/31/18: * 1. Diffuse parenchymal densities throughout both size of the chest more confluent within the lingula and within both lower lungs. Findings have progressed from prior chest x-ray. Findings are most likely infectious in etiology. Continued follow-up is recommended. * 2. Mildly prominent lymph nodes most likely on an inflammatory basis from the lung process. * Mycoplasma negative * RVP was negative; Strep pneumo--->positive * RT/Duonebs/IS/Acapella/Chest Physiotherapy * ABG shows low O2 sat: 86.8%--> 89.7%--> 93.3 * Repeat CXR 09/01/18: * 1. Diffuse parenchymal densities as described above. Differential includes irregular areas of pulmonary edema vs diffuse multifocal areas of pneumonia. * 2. Heart is slightly enlarged Most recent ATB : Rocephin/Levoquin/Vanco * Dexamethasone BID x2 days-->completed; started solumedrol 125 mg daily * Magnesium as needed * R/O PE: * D-dimer elevated at 1.1 * CTA negative for PE * ECHO LVEF--WNL; grade 2/4 diastolic dysfunction * Pulmonary toilet * Recommend PFT outpt Influenza A, 8/9 day course * Fever and increased weakness x3 days--> Increased energy and alertness today * Tamiflu started in ED--> continue BID Sepsis * Likely 2/2 above * Temperature 102.2F, Hypoxic, Tachypneic, Tachycardia, source of infection present * LA 3.2--> 2.1--> 0.9 * Procalcitonin elevated at 0.18 * Rocephin started in ED--> continue * IVF started in ED--> continue * Blood cultures show no growth Possible AMS * Per , seemed more confused than usual this AM * Risk Factors: Current illness/sepsis, increased O2 demand, unwitnessed fall yesterday ( unsure if she hit her head; she does have a scab on her forehead but per notes it is a couple days old) * CT Head 08/31/18: * 1. Diffuse parenchymal densities throughout both sides of the chest more confluent within the lingual and within both lower lungs. Findings have progressed from prior chest x-ray. Findings are most likely infectious in etiology. Continued follow-up is recommended. * 2. Mildly prominent lymph nodes most likely on an inflammatory basis from the lung process. * Normal neuro exam, A+O x3, seems to be very lethargic * If continues to worsen/has AMS: * ICU care * LP in AM --> Cancelled d/t improved clinical disposition * CT Head in AM if still lethargic or AMS--> not needed at this time Hyperglycemia w/ DM2 * She missed a dose of insulin yesterday, didn't take her insulin this AM * Blood sugar this AM 389, Blood sugar in ED 320 * Blood glucose checks, insulin sliding scale * A1C 7.7 * Solumedrol 125 mg daily New-onset Afib, resolved maintaining SR * Risk factor: Sepsis * 12 lead EKG done, HR 100's-118 * Metoprolol 25 BID * Lovenox 40 restarted * ECHO ---nl LVEF, grade 2 diastolic dysfunction * Monitor on telemetry DHF * Diurese as needed; 2 D echo documented nl LVEF, grade 2 diastolic dysfunction * Increase Lasix 20 mg Q 8 H Abnormal electrolytes * Correct K, Mg, Na as needed Resolved: Dehydration * Likely 2/2 decreased intake * AGap 17.5--> 14.1 * IVF started in ED--> Continue * Monitor Possible UTI--> CULTURE NEGATIVE * Risk factors: Frequency, Incontinence * UA suspicious for UTI * Urine culture shows no growth * Rocephin started in ED--> continue Chronic: HLD * Lipids WNL HTN GERD Seizures on Tegretol (last seizure 2002) DM2 Plan: Continue ICU care Decline for transfer, will follow closely and seek transfer if needed. Droplet precautions Routine AM Labs ADA diet as tolerated TPN may be needed, will follow; currently on D5 0.45 with KCL 40 mEq Accuchecks adjusted for minimal oral intake DVT/GI prophylaxis CM/SW PT/OT Code Status: Full Code; PCP: Dr. Nasreen Edmond LOS>96 hours with slow response to treatment for Influenza/PNA
[2018-09-04] MEDS ORDERED: LORazepam 2 MG/ML SDV IVPUSH PRN ×2 (15:18→15:19)
[2018-09-04] MEDS ORDERED: Morphine 4 MG/ML Syringe IVPUSH SCH (15:30)
[2018-09-05] MEDS: D5 1/2 NS w/ 40 mEq/L KCl 1,000 ML IV SCH ×2 (00:58→14:41)
[2018-09-05] MEDS: guaiFENesin/Dextromethorphan 100-10 MG/5 ML Soln 5 ML Cup PO SCH ×3 (06:03→20:24)
[2018-09-05] MEDS: Ipratropium 0.02% 0.5 MG/2.5 ML Neb Soln NEB SCH ×4 (06:16→20:04)
[2018-09-05] MEDS: Levalbuterol HCl 1.25 MG/0.5 ML Neb NEB SCH ×4 (06:16→20:04)
[2018-09-05] MEDS: Insulin Lispro 100 UNIT/ML 10 ML VIAL SUBCUT SCH ×4 (06:26→21:11)
[2018-09-05] MEDS: cefTRIAXone 2 GM in Sodium Chloride 0.9% 100 ML IV SCH ×2 (08:32→20:24)
[2018-09-05] MEDS: Furosemide 40 MG/4 ML VIAL IVPUSH SCH (08:34)
[2018-09-05] MEDS: Famotidine 20 MG/2 ML SDV IVPUSH SCH ×2 (08:34→20:23)
[2018-09-05] MEDS: methylPREDNISolone Sodium Succinate 125 MG/2 ML SDV IVPUSH SCH (08:41)
[2018-09-05] MEDS: Metoprolol Succinate 25 MG Tab.ER PO SCH ×2 (08:42→20:24)
[2018-09-05] MEDS: Enoxaparin 40 MG/0.4 ML Syringe SUBCUT SCH (08:42)
[2018-09-05] MEDS: Aspirin 81 MG Tab.EC PO SCH (08:44)
[2018-09-05] MEDS: Saccharomyces Boulardii (Probiotic) 250 MG Cap PO SCH ×3 (08:44→20:24)
[2018-09-05] MEDS: carBAMazepine 200 MG Tab PO SCH ×3 (08:44→20:24)
--- NOTE | 2018-09-05 08:45 | CR ---
Chest: Portable view of the chest was obtained. Comparison: Prior chest x-ray of 04/03/19. Diffuse parenchymal densities are seen within both sides of the chest. Findings are mildly improved from previous exam. No new parenchymal change is seen. Heart size is normal. Tortuous thoracic aorta is seen. Bony structures are grossly intact. Impression: 1. Slightly improved appearance of the chest. Differential as previously described. Diagnostic code #3
[2018-09-05] MEDS: Levofloxacin/Dextrose 5%-Water 750 MG in Premix Bag 1 BAG IV SCH (10:56)
--- NOTE | 2018-09-05 12:55 | PCM.SN ---
- Free Text/Narrative Note: 09/05/18 [id number] IV started 20 guage right forearm times 1 attempt. [email or web address]
[2018-09-05] MEDS: hydrALAZINE 20 MG/ML SDV IVPUSH PRN (13:37)
--- NOTE | 2018-09-05 13:43 | PCM.PN ---
- General Info Date of Service: 09/05/18 Subjective Update: Decreased RR with less SOB, tolerating up in chair without difficulty. Has been diuresing well, some improvement on CXR. Discussed improvement with her spouse. PICC held, anticipate high flow delivery on 09/06/18. Goal is resume po intake with food on 09/06/18. Functional Status: Reports: Pain Controlled, Urinating - Review of Systems General: Reports: Weakness HEENT: Reports: No Symptoms Pulmonary: Reports: Shortness of Breath Cardiovascular: Reports: No Symptoms Gastrointestinal: Reports: No Symptoms Genitourinary: Reports: No Symptoms Musculoskeletal: Reports: No Symptoms Skin: Reports: No Symptoms Neurological: Reports: No Symptoms Psychiatric: Reports: No Symptoms - Patient Data Vitals - Most Recent: Last Vital Signs Temp 36.4 C 09/05/18 07:57 Pulse 94 09/05/18 11:58 Resp 25 H 09/05/18 11:58 BP 151/82 H 09/05/18 09:56 Pulse Ox 96 09/05/18 11:58 Weight - Most Recent: 97.069 kg I&O - Last 24 Hours: Intake & Output 09/04/18 09/05/18 09/05/18 22:59 06:59 14:59 Intake Total 1175 350 Output Total 1075 250 875 Balance 100 100 -875 Lab Results Last 24 Hours: Laboratory Results - last 24 hr 09/04/18 09/04/18 09/04/18 Range/Units 15:53 15:56 21:46 WBC (3.98-10.04) K/mm3 RBC (3.98-5.22) M/mm3 Hgb (11.2-15.7) gm/L Hct (34.1-44.9) % MCV (79.4-94.8) fl MCH (25.6-32.2) pg MCHC (32.2-35.5) g/dl RDW Std Deviation (36.4-46.3) fL Plt Count (182-369) K/mm3 MPV (9.4-12.3) fl Sodium (136-145) mEq/L Potassium (3.5-5.1) mEq/L Chloride (98-107) mEq/L Carbon Dioxide (21-32) mEq/L Anion Gap (5-15) BUN (7-18) mg/dL Creatinine (0.55-1.02) mg/dL Est Cr Clr Drug Dosing mL/min Estimated GFR (MDRD) (>60) mL/min BUN/Creatinine Ratio (14-18) Glucose (80-115) mg/dL POC Glucose 307 H 247 H (80-115) mg/dL Lactic Acid 1.5 (0.4-2.0) mmol/L Calcium (8.5-10.1) mg/dL C-Reactive Protein (<1.0) mg/dL NT-Pro-B Natriuret Pep (0-125) pg/mL Vancomycin Trough (10.0-20.0) 09/04/18 09/05/18 09/05/18 Range/Units 22:35 05:54 05:54 WBC (3.98-10.04) K/mm3 RBC (3.98-5.22) M/mm3 Hgb (11.2-15.7) gm/L Hct (34.1-44.9) % MCV (79.4-94.8) fl MCH (25.6-32.2) pg MCHC (32.2-35.5) g/dl RDW Std Deviation (36.4-46.3) fL Plt Count (182-369) K/mm3 MPV (9.4-12.3) fl Sodium (136-145) mEq/L Potassium (3.5-5.1) mEq/L Chloride (98-107) mEq/L Carbon Dioxide (21-32) mEq/L Anion Gap (5-15) BUN (7-18) mg/dL Creatinine (0.55-1.02) mg/dL Est Cr Clr Drug Dosing mL/min Estimated GFR (MDRD) (>60) mL/min BUN/Creatinine Ratio (14-18) Glucose (80-115) mg/dL POC Glucose (80-115) mg/dL Lactic Acid 1.7 (0.4-2.0) mmol/L Calcium (8.5-10.1) mg/dL C-Reactive Protein (<1.0) mg/dL NT-Pro-B Natriuret Pep 1918 H (0-125) pg/mL Vancomycin Trough 4.5 L (10.0-20.0) 02/06/1309/05/18 09/05/18 Range/Units 05:54 05:54 07:58 WBC 7.09 (3.98-10.04) K/mm3 RBC 4.26 (3.98-5.22) M/mm3 Hgb 11.7 (11.2-15.7) gm/L Hct 35.3 (34.1-44.9) % MCV 82.9 (79.4-94.8) fl MCH 27.5 (25.6-32.2) pg MCHC 33.1 (32.2-35.5) g/dl RDW Std Deviation 41.7 (36.4-46.3) fL Plt Count 190 (182-369) K/mm3 MPV 10.4 (9.4-12.3) fl Sodium 143 (136-145) mEq/L Potassium 3.5 (3.5-5.1) mEq/L Chloride 107 (98-107) mEq/L Carbon Dioxide 22 (21-32) mEq/L Anion Gap 17.5 H (5-15) BUN 16 (7-18) mg/dL Creatinine 0.6 (0.55-1.02) mg/dL Est Cr Clr Drug Dosing 85.24 mL/min Estimated GFR (MDRD) > 60 (>60) mL/min BUN/Creatinine Ratio 26.7 H (14-18) Glucose 247 H (80-115) mg/dL POC Glucose 246 H (80-115) mg/dL Lactic Acid (0.4-2.0) mmol/L Calcium 8.0 L (8.5-10.1) mg/dL C-Reactive Protein 17.5 H* (<1.0) mg/dL NT-Pro-B Natriuret Pep (0-125) pg/mL Vancomycin Trough (10.0-20.0) 09/05/18 Range/Units 10:55 WBC (3.98-10.04) K/mm3 RBC (3.98-5.22) M/mm3 Hgb (11.2-15.7) gm/L Hct (34.1-44.9) % MCV (79.4-94.8) fl MCH (25.6-32.2) pg MCHC (32.2-35.5) g/dl RDW Std Deviation (36.4-46.3) fL Plt Count (182-369) K/mm3 MPV (9.4-12.3) fl Sodium (136-145) mEq/L Potassium (3.5-5.1) mEq/L Chloride (98-107) mEq/L Carbon Dioxide (21-32) mEq/L Anion Gap (5-15) BUN (7-18) mg/dL Creatinine (0.55-1.02) mg/dL Est Cr Clr Drug Dosing mL/min Estimated GFR (MDRD) (>60) mL/min BUN/Creatinine Ratio (14-18) Glucose (80-115) mg/dL POC Glucose 315 H (80-115) mg/dL Lactic Acid (0.4-2.0) mmol/L Calcium (8.5-10.1) mg/dL C-Reactive Protein (<1.0) mg/dL NT-Pro-B Natriuret Pep (0-125) pg/mL Vancomycin Trough (10.0-20.0) Alireza Results Last 24 Hours: Microbiology 09/03/18 21:20 Aerobic Blood Culture - Preliminary Blood - Venous NO GROWTH AFTER 1 DAY Anaerobic Blood Culture - Preliminary NO GROWTH AFTER 1 DAY 09/03/18 21:25 Aerobic Blood Culture - Preliminary Blood - Venous - Lab Draw NO GROWTH AFTER 1 DAY Anaerobic Blood Culture - Preliminary NO GROWTH AFTER 1 DAY 08/30/18 14:50 Aerobic Blood Culture - Preliminary Blood - Venous NO GROWTH AFTER 5 DAYS Anaerobic Blood Culture - Preliminary NO GROWTH AFTER 5 DAYS 08/30/18 15:05 Aerobic Blood Culture - Preliminary Blood - Venous - Lab Draw NO GROWTH AFTER 5 DAYS Anaerobic Blood Culture - Final Med Orders - Current: Current Medications Acetaminophen (Tylenol) 650 mg PO Q4H PRN PRN Reason: Pain (Mild 1-3)/fever Last Admin: 08/31/18 20:10 Dose: 650 mg Alogliptin Benzoate (Alogliptin) 25 mg PO DAILY [facility] Last Admin: 09/05/18 08:54 Dose: Not Given Aspirin (Halfprin) 81 mg PO DAILY [facility] Last Admin: 09/05/18 08:44 Dose: 81 mg Bisacodyl (Dulcolax) 5 mg PO DAILY PRN PRN Reason: Constipation Carbamazepine (Tegretol Tab) 400 mg PO BID [facility] Last Admin: 09/05/18 08:53 Dose: Not Given Dextrose/Water (Dextrose 50% In Water) 50 ml IVPUSH ASDIRECTED PRN PRN Reason: Hypoglycemia Diltiazem HCl (Cardizem) 10 mg IVPUSH Q4H PRN PRN Reason: tachy >110 Last Admin: 09/02/18 06:52 Dose: 10 mg Docusate Sodium (Colace) 100 mg PO BID PRN PRN Reason: Constipation Enoxaparin Sodium (Lovenox) 40 mg SUBCUT DAILY [facility] Last Admin: 09/05/18 08:42 Dose: 40 mg Famotidine (Pepcid) 20 mg IVPUSH BID [facility] Last Admin: 09/05/18 08:34 Dose: 20 mg Furosemide (Lasix) 40 mg IVPUSH DAILY [facility] Last Admin: 09/05/18 08:34 Dose: 40 mg Furosemide (Lasix) 40 mg IVPUSH NOW ONE Stop: 09/05/18 15:01 Guaifenesin/Phenylephrine HCl (Robitussin Dm) 10 ml PO TID@0700,1400,2100 [facility] Last Admin: 09/05/18 06:03 Dose: Not Given Hydralazine HCl (Apresoline) 10 mg IVPUSH Q4H PRN PRN Reason: Hypertension Last Admin: 09/05/18 13:37 Dose: 10 mg Promethazine HCl 6.25 mg/ (Sodium Chloride) 50.25 mls @ 100 mls/hr IV Q6H PRN PRN Reason: Nausea/Vomiting Levofloxacin/Dextrose 750 mg/ (Premix) 150 mls @ 100 mls/hr IV Q24H [facility] Last Admin: 09/05/18 10:56 Dose: 100 mls/hr Ceftriaxone Sodium 2 gm/ (Sodium Chloride) 100 mls @ 200 mls/hr IV Q12H [facility] Last Admin: 09/05/18 08:32 Dose: 200 mls/hr Potassium Chloride/Dextrose/Sod Cl (D5 1/2 Ns W/ 40 Meq/L Kcl) 1,000 mls @ 125 mls/hr IV ASDIRECTED [facility] Last Admin: 09/05/18 00:58 Dose: 75 mls/hr Vancomycin HCl 1 gm/ Sodium (Chloride) 250 mls @ 250 mls/hr IV Q8H [facility] Last Admin: 09/05/18 08:31 Dose: 250 mls/hr Insulin Human Lispro (Humalog) 0 unit SUBCUT QIDACANDBED [facility]; Protocol Last Admin: 09/05/18 11:27 Dose: 8 units Ipratropium [place] (Atrovent) 0.5 mg NEB QIDRT [facility] Last Admin: 09/05/18 09:09 Dose: 0.5 mg Levalbuterol HCl (Xopenex) 1.25 mg NEB QIDRT [facility] Last Admin: 09/05/18 09:10 Dose: 1.25 mg Levalbuterol HCl (Xopenex) 1.25 mg NEB Q2H PRN PRN Reason: sob Last Admin: 09/03/18 19:24 Dose: 1.25 mg Lorazepam (Ativan) 2 mg IVPUSH Q4H PRN PRN Reason: Seizures Lorazepam (Ativan) 1 mg IVPUSH Q8H PRN PRN Reason: Anxiety Magnesium Hydroxide (Milk Of Magnesia) 30 ml PO Q12H PRN PRN Reason: Constipation Methylprednisolone Sodium Succinate (Solu-Medrol) 125 mg IVPUSH DAILY [facility] Last Admin: 09/05/18 08:41 Dose: 125 mg Metoprolol Succinate (Toprol Xl) 25 mg PO BID [facility] Last Admin: 09/05/18 08:42 Dose: 25 mg Metoprolol Tartrate (Lopressor) 5 mg IVPUSH Q4H PRN PRN Reason: Tachycardia Last Admin: 09/03/18 19:25 Dose: 5 mg Morphine Sulfate (Morphine Sulfate) 3 mg IV Q2H [facility] Last Admin: 09/05/18 13:06 Dose: Not Given Polyethylene Glycol (Miralax) 17 gm PO DAILY PRN PRN Reason: Constipation Promethazine HCl (Phenergan) 25 mg PO Q6H PRN PRN Reason: Nausea/Vomiting Saccharomyces Boulardii (Florastor) 250 mg PO BID [facility] Last Admin: 09/05/18 08:53 Dose: Not Given Senna/Docusate Sodium (Senna Plus) 1 tab PO BID PRN PRN Reason: Constipation Temazepam (Restoril) 7.5 mg PO BEDTIME PRN PRN Reason: Sleep Vancomycin HCl (Pharmacy To Dose - Vancomycin) 1 dose .XX ASDIRECTED [facility] Discontinued Medications Acetaminophen (Tylenol) 975 mg PO NOW ONE Stop: 08/30/18 14:27 Last Admin: 08/30/18 14:51 Dose: 975 mg Hydrocodone Bitart/Acetaminophen ([place] 325-5 Mg) 1 tab PO Q4H PRN PRN Reason: Pain (moderate 4-6) Albuterol (Proventil Neb Soln) 2.5 mg NEB Q2H PRN PRN Reason: Shortness Of Breath/wheezing Last Admin: 08/31/18 23:15 Dose: 2.5 mg Albuterol/Ipratropium (Duoneb 3.0-0.5 Mg/3 Ml) 3 ml NEB Q4H PRN PRN Reason: Shortness Of Breath/wheezing Last Admin: 08/31/18 10:44 Dose: 3 ml Albuterol/Ipratropium (Duoneb 3.0-0.5 Mg/3 Ml) 3 ml NEB QIDRT [facility] Last Admin: 09/01/18 08:59 Dose: 3 ml Ampicillin Sodium (Ampicillin) Confirm Administered Dose 1 gm .ROUTE .STK-MED ONE Stop: 08/31/18 21:19 Last Admin: 08/31/18 21:33 Dose: Not Given Ceftriaxone Sodium (Rocephin) 2 gm IVPUSH Q24H [facility] Ceftriaxone Sodium (Rocephin) 2 gm IVPUSH Q12H [facility] Dexamethasone (Dexamethasone) Confirm Administered Dose 40 mg .ROUTE .STK-MED ONE Stop: 08/31/18 19:53 Last Admin: 08/31/18 20:15 Dose: Not Given Dexamethasone (Dexamethasone) 40 mg IVPUSH Q12HR [facility] Stop: 09/03/18 07:01 Diphenhydramine HCl (Benadryl) 25 mg IVPUSH ONETIME ONE Stop: 09/04/18 10:25 Last Admin: 09/04/18 10:49 Dose: 25 mg Famotidine (Pepcid) 20 mg PO BID [facility] Last Admin: 09/03/18 09:06 Dose: 20 mg Famotidine (Pepcid) 20 mg IVPUSH BID [facility] Furosemide (Lasix) 40 mg IVPUSH NOW ONE Stop: 08/30/18 14:51 Last Admin: 08/30/18 14:58 Dose: 40 mg Furosemide (Lasix) 20 mg IVPUSH NOW ONE Stop: 09/02/18 12:18 Last Admin: 09/02/18 13:45 Dose: 20 mg Furosemide (Lasix) 20 mg IVPUSH NOW ONE Stop: 09/02/18 21:01 Last Admin: 09/02/18 20:18 Dose: 20 mg Furosemide (Lasix) 20 mg IVPUSH NOW ONE Stop: 09/03/18 09:49 Last Admin: 09/03/18 10:27 Dose: 20 mg Furosemide (Lasix) 20 mg IVPUSH ONETIME ONE Stop: 09/04/18 06:01 Last Admin: 09/04/18 05:48 Dose: 20 mg Furosemide (Lasix) 20 mg IVPUSH NOW ONE Stop: 09/04/18 12:31 Last Admin: 09/04/18 12:32 Dose: 20 mg Furosemide (Lasix) 20 mg IVPUSH ONETIME ONE Stop: 09/04/18 20:01 Last Admin: 09/04/18 20:15 Dose: 20 mg Glimepiride (Glimepiride) 4 mg PO BIDMEALS [facility] Last Admin: 09/03/18 09:05 Dose: 4 mg Hydromorphone HCl (Dilaudid) 0.25 mg IVPUSH Q2H PRN PRN Reason: Pain (severe 7-10) Sodium Chloride (Normal Saline) 1,000 mls @ 150 mls/hr IV ASDIRECTED [facility] Last Admin: 08/30/18 14:26 Dose: 150 mls/hr Sodium Chloride (Normal Saline) 1,000 mls @ 75 mls/hr IV ASDIRECTED [facility] Ceftriaxone Sodium 1 gm/ (Sodium Chloride) 100 mls @ 200 mls/hr IV ONETIME ONE Stop: 08/30/18 16:28 Last Admin: 08/30/18 16:57 Dose: 200 mls/hr Azithromycin 500 mg/ Sodium (Chloride) 250 mls @ 250 mls/hr IV Q24H [facility] Last Admin: 08/30/18 21:15 Dose: 250 mls/hr Sodium Chloride (Normal Saline) 1,000 mls @ 125 mls/hr IV ASDIRECTED [facility] Last Admin: 08/31/18 00:55 Dose: 125 mls/hr Ceftriaxone Sodium 1 gm/ (Sodium Chloride) 100 mls @ 200 mls/hr IV ONETIME ONE Stop: 08/30/18 19:14 Last Admin: 08/30/18 19:28 Dose: 200 mls/hr Ceftriaxone Sodium 2 gm/ (Sodium Chloride) 100 mls @ 200 mls/hr IV Q24H [facility] Dextrose/Sodium Chloride (Dextrose 5%-Normal Saline) 1,000 mls @ 125 mls/hr IV ASDIRECTED [facility] Last Admin: 08/31/18 08:05 Dose: 125 mls/hr Piperacillin Sod/Tazobactam (Sod 4.5 gm/ Sodium Chloride) 100 mls @ 200 mls/hr IV ONETIME ONE Stop: 08/31/18 10:29 Last Admin: 08/31/18 11:28 Dose: Not Given Piperacillin Sod/Tazobactam (Sod 4.5 gm/ Sodium Chloride) 100 mls @ 25 mls/hr IV Q8H [facility] Last Admin: 08/31/18 23:34 Dose: Not Given Vancomycin HCl 1 gm/ Sodium (Chloride) 250 mls @ 250 mls/hr IV Q12H [facility] Last Admin: 09/01/18 21:37 Dose: 250 mls/hr Sodium Chloride (Normal Saline) Confirm Administered Dose 100 mls @ as directed .ROUTE .STK-MED ONE Stop: 08/31/18 10:49 Last Admin: 08/31/18 11:29 Dose: Not Given Piperacillin Sod/Tazobactam (Sod 4.5 gm/ Sodium Chloride) 100 mls @ 200 mls/hr IV ONETIME ONE Stop: 08/31/18 11:44 Last Admin: 08/31/18 12:56 Dose: 200 mls/hr Sodium Chloride (Normal Saline) 1,000 mls @ 75 mls/hr IV ASDIRECTED [facility] Last Admin: 09/02/18 04:15 Dose: 75 mls/hr Magnesium Sulfate/Dextrose (Magnesium 1 Gm In D5w 100 Ml) Confirm Administered Dose 100 mls @ as directed .ROUTE .STK-MED ONE Stop: 08/31/18 19:53 Last Admin: 08/31/18 20:15 Dose: Not Given Acyclovir 1,000 mg/ Sodium (Chloride) 120 mls @ 100 mls/hr IV Q8H [facility] Last Admin: 09/02/18 04:09 Dose: 100 mls/hr Ampicillin Sodium 1 gm/ Sodium (Chloride) 100 mls @ 200 mls/hr IV Q4H [facility] Last Admin: 08/31/18 23:34 Dose: Not Given Dexamethasone 40 mg/ Sodium (Chloride) 54 mls @ 108 mls/hr IV BID@0700,1900 [facility] Stop: 09/02/18 20:31 Last Admin: 09/02/18 18:08 Dose: 108 mls/hr Magnesium Sulfate 2 gm/ Premix 50 mls @ 25 mls/hr IV ONETIME ONE Stop: 08/31/18 22:13 Last Admin: 08/31/18 21:26 Dose: Not Given Magnesium Sulfate/Dextrose 1 (gm/ Premix) 100 mls @ 100 mls/hr IV ONETIME ONE Stop: 08/31/18 21:29 Last Admin: 08/31/18 20:35 Dose: 100 mls/hr Ampicillin Sodium 1 gm/ Sodium (Chloride) 100 mls @ 200 mls/hr IV Q4H [facility] Last Admin: 09/01/18 11:17 Dose: Not Given Sodium Chloride (Normal Saline) Confirm Administered Dose 100 mls @ as directed .ROUTE .STK-MED ONE Stop: 08/31/18 21:21 Last Admin: 08/31/18 21:29 Dose: Not Given Sodium Chloride (Normal Saline) 250 mls @ 999 mls/hr IV ONETIME ONE Stop: 08/31/18 21:25 Last Admin: 08/31/18 23:07 Dose: Not Given Ceftriaxone Sodium 2 gm/ (Sodium Chloride) 100 mls @ 200 mls/hr IV Q24H [facility] Last Admin: 09/02/18 23:19 Dose: 200 mls/hr Ampicillin Sodium 1 gm/ Sodium (Chloride) 100 mls @ 200 mls/hr IV Q4H [facility] Last Admin: 09/02/18 05:41 Dose: 200 mls/hr Potassium Chloride/Dextrose/Sod Cl (D5 1/2 Ns W/ 40 Meq/L Kcl) 1,000 mls @ 75 mls/hr IV ASDIRECTED [facility] Last Infusion: 09/03/18 20:30 Dose: 125 mls/hr Vancomycin HCl 1 gm/ Sodium (Chloride) 250 mls @ 250 mls/hr IV Q12H [facility] Stop: 09/05/18 01:30 Last Admin: 09/04/18 23:52 Dose: 250 mls/hr Potassium Chloride 10 meq/ (Premix) 100 mls @ 100 mls/hr IV Q1H [facility] Stop: 09/03/18 11:59 Last Admin: 09/03/18 12:32 Dose: 100 mls/hr Magnesium Sulfate 2 gm/ Premix 50 mls @ 25 mls/hr IV ONETIME ONE Stop: 09/03/18 21:50 Last Admin: 09/03/18 20:13 Dose: 25 mls/hr Magnesium Sulfate 2 gm/ Premix 50 mls @ 25 mls/hr IV ONETIME ONE Stop: 09/04/18 12:43 Last Admin: 09/04/18 11:09 Dose: 25 mls/hr Insulin Human Lispro (Humalog) 0 unit SUBCUT QIDACANDBED [facility]; Protocol Last Admin: 08/31/18 20:54 Dose: 3 unit Insulin Human Regular (Humulin R) 8 unit SUBCUT ONETIME ONE Stop: 08/30/18 14:55 Last Admin: 08/30/18 15:06 Dose: 8 units Lorazepam (Ativan) 2 mg IVPUSH Q4H PRN PRN Reason: Seizures Lorazepam (Ativan) 2 mg IVPUSH Q6H PRN PRN Reason: Seizures Last Admin: 09/03/18 16:23 Dose: 2 mg Lorazepam (Ativan) 1 mg IVPUSH ONETIME ONE Stop: 09/04/18 11:57 Last Admin: 09/04/18 12:32 Dose: 1 mg Methylprednisolone Sodium Succinate (Solu-Medrol) 125 mg IVPUSH ONETIME ONE Stop: 09/03/18 19:33 Last Admin: 09/03/18 19:39 Dose: 125 mg Methylprednisolone Sodium Succinate (Solu-Medrol) 125 mg IVPUSH Q12H [facility] Morphine Sulfate (Morphine) 1 mg IVPUSH Q4H PRN PRN Reason: Shortness of Breath Last Admin: 09/03/18 06:35 Dose: 1 mg Morphine Sulfate (Morphine) 2 mg IVPUSH Q4H PRN PRN Reason: Shortness of Breath Last Admin: 09/03/18 19:43 Dose: 2 mg Morphine Sulfate (Morphine) 2 mg IVPUSH Q2H PRN PRN Reason: Shortness of Breath Last Admin: 09/04/18 12:35 Dose: 2 mg Morphine Sulfate (Morphine) 4 mg IVPUSH ONETIME ONE Stop: 09/04/18 11:54 Last Admin: 09/04/18 11:57 Dose: Not Given Morphine Sulfate (Morphine) 3 mg IVPUSH Q2H [facility] Last Admin: 09/04/18 15:48 Dose: 3 mg Morphine Sulfate (Morphine Sulfate) Confirm Administered Dose 4 mg IV .STK-MED ONE Stop: 09/04/18 15:45 Last Admin: 09/04/18 15:51 Dose: Not Given Ondansetron HCl (Zofran) 4 mg IVPUSH ONETIME ONE Stop: 08/30/18 14:19 Last Admin: 08/30/18 14:29 Dose: 4 mg Oseltamivir Phosphate (Tamiflu) 75 mg PO ONETIME ONE Stop: 08/30/18 14:43 Last Admin: 08/30/18 15:02 Dose: 75 mg Oseltamivir Phosphate (Tamiflu) 75 mg PO BID [facility] Stop: 09/03/18 21:01 Last Admin: 09/03/18 21:30 Dose: 75 mg Vancomycin HCl (Pharmacy To Dose - Vancomycin) 1 dose .XX ASDIRECTED [facility] - Exam Quality Assessment: Supplemental Oxygen, Urine Catheter, DVT Prophylaxis General: Alert, Oriented, Cooperative, No Acute Distress HEENT: Pupils Equal, Pupils Reactive, EOMI Neck: Trachea Midline, No JVD Lungs: Normal Respiratory Effort, Decreased Breath Sounds, Rhonchi Cardiovascular: Regular Rate, Regular Rhythm GI/Abdominal Exam: Normal Bowel Sounds, Soft, Non-Tender, No Organomegaly, No Distention (Female) Exam: Deferred Back Exam: Normal Inspection Extremities: Normal Inspection, Non-Tender, Normal Capillary Refill Skin: Warm Neurological: No New Focal Deficit Psy/Mental Status: Alert, Normal Affect, Normal Mood - Problem List & Annotations (1) Streptococcal pneumonia SNOMED Code(s): 71080450 Code(s): J15.4 - PNEUMONIA DUE TO OTHER STREPTOCOCCI Status: Acute Current Visit: Yes (2) Hypoxia SNOMED Code(s): 898677779 Code(s): R09.02 - HYPOXEMIA Status: Acute Current Visit: Yes (3) Respiratory distress, acute SNOMED Code(s): 801757468 Code(s): R06.03 - ACUTE RESPIRATORY DISTRESS Status: Acute Current Visit : Yes - Problem List Review Problem List Initiated/Reviewed/Updated: Yes - My Orders Last 24 Hours: My Active Orders 09/04/18 15:18 LORazepam [Ativan] 2 mg IVPUSH Q4H PRN 09/04/18 15:19 LORazepam [Ativan] 1 mg IVPUSH Q8H PRN 09/04/18 16:15 Morphine Sulfate 3 mg IV Q2H 09/05/18 05:54 PROCALCITONIN [REF] Routine 09/05/18 08:00 Vancomycin [Vancocin] 1 gm Sodium Chloride 0.9% [Normal Saline] 250 ml IV Q8H 09/05/18 09:00 Furosemide [Lasix] 40 mg IVPUSH DAILY 09/05/18 10:30 OR PCXR-No Charge-PICC/Central [CR] Routine 09/05/18 15:00 Furosemide [Lasix] 40 mg IVPUSH NOW ONE 09/06/18 05:00 LACTIC ACID [CHEM] DAILY PRO B-TYPE NATRIUR PEPT,BNPPRO [CHEM] DAILY 09/06/18 07:26 CBC W/O DIFF,HEMOGRAM [HEME] DAILY 09/06/18 07:30 VANCOMYCIN TROUGH [CHEM] Timed 09/06/18 08:00 Chest 1V Frontal [CR] DAILY 09/07/18 05:00 LACTIC ACID [CHEM] DAILY PRO B-TYPE NATRIUR PEPT,BNPPRO [CHEM] DAILY 09/07/18 07:26 CBC W/O DIFF,HEMOGRAM [HEME] DAILY 09/07/18 08:00 Chest 1V Frontal [CR] DAILY 09/08/18 05:00 LACTIC ACID [CHEM] DAILY 09/08/18 07:26 CBC W/O DIFF,HEMOGRAM [HEME] DAILY 09/08/18 08:00 Chest 1V Frontal [CR] DAILY 09/09/18 07:26 CBC W/O DIFF,HEMOGRAM [HEME] DAILY 09/09/18 08:00 Chest 1V Frontal [CR] DAILY - Plan Plan:: Assessment/Plan: Acute: Influenza with secondary bacterial PNA, Strep Pneumo PNA L lower and mid lung w/ hypoxia, clinically less hypoxic * Fever, productive cough, SOB w/ exertion x 3 days * O2 82% RA--> 92% 4L NC--> 91% 12L mask--> 89-91% 15L non-rebreather--> 15L BiPAP; FIO2 0.70 12/7...O2 sat 97% on pulse ox/ABG pH 7.48 pCO2 31.0 pO2 70 sO2 94.8%; frequent changes required. * No leukocytosis, Neut 86% with 3% bandemia, CRP 15.4--> 17.6 * CXR 08/30/18: Findings felt compatible with mild bilateral bronchitis with areas of pneumonia within the left mid and lower lung. * CT Chest 08/31/18: * 1. Diffuse parenchymal densities throughout both size of the chest more confluent within the lingula and within both lower lungs. Findings have progressed from prior chest x-ray. Findings are most likely infectious in etiology. Continued follow-up is recommended. * 2. Mildly prominent lymph nodes most likely on an inflammatory basis from the lung process. * Mycoplasma negative * RVP was negative; Strep pneumo--->positive * RT/Duonebs/IS/Acapella/Chest Physiotherapy * ABG shows low O2 sat: 86.8%--> 89.7%--> 93.3 * Repeat CXR 09/01/18: * 1. Diffuse parenchymal densities as described above. Differential includes irregular areas of pulmonary edema vs diffuse multifocal areas of pneumonia. * 2. Heart is slightly enlarged Most recent ATB : Rocephin/Levoquin/Vanco * Dexamethasone BID x2 days-->completed; started solumedrol 125 mg daily * Magnesium as needed * R/O PE: * D-dimer elevated at 1.1 * CTA negative for PE * ECHO LVEF--WNL; grade 2/4 diastolic dysfunction * Pulmonary toilet * Recommend PFT outpt Influenza A, 8/9 day course * Fever and increased weakness x3 days--> Increased energy and alertness today * Tamiflu started in ED--> continue BID Sepsis * Likely 2/2 above * Temperature 102.2F, Hypoxic, Tachypneic, Tachycardia, source of infection present * LA 3.2--> 2.1--> 0.9 * Procalcitonin elevated at 0.18 * Rocephin started in ED--> continue * IVF started in ED--> continue * Blood cultures show no growth Possible AMS * Per , seemed more confused than usual this AM * Risk Factors: Current illness/sepsis, increased O2 demand, unwitnessed fall yesterday ( unsure if she hit her head; she does have a scab on her forehead but per notes it is a couple days old) * CT Head 08/31/18: * 1. Diffuse parenchymal densities throughout both sides of the chest more confluent within the lingual and within both lower lungs. Findings have progressed from prior chest x-ray. Findings are most likely infectious in etiology. Continued follow-up is recommended. * 2. Mildly prominent lymph nodes most likely on an inflammatory basis from the lung process. * Normal neuro exam, A+O x3, seems to be very lethargic * If continues to worsen/has AMS: * ICU care * LP in AM --> Cancelled d/t improved clinical disposition * CT Head in AM if still lethargic or AMS--> not needed at this time Hyperglycemia w/ DM2 * She missed a dose of insulin yesterday, didn't take her insulin this AM * Blood sugar this AM 389, Blood sugar in ED 320 * Blood glucose checks, insulin sliding scale * A1C 7.7 * Solumedrol 125 mg daily New-onset Afib, resolved maintaining SR * Risk factor: Sepsis * 12 lead EKG done, HR 100's-118 * Metoprolol 25 BID * Lovenox 40 restarted * ECHO ---nl LVEF, grade 2 diastolic dysfunction * Monitor on telemetry DHF * Diurese as needed; 2 D echo documented nl LVEF, grade 2 diastolic dysfunction * Increase Lasix 20 mg Q 8 H Abnormal electrolytes * Correct K, Mg, Na as needed Resolved: Dehydration * Likely 2/2 decreased intake * AGap 17.5--> 14.1 * IVF started in ED--> Continue * Monitor Possible UTI--> CULTURE NEGATIVE * Risk factors: Frequency, Incontinence * UA suspicious for UTI * Urine culture shows no growth * Rocephin started in ED--> continue Chronic: HLD * Lipids WNL HTN GERD Seizures on Tegretol (last seizure 2002) DM2 Plan: Continue ICU care Decline for transfer, will follow closely and seek transfer if needed. Droplet precautions Routine AM Labs ADA diet as tolerated TPN may be needed, will follow; currently on D5 0.45 with KCL 40 mEq Accuchecks adjusted for minimal oral intake DVT/GI prophylaxis CM/SW PT/OT Code Status: Full Code; PCP: Dr. Nasreen [place] LOS>96 hours with slow response to treatment for Influenza/PNA
[2018-09-05] MEDS ORDERED: Furosemide 40 MG/4 ML VIAL IVPUSH ONE (15:00)
[2018-09-05] MEDS: Oseltamivir 75 MG Cap PO SCH (20:24)
[2018-09-06] MEDS: D5 1/2 NS w/ 40 mEq/L KCl 1,000 ML IV SCH ×2 (03:23→19:47)
[2018-09-06] MEDS: hydrALAZINE 20 MG/ML SDV IVPUSH PRN ×2 (04:06→14:02)
[2018-09-06] MEDS: Ipratropium 0.02% 0.5 MG/2.5 ML Neb Soln NEB SCH ×4 (05:05→21:04)
[2018-09-06] MEDS: Levalbuterol HCl 1.25 MG/0.5 ML Neb NEB SCH ×4 (05:05→21:04)
[2018-09-06] MEDS: guaiFENesin/Dextromethorphan 100-10 MG/5 ML Soln 5 ML Cup PO SCH ×4 (06:36→21:05)
[2018-09-06] MEDS: Insulin Lispro 100 UNIT/ML 10 ML VIAL SUBCUT SCH ×4 (06:36→21:06)
[2018-09-06] MEDS: cefTRIAXone 2 GM in Sodium Chloride 0.9% 100 ML IV SCH ×2 (08:33→20:24)
[2018-09-06] MEDS: Famotidine 20 MG/2 ML SDV IVPUSH SCH ×2 (08:34→20:42)
[2018-09-06] MEDS: methylPREDNISolone Sodium Succinate 125 MG/2 ML SDV IVPUSH SCH ×2 (08:34→20:36)
[2018-09-06] MEDS: Furosemide 40 MG/4 ML VIAL IVPUSH SCH (08:34)
[2018-09-06] MEDS: Enoxaparin 40 MG/0.4 ML Syringe SUBCUT SCH (08:35)
--- NOTE | 2018-09-06 08:35 | CR ---
Chest: Portable view of the chest was obtained. Comparison: Prior chest x-rays of 09/05/18 and 09/03/18. Diffuse parenchymal density is seen within both lungs. Findings are felt to be minimally improved from most recent exam. No worsening is appreciated. Heart size is normal. Tortuous thoracic aorta is seen. Bony structures are grossly intact. Impression: 1. Diffuse parenchymal densities which have minimally improved from most recent exam. Diagnostic code #3
[2018-09-06] MEDS: Metoprolol Succinate 25 MG Tab.ER PO SCH ×2 (08:43→20:31)
[2018-09-06] MEDS: Saccharomyces Boulardii (Probiotic) 250 MG Cap PO SCH ×2 (08:43→20:31)
[2018-09-06] MEDS: Aspirin 81 MG Tab.EC PO SCH (08:43)
[2018-09-06] MEDS: carBAMazepine 200 MG Tab PO SCH ×2 (08:43→20:31)
[2018-09-06] MEDS: Oseltamivir 75 MG Cap PO SCH ×2 (08:44→20:31)
[2018-09-06] MEDS: Vancomycin 1 GM, Vancomycin 250 MG in Sodium Chloride 0.9% 250 ML IV SCH ×2 (09:19→18:46)
[2018-09-06] MEDS: Levofloxacin/Dextrose 5%-Water 750 MG in Premix Bag 1 BAG IV SCH (11:43)
[2018-09-06] MEDS: Morphine 2 MG/ML Syringe IVPUSH SCH ×3 (12:18→19:48)
[2018-09-06] MEDS: Sertraline 25 MG Tab PO SCH (12:18)
--- NOTE | 2018-09-06 12:41 | PCM.PN ---
- General Info Date of Service: 09/06/18 Subjective Update: Patient will occasionally acknowledge when staff talks to her; overall, she frequently hears but doses not respond to verbal questions with speech. Functional Status: Reports: Pain Controlled, Urinating - Review of Systems General: Reports: Weakness, Malaise HEENT: Reports: No Symptoms Pulmonary: Reports: Shortness of Breath Cardiovascular: Reports: No Symptoms Gastrointestinal: Reports: No Symptoms Genitourinary: Reports: No Symptoms Musculoskeletal: Reports: No Symptoms Skin: Reports: No Symptoms Neurological: Reports: No Symptoms Psychiatric: Reports: No Symptoms - Patient Data Vitals - Most Recent: Last Vital Signs Temp 37.3 C 09/06/18 04:00 Pulse 108 H 09/06/18 08:43 Resp 27 H 09/06/18 08:00 BP 157/80 H 09/06/18 08:43 Pulse Ox 93 L 09/06/18 09:38 Weight - Most Recent: 97.069 kg I&O - Last 24 Hours: Intake & Output 09/05/18 09/06/18 09/06/18 22:59 06:59 14:59 Intake Total 1336 1297 250 Output Total 1235 375 950 Balance 101 922 -700 Lab Results Last 24 Hours: Laboratory Results - last 24 hr 09/05/18 09/05/18 09/05/18 Range/Units 05:54 16:59 18:22 WBC (3.98-10.04) K/mm3 RBC (3.98-5.22) M/mm3 Hgb (11.2-15.7) gm/L Hct (34.1-44.9) % MCV (79.4-94.8) fl MCH (25.6-32.2) pg MCHC (32.2-35.5) g/dl RDW Std Deviation (36.4-46.3) fL Plt Count (182-369) K/mm3 MPV (9.4-12.3) fl Puncture Site Lt radial ABG pH 7.50 H (7.35-7.45) ABG pCO2 30.6 L (35.0-45.0) mmHg ABG pO2 65.0 L (80.0-100.0) mmHg ABG HCO3 23.6 (22.0-26.0) meq/L ABG O2 Saturation 93.8 L (96.0-97.0) % ABG Base Excess 1.4 (-2-2.0) A-a Gradient 217 mmHg O2 Delivery Device Bipap 12/7 FiO2 50.00 (21.00-100.00) % Sodium (136-145) mEq/L Potassium (3.5-5.1) mEq/L Chloride (98-107) mEq/L Carbon Dioxide (21-32) mEq/L Anion Gap (5-15) BUN (7-18) mg/dL Creatinine (0.55-1.02) mg/dL Est Cr Clr Drug Dosing mL/min Estimated GFR (MDRD) (>60) mL/min BUN/Creatinine Ratio (14-18) Glucose (80-115) mg/dL POC Glucose 376 H (80-115) mg/dL Lactic Acid (0.4-2.0) mmol/L Calcium (8.5-10.1) mg/dL Magnesium (1.8-2.4) mg/dl C-Reactive Protein (<1.0) mg/dL NT-Pro-B Natriuret Pep (0-125) pg/mL Procalcitonin 0.15 H (<0.10) ng/mL Vancomycin Trough (10.0-20.0) 09/05/18 09/06/18 09/06/18 Range/Units 20:39 06:11 07:30 WBC (3.98-10.04) K/mm3 RBC (3.98-5.22) M/mm3 Hgb (11.2-15.7) gm/L Hct (34.1-44.9) % MCV (79.4-94.8) fl MCH (25.6-32.2) pg MCHC (32.2-35.5) g/dl RDW Std Deviation (36.4-46.3) fL Plt Count (182-369) K/mm3 MPV (9.4-12.3) fl Puncture Site ABG pH (7.35-7.45) ABG pCO2 (35.0-45.0) mmHg ABG pO2 (80.0-100.0) mmHg ABG HCO3 (22.0-26.0) meq/L ABG O2 Saturation (96.0-97.0) % ABG Base Excess (-2-2.0) A-a Gradient mmHg O2 Delivery Device FiO2 (21.00-100.00) % Sodium (136-145) mEq/L Potassium (3.5-5.1) mEq/L Chloride (98-107) mEq/L Carbon Dioxide (21-32) mEq/L Anion Gap (5-15) BUN (7-18) mg/dL Creatinine (0.55-1.02) mg/dL Est Cr Clr Drug Dosing mL/min Estimated GFR (MDRD) (>60) mL/min BUN/Creatinine Ratio (14-18) Glucose (80-115) mg/dL POC Glucose 267 H 318 H (80-115) mg/dL Lactic Acid 1.4 (0.4-2.0) mmol/L Calcium (8.5-10.1) mg/dL Magnesium (1.8-2.4) mg/dl C-Reactive Protein (<1.0) mg/dL NT-Pro-B Natriuret Pep (0-125) pg/mL Procalcitonin (<0.10) ng/mL Vancomycin Trough (10.0-20.0) 09/06/18 09/06/18 09/06/18 Range/Units 07:30 07:30 07:30 WBC 5.34 (3.98-10.04) K/mm3 RBC 4.28 (3.98-5.22) M/mm3 Hgb 11.7 (11.2-15.7) gm/L Hct 35.6 (34.1-44.9) % MCV 83.2 (79.4-94.8) fl MCH 27.3 (25.6-32.2) pg MCHC 32.9 (32.2-35.5) g/dl RDW Std Deviation 42.1 (36.4-46.3) fL Plt Count 266 (182-369) K/mm3 MPV 10.1 (9.4-12.3) fl Puncture Site ABG pH (7.35-7.45) ABG pCO2 (35.0-45.0) mmHg ABG pO2 (80.0-100.0) mmHg ABG HCO3 (22.0-26.0) meq/L ABG O2 Saturation (96.0-97.0) % ABG Base Excess (-2-2.0) A-a Gradient mmHg O2 Delivery Device FiO2 (21.00-100.00) % Sodium (136-145) mEq/L Potassium (3.5-5.1) mEq/L Chloride (98-107) mEq/L Carbon Dioxide (21-32) mEq/L Anion Gap (5-15) BUN (7-18) mg/dL Creatinine (0.55-1.02) mg/dL Est Cr Clr Drug Dosing mL/min Estimated GFR (MDRD) (>60) mL/min BUN/Creatinine Ratio (14-18) Glucose (80-115) mg/dL POC Glucose (80-115) mg/dL Lactic Acid (0.4-2.0) mmol/L Calcium (8.5-10.1) mg/dL Magnesium (1.8-2.4) mg/dl C-Reactive Protein (<1.0) mg/dL NT-Pro-B Natriuret Pep 1065 H (0-125) pg/mL Procalcitonin (<0.10) ng/mL Vancomycin Trough 10.3 (10.0-20.0) 09/06/18 09/06/18 09/06/18 Range/Units 07:30 07:30 12:20 WBC (3.98-10.04) K/mm3 RBC (3.98-5.22) M/mm3 Hgb (11.2-15.7) gm/L Hct (34.1-44.9) % MCV (79.4-94.8) fl MCH (25.6-32.2) pg MCHC (32.2-35.5) g/dl RDW Std Deviation (36.4-46.3) fL Plt Count (182-369) K/mm3 MPV (9.4-12.3) fl Puncture Site ABG pH (7.35-7.45) ABG pCO2 (35.0-45.0) mmHg ABG pO2 (80.0-100.0) mmHg ABG HCO3 (22.0-26.0) meq/L ABG O2 Saturation (96.0-97.0) % ABG Base Excess (-2-2.0) A-a Gradient mmHg O2 Delivery Device FiO2 (21.00-100.00) % Sodium 144 (136-145) mEq/L Potassium 3.6 (3.5-5.1) mEq/L Chloride 108 H (98-107) mEq/L Carbon Dioxide 22 (21-32) mEq/L Anion Gap 17.6 H (5-15) BUN 14 (7-18) mg/dL Creatinine 0.7 (0.55-1.02) mg/dL Est Cr Clr Drug Dosing 73.06 mL/min Estimated GFR (MDRD) > 60 (>60) mL/min BUN/Creatinine Ratio 20.0 H (14-18) Glucose 329 H (80-115) mg/dL POC Glucose 352 H (80-115) mg/dL Lactic Acid (0.4-2.0) mmol/L Calcium 8.0 L (8.5-10.1) mg/dL Magnesium 1.9 (1.8-2.4) mg/dl C-Reactive Protein 16.5 H* (<1.0) mg/dL NT-Pro-B Natriuret Pep (0-125) pg/mL Procalcitonin (<0.10) ng/mL Vancomycin Trough (10.0-20.0) Alireza Results Last 24 Hours: Microbiology 09/03/18 21:20 Aerobic Blood Culture - Preliminary Blood - Venous NO GROWTH AFTER 2 DAYS Anaerobic Blood Culture - Preliminary NO GROWTH AFTER 2 DAYS 09/03/18 21:25 Aerobic Blood Culture - Preliminary Blood - Venous - Lab Draw NO GROWTH AFTER 2 DAYS Anaerobic Blood Culture - Preliminary NO GROWTH AFTER 2 DAYS 08/30/18 13:55 Streptococcus pneumoniae Antigen (M - Final Urine 08/30/18 14:50 Aerobic Blood Culture - Preliminary Blood - Venous NO GROWTH AFTER 6 DAYS Anaerobic Blood Culture - Preliminary NO GROWTH AFTER 6 DAYS 08/30/18 15:05 Aerobic Blood Culture - Preliminary Blood - Venous - Lab Draw NO GROWTH AFTER 6 DAYS Anaerobic Blood Culture - Final Med Orders - Current: Current Medications Acetaminophen (Tylenol) 650 mg PO Q4H PRN PRN Reason: Pain (Mild 1-3)/fever Last Admin: 08/31/18 20:10 Dose: 650 mg Alogliptin Benzoate (Alogliptin) 25 mg PO DAILY [facility] Last Admin: 09/06/18 08:43 Dose: 25 mg Aspirin (Halfprin) 81 mg PO DAILY [facility] Last Admin: 09/06/18 08:43 Dose: 81 mg Bisacodyl (Dulcolax) 5 mg PO DAILY PRN PRN Reason: Constipation Carbamazepine (Tegretol Tab) 400 mg PO BID [facility] Last Admin: 09/06/18 08:43 Dose: 400 mg Dextrose/Water (Dextrose 50% In Water) 50 ml IVPUSH ASDIRECTED PRN PRN Reason: Hypoglycemia Diltiazem HCl (Cardizem) 10 mg IVPUSH Q4H PRN PRN Reason: tachy >110 Last Admin: 09/02/18 06:52 Dose: 10 mg Docusate Sodium (Colace) 100 mg PO BID PRN PRN Reason: Constipation Enoxaparin Sodium (Lovenox) 40 mg SUBCUT DAILY [facility] Last Admin: 09/06/18 08:35 Dose: 40 mg Famotidine (Pepcid) 20 mg IVPUSH BID [facility] Last Admin: 09/06/18 08:34 Dose: 20 mg Furosemide (Lasix) 40 mg IVPUSH DAILY [facility] Last Admin: 09/06/18 08:34 Dose: 40 mg Guaifenesin/Phenylephrine HCl (Robitussin Dm) 10 ml PO TID@0700,1400,2100 [facility] Last Admin: 09/06/18 07:55 Dose: Not Given Hydralazine HCl (Apresoline) 10 mg IVPUSH Q4H PRN PRN Reason: Hypertension Last Admin: 09/06/18 04:06 Dose: 10 mg Promethazine HCl 6.25 mg/ (Sodium Chloride) 50.25 mls @ 100 mls/hr IV Q6H PRN PRN Reason: Nausea/Vomiting Levofloxacin/Dextrose 750 mg/ (Premix) 150 mls @ 100 mls/hr IV Q24H [facility] Last Admin: 09/06/18 11:43 Dose: 100 mls/hr Ceftriaxone Sodium 2 gm/ (Sodium Chloride) 100 mls @ 200 mls/hr IV Q12H [facility] Last Admin: 09/06/18 08:33 Dose: 200 mls/hr Potassium Chloride/Dextrose/Sod Cl (D5 1/2 Ns W/ 40 Meq/L Kcl) 1,000 mls @ 125 mls/hr IV ASDIRECTED [facility] Last Admin: 09/06/18 03:23 Dose: 75 mls/hr Vancomycin HCl 1 gm/Vancomycin HCl 250 mg/ Sodium Chloride 250 mls @ 166.667 mls/hr IV Q8H [facility] Last Admin: 09/06/18 09:19 Dose: 166.667 mls/hr Insulin Human Lispro (Humalog) 0 unit SUBCUT QIDACANDBED [facility]; Protocol Last Admin: 09/06/18 12:27 Dose: 10 units Ipratropium [place] (Atrovent) 0.5 mg NEB QIDRT [facility] Last Admin: 09/06/18 09:38 Dose: 0.5 mg Levalbuterol HCl (Xopenex) 1.25 mg NEB QIDRT [facility] Last Admin: 09/06/18 09:38 Dose: 1.25 mg Levalbuterol HCl (Xopenex) 1.25 mg NEB Q2H PRN PRN Reason: sob Last Admin: 09/03/18 19:24 Dose: 1.25 mg Lorazepam (Ativan) 2 mg IVPUSH Q4H PRN PRN Reason: Seizures Lorazepam (Ativan) 1 mg IVPUSH Q8H PRN PRN Reason: Anxiety Magnesium Hydroxide (Milk Of Magnesia) 30 ml PO Q12H PRN PRN Reason: Constipation Methylprednisolone Sodium Succinate (Solu-Medrol) 125 mg IVPUSH DAILY [facility] Last Admin: 09/06/18 08:34 Dose: 125 mg Metoprolol Succinate (Toprol Xl) 25 mg PO BID [facility] Last Admin: 09/06/18 08:43 Dose: 25 mg Metoprolol Tartrate (Lopressor) 5 mg IVPUSH Q4H PRN PRN Reason: Tachycardia Last Admin: 09/03/18 19:25 Dose: 5 mg Morphine Sulfate (Morphine) 3 mg IVPUSH Q4H [facility] Last Admin: 09/06/18 12:18 Dose: 3 mg Oseltamivir Phosphate (Tamiflu) 75 mg PO BID [facility] Last Admin: 09/06/18 08:44 Dose: 75 mg Polyethylene Glycol (Miralax) 17 gm PO DAILY PRN PRN Reason: Constipation Promethazine HCl (Phenergan) 25 mg PO Q6H PRN PRN Reason: Nausea/Vomiting Saccharomyces Boulardii (Florastor) 250 mg PO BID [facility] Last Admin: 09/06/18 08:43 Dose: 250 mg Senna/Docusate Sodium (Senna Plus) 1 tab PO BID PRN PRN Reason: Constipation Sertraline HCl (Zoloft) 25 mg PO DAILY [facility] Last Admin: 09/06/18 12:18 Dose: 25 mg Temazepam (Restoril) 7.5 mg PO BEDTIME PRN PRN Reason: Sleep Vancomycin HCl (Pharmacy To Dose - Vancomycin) 1 dose .XX ASDIRECTED [facility] Discontinued Medications Acetaminophen (Tylenol) 975 mg PO NOW ONE Stop: 08/30/18 14:27 Last Admin: 08/30/18 14:51 Dose: 975 mg Hydrocodone Bitart/Acetaminophen ([place] 325-5 Mg) 1 tab PO Q4H PRN PRN Reason: Pain (moderate 4-6) Albuterol (Proventil Neb Soln) 2.5 mg NEB Q2H PRN PRN Reason: Shortness Of Breath/wheezing Last Admin: 08/31/18 23:15 Dose: 2.5 mg Albuterol/Ipratropium (Duoneb 3.0-0.5 Mg/3 Ml) 3 ml NEB Q4H PRN PRN Reason: Shortness Of Breath/wheezing Last Admin: 08/31/18 10:44 Dose: 3 ml Albuterol/Ipratropium (Duoneb 3.0-0.5 Mg/3 Ml) 3 ml NEB QIDRT [facility] Last Admin: 09/01/18 08:59 Dose: 3 ml Ampicillin Sodium (Ampicillin) Confirm Administered Dose 1 gm .ROUTE .STK-MED ONE Stop: 08/31/18 21:19 Last Admin: 08/31/18 21:33 Dose: Not Given Ceftriaxone Sodium (Rocephin) 2 gm IVPUSH Q24H [facility] Ceftriaxone Sodium (Rocephin) 2 gm IVPUSH Q12H [facility] Dexamethasone (Dexamethasone) Confirm Administered Dose 40 mg .ROUTE .STK-MED ONE Stop: 08/31/18 19:53 Last Admin: 08/31/18 20:15 Dose: Not Given Dexamethasone (Dexamethasone) 40 mg IVPUSH Q12HR [facility] Stop: 09/03/18 07:01 Diphenhydramine HCl (Benadryl) 25 mg IVPUSH ONETIME ONE Stop: 09/04/18 10:25 Last Admin: 09/04/18 10:49 Dose: 25 mg Famotidine (Pepcid) 20 mg PO BID [facility] Last Admin: 09/03/18 09:06 Dose: 20 mg Famotidine (Pepcid) 20 mg IVPUSH BID [facility] Furosemide (Lasix) 40 mg IVPUSH NOW ONE Stop: 08/30/18 14:51 Last Admin: 08/30/18 14:58 Dose: 40 mg Furosemide (Lasix) 20 mg IVPUSH NOW ONE Stop: 09/02/18 12:18 Last Admin: 09/02/18 13:45 Dose: 20 mg Furosemide (Lasix) 20 mg IVPUSH NOW ONE Stop: 09/02/18 21:01 Last Admin: 09/02/18 20:18 Dose: 20 mg Furosemide (Lasix) 20 mg IVPUSH NOW ONE Stop: 09/03/18 09:49 Last Admin: 09/03/18 10:27 Dose: 20 mg Furosemide (Lasix) 20 mg IVPUSH ONETIME ONE Stop: 09/04/18 06:01 Last Admin: 09/04/18 05:48 Dose: 20 mg Furosemide (Lasix) 20 mg IVPUSH NOW ONE Stop: 09/04/18 12:31 Last Admin: 09/04/18 12:32 Dose: 20 mg Furosemide (Lasix) 20 mg IVPUSH ONETIME ONE Stop: 09/04/18 20:01 Last Admin: 09/04/18 20:15 Dose: 20 mg Furosemide (Lasix) 40 mg IVPUSH NOW ONE Stop: 09/05/18 15:01 Last Admin: 09/05/18 14:42 Dose: 40 mg Glimepiride (Glimepiride) 4 mg PO BIDMEALS [facility] Last Admin: 09/03/18 09:05 Dose: 4 mg Hydromorphone HCl (Dilaudid) 0.25 mg IVPUSH Q2H PRN PRN Reason: Pain (severe 7-10) Sodium Chloride (Normal Saline) 1,000 mls @ 150 mls/hr IV ASDIRECTED [facility]AG[facility]ERTO Last Admin: 08/30/18 14:26 Dose: 150 mls/hr Sodium Chloride (Normal Saline) 1,000 mls @ 75 mls/hr IV ASDIRECTED [facility] Ceftriaxone Sodium 1 gm/ (Sodium Chloride) 100 mls @ 200 mls/hr IV ONETIME ONE Stop: 08/30/18 16:28 Last Admin: 08/30/18 16:57 Dose: 200 mls/hr Azithromycin 500 mg/ Sodium (Chloride) 250 mls @ 250 mls/hr IV Q24H [facility] Last Admin: 08/30/18 21:15 Dose: 250 mls/hr Sodium Chloride (Normal Saline) 1,000 mls @ 125 mls/hr IV ASDIRECTED [facility] Last Admin: 08/31/18 00:55 Dose: 125 mls/hr Ceftriaxone Sodium 1 gm/ (Sodium Chloride) 100 mls @ 200 mls/hr IV ONETIME ONE Stop: 08/30/18 19:14 Last Admin: 08/30/18 19:28 Dose: 200 mls/hr Ceftriaxone Sodium 2 gm/ (Sodium Chloride) 100 mls @ 200 mls/hr IV Q24H [facility] Dextrose/Sodium Chloride (Dextrose 5%-Normal Saline) 1,000 mls @ 125 mls/hr IV ASDIRECTED [facility] Last Admin: 08/31/18 08:05 Dose: 125 mls/hr Piperacillin Sod/Tazobactam (Sod 4.5 gm/ Sodium Chloride) 100 mls @ 200 mls/hr IV ONETIME ONE Stop: 08/31/18 10:29 Last Admin: 08/31/18 11:28 Dose: Not Given Piperacillin Sod/Tazobactam (Sod 4.5 gm/ Sodium Chloride) 100 mls @ 25 mls/hr IV Q8H [facility] Last Admin: 08/31/18 23:34 Dose: Not Given Vancomycin HCl 1 gm/ Sodium (Chloride) 250 mls @ 250 mls/hr IV Q12H [facility] Last Admin: 09/01/18 21:37 Dose: 250 mls/hr Sodium Chloride (Normal Saline) Confirm Administered Dose 100 mls @ as directed .ROUTE .STK-MED ONE Stop: 08/31/18 10:49 Last Admin: 08/31/18 11:29 Dose: Not Given Piperacillin Sod/Tazobactam (Sod 4.5 gm/ Sodium Chloride) 100 mls @ 200 mls/hr IV ONETIME ONE Stop: 08/31/18 11:44 Last Admin: 08/31/18 12:56 Dose: 200 mls/hr Sodium Chloride (Normal Saline) 1,000 mls @ 75 mls/hr IV ASDIRECTED [facility] Last Admin: 09/02/18 04:15 Dose: 75 mls/hr Magnesium Sulfate/Dextrose (Magnesium 1 Gm In D5w 100 Ml) Confirm Administered Dose 100 mls @ as directed .ROUTE .STK-MED ONE Stop: 08/31/18 19:53 Last Admin: 08/31/18 20:15 Dose: Not Given Acyclovir 1,000 mg/ Sodium (Chloride) 120 mls @ 100 mls/hr IV Q8H [facility] Last Admin: 09/02/18 04:09 Dose: 100 mls/hr Ampicillin Sodium 1 gm/ Sodium (Chloride) 100 mls @ 200 mls/hr IV Q4H [facility] Last Admin: 08/31/18 23:34 Dose: Not Given Dexamethasone 40 mg/ Sodium (Chloride) 54 mls @ 108 mls/hr IV BID@0700,1900 [facility] Stop: 09/02/18 20:31 Last Admin: 09/02/18 18:08 Dose: 108 mls/hr Magnesium Sulfate 2 gm/ Premix 50 mls @ 25 mls/hr IV ONETIME ONE Stop: 08/31/18 22:13 Last Admin: 08/31/18 21:26 Dose: Not Given Magnesium Sulfate/Dextrose 1 (gm/ Premix) 100 mls @ 100 mls/hr IV ONETIME ONE Stop: 08/31/18 21:29 Last Admin: 08/31/18 20:35 Dose: 100 mls/hr Ampicillin Sodium 1 gm/ Sodium (Chloride) 100 mls @ 200 mls/hr IV Q4H [facility] Last Admin: 09/01/18 11:17 Dose: Not Given Sodium Chloride (Normal Saline) Confirm Administered Dose 100 mls @ as directed .ROUTE .[facility] ONE Stop: 08/31/18 21:21 Last Admin: 08/31/18 21:29 Dose: Not Given Sodium Chloride (Normal Saline) 250 mls @ 999 mls/hr IV ONETIME ONE Stop: 08/31/18 21:25 Last Admin: 08/31/18 23:07 Dose: Not Given Ceftriaxone Sodium 2 gm/ (Sodium Chloride) 100 mls @ 200 mls/hr IV Q24H [facility] Last Admin: 09/02/18 23:19 Dose: 200 mls/hr Ampicillin Sodium 1 gm/ Sodium (Chloride) 100 mls @ 200 mls/hr IV Q4H [facility] Last Admin: 09/02/18 05:41 Dose: 200 mls/hr Potassium Chloride/Dextrose/Sod Cl (D5 1/2 Ns W/ 40 Meq/L Kcl) 1,000 mls @ 75 mls/hr IV ASDIRECTED [facility] Last Infusion: 09/03/18 20:30 Dose: 125 mls/hr Vancomycin HCl 1 gm/ Sodium (Chloride) 250 mls @ 250 mls/hr IV Q12H [facility] Stop: 09/05/18 01:30 Last Admin: 09/04/18 23:52 Dose: 250 mls/hr Potassium Chloride 10 meq/ (Premix) 100 mls @ 100 mls/hr IV Q1H [facility] Stop: 09/03/18 11:59 Last Admin: 09/03/18 12:32 Dose: 100 mls/hr Magnesium Sulfate 2 gm/ Premix 50 mls @ 25 mls/hr IV ONETIME ONE Stop: 09/03/18 21:50 Last Admin: 09/03/18 20:13 Dose: 25 mls/hr Magnesium Sulfate 2 gm/ Premix 50 mls @ 25 mls/hr IV ONETIME ONE Stop: 09/04/18 12:43 Last Admin: 09/04/18 11:09 Dose: 25 mls/hr Vancomycin HCl 1 gm/ Sodium (Chloride) 250 mls @ 250 mls/hr IV Q8H [facility] Last Admin: 09/06/18 09:10 Dose: Not Given Insulin Human Lispro (Humalog) 0 unit SUBCUT QIDACANDBED [facility]; Protocol Last Admin: 08/31/18 20:54 Dose: 3 unit Insulin Human Regular (Humulin R) 8 unit SUBCUT ONETIME ONE Stop: 08/30/18 14:55 Last Admin: 08/30/18 15:06 Dose: 8 units Lorazepam (Ativan) 2 mg IVPUSH Q4H PRN PRN Reason: Seizures Lorazepam (Ativan) 2 mg IVPUSH Q6H PRN PRN Reason: Seizures Last Admin: 09/03/18 16:23 Dose: 2 mg Lorazepam (Ativan) 1 mg IVPUSH ONETIME ONE Stop: 09/04/18 11:57 Last Admin: 09/04/18 12:32 Dose: 1 mg Methylprednisolone Sodium Succinate (Solu-Medrol) 125 mg IVPUSH ONETIME ONE Stop: 09/03/18 19:33 Last Admin: 09/03/18 19:39 Dose: 125 mg Methylprednisolone Sodium Succinate (Solu-Medrol) 125 mg IVPUSH Q12H [facility] Morphine Sulfate (Morphine) 1 mg IVPUSH Q4H PRN PRN Reason: Shortness of Breath Last Admin: 09/03/18 06:35 Dose: 1 mg Morphine Sulfate (Morphine) 2 mg IVPUSH Q4H PRN PRN Reason: Shortness of Breath Last Admin: 09/03/18 19:43 Dose: 2 mg Morphine Sulfate (Morphine) 2 mg IVPUSH Q2H PRN PRN Reason: Shortness of Breath Last Admin: 09/04/18 12:35 Dose: 2 mg Morphine Sulfate (Morphine) 4 mg IVPUSH ONETIME ONE Stop: 09/04/18 11:54 Last Admin: 09/04/18 11:57 Dose: Not Given Morphine Sulfate (Morphine) 3 mg IVPUSH Q2H [facility] Last Admin: 09/04/18 15:48 Dose: 3 mg Morphine Sulfate (Morphine Sulfate) Confirm Administered Dose 4 mg IV .STK-MED ONE Stop: 09/04/18 15:45 Last Admin: 09/04/18 15:51 Dose: Not Given Morphine Sulfate (Morphine Sulfate) 3 mg IV Q2H [facility] Last Admin: 09/06/18 11:15 Dose: Not Given Ondansetron HCl (Zofran) 4 mg IVPUSH ONETIME ONE Stop: 08/30/18 14:19 Last Admin: 08/30/18 14:29 Dose: 4 mg Oseltamivir Phosphate (Tamiflu) 75 mg PO ONETIME ONE Stop: 08/30/18 14:43 Last Admin: 08/30/18 15:02 Dose: 75 mg Oseltamivir Phosphate (Tamiflu) 75 mg PO BID [facility] Stop: 09/03/18 21:01 Last Admin: 09/03/18 21:30 Dose: 75 mg Vancomycin HCl (Pharmacy To Dose - Vancomycin) 1 dose .XX ASDIRECTED [facility] - Exam Quality Assessment: Supplemental Oxygen, Urine Catheter, DVT Prophylaxis General: Alert, Oriented, No Acute Distress HEENT: Pupils Equal, Pupils Reactive, EOMI Neck: Trachea Midline, No JVD Lungs: Normal Respiratory Effort, Decreased Breath Sounds, Rhonchi, Wheezing Cardiovascular: Regular Rate, Regular Rhythm GI/Abdominal Exam: Normal Bowel Sounds, Soft, Non-Tender, No Organomegaly, No Distention (Female) Exam: Deferred Back Exam: Normal Inspection, CVA Tenderness (R) Extremities: Normal Inspection, Normal Range of Motion, Non-Tender, No Pedal Edema Skin: Warm Neurological: No New Focal Deficit Psy/Mental Status: Alert - Problem List & Annotations (1) Streptococcal pneumonia SNOMED Code(s): 67840614 Code(s): J15.4 - PNEUMONIA DUE TO OTHER STREPTOCOCCI Status: Acute Current Visit: Yes (2) Hypoxia SNOMED Code(s): 591317708 Code(s): R09.02 - HYPOXEMIA Status: Acute Current Visit: Yes (3) Respiratory distress, acute SNOMED Code(s): 812435303 Code(s): R06.03 - ACUTE RESPIRATORY DISTRESS Status: Acute Current Visit : Yes - Problem List Review Problem List Initiated/Reviewed/Updated: Yes - My Orders Last 24 Hours: My Active Orders 09/05/18 21:00 Oseltamivir [Tamiflu] 75 mg PO BID 09/06/18 09:00 Vancomycin 1 gm Vancomycin 250 mg Sodium Chloride 0.9% [Normal Saline] 250 ml IV Q8H 09/06/18 12:00 Morphine 3 mg IVPUSH Q4H Sertraline [Zoloft] 25 mg PO DAILY 09/06/18 13:00 ABG [BLOOD GAS ARTERIAL] [BG] Urgent 09/07/18 05:00 LACTIC ACID [CHEM] DAILY PRO B-TYPE NATRIUR PEPT,BNPPRO [CHEM] DAILY 09/07/18 05:11 BASIC METABOLIC PANEL,BMP [CHEM] AM CRP [C-REACTIVE PROTEIN] [CHEM] AM MG [MAGNESIUM] [CHEM] AM 09/07/18 07:26 CBC W/O DIFF,HEMOGRAM [HEME] DAILY 09/07/18 08:00 Chest 1V Frontal [CR] DAILY 09/07/18 08:30 VANCOMYCIN TROUGH [CHEM] Timed 09/08/18 05:00 LACTIC ACID [CHEM] DAILY 09/08/18 05:11 BASIC METABOLIC PANEL,BMP [CHEM] AM CRP [C-REACTIVE PROTEIN] [CHEM] AM MG [MAGNESIUM] [CHEM] AM 09/08/18 07:26 CBC W/O DIFF,HEMOGRAM [HEME] DAILY 09/08/18 08:00 Chest 1V Frontal [CR] DAILY 09/09/18 05:11 BASIC METABOLIC PANEL,BMP [CHEM] AM CRP [C-REACTIVE PROTEIN] [CHEM] AM MG [MAGNESIUM] [CHEM] AM 09/09/18 07:26 CBC W/O DIFF,HEMOGRAM [HEME] DAILY 09/09/18 08:00 Chest 1V Frontal [CR] DAILY 09/10/18 05:11 BASIC METABOLIC PANEL,BMP [CHEM] AM CRP [C-REACTIVE PROTEIN] [CHEM] AM MG [MAGNESIUM] [CHEM] AM 09/11/18 05:11 CRP [C-REACTIVE PROTEIN] [CHEM] AM MG [MAGNESIUM] [CHEM] AM - Plan Plan:: Assessment/Plan: Acute: Influenza with secondary bacterial PNA, Strep Pneumo PNA L lower and mid lung w/ hypoxia, clinically less hypoxic * Fever, productive cough, SOB w/ exertion x 3 days * O2 82% RA--> 92% 4L NC--> 91% 12L mask--> 89-91% 15L non-rebreather--> 15L BiPAP; FIO2 0.70 07/01...O2 sat 97% on pulse ox/ABG pH 7.48 pCO2 31.0 pO2 70 sO2 94.8%; frequent changes required. * No leukocytosis, Neut 86% with 3% bandemia, CRP 15.4--> 17.6 * CXR 08/30/18: Findings felt compatible with mild bilateral bronchitis with areas of pneumonia within the left mid and lower lung. * CT Chest 08/31/18: * 1. Diffuse parenchymal densities throughout both size of the chest more confluent within the lingula and within both lower lungs. Findings have progressed from prior chest x-ray. Findings are most likely infectious in etiology. Continued follow-up is recommended. * 2. Mildly prominent lymph nodes most likely on an inflammatory basis from the lung process. * Mycoplasma negative * RVP was negative; Strep pneumo--->positive * RT/Duonebs/IS/Acapella/Chest Physiotherapy * ABG shows low O2 sat: 86.8%--> 89.7%--> 93.3 * Repeat CXR 09/01/18: * 1. Diffuse parenchymal densities as described above. Differential includes irregular areas of pulmonary edema vs diffuse multifocal areas of pneumonia. * 2. Heart is slightly enlarged Most recent ATB : Rocephin/Levoquin/Vanco * Dexamethasone BID x2 days-->completed; started solumedrol 125 mg daily * Magnesium as needed * R/O PE: * D-dimer elevated at 1.1 * CTA negative for PE * ECHO LVEF--WNL; grade 2/4 diastolic dysfunction * Pulmonary toilet * Recommend PFT outpt Influenza A, 8/9 day course * Fever and increased weakness x3 days--> Increased energy and alertness today * Tamiflu started in ED--> continue BID Sepsis * Likely 2/2 above * Temperature 102.2F, Hypoxic, Tachypneic, Tachycardia, source of infection present * LA 3.2--> 2.1--> 0.9 * Procalcitonin elevated at 0.18 * Rocephin started in ED--> continue * IVF started in ED--> continue * Blood cultures show no growth Possible AMS * Per , seemed more confused than usual this AM * Risk Factors: Current illness/sepsis, increased O2 demand, unwitnessed fall yesterday ( unsure if she hit her head; she does have a scab on her forehead but per notes it is a couple days old) * CT Head 08/31/18: * 1. Diffuse parenchymal densities throughout both sides of the chest more confluent within the lingual and within both lower lungs. Findings have progressed from prior chest x-ray. Findings are most likely infectious in etiology. Continued follow-up is recommended. * 2. Mildly prominent lymph nodes most likely on an inflammatory basis from the lung process. * Normal neuro exam, A+O x3, seems to be very lethargic * If continues to worsen/has AMS: * ICU care * LP in AM --> Cancelled d/t improved clinical disposition * CT Head in AM if still lethargic or AMS--> not needed at this time Hyperglycemia w/ DM2 * She missed a dose of insulin yesterday, didn't take her insulin this AM * Blood sugar this AM 389, Blood sugar in ED 320 * Blood glucose checks, insulin sliding scale * A1C 7.7 * Solumedrol 125 mg daily New-onset Afib, resolved maintaining SR * Risk factor: Sepsis * 12 lead EKG done, HR 100's-118 * Metoprolol 25 BID * Lovenox 40 restarted * ECHO ---nl LVEF, grade 2 diastolic dysfunction * Monitor on telemetry DHF * Diurese as needed; 2 D echo documented nl LVEF, grade 2 diastolic dysfunction * Increase Lasix 20 mg Q 8 H Abnormal electrolytes * Correct K, Mg, Na as needed Nutrition Follow oral care and intake Resolved: Dehydration * Likely 2/2 decreased intake * AGap 17.5--> 14.1 * IVF started in ED--> Continue * Monitor Possible UTI--> CULTURE NEGATIVE * Risk factors: Frequency, Incontinence * UA suspicious for UTI * Urine culture shows no growth * Rocephin started in ED--> continue Chronic: HLD * Lipids WNL HTN GERD Seizures on Tegretol (last seizure 2002) DM2 Plan: Continue ICU care Decline for transfer, will follow closely and seek transfer if needed. Droplet precautions Routine AM Labs ADA diet as tolerated TPN may be needed, will follow; currently on D5 0.45 with KCL 40 mEq Accuchecks adjusted for minimal oral intake DVT/GI prophylaxis CM/SW PT/OT Code Status: Full Code; PCP: Dr. Nasreen Edmond LOS>96 hours with slow response to treatment for Influenza/PNA
--- NOTE | 2018-09-06 20:01 | CT ---
Head CT Technique: Multiple axial sections through the brain were obtained. Intravenous contrast not utilized. Comparison: Previous head CT study of 08/31/18. Findings: Ventricles are dilated out of proportion to the sulci over the convexities. These appear fairly similar to previous exam. Findings presumably represent greater central atrophy. Mild diminished density is noted within portions of the periventricular white matter and basal ganglia most likely due to small vessel ischemic demyelination change. No other abnormal parenchymal densities are seen. No evidence of intracranial hemorrhage. No midline shift or mass effect is seen. Bone window settings were reviewed which shows small air-fluid level and mucosal thickening within the right maxillary sinus. Mild mucosal thickening is seen within the sphenoid and ethmoid sinuses. No acute calvarial abnormality is appreciated. Impression: 1. Sinus findings as noted above. Most of these sinus findings are likely chronic but a questionable air-fluid level within the right maxillary sinus could represent acute sinusitis or retained secretions. 2. Atrophy with greater central component as described above. 3. Other senescent change. Nothing acute is definitely appreciated. Diagnostic code #2
[2018-09-06] MEDS: LORazepam 2 MG/ML SDV IVPUSH PRN (20:26)
--- NOTE | 2018-09-06 23:46 | PCM.SN ---
<Veronica Rucker - Last Filed: 09/06/18 23:48> - Free Text/Narrative Note: Dr. Olvera, nursing, SW and I had family meeting with pt's sister and after concerns were brought up about Shereen's behavior and refusal to speak or open her eyes. We discussed that medically Shereen is improving from her PNA and influenza, as her labs and Xrays show the antibiotics are working and she is requiring less O2 (currently she is being weened off BiPAP). She was also able to eat today. However, she has been refusing to work with PT/OT/RT and has been giving the nurses a hard time intermittently by "shutting down"- she will not open her eyes when requested, will not participate in answering questions, does not follow commands, and will remain silent or get very agitated if asked to do anything. Earlier when I went to assess her, she refused to open her eyes and when I tried to do it manually to do a neuro check, she said "Stop it! Leave me alone" and pushed my hand away, keeping her eyes closed the entire time. She obviously has the strength to combat staff when she does not want to do something, which means she does not seem to have a neurological deficit at this time. Also, when she decides to participate, she is quite friendly and cooperative and able to open her eyes, answer questions, follow commands, and help with transfers. I also witnessed her watching TV in her room with her eyes open for long period of time, at least 20 minutes or so, looking very comfortable and relaxed with no issues. As soon as nursing went in to do an assessment, she again closed her eyes and refused to participate. At this point , it seems to be a choice as to whether she wants to participate in care or not. Family was concerned there may be something medically wrong, so a head CT was ordered (which came back negative for anything acute). We discussed the workup options during the meeting if there was something medically wrong, but after a long discussion, it was found that she probably does have a h/o depression ( runs in the family) and that she has a h/o being "very stubborn" and will "shut down" when she doesn't want to do things. This seems to be more consistent with her behavior at this time more than a medical issue (especially with her PNA and influenza improving) and the family agrees. At this time, it has been agreed upon with family to continue current treatment and to not pursue a transfer or other workup, as she is medically improving and this seems to be more of a psychological issue. She will see psychiatrist Dr. Vick while here via telepsych for more assessment and family is in agreement. All questions and concerns were addressed during the meeting. <Farida Olvera - Last Filed: 09/07/18 17:29> - Free Text/Narrative Note: Time spent in family meeting, 35 minutes.
[2018-09-07] MEDS: Vancomycin 1 GM, Vancomycin 250 MG in Sodium Chloride 0.9% 250 ML IV SCH ×2 (00:07→08:11)
[2018-09-07] MEDS: Morphine 2 MG/ML Syringe IVPUSH SCH ×6 (00:08→20:23)
[2018-09-07] MEDS: Levalbuterol HCl 1.25 MG/0.5 ML Neb NEB SCH ×4 (05:59→20:56)
[2018-09-07] MEDS: Ipratropium 0.02% 0.5 MG/2.5 ML Neb Soln NEB SCH ×4 (05:59→20:56)
[2018-09-07] MEDS: guaiFENesin/Dextromethorphan 100-10 MG/5 ML Soln 5 ML Cup PO SCH ×3 (08:05→20:24)
[2018-09-07] MEDS: Insulin Lispro 100 UNIT/ML 10 ML VIAL SUBCUT SCH ×4 (08:05→21:30)
[2018-09-07] MEDS: Furosemide 40 MG/4 ML VIAL IVPUSH SCH (08:08)
[2018-09-07] MEDS: methylPREDNISolone Sodium Succinate 125 MG/2 ML SDV IVPUSH SCH ×2 (08:08→20:23)
[2018-09-07] MEDS: Enoxaparin 40 MG/0.4 ML Syringe SUBCUT SCH (08:10)
[2018-09-07] MEDS: cefTRIAXone 2 GM in Sodium Chloride 0.9% 100 ML IV SCH ×2 (08:11→20:24)
[2018-09-07] MEDS: Sertraline 25 MG Tab PO SCH (08:14)
[2018-09-07] MEDS: Metoprolol Succinate 25 MG Tab.ER PO SCH ×2 (08:14→20:22)
[2018-09-07] MEDS: Aspirin 81 MG Tab.EC PO SCH (08:14)
[2018-09-07] MEDS: Oseltamivir 75 MG Cap PO SCH ×2 (08:15→20:22)
[2018-09-07] MEDS: Saccharomyces Boulardii (Probiotic) 250 MG Cap PO SCH ×2 (08:15→20:22)
[2018-09-07] MEDS: carBAMazepine 200 MG Tab PO SCH ×2 (08:15→20:22)
[2018-09-07] MEDS: Famotidine 20 MG/2 ML SDV IVPUSH SCH (09:02)
--- NOTE | 2018-09-07 09:11 | CR ---
Chest: Portable view of the chest is obtained. Comparison: Prior chest x-ray of 09/06/18. Slight decreasing parenchymal density within the right lung is noted. Other lung findings are fairly stable from previous exam. Heart size and mediastinum are unchanged. Bony structures are unchanged. Impression: 1. Minimally improved chest from previous study performed one day earlier. Diagnostic code #3
[2018-09-07] MEDS: D5 1/2 NS w/ 40 mEq/L KCl 1,000 ML IV SCH (10:33)
[2018-09-07] MEDS: Levofloxacin/Dextrose 5%-Water 750 MG in Premix Bag 1 BAG IV SCH (12:05)
[2018-09-07] MEDS: Potassium Chloride 20 MEQ Tab.ER PO SCH ×2 (16:49→20:22)
--- NOTE | 2018-09-07 17:35 | PCM.PN ---
- General Info Date of Service: 09/07/18 Functional Status: Reports: Pain Controlled, Tolerating Diet, Urinating - Review of Systems General: Reports: Weakness HEENT: Reports: No Symptoms Pulmonary: Reports: Shortness of Breath Cardiovascular: Reports: No Symptoms Gastrointestinal: Reports: No Symptoms Genitourinary: Reports: No Symptoms Musculoskeletal: Reports: No Symptoms Skin: Reports: No Symptoms Neurological: Reports: No Symptoms Psychiatric: Reports: No Symptoms - Patient Data Vitals - Most Recent: Last Vital Signs Temp 36.4 C 09/07/18 12:00 Pulse 102 H 09/07/18 16:00 Resp 20 09/07/18 16:00 BP 147/68 H 09/07/18 16:00 Pulse Ox 91 L 09/07/18 16:00 Weight - Most Recent: 93.213 kg I&O - Last 24 Hours: Intake & Output 09/07/18 09/07/18 09/07/18 06:59 14:59 22:59 Intake Total 878 354 6729 Output Total 455 2425 150 Balance 491 -2185 1165 Lab Results Last 24 Hours: Laboratory Results - last 24 hr 09/06/18 09/06/18 09/07/18 Range/Units 17:38 20:46 06:27 WBC (3.98-10.04) K/mm3 RBC (3.98-5.22) M/mm3 Hgb (11.2-15.7) gm/L Hct (34.1-44.9) % MCV (79.4-94.8) fl MCH (25.6-32.2) pg MCHC (32.2-35.5) g/dl RDW Std Deviation (36.4-46.3) fL Plt Count (182-369) K/mm3 MPV (9.4-12.3) fl Puncture Site ABG pH (7.35-7.45) ABG pCO2 (35.0-45.0) mmHg ABG pO2 (80.0-100.0) mmHg ABG HCO3 (22.0-26.0) meq/L ABG O2 Saturation (96.0-97.0) % ABG Base Excess (-2-2.0) Aston Test O2 Delivery Device Oxygen Flow Rate FiO2 (21.00-100.00) % Sodium (136-145) mEq/L Potassium (3.5-5.1) mEq/L Chloride (98-107) mEq/L Carbon Dioxide (21-32) mEq/L Anion Gap (5-15) BUN (7-18) mg/dL Creatinine (0.55-1.02) mg/dL Est Cr Clr Drug Dosing mL/min Estimated GFR (MDRD) (>60) mL/min BUN/Creatinine Ratio (14-18) Glucose (80-115) mg/dL POC Glucose 351 H 324 H 300 H (80-115) mg/dL Lactic Acid (0.4-2.0) mmol/L Calcium (8.5-10.1) mg/dL Magnesium (1.8-2.4) mg/dl C-Reactive Protein (<1.0) mg/dL NT-Pro-B Natriuret Pep (0-125) pg/mL 09/07/18 09/07/18 09/07/18 Range/Units 10:38 10:38 10:38 WBC (3.98-10.04) K/mm3 RBC (3.98-5.22) M/mm3 Hgb (11.2-15.7) gm/L Hct (34.1-44.9) % MCV (79.4-94.8) fl MCH (25.6-32.2) pg MCHC (32.2-35.5) g/dl RDW Std Deviation (36.4-46.3) fL Plt Count (182-369) K/mm3 MPV (9.4-12.3) fl Puncture Site ABG pH (7.35-7.45) ABG pCO2 (35.0-45.0) mmHg ABG pO2 (80.0-100.0) mmHg ABG HCO3 (22.0-26.0) meq/L ABG O2 Saturation (96.0-97.0) % ABG Base Excess (-2-2.0) Aston Test O2 Delivery Device Oxygen Flow Rate FiO2 (21.00-100.00) % Sodium (136-145) mEq/L Potassium (3.5-5.1) mEq/L Chloride (98-107) mEq/L Carbon Dioxide (21-32) mEq/L Anion Gap (5-15) BUN (7-18) mg/dL Creatinine (0.55-1.02) mg/dL Est Cr Clr Drug Dosing mL/min Estimated GFR (MDRD) (>60) mL/min BUN/Creatinine Ratio (14-18) Glucose (80-115) mg/dL POC Glucose (80-115) mg/dL Lactic Acid 1.8 (0.4-2.0) mmol/L Calcium (8.5-10.1) mg/dL Magnesium 1.9 (1.8-2.4) mg/dl C-Reactive Protein 11.3 H* (<1.0) mg/dL NT-Pro-B Natriuret Pep 858 H (0-125) pg/mL 09/07/18 09/07/18 09/07/18 Range/Units 10:38 12:59 16:43 WBC 5.27 (3.98-10.04) K/mm3 RBC 4.08 (3.98-5.22) M/mm3 Hgb 11.1 L (11.2-15.7) gm/L Hct 34.1 (34.1-44.9) % MCV 83.6 (79.4-94.8) fl MCH 27.2 (25.6-32.2) pg MCHC 32.6 (32.2-35.5) g/dl RDW Std Deviation 43.2 (36.4-46.3) fL Plt Count 353 (182-369) K/mm3 MPV 9.7 (9.4-12.3) fl Puncture Site Lt radial ABG pH 7.46 H (7.35-7.45) ABG pCO2 33.1 L (35.0-45.0) mmHg ABG pO2 63.0 L (80.0-100.0) mmHg ABG HCO3 23.3 (22.0-26.0) meq/L ABG O2 Saturation 92.6 L (96.0-97.0) % ABG Base Excess 0.4 (-2-2.0) Aston Test Positive O2 Delivery Device Nasal cannula Oxygen Flow Rate 4.0 FiO2 0.00 L (21.00-100.00) % Sodium 142 (136-145) mEq/L Potassium 3.3 L (3.5-5.1) mEq/L Chloride 106 (98-107) mEq/L Carbon Dioxide 24 (21-32) mEq/L Anion Gap 15.3 H (5-15) BUN 16 (7-18) mg/dL Creatinine 0.8 (0.55-1.02) mg/dL Est Cr Clr Drug Dosing 63.82 mL/min Estimated GFR (MDRD) > 60 (>60) mL/min BUN/Creatinine Ratio 20.0 H (14-18) Glucose 420 H (80-115) mg/dL POC Glucose (80-115) mg/dL Lactic Acid (0.4-2.0) mmol/L Calcium 8.5 (8.5-10.1) mg/dL Magnesium (1.8-2.4) mg/dl C-Reactive Protein (<1.0) mg/dL NT-Pro-B Natriuret Pep (0-125) pg/mL 09/07/18 Range/Units 16:43 WBC (3.98-10.04) K/mm3 RBC (3.98-5.22) M/mm3 Hgb (11.2-15.7) gm/L Hct (34.1-44.9) % MCV (79.4-94.8) fl MCH (25.6-32.2) pg MCHC (32.2-35.5) g/dl RDW Std Deviation (36.4-46.3) fL Plt Count (182-369) K/mm3 MPV (9.4-12.3) fl Puncture Site ABG pH (7.35-7.45) ABG pCO2 (35.0-45.0) mmHg ABG pO2 (80.0-100.0) mmHg ABG HCO3 (22.0-26.0) meq/L ABG O2 Saturation (96.0-97.0) % ABG Base Excess (-2-2.0) Aston Test O2 Delivery Device Oxygen Flow Rate FiO2 (21.00-100.00) % Sodium (136-145) mEq/L Potassium (3.5-5.1) mEq/L Chloride (98-107) mEq/L Carbon Dioxide (21-32) mEq/L Anion Gap (5-15) BUN (7-18) mg/dL Creatinine (0.55-1.02) mg/dL Est Cr Clr Drug Dosing mL/min Estimated GFR (MDRD) (>60) mL/min BUN/Creatinine Ratio (14-18) Glucose 497 H (80-115) mg/dL POC Glucose (80-115) mg/dL Lactic Acid (0.4-2.0) mmol/L Calcium (8.5-10.1) mg/dL Magnesium (1.8-2.4) mg/dl C-Reactive Protein (<1.0) mg/dL NT-Pro-B Natriuret Pep (0-125) pg/mL Alireza Results Last 24 Hours: Microbiology 09/03/18 21:20 Aerobic Blood Culture - Preliminary Blood - Venous NO GROWTH AFTER 3 DAYS Anaerobic Blood Culture - Preliminary NO GROWTH AFTER 3 DAYS 09/03/18 21:25 Aerobic Blood Culture - Preliminary Blood - Venous - Lab Draw NO GROWTH AFTER 3 DAYS Anaerobic Blood Culture - Preliminary NO GROWTH AFTER 3 DAYS 08/30/18 14:50 Aerobic Blood Culture - Final Blood - Venous NO GROWTH AFTER 7 DAYS Anaerobic Blood Culture - Final NO GROWTH AFTER 7 DAYS 08/30/18 15:05 Aerobic Blood Culture - Final Blood - Venous - Lab Draw NO GROWTH AFTER 7 DAYS Anaerobic Blood Culture - Final Med Orders - Current: Current Medications Acetaminophen (Tylenol) 650 mg PO Q4H PRN PRN Reason: Pain (Mild 1-3)/fever Last Admin: 08/31/18 20:10 Dose: 650 mg Alogliptin Benzoate (Alogliptin) 25 mg PO DAILY [facility] Last Admin: 09/07/18 08:14 Dose: 25 mg Aspirin (Halfprin) 81 mg PO DAILY [facility] Last Admin: 09/07/18 08:14 Dose: 81 mg Bisacodyl (Dulcolax) 5 mg PO DAILY PRN PRN Reason: Constipation Carbamazepine (Tegretol Tab) 400 mg PO BID [facility] Last Admin: 09/07/18 08:15 Dose: 400 mg Dextrose/Water (Dextrose 50% In Water) 50 ml IVPUSH ASDIRECTED PRN PRN Reason: Hypoglycemia Diltiazem HCl (Cardizem) 10 mg IVPUSH Q4H PRN PRN Reason: tachy >110 Last Admin: 09/02/18 06:52 Dose: 10 mg Docusate Sodium (Colace) 100 mg PO BID PRN PRN Reason: Constipation Enoxaparin Sodium (Lovenox) 40 mg SUBCUT DAILY [facility] Last Admin: 09/07/18 08:10 Dose: 40 mg Famotidine (Pepcid) 20 mg PO BID [facility] Furosemide (Lasix) 40 mg IVPUSH DAILY [facility] Last Admin: 09/07/18 08:08 Dose: 40 mg Guaifenesin/Phenylephrine HCl (Robitussin Dm) 10 ml PO TID@0700,1400,2100 [facility] Last Admin: 09/07/18 14:46 Dose: 10 ml Hydralazine HCl (Apresoline) 10 mg IVPUSH Q4H PRN PRN Reason: Hypertension Last Admin: 09/06/18 14:02 Dose: 10 mg Promethazine HCl 6.25 mg/ (Sodium Chloride) 50.25 mls @ 100 mls/hr IV Q6H PRN PRN Reason: Nausea/Vomiting Levofloxacin/Dextrose 750 mg/ (Premix) 150 mls @ 100 mls/hr IV Q24H [facility] Last Admin: 09/07/18 12:05 Dose: 100 mls/hr Ceftriaxone Sodium 2 gm/ (Sodium Chloride) 100 mls @ 200 mls/hr IV Q12H [facility] Last Admin: 09/07/18 08:11 Dose: 200 mls/hr Insulin Human Lispro (Humalog) 0 unit SUBCUT QIDACANDBED [facility]; Protocol Last Admin: 09/07/18 11:59 Dose: 18 units Ipratropium Adah (Atrovent) 0.5 mg NEB QIDRT [facility] Last Admin: 09/07/18 15:31 Dose: 0.5 mg Levalbuterol HCl (Xopenex) 1.25 mg NEB QIDRT [facility] Last Admin: 09/07/18 15:31 Dose: 1.25 mg Levalbuterol HCl (Xopenex) 1.25 mg NEB Q2H PRN PRN Reason: sob Last Admin: 09/03/18 19:24 Dose: 1.25 mg Lorazepam (Ativan) 2 mg IVPUSH Q4H PRN PRN Reason: Seizures Lorazepam (Ativan) 2 mg IVPUSH Q6H PRN PRN Reason: Anxiety Last Admin: 09/06/18 20:26 Dose: 2 mg Magnesium Hydroxide (Milk Of Magnesia) 30 ml PO Q12H PRN PRN Reason: Constipation Methylprednisolone Sodium Succinate (Solu-Medrol) 125 mg IVPUSH Q12H [facility] Last Admin: 09/07/18 08:08 Dose: 125 mg Metoprolol Succinate (Toprol Xl) 25 mg PO BID [facility] Last Admin: 09/07/18 08:14 Dose: 25 mg Metoprolol Tartrate (Lopressor) 5 mg IVPUSH Q4H PRN PRN Reason: Tachycardia Last Admin: 09/03/18 19:25 Dose: 5 mg Morphine Sulfate (Morphine) 3 mg IVPUSH Q4H [facility] Last Admin: 09/07/18 16:48 Dose: 3 mg Non-Formulary Medication (Insulin Glargine,Hum.Rec.Anlog) 10 unit SQ BID [facility] Oseltamivir Phosphate (Tamiflu) 75 mg PO BID [facility] Last Admin: 09/07/18 08:15 Dose: 75 mg Pantoprazole Sodium (Protonix) 40 mg PO DAILY [facility] Polyethylene Glycol (Miralax) 17 gm PO DAILY PRN PRN Reason: Constipation Potassium Chloride (Klor-Con M20) 40 meq PO BID [facility] Last Admin: 09/07/18 16:49 Dose: 40 meq Promethazine HCl (Phenergan) 25 mg PO Q6H PRN PRN Reason: Nausea/Vomiting Saccharomyces Boulardii (Florastor) 250 mg PO BID [facility] Last Admin: 09/07/18 08:15 Dose: 250 mg Senna/Docusate Sodium (Senna Plus) 1 tab PO BID PRN PRN Reason: Constipation Sertraline HCl (Zoloft) 25 mg PO DAILY [facility] Last Admin: 09/07/18 08:14 Dose: 25 mg Temazepam (Restoril) 7.5 mg PO BEDTIME PRN PRN Reason: Sleep Discontinued Medications Acetaminophen (Tylenol) 975 mg PO NOW ONE Stop: 08/30/18 14:27 Last Admin: 08/30/18 14:51 Dose: 975 mg Hydrocodone Bitart/Acetaminophen ([place] 325-5 Mg) 1 tab PO Q4H PRN PRN Reason: Pain (moderate 4-6) Albuterol (Proventil Neb Soln) 2.5 mg NEB Q2H PRN PRN Reason: Shortness Of Breath/wheezing Last Admin: 08/31/18 23:15 Dose: 2.5 mg Albuterol/Ipratropium (Duoneb 3.0-0.5 Mg/3 Ml) 3 ml NEB Q4H PRN PRN Reason: Shortness Of Breath/wheezing Last Admin: 08/31/18 10:44 Dose: 3 ml Albuterol/Ipratropium (Duoneb 3.0-0.5 Mg/3 Ml) 3 ml NEB QIDRT [facility] Last Admin: 09/01/18 08:59 Dose: 3 ml Ampicillin Sodium (Ampicillin) Confirm Administered Dose 1 gm .ROUTE .[facility] ONE Stop: 08/31/18 21:19 Last Admin: 08/31/18 21:33 Dose: Not Given Ceftriaxone Sodium (Rocephin) 2 gm IVPUSH Q24H [facility] Ceftriaxone Sodium (Rocephin) 2 gm IVPUSH Q12H [facility] Dexamethasone (Dexamethasone) Confirm Administered Dose 40 mg .ROUTE .STK-MED ONE Stop: 08/31/18 19:53 Last Admin: 08/31/18 20:15 Dose: Not Given Dexamethasone (Dexamethasone) 40 mg IVPUSH Q12HR [facility] Stop: 09/03/18 07:01 Diphenhydramine HCl (Benadryl) 25 mg IVPUSH ONETIME ONE Stop: 09/04/18 10:25 Last Admin: 09/04/18 10:49 Dose: 25 mg Famotidine (Pepcid) 20 mg PO BID [facility] Last Admin: 09/03/18 09:06 Dose: 20 mg Famotidine (Pepcid) 20 mg IVPUSH BID [facility] Famotidine (Pepcid) 20 mg IVPUSH BID [facility] Last Admin: 09/07/18 09:02 Dose: 20 mg Furosemide (Lasix) 40 mg IVPUSH NOW ONE Stop: 08/30/18 14:51 Last Admin: 08/30/18 14:58 Dose: 40 mg Furosemide (Lasix) 20 mg IVPUSH NOW ONE Stop: 09/02/18 12:18 Last Admin: 09/02/18 13:45 Dose: 20 mg Furosemide (Lasix) 20 mg IVPUSH NOW ONE Stop: 09/02/18 21:01 Last Admin: 09/02/18 20:18 Dose: 20 mg Furosemide (Lasix) 20 mg IVPUSH NOW ONE Stop: 09/03/18 09:49 Last Admin: 09/03/18 10:27 Dose: 20 mg Furosemide (Lasix) 20 mg IVPUSH ONETIME ONE Stop: 09/04/18 06:01 Last Admin: 09/04/18 05:48 Dose: 20 mg Furosemide (Lasix) 20 mg IVPUSH NOW ONE Stop: 09/04/18 12:31 Last Admin: 09/04/18 12:32 Dose: 20 mg Furosemide (Lasix) 20 mg IVPUSH ONETIME ONE Stop: 09/04/18 20:01 Last Admin: 09/04/18 20:15 Dose: 20 mg Furosemide (Lasix) 40 mg IVPUSH NOW ONE Stop: 09/05/18 15:01 Last Admin: 09/05/18 14:42 Dose: 40 mg Glimepiride (Glimepiride) 4 mg PO BIDMEALS [facility] Last Admin: 09/03/18 09:05 Dose: 4 mg Hydromorphone HCl (Dilaudid) 0.25 mg IVPUSH Q2H PRN PRN Reason: Pain (severe 7-10) Sodium Chloride (Normal Saline) 1,000 mls @ 150 mls/hr IV ASDIRECTED [facility] Last Admin: 08/30/18 14:26 Dose: 150 mls/hr Sodium Chloride (Normal Saline) 1,000 mls @ 75 mls/hr IV ASDIRECTED [facility] Ceftriaxone Sodium 1 gm/ (Sodium Chloride) 100 mls @ 200 mls/hr IV ONETIME ONE Stop: 08/30/18 16:28 Last Admin: 08/30/18 16:57 Dose: 200 mls/hr Azithromycin 500 mg/ Sodium (Chloride) 250 mls @ 250 mls/hr IV Q24H [facility] Last Admin: 08/30/18 21:15 Dose: 250 mls/hr Sodium Chloride (Normal Saline) 1,000 mls @ 125 mls/hr IV ASDIRECTED [facility] Last Admin: 08/31/18 00:55 Dose: 125 mls/hr Ceftriaxone Sodium 1 gm/ (Sodium Chloride) 100 mls @ 200 mls/hr IV ONETIME ONE Stop: 08/30/18 19:14 Last Admin: 08/30/18 19:28 Dose: 200 mls/hr Ceftriaxone Sodium 2 gm/ (Sodium Chloride) 100 mls @ 200 mls/hr IV Q24H [facility] Dextrose/Sodium Chloride (Dextrose 5%-Normal Saline) 1,000 mls @ 125 mls/hr IV ASDIRECTED [facility] Last Admin: 08/31/18 08:05 Dose: 125 mls/hr Piperacillin Sod/Tazobactam (Sod 4.5 gm/ Sodium Chloride) 100 mls @ 200 mls/hr IV ONETIME ONE Stop: 08/31/18 10:29 Last Admin: 08/31/18 11:28 Dose: Not Given Piperacillin Sod/Tazobactam (Sod 4.5 gm/ Sodium Chloride) 100 mls @ 25 mls/hr IV Q8H [facility] Last Admin: 08/31/18 23:34 Dose: Not Given Vancomycin HCl 1 gm/ Sodium (Chloride) 250 mls @ 250 mls/hr IV Q12H [facility] Last Admin: 09/01/18 21:37 Dose: 250 mls/hr Sodium Chloride (Normal Saline) Confirm Administered Dose 100 mls @ as directed .ROUTE .[facility] ONE Stop: 08/31/18 10:49 Last Admin: 08/31/18 11:29 Dose: Not Given Piperacillin Sod/Tazobactam (Sod 4.5 gm/ Sodium Chloride) 100 mls @ 200 mls/hr IV ONETIME ONE Stop: 08/31/18 11:44 Last Admin: 08/31/18 12:56 Dose: 200 mls/hr Sodium Chloride (Normal Saline) 1,000 mls @ 75 mls/hr IV ASDIRECTED [facility] Last Admin: 09/02/18 04:15 Dose: 75 mls/hr Magnesium Sulfate/Dextrose (Magnesium 1 Gm In D5w 100 Ml) Confirm Administered Dose 100 mls @ as directed .ROUTE .[facility] ONE Stop: 08/31/18 19:53 Last Admin: 08/31/18 20:15 Dose: Not Given Acyclovir 1,000 mg/ Sodium (Chloride) 120 mls @ 100 mls/hr IV Q8H [facility] Last Admin: 09/02/18 04:09 Dose: 100 mls/hr Ampicillin Sodium 1 gm/ Sodium (Chloride) 100 mls @ 200 mls/hr IV Q4H [facility] Last Admin: 08/31/18 23:34 Dose: Not Given Dexamethasone 40 mg/ Sodium (Chloride) 54 mls @ 108 mls/hr IV BID@0700,1900 [facility] Stop: 09/02/18 20:31 Last Admin: 09/02/18 18:08 Dose: 108 mls/hr Magnesium Sulfate 2 gm/ Premix 50 mls @ 25 mls/hr IV ONETIME ONE Stop: 08/31/18 22:13 Last Admin: 08/31/18 21:26 Dose: Not Given Magnesium Sulfate/Dextrose 1 (gm/ Premix) 100 mls @ 100 mls/hr IV ONETIME ONE Stop: 08/31/18 21:29 Last Admin: 08/31/18 20:35 Dose: 100 mls/hr Ampicillin Sodium 1 gm/ Sodium (Chloride) 100 mls @ 200 mls/hr IV Q4H [facility] Last Admin: 09/01/18 11:17 Dose: Not Given Sodium Chloride (Normal Saline) Confirm Administered Dose 100 mls @ as directed .ROUTE .STK-MED ONE Stop: 08/31/18 21:21 Last Admin: 08/31/18 21:29 Dose: Not Given Sodium Chloride (Normal Saline) 250 mls @ 999 mls/hr IV ONETIME ONE Stop: 08/31/18 21:25 Last Admin: 08/31/18 23:07 Dose: Not Given Ceftriaxone Sodium 2 gm/ (Sodium Chloride) 100 mls @ 200 mls/hr IV Q24H [facility] Last Admin: 09/02/18 23:19 Dose: 200 mls/hr Ampicillin Sodium 1 gm/ Sodium (Chloride) 100 mls @ 200 mls/hr IV Q4H [facility] Last Admin: 09/02/18 05:41 Dose: 200 mls/hr Potassium Chloride/Dextrose/Sod Cl (D5 1/2 Ns W/ 40 Meq/L Kcl) 1,000 mls @ 75 mls/hr IV ASDIRECTED [facility] Last Infusion: 09/03/18 20:30 Dose: 125 mls/hr Vancomycin HCl 1 gm/ Sodium (Chloride) 250 mls @ 250 mls/hr IV Q12H [facility] Stop: 09/05/18 01:30 Last Admin: 09/04/18 23:52 Dose: 250 mls/hr Potassium Chloride 10 meq/ (Premix) 100 mls @ 100 mls/hr IV Q1H [facility] Stop: 09/03/18 11:59 Last Admin: 09/03/18 12:32 Dose: 100 mls/hr Magnesium Sulfate 2 gm/ Premix 50 mls @ 25 mls/hr IV ONETIME ONE Stop: 09/03/18 21:50 Last Admin: 09/03/18 20:13 Dose: 25 mls/hr Potassium Chloride/Dextrose/Sod Cl (D5 1/2 Ns W/ 40 Meq/L Kcl) 1,000 mls @ 125 mls/hr IV ASDIRECTED [facility] Last Admin: 09/07/18 10:33 Dose: 75 mls/hr Magnesium Sulfate 2 gm/ Premix 50 mls @ 25 mls/hr IV ONETIME ONE Stop: 09/04/18 12:43 Last Admin: 09/04/18 11:09 Dose: 25 mls/hr Vancomycin HCl 1 gm/ Sodium (Chloride) 250 mls @ 250 mls/hr IV Q8H [facility] Last Admin: 09/06/18 09:10 Dose: Not Given Vancomycin HCl 1 gm/Vancomycin HCl 250 mg/ Sodium Chloride 250 mls @ 166.667 mls/hr IV Q8H [facility] Stop: 09/07/18 12:00 Last Admin: 09/07/18 08:11 Dose: 166.667 mls/hr Magnesium Sulfate/Dextrose 1 (gm/ Premix) 100 mls @ 100 mls/hr IV ONETIME ONE Stop: 09/06/18 15:12 Last Admin: 09/06/18 15:10 Dose: 100 mls/hr Insulin Human Lispro (Humalog) 0 unit SUBCUT QIDACANDBED [facility]; Protocol Last Admin: 08/31/18 20:54 Dose: 3 unit Insulin Human Lispro (Humalog) 0 unit SUBCUT QIDACANDBED [facility]; Protocol Last Admin: 09/06/18 12:27 Dose: 10 units Insulin Human Regular (Humulin R) 8 unit SUBCUT ONETIME ONE Stop: 08/30/18 14:55 Last Admin: 08/30/18 15:06 Dose: 8 units Lorazepam (Ativan) 2 mg IVPUSH Q4H PRN PRN Reason: Seizures Lorazepam (Ativan) 2 mg IVPUSH Q6H PRN PRN Reason: Seizures Last Admin: 09/03/18 16:23 Dose: 2 mg Lorazepam (Ativan) 1 mg IVPUSH ONETIME ONE Stop: 09/04/18 11:57 Last Admin: 09/04/18 12:32 Dose: 1 mg Lorazepam (Ativan) 1 mg IVPUSH Q8H PRN PRN Reason: Anxiety Last Admin: 09/06/18 16:44 Dose: 1 mg Methylprednisolone Sodium Succinate (Solu-Medrol) 125 mg IVPUSH ONETIME ONE Stop: 09/03/18 19:33 Last Admin: 09/03/18 19:39 Dose: 125 mg Methylprednisolone Sodium Succinate (Solu-Medrol) 125 mg IVPUSH Q12H [facility] Methylprednisolone Sodium Succinate (Solu-Medrol) 125 mg IVPUSH DAILY [facility] Last Admin: 09/06/18 08:34 Dose: 125 mg Morphine Sulfate (Morphine) 1 mg IVPUSH Q4H PRN PRN Reason: Shortness of Breath Last Admin: 09/03/18 06:35 Dose: 1 mg Morphine Sulfate (Morphine) 2 mg IVPUSH Q4H PRN PRN Reason: Shortness of Breath Last Admin: 09/03/18 19:43 Dose: 2 mg Morphine Sulfate (Morphine) 2 mg IVPUSH Q2H PRN PRN Reason: Shortness of Breath Last Admin: 09/04/18 12:35 Dose: 2 mg Morphine Sulfate (Morphine) 4 mg IVPUSH ONETIME ONE Stop: 09/04/18 11:54 Last Admin: 09/04/18 11:57 Dose: Not Given Morphine Sulfate (Morphine) 3 mg IVPUSH Q2H [facility] Last Admin: 09/04/18 15:48 Dose: 3 mg Morphine Sulfate (Morphine Sulfate) Confirm Administered Dose 4 mg IV .STK-MED ONE Stop: 09/04/18 15:45 Last Admin: 09/04/18 15:51 Dose: Not Given Morphine Sulfate (Morphine Sulfate) 3 mg IV Q2H [facility] Last Admin: 09/06/18 11:15 Dose: Not Given Ondansetron HCl (Zofran) 4 mg IVPUSH ONETIME ONE Stop: 08/30/18 14:19 Last Admin: 08/30/18 14:29 Dose: 4 mg Oseltamivir Phosphate (Tamiflu) 75 mg PO ONETIME ONE Stop: 08/30/18 14:43 Last Admin: 08/30/18 15:02 Dose: 75 mg Oseltamivir Phosphate (Tamiflu) 75 mg PO BID [facility] Stop: 09/03/18 21:01 Last Admin: 09/03/18 21:30 Dose: 75 mg Vancomycin HCl (Pharmacy To Dose - Vancomycin) 1 dose .XX ASDIRECTED [facility] Vancomycin HCl (Pharmacy To Dose - Vancomycin) 1 dose .XX ASDIRECTED [facility] - Exam Quality Assessment: Supplemental Oxygen, DVT Prophylaxis General: Alert, Oriented, Cooperative, No Acute Distress HEENT: Pupils Equal, Pupils Reactive, EOMI Neck: Trachea Midline, No JVD Lungs: Normal Respiratory Effort Cardiovascular: Regular Rate, Regular Rhythm GI/Abdominal Exam: Normal Bowel Sounds, Soft, Non-Tender, No Organomegaly, No Distention (Female) Exam: Deferred Back Exam: Normal Inspection Extremities: Normal Capillary Refill Skin: Warm Neurological: No New Focal Deficit Psy/Mental Status: Alert - Problem List & Annotations (1) Streptococcal pneumonia SNOMED Code(s): 56238250 Code(s): J15.4 - PNEUMONIA DUE TO OTHER STREPTOCOCCI Status: Acute Current Visit: Yes (2) Hypoxia SNOMED Code(s): 648454016 Code(s): R09.02 - HYPOXEMIA Status: Acute Current Visit: Yes (3) Respiratory distress, acute SNOMED Code(s): 848155837 Code(s): R06.03 - ACUTE RESPIRATORY DISTRESS Status: Acute Current Visit : Yes - Problem List Review Problem List Initiated/Reviewed/Updated: Yes - My Orders Last 24 Hours: My Active Orders 09/06/18 17:00 Insulin Lispro [HumaLOG] See Protocol SUBCUT QIDACANDBED 09/06/18 19:55 LORazepam [Ativan] 2 mg IVPUSH Q6H PRN 09/06/18 21:00 methylPREDNISolone Sod Succ [Solu-MEDROL] 125 mg IVPUSH Q12H 09/07/18 09:18 C DIFFICILE BY PCR W/NAP1 [MOLEC] Routine 09/07/18 11:51 Famotidine [Pepcid] 20 mg PO BID 09/07/18 12:49 RT Arterial Blood Gases, ABG [RC] Click to Edit 09/07/18 21:00 Insulin Glargine,Hum.Rec.Anlog 10 unit SQ BID 09/08/18 05:00 LACTIC ACID [CHEM] DAILY 09/08/18 05:11 BASIC METABOLIC PANEL,BMP [CHEM] AM CRP [C-REACTIVE PROTEIN] [CHEM] AM MG [MAGNESIUM] [CHEM] AM 09/08/18 07:26 CBC W/O DIFF,HEMOGRAM [HEME] DAILY 09/08/18 08:00 Chest 1V Frontal [CR] DAILY 09/08/18 09:00 Pantoprazole [ProTONIX] 40 mg PO DAILY 09/09/18 05:11 BASIC METABOLIC PANEL,BMP [CHEM] AM CRP [C-REACTIVE PROTEIN] [CHEM] AM MG [MAGNESIUM] [CHEM] AM 09/09/18 07:26 CBC W/O DIFF,HEMOGRAM [HEME] DAILY 09/09/18 08:00 Chest 1V Frontal [CR] DAILY 09/10/18 05:11 BASIC METABOLIC PANEL,BMP [CHEM] AM CRP [C-REACTIVE PROTEIN] [CHEM] AM MG [MAGNESIUM] [CHEM] AM 09/11/18 05:11 CRP [C-REACTIVE PROTEIN] [CHEM] AM MG [MAGNESIUM] [CHEM] AM - Plan Plan:: Assessment/Plan: Acute: Influenza with secondary bacterial PNA, Strep Pneumo PNA L lower and mid lung w/ hypoxia, clinically less hypoxic * Fever, productive cough, SOB w/ exertion x 3 days * O2 82% RA--> 92% 4L NC--> 91% 12L mask--> 89-91% 15L non-rebreather--> 15L BiPAP; FIO2 0.70 07/01...O2 sat 97% on pulse ox/ABG pH 7.48 pCO2 31.0 pO2 70 sO2 94.8%; frequent changes required. * No leukocytosis, Neut 86% with 3% bandemia, CRP 15.4--> 17.6 * CXR 08/30/18: Findings felt compatible with mild bilateral bronchitis with areas of pneumonia within the left mid and lower lung. * CT Chest 08/31/18: * 1. Diffuse parenchymal densities throughout both size of the chest more confluent within the lingula and within both lower lungs. Findings have progressed from prior chest x-ray. Findings are most likely infectious in etiology. Continued follow-up is recommended. * 2. Mildly prominent lymph nodes most likely on an inflammatory basis from the lung process. * Mycoplasma negative * RVP was negative; Strep pneumo--->positive * RT/Duonebs/IS/Acapella/Chest Physiotherapy * ABG shows low O2 sat: 86.8%--> 89.7%--> 93.3 * Repeat CXR 09/01/18: * 1. Diffuse parenchymal densities as described above. Differential includes irregular areas of pulmonary edema vs diffuse multifocal areas of pneumonia. * 2. Heart is slightly enlarged Most recent ATB : Rocephin/Levoquin/Vanco * Dexamethasone BID x2 days-->completed; started solumedrol 125 mg daily * Magnesium as needed * R/O PE: * D-dimer elevated at 1.1 * CTA negative for PE * ECHO LVEF--WNL; grade 2/4 diastolic dysfunction * Pulmonary toilet * Recommend PFT outpt Influenza A, 8/9 day course * Fever and increased weakness x3 days--> Increased energy and alertness today * Tamiflu started in ED--> continue BID Sepsis * Likely 2/2 above * Temperature 102.2F, Hypoxic, Tachypneic, Tachycardia, source of infection present * LA 3.2--> 2.1--> 0.9 * Procalcitonin elevated at 0.18 * Rocephin started in ED--> continue * IVF started in ED--> continue * Blood cultures show no growth Possible AMS * Per , seemed more confused than usual this AM * Risk Factors: Current illness/sepsis, increased O2 demand, unwitnessed fall yesterday ( unsure if she hit her head; she does have a scab on her forehead but per notes it is a couple days old) * CT Head 08/31/18: * 1. Diffuse parenchymal densities throughout both sides of the chest more confluent within the lingual and within both lower lungs. Findings have progressed from prior chest x-ray. Findings are most likely infectious in etiology. Continued follow-up is recommended. * 2. Mildly prominent lymph nodes most likely on an inflammatory basis from the lung process. * Normal neuro exam, A+O x3, seems to be very lethargic * If continues to worsen/has AMS: * ICU care * LP in AM --> Cancelled d/t improved clinical disposition * CT Head in AM if still lethargic or AMS--> not needed at this time Hyperglycemia w/ DM2 * She missed a dose of insulin yesterday, didn't take her insulin this AM * Blood sugar this AM 389, Blood sugar in ED 320 * Blood glucose checks, insulin sliding scale * A1C 7.7 * Solumedrol 125 mg BID New-onset Afib, resolved maintaining SR * Risk factor: Sepsis * 12 lead EKG done, HR 100's-118 * Metoprolol 25 BID * Lovenox 40 restarted * ECHO ---nl LVEF, grade 2 diastolic dysfunction * Monitor on telemetry DHF * Diurese as needed; 2 D echo documented nl LVEF, grade 2 diastolic dysfunction * Increase Lasix 40 mg daily Abnormal electrolytes * Correct K, Mg, Na as needed Nutrition Follow oral care and intake Second day, increased oral intake; resume long acting insulin. Resolved: Dehydration * Likely 2/2 decreased intake * AGap 17.5--> 14.1 * IVF started in ED--> Continue * Monitor Possible UTI--> CULTURE NEGATIVE * Risk factors: Frequency, Incontinence * UA suspicious for UTI * Urine culture shows no growth * Rocephin started in ED--> continue Chronic: HLD * Lipids WNL HTN GERD Seizures on Tegretol (last seizure 2002) DM2 Plan: Continue ICU care Decline for transfer, will follow closely and seek transfer if needed. Droplet precautions Routine AM Labs ADA diet as tolerated TPN may be needed, will follow; currently on D5 0.45 with KCL 40 mEq-->> stopped began eating, 09/06/18. DVT/GI prophylaxis CM/SW PT/OT Code Status: Full Code; PCP: Dr. Nasreen Edmond [facility] is needed for deconditioning. LOS>96 hours with slow response to treatment for Influenza/PNA
[2018-09-07] MEDS: Famotidine 20 MG Tab PO SCH (20:22)
[2018-09-07] MEDS: Insulin Glarg,Human.Rec.Analog 100 UNIT/ML ML SUBCUT SCH (21:24)
[2018-09-07] MEDS: LORazepam 2 MG/ML SDV IVPUSH PRN (23:17)
[2018-09-08] MEDS: Morphine 2 MG/ML Syringe IVPUSH SCH ×3 (00:13→08:18)
[2018-09-08] MEDS: hydrALAZINE 20 MG/ML SDV IVPUSH PRN (00:14)
[2018-09-08] MEDS: Levalbuterol HCl 1.25 MG/0.5 ML Neb NEB SCH ×4 (05:52→21:01)
[2018-09-08] MEDS: Ipratropium 0.02% 0.5 MG/2.5 ML Neb Soln NEB SCH ×4 (05:52→21:01)
[2018-09-08] MEDS ORDERED: Pantoprazole 40 MG Tab.CR PO SCH (06:00)
[2018-09-08] MEDS: guaiFENesin/Dextromethorphan 100-10 MG/5 ML Soln 5 ML Cup PO SCH ×4 (08:16→20:22)
[2018-09-08] MEDS: methylPREDNISolone Sodium Succinate 125 MG/2 ML SDV IVPUSH SCH (08:17)
[2018-09-08] MEDS: cefTRIAXone 2 GM in Sodium Chloride 0.9% 100 ML IV SCH ×2 (08:17→20:22)
[2018-09-08] MEDS: Metoprolol Succinate 25 MG Tab.ER PO SCH ×2 (08:17→20:22)
[2018-09-08] MEDS: Famotidine 20 MG Tab PO SCH (08:17)
[2018-09-08] MEDS: Furosemide 40 MG/4 ML VIAL IVPUSH SCH (08:18)
[2018-09-08] MEDS: carBAMazepine 200 MG Tab PO SCH ×2 (08:18→20:21)
[2018-09-08] MEDS: Enoxaparin 40 MG/0.4 ML Syringe SUBCUT SCH (08:18)
[2018-09-08] MEDS: Saccharomyces Boulardii (Probiotic) 250 MG Cap PO SCH ×2 (08:19→20:21)
[2018-09-08] MEDS: Oseltamivir 75 MG Cap PO SCH ×2 (08:19→20:22)
[2018-09-08] MEDS: Sertraline 25 MG Tab PO SCH (08:19)
[2018-09-08] MEDS: Pantoprazole 40 MG Tab.CR PO SCH (08:19)
[2018-09-08] MEDS: Potassium Chloride 20 MEQ Tab.ER PO SCH (08:19)
[2018-09-08] MEDS: Aspirin 81 MG Tab.EC PO SCH (08:19)
[2018-09-08] MEDS: Insulin Lispro 100 UNIT/ML 10 ML VIAL SUBCUT SCH ×4 (08:29→21:17)
[2018-09-08] MEDS: Insulin Glarg,Human.Rec.Analog 100 UNIT/ML ML SUBCUT SCH (08:46)
--- NOTE | 2018-09-08 08:52 | CR ---
Chest: Portable view of the chest was obtained. Comparison: Prior chest x-ray of 09/07/18. Heart size and mediastinum are within normal limits for portable technique. Bony structures are unchanged. Diffuse parenchymal densities are seen. Increased density within left upper chest appearing to have increased from previous exam. Other parenchymal change within the right chest appear without definite change. Impression: 1. Slight increasing density within left upper chest from prior exam. Other parenchymal densities appear without definite change from recent study. Diagnostic code #3
[2018-09-08] MEDS ORDERED: hydrALAZINE 20 MG/ML SDV IVPUSH PRN (09:23)
[2018-09-08] MEDS: Levofloxacin/Dextrose 5%-Water 750 MG in Premix Bag 1 BAG IV SCH (10:30)
--- NOTE | 2018-09-08 11:45 | PCM.PN ---
- General Info Date of Service: 09/08/18 Functional Status: Reports: Pain Controlled, Tolerating Diet, Ambulating, Urinating - Review of Systems General: Reports: Weakness HEENT: Reports: No Symptoms Pulmonary: Reports: Shortness of Breath Cardiovascular: Reports: No Symptoms Gastrointestinal: Reports: No Symptoms Genitourinary: Reports: No Symptoms Musculoskeletal: Reports: No Symptoms Skin: Reports: No Symptoms Neurological: Reports: No Symptoms Psychiatric: Reports: No Symptoms, Depression - Patient Data Vitals - Most Recent: Last Vital Signs Temp 36.9 C 09/08/18 04:00 Pulse 109 H 09/08/18 08:17 Resp 27 H 09/08/18 04:00 BP 151/71 H 09/08/18 08:17 Pulse Ox 95 09/08/18 10:00 Weight - Most Recent: 91.217 kg I&O - Last 24 Hours: Intake & Output 09/07/18 09/08/18 09/08/18 22:59 06:59 14:59 Intake Total 1855 100 Output Total 925 2250 1425 Balance 930 -2150 -1425 Lab Results Last 24 Hours: Laboratory Results - last 24 hr 09/07/18 09/07/18 09/07/18 Range/Units 12:59 16:27 16:43 WBC 5.27 (3.98-10.04) K/mm3 RBC 4.08 (3.98-5.22) M/mm3 Hgb 11.1 L (11.2-15.7) gm/L Hct 34.1 (34.1-44.9) % MCV 83.6 (79.4-94.8) fl MCH 27.2 (25.6-32.2) pg MCHC 32.6 (32.2-35.5) g/dl RDW Std Deviation 43.2 (36.4-46.3) fL Plt Count 353 (182-369) K/mm3 MPV 9.7 (9.4-12.3) fl Puncture Site Lt radial ABG pH 7.46 H (7.35-7.45) ABG pCO2 33.1 L (35.0-45.0) mmHg ABG pO2 63.0 L (80.0-100.0) mmHg ABG HCO3 23.3 (22.0-26.0) meq/L ABG O2 Saturation 92.6 L (96.0-97.0) % ABG Base Excess 0.4 (-2-2.0) Aston Test Positive O2 Delivery Device Nasal cannula Oxygen Flow Rate 4.0 FiO2 0.00 L (21.00-100.00) % Sodium (136-145) mEq/L Potassium (3.5-5.1) mEq/L Chloride (98-107) mEq/L Carbon Dioxide (21-32) mEq/L Anion Gap (5-15) BUN (7-18) mg/dL Creatinine (0.55-1.02) mg/dL Est Cr Clr Drug Dosing mL/min Estimated GFR (MDRD) (>60) mL/min BUN/Creatinine Ratio (14-18) Glucose (80-115) mg/dL Lactic Acid (0.4-2.0) mmol/L Calcium (8.5-10.1) mg/dL Magnesium (1.8-2.4) mg/dl C-Reactive Protein (<1.0) mg/dL C.difficile [id number] Presumptive negative C. difficile Tox (PCR) Negative 09/07/18 09/07/18 09/08/18 Range/Units 16:43 20:31 05:35 WBC (3.98-10.04) K/mm3 RBC (3.98-5.22) M/mm3 Hgb (11.2-15.7) gm/L Hct (34.1-44.9) % MCV (79.4-94.8) fl MCH (25.6-32.2) pg MCHC (32.2-35.5) g/dl RDW Std Deviation (36.4-46.3) fL Plt Count (182-369) K/mm3 MPV (9.4-12.3) fl Puncture Site ABG pH (7.35-7.45) ABG pCO2 (35.0-45.0) mmHg ABG pO2 (80.0-100.0) mmHg ABG HCO3 (22.0-26.0) meq/L ABG O2 Saturation (96.0-97.0) % ABG Base Excess (-2-2.0) Aston Test O2 Delivery Device Oxygen Flow Rate FiO2 (21.00-100.00) % Sodium (136-145) mEq/L Potassium (3.5-5.1) mEq/L Chloride (98-107) mEq/L Carbon Dioxide (21-32) mEq/L Anion Gap (5-15) BUN (7-18) mg/dL Creatinine (0.55-1.02) mg/dL Est Cr Clr Drug Dosing mL/min Estimated GFR (MDRD) (>60) mL/min BUN/Creatinine Ratio (14-18) Glucose 497 H 587 H (80-115) mg/dL Lactic Acid 1.3 (0.4-2.0) mmol/L Calcium (8.5-10.1) mg/dL Magnesium (1.8-2.4) mg/dl C-Reactive Protein (<1.0) mg/dL C.difficile [id number] C. difficile Tox (PCR) 09/08/18 09/08/18 09/08/18 Range/Units 05:35 05:35 05:35 WBC 4.68 (3.98-10.04) K/mm3 RBC 3.90 L (3.98-5.22) M/mm3 Hgb 10.5 L (11.2-15.7) gm/L Hct 32.8 L (34.1-44.9) % MCV 84.1 (79.4-94.8) fl MCH 26.9 (25.6-32.2) pg MCHC 32.0 L (32.2-35.5) g/dl RDW Std Deviation 42.8 (36.4-46.3) fL Plt Count 362 (182-369) K/mm3 MPV 9.9 (9.4-12.3) fl Puncture Site ABG pH (7.35-7.45) ABG pCO2 (35.0-45.0) mmHg ABG pO2 (80.0-100.0) mmHg ABG HCO3 (22.0-26.0) meq/L ABG O2 Saturation (96.0-97.0) % ABG Base Excess (-2-2.0) Aston Test O2 Delivery Device Oxygen Flow Rate FiO2 (21.00-100.00) % Sodium 140 (136-145) mEq/L Potassium 5.1 (3.5-5.1) mEq/L Chloride 106 (98-107) mEq/L Carbon Dioxide 28 (21-32) mEq/L Anion Gap 11.1 (5-15) BUN 18 (7-18) mg/dL Creatinine 0.9 (0.55-1.02) mg/dL Est Cr Clr Drug Dosing 56.73 mL/min Estimated GFR (MDRD) > 60 (>60) mL/min BUN/Creatinine Ratio 20.0 H (14-18) Glucose 469 H (80-115) mg/dL Lactic Acid (0.4-2.0) mmol/L Calcium 8.8 (8.5-10.1) mg/dL Magnesium 2.1 (1.8-2.4) mg/dl C-Reactive Protein 6.5 H* (<1.0) mg/dL C.difficile [id number] C. difficile Tox (PCR) Alireza Results Last 24 Hours: Microbiology 09/03/18 21:20 Aerobic Blood Culture - Preliminary Blood - Venous NO GROWTH AFTER 4 DAYS Anaerobic Blood Culture - Preliminary NO GROWTH AFTER 4 DAYS 09/03/18 21:25 Aerobic Blood Culture - Preliminary Blood - Venous - Lab Draw NO GROWTH AFTER 4 DAYS Anaerobic Blood Culture - Preliminary NO GROWTH AFTER 4 DAYS Med Orders - Current: Current Medications Acetaminophen (Tylenol) 650 mg PO Q4H PRN PRN Reason: Pain (Mild 1-3)/fever Last Admin: 08/31/18 20:10 Dose: 650 mg Alogliptin Benzoate (Alogliptin) 25 mg PO DAILY [facility] Last Admin: 09/08/18 08:19 Dose: 25 mg Aspirin (Halfprin) 81 mg PO DAILY [facility] Last Admin: 09/08/18 08:19 Dose: 81 mg Bisacodyl (Dulcolax) 5 mg PO DAILY PRN PRN Reason: Constipation Carbamazepine (Tegretol Tab) 400 mg PO BID [facility] Last Admin: 09/08/18 08:18 Dose: 400 mg Dextrose/Water (Dextrose 50% In Water) 50 ml IVPUSH ASDIRECTED PRN PRN Reason: Hypoglycemia Diltiazem HCl (Cardizem) 10 mg IVPUSH Q4H PRN PRN Reason: tachy >110 Last Admin: 09/02/18 06:52 Dose: 10 mg Docusate Sodium (Colace) 100 mg PO BID PRN PRN Reason: Constipation Enoxaparin Sodium (Lovenox) 40 mg SUBCUT DAILY [facility] Last Admin: 09/08/18 08:18 Dose: 40 mg Furosemide (Lasix) 40 mg IVPUSH DAILY [facility] Last Admin: 09/08/18 08:18 Dose: 40 mg Guaifenesin/Phenylephrine HCl (Robitussin Dm) 10 ml PO TID [facility] Last Admin: 09/08/18 08:16 Dose: 10 ml Hydralazine HCl (Apresoline) 20 mg IVPUSH Q6H PRN PRN Reason: Hypertension Promethazine HCl 6.25 mg/ (Sodium Chloride) 50.25 mls @ 100 mls/hr IV Q6H PRN PRN Reason: Nausea/Vomiting Levofloxacin/Dextrose 750 mg/ (Premix) 150 mls @ 100 mls/hr IV Q24H [facility] Last Admin: 09/08/18 10:30 Dose: 100 mls/hr Ceftriaxone Sodium 2 gm/ (Sodium Chloride) 100 mls @ 200 mls/hr IV Q12H [facility] Last Admin: 09/08/18 08:17 Dose: 200 mls/hr Insulin Glargine (Lantus) 15 unit SUBCUT BIDAC [facility] Insulin Human Lispro (Humalog) 0 unit SUBCUT QIDACANDBED [facility]; Protocol Last Admin: 09/08/18 08:29 Dose: 15 units Ipratropium Jean (Atrovent) 0.5 mg NEB QIDRT [facility] Last Admin: 09/08/18 09:49 Dose: 0.5 mg Levalbuterol HCl (Xopenex) 1.25 mg NEB QIDRT [facility] Last Admin: 09/08/18 09:49 Dose: 1.25 mg Levalbuterol HCl (Xopenex) 1.25 mg NEB Q2H PRN PRN Reason: sob Last Admin: 09/03/18 19:24 Dose: 1.25 mg Lorazepam (Ativan) 2 mg IVPUSH Q4H PRN PRN Reason: Seizures Lorazepam (Ativan) 2 mg IVPUSH Q6H PRN PRN Reason: Anxiety Last Admin: 09/07/18 23:17 Dose: 2 mg Magnesium Hydroxide (Milk Of Magnesia) 30 ml PO Q12H PRN PRN Reason: Constipation Methylprednisolone Sodium Succinate (Solu-Medrol) 125 mg IVPUSH DAILY [facility] Metoprolol Succinate (Toprol Xl) 25 mg PO BID [facility] Last Admin: 09/08/18 08:17 Dose: 25 mg Metoprolol Tartrate (Lopressor) 5 mg IVPUSH Q4H PRN PRN Reason: Tachycardia Last Admin: 09/03/18 19:25 Dose: 5 mg Morphine Sulfate (Morphine Sulfate) 3 mg IV Q6H PRN PRN Reason: Dyspnea Oseltamivir Phosphate (Tamiflu) 75 mg PO BID [facility] Last Admin: 09/08/18 08:19 Dose: 75 mg Pantoprazole Sodium (Protonix) 40 mg PO DAILY [facility] Last Admin: 09/08/18 08:19 Dose: 40 mg Polyethylene Glycol (Miralax) 17 gm PO DAILY PRN PRN Reason: Constipation Promethazine HCl (Phenergan) 25 mg PO Q6H PRN PRN Reason: Nausea/Vomiting Saccharomyces Boulardii (Florastor) 250 mg PO BID [facility] Last Admin: 09/08/18 08:19 Dose: 250 mg Senna/Docusate Sodium (Senna Plus) 1 tab PO BID PRN PRN Reason: Constipation Sertraline HCl (Zoloft) 25 mg PO DAILY [facility] Last Admin: 09/08/18 08:19 Dose: 25 mg Temazepam (Restoril) 7.5 mg PO BEDTIME PRN PRN Reason: Sleep Discontinued Medications Acetaminophen (Tylenol) 975 mg PO NOW ONE Stop: 08/30/18 14:27 Last Admin: 08/30/18 14:51 Dose: 975 mg Hydrocodone Bitart/Acetaminophen ([place] 325-5 Mg) 1 tab PO Q4H PRN PRN Reason: Pain (moderate 4-6) Albuterol (Proventil Neb Soln) 2.5 mg NEB Q2H PRN PRN Reason: Shortness Of Breath/wheezing Last Admin: 08/31/18 23:15 Dose: 2.5 mg Albuterol/Ipratropium (Duoneb 3.0-0.5 Mg/3 Ml) 3 ml NEB Q4H PRN PRN Reason: Shortness Of Breath/wheezing Last Admin: 08/31/18 10:44 Dose: 3 ml Albuterol/Ipratropium (Duoneb 3.0-0.5 Mg/3 Ml) 3 ml NEB QIDRT [facility] Last Admin: 09/01/18 08:59 Dose: 3 ml Ampicillin Sodium (Ampicillin) Confirm Administered Dose 1 gm .ROUTE .[facility] ONE Stop: 08/31/18 21:19 Last Admin: 08/31/18 21:33 Dose: Not Given Ceftriaxone Sodium (Rocephin) 2 gm IVPUSH Q24H [facility] Ceftriaxone Sodium (Rocephin) 2 gm IVPUSH Q12H [facility] Dexamethasone (Dexamethasone) Confirm Administered Dose 40 mg .ROUTE .STK-[facility] ONE Stop: 08/31/18 19:53 Last Admin: 08/31/18 20:15 Dose: Not Given Dexamethasone (Dexamethasone) 40 mg IVPUSH Q12HR [facility] Stop: 09/03/18 07:01 Diphenhydramine HCl (Benadryl) 25 mg IVPUSH ONETIME ONE Stop: 09/04/18 10:25 Last Admin: 09/04/18 10:49 Dose: 25 mg Famotidine (Pepcid) 20 mg PO BID [facility] Last Admin: 09/03/18 09:06 Dose: 20 mg Famotidine (Pepcid) 20 mg IVPUSH BID [facility] Famotidine (Pepcid) 20 mg IVPUSH BID [facility] Last Admin: 09/07/18 09:02 Dose: 20 mg Famotidine (Pepcid) 20 mg PO BID [facility] Last Admin: 09/08/18 08:17 Dose: 20 mg Furosemide (Lasix) 40 mg IVPUSH NOW ONE Stop: 08/30/18 14:51 Last Admin: 08/30/18 14:58 Dose: 40 mg Furosemide (Lasix) 20 mg IVPUSH NOW ONE Stop: 09/02/18 12:18 Last Admin: 09/02/18 13:45 Dose: 20 mg Furosemide (Lasix) 20 mg IVPUSH NOW ONE Stop: 09/02/18 21:01 Last Admin: 09/02/18 20:18 Dose: 20 mg Furosemide (Lasix) 20 mg IVPUSH NOW ONE Stop: 09/03/18 09:49 Last Admin: 09/03/18 10:27 Dose: 20 mg Furosemide (Lasix) 20 mg IVPUSH ONETIME ONE Stop: 09/04/18 06:01 Last Admin: 09/04/18 05:48 Dose: 20 mg Furosemide (Lasix) 20 mg IVPUSH NOW ONE Stop: 09/04/18 12:31 Last Admin: 09/04/18 12:32 Dose: 20 mg Furosemide (Lasix) 20 mg IVPUSH ONETIME ONE Stop: 09/04/18 20:01 Last Admin: 09/04/18 20:15 Dose: 20 mg Furosemide (Lasix) 40 mg IVPUSH NOW ONE Stop: 09/05/18 15:01 Last Admin: 09/05/18 14:42 Dose: 40 mg Glimepiride (Glimepiride) 4 mg PO BIDMEALS [facility] Last Admin: 09/03/18 09:05 Dose: 4 mg Guaifenesin/Phenylephrine HCl (Robitussin Dm) 10 ml PO TID@0700,1400,2100 [facility] Last Admin: 09/08/18 10:17 Dose: Not Given Hydralazine HCl (Apresoline) 10 mg IVPUSH Q4H PRN PRN Reason: Hypertension Last Admin: 09/08/18 00:14 Dose: 10 mg Hydromorphone HCl (Dilaudid) 0.25 mg IVPUSH Q2H PRN PRN Reason: Pain (severe 7-10) Sodium Chloride (Normal Saline) 1,000 mls @ 150 mls/hr IV ASDIRECTED [facility] Last Admin: 08/30/18 14:26 Dose: 150 mls/hr Sodium Chloride (Normal Saline) 1,000 mls @ 75 mls/hr IV ASDIRECTED [facility] Ceftriaxone Sodium 1 gm/ (Sodium Chloride) 100 mls @ 200 mls/hr IV ONETIME ONE Stop: 08/30/18 16:28 Last Admin: 08/30/18 16:57 Dose: 200 mls/hr Azithromycin 500 mg/ Sodium (Chloride) 250 mls @ 250 mls/hr IV Q24H [facility] Last Admin: 08/30/18 21:15 Dose: 250 mls/hr Sodium Chloride (Normal Saline) 1,000 mls @ 125 mls/hr IV ASDIRECTED [facility] Last Admin: 08/31/18 00:55 Dose: 125 mls/hr Ceftriaxone Sodium 1 gm/ (Sodium Chloride) 100 mls @ 200 mls/hr IV ONETIME ONE Stop: 08/30/18 19:14 Last Admin: 08/30/18 19:28 Dose: 200 mls/hr Ceftriaxone Sodium 2 gm/ (Sodium Chloride) 100 mls @ 200 mls/hr IV Q24H [facility] Dextrose/Sodium Chloride (Dextrose 5%-Normal Saline) 1,000 mls @ 125 mls/hr IV ASDIRECTED [facility] Last Admin: 08/31/18 08:05 Dose: 125 mls/hr Piperacillin Sod/Tazobactam (Sod 4.5 gm/ Sodium Chloride) 100 mls @ 200 mls/hr IV ONETIME ONE Stop: 08/31/18 10:29 Last Admin: 08/31/18 11:28 Dose: Not Given Piperacillin Sod/Tazobactam (Sod 4.5 gm/ Sodium Chloride) 100 mls @ 25 mls/hr IV Q8H [facility] Last Admin: 08/31/18 23:34 Dose: Not Given Vancomycin HCl 1 gm/ Sodium (Chloride) 250 mls @ 250 mls/hr IV Q12H [facility] Last Admin: 09/01/18 21:37 Dose: 250 mls/hr Sodium Chloride (Normal Saline) Confirm Administered Dose 100 mls @ as directed .ROUTE .[facility] ONE Stop: 08/31/18 10:49 Last Admin: 08/31/18 11:29 Dose: Not Given Piperacillin Sod/Tazobactam (Sod 4.5 gm/ Sodium Chloride) 100 mls @ 200 mls/hr IV ONETIME ONE Stop: 08/31/18 11:44 Last Admin: 08/31/18 12:56 Dose: 200 mls/hr Sodium Chloride (Normal Saline) 1,000 mls @ 75 mls/hr IV ASDIRECTED [facility] Last Admin: 09/02/18 04:15 Dose: 75 mls/hr Magnesium Sulfate/Dextrose (Magnesium 1 Gm In D5w 100 Ml) Confirm Administered Dose 100 mls @ as directed .ROUTE .[facility] ONE Stop: 08/31/18 19:53 Last Admin: 08/31/18 20:15 Dose: Not Given Acyclovir 1,000 mg/ Sodium (Chloride) 120 mls @ 100 mls/hr IV Q8H [facility] Last Admin: 09/02/18 04:09 Dose: 100 mls/hr Ampicillin Sodium 1 gm/ Sodium (Chloride) 100 mls @ 200 mls/hr IV Q4H [facility] Last Admin: 08/31/18 23:34 Dose: Not Given Dexamethasone 40 mg/ Sodium (Chloride) 54 mls @ 108 mls/hr IV BID@0700,1900 [facility] Stop: 09/02/18 20:31 Last Admin: 09/02/18 18:08 Dose: 108 mls/hr Magnesium Sulfate 2 gm/ Premix 50 mls @ 25 mls/hr IV ONETIME ONE Stop: 08/31/18 22:13 Last Admin: 08/31/18 21:26 Dose: Not Given Magnesium Sulfate/Dextrose 1 (gm/ Premix) 100 mls @ 100 mls/hr IV ONETIME ONE Stop: 08/31/18 21:29 Last Admin: 08/31/18 20:35 Dose: 100 mls/hr Ampicillin Sodium 1 gm/ Sodium (Chloride) 100 mls @ 200 mls/hr IV Q4H [facility] Last Admin: 09/01/18 11:17 Dose: Not Given Sodium Chloride (Normal Saline) Confirm Administered Dose 100 mls @ as directed .ROUTE .STK-[facility] ONE Stop: 08/31/18 21:21 Last Admin: 08/31/18 21:29 Dose: Not Given Sodium Chloride (Normal Saline) 250 mls @ 999 mls/hr IV ONETIME ONE Stop: 08/31/18 21:25 Last Admin: 08/31/18 23:07 Dose: Not Given Ceftriaxone Sodium 2 gm/ (Sodium Chloride) 100 mls @ 200 mls/hr IV Q24H [facility] Last Admin: 09/02/18 23:19 Dose: 200 mls/hr Ampicillin Sodium 1 gm/ Sodium (Chloride) 100 mls @ 200 mls/hr IV Q4H [facility] Last Admin: 09/02/18 05:41 Dose: 200 mls/hr Potassium Chloride/Dextrose/Sod Cl (D5 1/2 Ns W/ 40 Meq/L Kcl) 1,000 mls @ 75 mls/hr IV ASDIRECTED [facility] Last Infusion: 09/03/18 20:30 Dose: 125 mls/hr Vancomycin HCl 1 gm/ Sodium (Chloride) 250 mls @ 250 mls/hr IV Q12H [facility] Stop: 09/05/18 01:30 Last Admin: 09/04/18 23:52 Dose: 250 mls/hr Potassium Chloride 10 meq/ (Premix) 100 mls @ 100 mls/hr IV Q1H [facility] Stop: 09/03/18 11:59 Last Admin: 09/03/18 12:32 Dose: 100 mls/hr Magnesium Sulfate 2 gm/ Premix 50 mls @ 25 mls/hr IV ONETIME ONE Stop: 09/03/18 21:50 Last Admin: 09/03/18 20:13 Dose: 25 mls/hr Potassium Chloride/Dextrose/Sod Cl (D5 1/2 Ns W/ 40 Meq/L Kcl) 1,000 mls @ 125 mls/hr IV ASDIRECTED [facility] Last Admin: 09/07/18 10:33 Dose: 75 mls/hr Magnesium Sulfate 2 gm/ Premix 50 mls @ 25 mls/hr IV ONETIME ONE Stop: 09/04/18 12:43 Last Admin: 09/04/18 11:09 Dose: 25 mls/hr Vancomycin HCl 1 gm/ Sodium (Chloride) 250 mls @ 250 mls/hr IV Q8H [facility] Last Admin: 09/06/18 09:10 Dose: Not Given Vancomycin HCl 1 gm/Vancomycin HCl 250 mg/ Sodium Chloride 250 mls @ 166.667 mls/hr IV Q8H [facility] Stop: 09/07/18 12:00 Last Admin: 09/07/18 08:11 Dose: 166.667 mls/hr Magnesium Sulfate/Dextrose 1 (gm/ Premix) 100 mls @ 100 mls/hr IV ONETIME ONE Stop: 09/06/18 15:12 Last Admin: 09/06/18 15:10 Dose: 100 mls/hr Insulin Glargine (Lantus) 10 unit SUBCUT BID [facility] Last Admin: 09/08/18 08:46 Dose: 10 units Insulin Human Lispro (Humalog) 0 unit SUBCUT QIDACANDBED [facility]; Protocol Last Admin: 08/31/18 20:54 Dose: 3 unit Insulin Human Lispro (Humalog) 0 unit SUBCUT QIDACANDBED [facility]; Protocol Last Admin: 09/06/18 12:27 Dose: 10 units Insulin Human Regular (Humulin R) 8 unit SUBCUT ONETIME ONE Stop: 08/30/18 14:55 Last Admin: 08/30/18 15:06 Dose: 8 units Lorazepam (Ativan) 2 mg IVPUSH Q4H PRN PRN Reason: Seizures Lorazepam (Ativan) 2 mg IVPUSH Q6H PRN PRN Reason: Seizures Last Admin: 09/03/18 16:23 Dose: 2 mg Lorazepam (Ativan) 1 mg IVPUSH ONETIME ONE Stop: 09/04/18 11:57 Last Admin: 09/04/18 12:32 Dose: 1 mg Lorazepam (Ativan) 1 mg IVPUSH Q8H PRN PRN Reason: Anxiety Last Admin: 09/06/18 16:44 Dose: 1 mg Methylprednisolone Sodium Succinate (Solu-Medrol) 125 mg IVPUSH ONETIME ONE Stop: 09/03/18 19:33 Last Admin: 09/03/18 19:39 Dose: 125 mg Methylprednisolone Sodium Succinate (Solu-Medrol) 125 mg IVPUSH Q12H [facility] Methylprednisolone Sodium Succinate (Solu-Medrol) 125 mg IVPUSH DAILY [facility] Last Admin: 09/06/18 08:34 Dose: 125 mg Methylprednisolone Sodium Succinate (Solu-Medrol) 125 mg IVPUSH Q12H [facility] Last Admin: 09/08/18 08:17 Dose: 125 mg Morphine Sulfate (Morphine) 1 mg IVPUSH Q4H PRN PRN Reason: Shortness of Breath Last Admin: 09/03/18 06:35 Dose: 1 mg Morphine Sulfate (Morphine) 2 mg IVPUSH Q4H PRN PRN Reason: Shortness of Breath Last Admin: 09/03/18 19:43 Dose: 2 mg Morphine Sulfate (Morphine) 2 mg IVPUSH Q2H PRN PRN Reason: Shortness of Breath Last Admin: 09/04/18 12:35 Dose: 2 mg Morphine Sulfate (Morphine) 4 mg IVPUSH ONETIME ONE Stop: 09/04/18 11:54 Last Admin: 09/04/18 11:57 Dose: Not Given Morphine Sulfate (Morphine) 3 mg IVPUSH Q2H [facility] Last Admin: 09/04/18 15:48 Dose: 3 mg Morphine Sulfate (Morphine Sulfate) Confirm Administered Dose 4 mg IV .STK-[facility] ONE Stop: 09/04/18 15:45 Last Admin: 09/04/18 15:51 Dose: Not Given Morphine Sulfate (Morphine Sulfate) 3 mg IV Q2H [facility] Last Admin: 09/06/18 11:15 Dose: Not Given Morphine Sulfate (Morphine) 3 mg IVPUSH Q4H [facility] Last Admin: 09/08/18 08:18 Dose: 3 mg Ondansetron HCl (Zofran) 4 mg IVPUSH ONETIME ONE Stop: 08/30/18 14:19 Last Admin: 08/30/18 14:29 Dose: 4 mg Oseltamivir Phosphate (Tamiflu) 75 mg PO ONETIME ONE Stop: 08/30/18 14:43 Last Admin: 08/30/18 15:02 Dose: 75 mg Oseltamivir Phosphate (Tamiflu) 75 mg PO BID [facility] Stop: 09/03/18 21:01 Last Admin: 09/03/18 21:30 Dose: 75 mg Pantoprazole Sodium (Protonix) 40 mg PO ACBREAKFAST [facility] Last Admin: 09/08/18 10:17 Dose: Not Given Potassium Chloride (Klor-Con M20) 40 meq PO BID [facility] Last Admin: 09/08/18 08:19 Dose: 40 meq Vancomycin HCl (Pharmacy To Dose - Vancomycin) 1 dose .XX ASDIRECTED [facility] Vancomycin HCl (Pharmacy To Dose - Vancomycin) 1 dose .XX ASDIRECTED [facility] - Exam Quality Assessment: Supplemental Oxygen, DVT Prophylaxis General: Alert, Oriented, No Acute Distress HEENT: Pupils Equal, Pupils Reactive, EOMI Neck: Trachea Midline, No JVD Lungs: Normal Respiratory Effort, Decreased Breath Sounds, Rhonchi Cardiovascular: Regular Rate, Regular Rhythm GI/Abdominal Exam: Normal Bowel Sounds, Soft, Non-Tender, No Organomegaly, No Distention (Female) Exam: Deferred Back Exam: Normal Inspection Extremities: Normal Inspection, Non-Tender, Normal Capillary Refill Skin: Warm Neurological: No New Focal Deficit, Normal Speech Psy/Mental Status: Alert - Problem List & Annotations (1) Streptococcal pneumonia SNOMED Code(s): 37572403 Code(s): J15.4 - PNEUMONIA DUE TO OTHER STREPTOCOCCI Status: Acute Current Visit: Yes (2) Hypoxia SNOMED Code(s): 414942362 Code(s): R09.02 - HYPOXEMIA Status: Acute Current Visit: Yes (3) Respiratory distress, acute SNOMED Code(s): 063668740 Code(s): R06.03 - ACUTE RESPIRATORY DISTRESS Status: Acute Current Visit : Yes - Problem List Review Problem List Initiated/Reviewed/Updated: Yes - My Orders Last 24 Hours: My Active Orders 09/07/18 12:49 RT Arterial Blood Gases, ABG [RC] Click to Edit 09/08/18 09:00 Pantoprazole [ProTONIX] 40 mg PO DAILY 09/08/18 09:23 hydrALAZINE [Apresoline] 20 mg IVPUSH Q6H PRN 09/08/18 10:00 Communication Order [RC] ROUTINE 09/08/18 11:11 Morphine Sulfate 3 mg IV Q6H PRN 09/08/18 16:00 Insulin Glarg,Human.Rec.Analog [LantUS] 15 unit SUBCUT BIDAC 09/09/18 05:11 BASIC METABOLIC PANEL,BMP [CHEM] AM CRP [C-REACTIVE PROTEIN] [CHEM] AM MG [MAGNESIUM] [CHEM] AM 09/09/18 07:26 CBC W/O DIFF,HEMOGRAM [HEME] DAILY 09/09/18 08:00 Chest 1V Frontal [CR] DAILY 09/09/18 09:00 methylPREDNISolone Sod Succ [Solu-MEDROL] 125 mg IVPUSH DAILY 09/10/18 05:11 BASIC METABOLIC PANEL,BMP [CHEM] AM CRP [C-REACTIVE PROTEIN] [CHEM] AM MG [MAGNESIUM] [CHEM] AM 09/11/18 05:11 CRP [C-REACTIVE PROTEIN] [CHEM] AM MG [MAGNESIUM] [CHEM] AM - Plan Plan:: Assessment/Plan: Acute: Influenza with secondary bacterial PNA, Strep Pneumo PNA L lower and mid lung w/ hypoxia, clinically improved * Fever, productive cough, SOB w/ exertion x 3 days * O2 82% RA--> 92% 4L NC--> 91% 12L mask--> 89-91% 15L non-rebreather--> 15L BiPAP; FIO2 0.70 12/7...O2 sat 97% on pulse ox/ABG pH 7.48 pCO2 31.0 pO2 70 sO2 94.8%; frequent changes required. * No leukocytosis, Neut 86% with 3% bandemia, CRP 15.4--> 17.6 * CXR 08/30/18: Findings felt compatible with mild bilateral bronchitis with areas of pneumonia within the left mid and lower lung. * CT Chest 08/31/18: * 1. Diffuse parenchymal densities throughout both size of the chest more confluent within the lingula and within both lower lungs. Findings have progressed from prior chest x-ray. Findings are most likely infectious in etiology. Continued follow-up is recommended. * 2. Mildly prominent lymph nodes most likely on an inflammatory basis from the lung process. * Mycoplasma negative * RVP was negative; Strep pneumo--->positive * RT/Duonebs/IS/Acapella/Chest Physiotherapy * ABG shows low O2 sat: 86.8%--> 89.7%--> 93.3 * Repeat CXR 09/01/18: * 1. Diffuse parenchymal densities as described above. Differential includes irregular areas of pulmonary edema vs diffuse multifocal areas of pneumonia. * 2. Heart is slightly enlarged Most recent ATB : Rocephin/Levoquin/Vanco--Vanco stopped 09/07/18; Rocephin stopped 09/09/18; continue Levoquin po on 09/10/18 * Dexamethasone BID x2 days-->completed; started solumedrol 125 mg daily, change to prednisone 40 mg day, 09/09/18. * Magnesium as needed * R/O PE: * D-dimer elevated at 1.1 * CTA negative for PE * ECHO LVEF--WNL; grade 2/4 diastolic dysfunction * Pulmonary toilet * Recommend PFT outpt Influenza A, * Fever and increased weakness x3 days--> Increased energy and alertness today * Tamiflu started in ED--> continue BID Sepsis * Likely 2/2 above * Temperature 102.2F, Hypoxic, Tachypneic, Tachycardia, source of infection present * LA 3.2--> 2.1--> 0.9 * Procalcitonin elevated at 0.18 * Rocephin started in ED--> continue * IVF started in ED--> continue * Blood cultures show no growth Possible AMS * Per , seemed more confused than usual this AM * Risk Factors: Current illness/sepsis, increased O2 demand, unwitnessed fall yesterday ( unsure if she hit her head; she does have a scab on her forehead but per notes it is a couple days old) * CT Head 08/31/18: * 1. Diffuse parenchymal densities throughout both sides of the chest more confluent within the lingual and within both lower lungs. Findings have progressed from prior chest x-ray. Findings are most likely infectious in etiology. Continued follow-up is recommended. * 2. Mildly prominent lymph nodes most likely on an inflammatory basis from the lung process. * Normal neuro exam, A+O x3, seems to be very lethargic * If continues to worsen/has AMS: * ICU care * LP in AM --> Cancelled d/t improved clinical disposition * CT Head in AM if still lethargic or AMS--> not needed at this time Hyperglycemia w/ DM2 * She missed a dose of insulin yesterday, didn't take her insulin this AM * Blood sugar this AM 389, Blood sugar in ED 320 * Blood glucose checks, insulin sliding scale * A1C 7.7 * Solumedrol 125 mg BID-->decreased to once daily New-onset Afib, resolved maintaining SR * Risk factor: Sepsis * 12 lead EKG done, HR 100's-118 * Metoprolol 25 BID * Lovenox 40 restarted * ECHO ---nl LVEF, grade 2 diastolic dysfunction * Monitor on telemetry DHF * Diurese as needed; 2 D echo documented nl LVEF, grade 2 diastolic dysfunction * Increase Lasix 40 mg daily, decreased to 20 mg po daily on 09/09/18. Abnormal electrolytes * Correct K, Mg, Na as needed Nutrition Follow oral care and intake Resume long acting insulin. Resolved: Dehydration * Likely 2/2 decreased intake * AGap 17.5--> 14.1 * IVF started in ED--> Continue * Monitor Possible UTI--> CULTURE NEGATIVE * Risk factors: Frequency, Incontinence * UA suspicious for UTI * Urine culture shows no growth * Rocephin started in ED--> continue Chronic: HLD * Lipids WNL HTN GERD Seizures on Tegretol (last seizure 2002) DM2 Plan: Continue ICU care Decline for transfer, will follow closely and seek transfer if needed. Droplet precautions Routine AM Labs ADA diet as tolerated TPN may be needed, will follow; currently on D5 0.45 with KCL 40 mEq-->> stopped began eating, 09/06/18. DVT/GI prophylaxis CM/SW PT/OT Code Status: Full Code; PCP: Dr. Nasreen Ed[facility] is needed for deconditioning [facility] LOS>96 hours with slow response to treatment for Influenza/PNA
[2018-09-08] MEDS ORDERED: Insulin Glarg,Human.Rec.Analog 100 UNIT/ML ML SUBCUT ONE ×2 (12:10→21:00)
[2018-09-08] MEDS ORDERED: Sodium Chloride 0.45% 1,000 ML IV SCH (13:45)
[2018-09-08] MEDS: Sodium Chloride 0.45% 1,000 ML IV SCH ×2 (15:14→19:16)
[2018-09-08] MEDS ORDERED: Furosemide 40 MG/4 ML VIAL IVPUSH ONE (18:00)
[2018-09-08] MEDS ORDERED: Insulin Glarg,Human.Rec.Analog 100 UNIT/ML ML SUBCUT SCH (22:00)
[2018-09-09] MEDS: Ipratropium 0.02% 0.5 MG/2.5 ML Neb Soln NEB SCH ×4 (05:25→20:34)
[2018-09-09] MEDS: Levalbuterol HCl 1.25 MG/0.5 ML Neb NEB SCH ×4 (05:25→20:34)
[2018-09-09] MEDS: Insulin Lispro 100 UNIT/ML 10 ML VIAL SUBCUT SCH ×4 (06:42→23:11)
[2018-09-09] MEDS: Insulin Glarg,Human.Rec.Analog 100 UNIT/ML ML SUBCUT SCH ×2 (06:43→21:19)
[2018-09-09] MEDS ORDERED: methylPREDNISolone Sodium Succinate 125 MG/2 ML SDV IVPUSH SCH (09:00)
[2018-09-09] MEDS: carBAMazepine 200 MG Tab PO SCH ×2 (09:07→20:31)
[2018-09-09] MEDS: Pantoprazole 40 MG Tab.CR PO SCH (09:07)
[2018-09-09] MEDS: Aspirin 81 MG Tab.EC PO SCH (09:07)
[2018-09-09] MEDS: Oseltamivir 75 MG Cap PO SCH (09:07)
[2018-09-09] MEDS: Saccharomyces Boulardii (Probiotic) 250 MG Cap PO SCH ×2 (09:08→20:31)
[2018-09-09] MEDS: Furosemide 40 MG/4 ML VIAL IVPUSH SCH (09:08)
[2018-09-09] MEDS: Metoprolol Succinate 25 MG Tab.ER PO SCH ×2 (09:08→20:31)
[2018-09-09] MEDS: guaiFENesin/Dextromethorphan 100-10 MG/5 ML Soln 5 ML Cup PO SCH ×4 (09:09→20:31)
[2018-09-09] MEDS: cefTRIAXone 2 GM in Sodium Chloride 0.9% 100 ML IV SCH (09:09)
[2018-09-09] MEDS: Sertraline 50 MG Tab PO SCH (09:09)
[2018-09-09] MEDS: Enoxaparin 40 MG/0.4 ML Syringe SUBCUT SCH (09:10)
--- NOTE | 2018-09-09 09:40 | PCM.PN ---
- General Info Date of Service: 09/09/18 Subjective Update: Increase activity level as tolerated, will need in patient rehab; hyperglycemia has resolved, resuming diet, has been well tolerated. Levoquin 750 mg daily, 09/10/18, remaining ATB/Viral agents stopped. Prednisone, . Lasix 20 mg daily, 09/10/18. DC Kam, 09/10/18. Functional Status: Reports: Pain Controlled, Tolerating Diet, Ambulating, Urinating - Review of Systems General: Reports: Weakness HEENT: Reports: No Symptoms Pulmonary: Reports: No Symptoms Cardiovascular: Reports: No Symptoms Gastrointestinal: Reports: No Symptoms Genitourinary: Reports: No Symptoms Musculoskeletal: Reports: No Symptoms Skin: Reports: No Symptoms Neurological: Reports: No Symptoms Psychiatric: Reports: No Symptoms - Patient Data Vitals - Most Recent: Last Vital Signs Temp 37.6 C 09/09/18 08:00 Pulse 90 09/09/18 09:08 Resp 21 H 09/09/18 08:00 BP 126/67 09/09/18 09:08 Pulse Ox 92 L 09/09/18 08:00 Weight - Most Recent: 88.677 kg I&O - Last 24 Hours: Intake & Output 09/08/18 09/09/18 09/09/18 22:59 06:59 14:59 Intake Total 2598 2100 Output Total 825 600 100 Balance 1773 1500 -100 Lab Results Last 24 Hours: Laboratory Results - last 24 hr 09/08/18 09/08/18 09/08/18 Range/Units 12:23 16:14 17:41 WBC (3.98-10.04) K/mm3 RBC (3.98-5.22) M/mm3 Hgb (11.2-15.7) gm/L Hct (34.1-44.9) % MCV (79.4-94.8) fl MCH (25.6-32.2) pg MCHC (32.2-35.5) g/dl RDW Std Deviation (36.4-46.3) fL Plt Count (182-369) K/mm3 MPV (9.4-12.3) fl Sodium (136-145) mEq/L Potassium (3.5-5.1) mEq/L Chloride (98-107) mEq/L Carbon Dioxide (21-32) mEq/L Anion Gap (5-15) BUN (7-18) mg/dL Creatinine (0.55-1.02) mg/dL Est Cr Clr Drug Dosing mL/min Estimated GFR (MDRD) (>60) mL/min BUN/Creatinine Ratio (14-18) Glucose 629 H* (80-115) mg/dL POC Glucose 392 H 382 H (80-115) mg/dL Calcium (8.5-10.1) mg/dL Magnesium (1.8-2.4) mg/dl C-Reactive Protein (<1.0) mg/dL 09/08/18 09/08/18 09/08/18 Range/Units 18:15 18:30 20:20 WBC (3.98-10.04) K/mm3 RBC (3.98-5.22) M/mm3 Hgb (11.2-15.7) gm/L Hct (34.1-44.9) % MCV (79.4-94.8) fl MCH (25.6-32.2) pg MCHC (32.2-35.5) g/dl RDW Std Deviation (36.4-46.3) fL Plt Count (182-369) K/mm3 MPV (9.4-12.3) fl Sodium 142 (136-145) mEq/L Potassium 3.8 (3.5-5.1) mEq/L Chloride 105 (98-107) mEq/L Carbon Dioxide 27 (21-32) mEq/L Anion Gap 13.8 (5-15) BUN 21 H (7-18) mg/dL Creatinine 0.8 (0.55-1.02) mg/dL Est Cr Clr Drug Dosing 63.82 mL/min Estimated GFR (MDRD) > 60 (>60) mL/min BUN/Creatinine Ratio 26.3 H (14-18) Glucose 396 H (80-115) mg/dL POC Glucose 361 H 375 H (80-115) mg/dL Calcium 8.5 (8.5-10.1) mg/dL Magnesium (1.8-2.4) mg/dl C-Reactive Protein (<1.0) mg/dL 09/09/18 09/09/18 09/09/18 Range/Units 06:22 06:25 06:25 WBC 7.11 (3.98-10.04) K/mm3 RBC 3.86 L (3.98-5.22) M/mm3 Hgb 10.5 L (11.2-15.7) gm/L Hct 32.5 L (34.1-44.9) % MCV 84.2 (79.4-94.8) fl MCH 27.2 (25.6-32.2) pg MCHC 32.3 (32.2-35.5) g/dl RDW Std Deviation 41.9 (36.4-46.3) fL Plt Count 392 H (182-369) K/mm3 MPV 9.7 (9.4-12.3) fl Sodium (136-145) mEq/L Potassium (3.5-5.1) mEq/L Chloride (98-107) mEq/L Carbon Dioxide (21-32) mEq/L Anion Gap (5-15) BUN (7-18) mg/dL Creatinine (0.55-1.02) mg/dL Est Cr Clr Drug Dosing mL/min Estimated GFR (MDRD) (>60) mL/min BUN/Creatinine Ratio (14-18) Glucose (80-115) mg/dL POC Glucose 265 H (80-115) mg/dL Calcium (8.5-10.1) mg/dL Magnesium 1.8 (1.8-2.4) mg/dl C-Reactive Protein 4.3 H* (<1.0) mg/dL 09/09/18 Range/Units 06:25 WBC (3.98-10.04) K/mm3 RBC (3.98-5.22) M/mm3 Hgb (11.2-15.7) gm/L Hct (34.1-44.9) % MCV (79.4-94.8) fl MCH (25.6-32.2) pg MCHC (32.2-35.5) g/dl RDW Std Deviation (36.4-46.3) fL Plt Count (182-369) K/mm3 MPV (9.4-12.3) fl Sodium 138 (136-145) mEq/L Potassium 3.5 (3.5-5.1) mEq/L Chloride 101 (98-107) mEq/L Carbon Dioxide 29 (21-32) mEq/L Anion Gap 11.5 (5-15) BUN 17 (7-18) mg/dL Creatinine 0.6 (0.55-1.02) mg/dL Est Cr Clr Drug Dosing 84.54 mL/min Estimated GFR (MDRD) > 60 (>60) mL/min BUN/Creatinine Ratio 28.3 H (14-18) Glucose 277 H (80-115) mg/dL POC Glucose (80-115) mg/dL Calcium 8.1 L (8.5-10.1) mg/dL Magnesium (1.8-2.4) mg/dl C-Reactive Protein (<1.0) mg/dL Alireza Results Last 24 Hours: Microbiology 09/03/18 21:20 Aerobic Blood Culture - Preliminary Blood - Venous NO GROWTH AFTER 5 DAYS Anaerobic Blood Culture - Preliminary NO GROWTH AFTER 5 DAYS 09/03/18 21:25 Aerobic Blood Culture - Preliminary Blood - Venous - Lab Draw NO GROWTH AFTER 5 DAYS Anaerobic Blood Culture - Preliminary NO GROWTH AFTER 5 DAYS Med Orders - Current: Current Medications Acetaminophen (Tylenol) 650 mg PO Q4H PRN PRN Reason: Pain (Mild 1-3)/fever Last Admin: 08/31/18 20:10 Dose: 650 mg Alogliptin Benzoate (Alogliptin) 25 mg PO DAILY [facility] Last Admin: 09/09/18 09:07 Dose: 25 mg Aspirin (Halfprin) 81 mg PO DAILY [facility] Last Admin: 09/09/18 09:07 Dose: 81 mg Bisacodyl (Dulcolax) 5 mg PO DAILY PRN PRN Reason: Constipation Carbamazepine (Tegretol Tab) 400 mg PO BID [facility] Last Admin: 09/09/18 09:07 Dose: 400 mg Dextrose/Water (Dextrose 50% In Water) 50 ml IVPUSH ASDIRECTED PRN PRN Reason: Hypoglycemia Diltiazem HCl (Cardizem) 10 mg IVPUSH Q4H PRN PRN Reason: tachy >110 Last Admin: 09/02/18 06:52 Dose: 10 mg Docusate Sodium (Colace) 100 mg PO BID PRN PRN Reason: Constipation Enoxaparin Sodium (Lovenox) 40 mg SUBCUT DAILY [facility] Last Admin: 09/09/18 09:10 Dose: 40 mg Furosemide (Lasix) 40 mg IVPUSH DAILY [facility] Last Admin: 09/09/18 09:08 Dose: 40 mg Guaifenesin/Phenylephrine HCl (Robitussin Dm) 10 ml PO TID [facility] Last Admin: 09/09/18 09:09 Dose: 10 ml Hydralazine HCl (Apresoline) 20 mg IVPUSH Q6H PRN PRN Reason: Hypertension Promethazine HCl 6.25 mg/ (Sodium Chloride) 50.25 mls @ 100 mls/hr IV Q6H PRN PRN Reason: Nausea/Vomiting Levofloxacin/Dextrose 750 mg/ (Premix) 150 mls @ 100 mls/hr IV Q24H [facility] Last Admin: 09/08/18 10:30 Dose: 100 mls/hr Ceftriaxone Sodium 2 gm/ (Sodium Chloride) 100 mls @ 200 mls/hr IV Q12H [facility] Last Admin: 09/09/18 09:09 Dose: 200 mls/hr Sodium Chloride (Sodium Chloride 0.45%) 1,000 mls @ 250 mls/hr IV ASDIRECTED [facility] Last Admin: 09/08/18 19:16 Dose: 250 mls/hr Insulin Human Regular 100 unit (/ Sodium Chloride) 100 mls @ 9.12 mls/hr IV TITRATE [facility]; Protocol Last Titration: 09/08/18 16:27 Dose: 0 units/kg/hr, 0 mls/hr Insulin Glargine (Lantus) 15 unit SUBCUT BID@0700,2200 [facility] Last Admin: 09/09/18 06:43 Dose: 15 units Insulin Human Lispro (Humalog) 0 unit SUBCUT QIDACANDBED [facility]; Protocol Last Admin: 09/09/18 06:42 Dose: 9 units Ipratropium [place] (Atrovent) 0.5 mg NEB QIDRT [facility] Last Admin: 09/09/18 09:31 Dose: 0.5 mg Levalbuterol HCl (Xopenex) 1.25 mg NEB QIDRT [facility] Last Admin: 09/09/18 09:31 Dose: 1.25 mg Levalbuterol HCl (Xopenex) 1.25 mg NEB Q2H PRN PRN Reason: sob Last Admin: 09/03/18 19:24 Dose: 1.25 mg Lorazepam (Ativan) 2 mg IVPUSH Q4H PRN PRN Reason: Seizures Lorazepam (Ativan) 2 mg IVPUSH Q6H PRN PRN Reason: Anxiety Last Admin: 09/07/18 23:17 Dose: 2 mg Magnesium Hydroxide (Milk Of Magnesia) 30 ml PO Q12H PRN PRN Reason: Constipation Methylprednisolone Sodium Succinate (Solu-Medrol) 125 mg IVPUSH DAILY [facility] Last Admin: 09/09/18 09:08 Dose: 125 mg Metoprolol Succinate (Toprol Xl) 25 mg PO BID [facility] Last Admin: 09/09/18 09:08 Dose: 25 mg Metoprolol Tartrate (Lopressor) 5 mg IVPUSH Q4H PRN PRN Reason: Tachycardia Last Admin: 09/03/18 19:25 Dose: 5 mg Morphine Sulfate (Morphine Sulfate) 3 mg IV Q6H PRN PRN Reason: Dyspnea Oseltamivir Phosphate (Tamiflu) 75 mg PO BID [facility] Last Admin: 09/09/18 09:07 Dose: 75 mg Pantoprazole Sodium (Protonix) 40 mg PO DAILY [facility] Last Admin: 09/09/18 09:07 Dose: 40 mg Polyethylene Glycol (Miralax) 17 gm PO DAILY PRN PRN Reason: Constipation Promethazine HCl (Phenergan) 25 mg PO Q6H PRN PRN Reason: Nausea/Vomiting Saccharomyces Boulardii (Florastor) 250 mg PO BID [facility] Last Admin: 09/09/18 09:08 Dose: 250 mg Senna/Docusate Sodium (Senna Plus) 1 tab PO BID PRN PRN Reason: Constipation Sertraline HCl (Zoloft) 50 mg PO DAILY [facility] Last Admin: 09/09/18 09:09 Dose: 50 mg Temazepam (Restoril) 7.5 mg PO BEDTIME PRN PRN Reason: Sleep Discontinued Medications Acetaminophen (Tylenol) 975 mg PO NOW ONE Stop: 08/30/18 14:27 Last Admin: 08/30/18 14:51 Dose: 975 mg Hydrocodone Bitart/Acetaminophen ([place] 325-5 Mg) 1 tab PO Q4H PRN PRN Reason: Pain (moderate 4-6) Albuterol (Proventil Neb Soln) 2.5 mg NEB Q2H PRN PRN Reason: Shortness Of Breath/wheezing Last Admin: 08/31/18 23:15 Dose: 2.5 mg Albuterol/Ipratropium (Duoneb 3.0-0.5 Mg/3 Ml) 3 ml NEB Q4H PRN PRN Reason: Shortness Of Breath/wheezing Last Admin: 08/31/18 10:44 Dose: 3 ml Albuterol/Ipratropium (Duoneb 3.0-0.5 Mg/3 Ml) 3 ml NEB QIDRT [facility] Last Admin: 09/01/18 08:59 Dose: 3 ml Ampicillin Sodium (Ampicillin) Confirm Administered Dose 1 gm .ROUTE .STK-MED ONE Stop: 08/31/18 21:19 Last Admin: 08/31/18 21:33 Dose: Not Given Ceftriaxone Sodium (Rocephin) 2 gm IVPUSH Q24H [facility] Ceftriaxone Sodium (Rocephin) 2 gm IVPUSH Q12H [facility] Dexamethasone (Dexamethasone) Confirm Administered Dose 40 mg .ROUTE .STK-MED ONE Stop: 08/31/18 19:53 Last Admin: 08/31/18 20:15 Dose: Not Given Dexamethasone (Dexamethasone) 40 mg IVPUSH Q12HR [facility]AG[facility] Stop: 09/03/18 07:01 Diphenhydramine HCl (Benadryl) 25 mg IVPUSH ONETIME ONE Stop: 09/04/18 10:25 Last Admin: 09/04/18 10:49 Dose: 25 mg Famotidine (Pepcid) 20 mg PO BID [facility] Last Admin: 09/03/18 09:06 Dose: 20 mg Famotidine (Pepcid) 20 mg IVPUSH BID [facility] Famotidine (Pepcid) 20 mg IVPUSH BID [facility] Last Admin: 09/07/18 09:02 Dose: 20 mg Famotidine (Pepcid) 20 mg PO BID [facility] Last Admin: 09/08/18 08:17 Dose: 20 mg Furosemide (Lasix) 40 mg IVPUSH NOW ONE Stop: 08/30/18 14:51 Last Admin: 08/30/18 14:58 Dose: 40 mg Furosemide (Lasix) 20 mg IVPUSH NOW ONE Stop: 09/02/18 12:18 Last Admin: 09/02/18 13:45 Dose: 20 mg Furosemide (Lasix) 20 mg IVPUSH NOW ONE Stop: 09/02/18 21:01 Last Admin: 09/02/18 20:18 Dose: 20 mg Furosemide (Lasix) 20 mg IVPUSH NOW ONE Stop: 09/03/18 09:49 Last Admin: 09/03/18 10:27 Dose: 20 mg Furosemide (Lasix) 20 mg IVPUSH ONETIME ONE Stop: 09/04/18 06:01 Last Admin: 09/04/18 05:48 Dose: 20 mg Furosemide (Lasix) 20 mg IVPUSH NOW ONE Stop: 09/04/18 12:31 Last Admin: 09/04/18 12:32 Dose: 20 mg Furosemide (Lasix) 20 mg IVPUSH ONETIME ONE Stop: 09/04/18 20:01 Last Admin: 09/04/18 20:15 Dose: 20 mg Furosemide (Lasix) 40 mg IVPUSH NOW ONE Stop: 09/05/18 15:01 Last Admin: 09/05/18 14:42 Dose: 40 mg Furosemide (Lasix) 40 mg IVPUSH ONETIME ONE Stop: 09/09/18 18:01 Furosemide (Lasix) 40 mg IVPUSH ONETIME ONE Stop: 09/08/18 18:01 Last Admin: 09/08/18 18:37 Dose: 40 mg Glimepiride (Glimepiride) 4 mg PO BIDMEALS [facility] Last Admin: 09/03/18 09:05 Dose: 4 mg Guaifenesin/Phenylephrine HCl (Robitussin Dm) 10 ml PO TID@0700,1400,2100 [facility] Last Admin: 09/08/18 10:17 Dose: Not Given Hydralazine HCl (Apresoline) 10 mg IVPUSH Q4H PRN PRN Reason: Hypertension Last Admin: 09/08/18 00:14 Dose: 10 mg Hydromorphone HCl (Dilaudid) 0.25 mg IVPUSH Q2H PRN PRN Reason: Pain (severe 7-10) Sodium Chloride (Normal Saline) 1,000 mls @ 150 mls/hr IV ASDIRECTED [facility] Last Admin: 08/30/18 14:26 Dose: 150 mls/hr Sodium Chloride (Normal Saline) 1,000 mls @ 75 mls/hr IV ASDIRECTED [facility] Ceftriaxone Sodium 1 gm/ (Sodium Chloride) 100 mls @ 200 mls/hr IV ONETIME ONE Stop: 08/30/18 16:28 Last Admin: 08/30/18 16:57 Dose: 200 mls/hr Azithromycin 500 mg/ Sodium (Chloride) 250 mls @ 250 mls/hr IV Q24H [facility] Last Admin: 08/30/18 21:15 Dose: 250 mls/hr Sodium Chloride (Normal Saline) 1,000 mls @ 125 mls/hr IV ASDIRECTED [facility] Last Admin: 08/31/18 00:55 Dose: 125 mls/hr Ceftriaxone Sodium 1 gm/ (Sodium Chloride) 100 mls @ 200 mls/hr IV ONETIME ONE Stop: 08/30/18 19:14 Last Admin: 08/30/18 19:28 Dose: 200 mls/hr Ceftriaxone Sodium 2 gm/ (Sodium Chloride) 100 mls @ 200 mls/hr IV Q24H [facility] Dextrose/Sodium Chloride (Dextrose 5%-Normal Saline) 1,000 mls @ 125 mls/hr [facility]RED [facility] Last Admin: 08/31/18 08:05 Dose: 125 mls/hr Piperacillin Sod/Tazobactam (Sod 4.5 gm/ Sodium Chloride) 100 mls @ 200 mls/hr IV ONETIME ONE Stop: 08/31/18 10:29 Last Admin: 08/31/18 11:28 Dose: Not Given Piperacillin Sod/Tazobactam (Sod 4.5 gm/ Sodium Chloride) 100 mls @ 25 mls/hr IV Q8H [facility] Last Admin: 08/31/18 23:34 Dose: Not Given Vancomycin HCl 1 gm/ Sodium (Chloride) 250 mls @ 250 mls/hr IV Q12H [facility] Last Admin: 09/01/18 21:37 Dose: 250 mls/hr Sodium Chloride (Normal Saline) Confirm Administered Dose 100 mls @ as directed .ROUTE .STK-MED ONE Stop: 08/31/18 10:49 Last Admin: 08/31/18 11:29 Dose: Not Given Piperacillin Sod/Tazobactam (Sod 4.5 gm/ Sodium Chloride) 100 mls @ 200 mls/hr IV ONETIME ONE Stop: 08/31/18 11:44 Last Admin: 08/31/18 12:56 Dose: 200 mls/hr Sodium Chloride (Normal Saline) 1,000 mls @ 75 mls/hr [facility] Last Admin: 09/02/18 04:15 Dose: 75 mls/hr Magnesium Sulfate/Dextrose (Magnesium 1 Gm In D5w 100 Ml) Confirm Administered Dose 100 mls @ as directed .ROUTE .[facility] ONE Stop: 08/31/18 19:53 Last Admin: 08/31/18 20:15 Dose: Not Given Acyclovir 1,000 mg/ Sodium (Chloride) 120 mls @ 100 mls/hr IV Q8H [facility] Last Admin: 09/02/18 04:09 Dose: 100 mls/hr Ampicillin Sodium 1 gm/ Sodium (Chloride) 100 mls @ 200 mls/hr IV Q4H [facility] Last Admin: 08/31/18 23:34 Dose: Not Given Dexamethasone 40 mg/ Sodium (Chloride) 54 mls @ 108 mls/hr IV BID@0700,1900 [facility] Stop: 09/02/18 20:31 Last Admin: 09/02/18 18:08 Dose: 108 mls/hr Magnesium Sulfate 2 gm/ Premix 50 mls @ 25 mls/hr IV ONETIME ONE Stop: 08/31/18 22:13 Last Admin: 08/31/18 21:26 Dose: Not Given Magnesium Sulfate/Dextrose 1 (gm/ Premix) 100 mls @ 100 mls/hr IV ONETIME ONE Stop: 08/31/18 21:29 Last Admin: 08/31/18 20:35 Dose: 100 mls/hr Ampicillin Sodium 1 gm/ Sodium (Chloride) 100 mls @ 200 mls/hr IV Q4H [facility] Last Admin: 09/01/18 11:17 Dose: Not Given Sodium Chloride (Normal Saline) Confirm Administered Dose 100 mls @ as directed .ROUTE .[facility] ONE Stop: 08/31/18 21:21 Last Admin: 08/31/18 21:29 Dose: Not Given Sodium Chloride (Normal Saline) 250 mls @ 999 mls/hr IV ONETIME ONE Stop: 08/31/18 21:25 Last Admin: 08/31/18 23:07 Dose: Not Given Ceftriaxone Sodium 2 gm/ (Sodium Chloride) 100 mls @ 200 mls/hr IV Q24H [facility] Last Admin: 09/02/18 23:19 Dose: 200 mls/hr Ampicillin Sodium 1 gm/ Sodium (Chloride) 100 mls @ 200 mls/hr IV Q4H [facility] Last Admin: 09/02/18 05:41 Dose: 200 mls/hr Potassium Chloride/Dextrose/Sod Cl (D5 1/2 Ns W/ 40 Meq/L Kcl) 1,000 mls @ 75 mls/hr IV ASDIRECTED [facility] Last Infusion: 09/03/18 20:30 Dose: 125 mls/hr Vancomycin HCl 1 gm/ Sodium (Chloride) 250 mls @ 250 mls/hr IV Q12H [facility] Stop: 09/05/18 01:30 Last Admin: 09/04/18 23:52 Dose: 250 mls/hr Potassium Chloride 10 meq/ (Premix) 100 mls @ 100 mls/hr IV Q1H [facility] Stop: 09/03/18 11:59 Last Admin: 09/03/18 12:32 Dose: 100 mls/hr Magnesium Sulfate 2 gm/ Premix 50 mls @ 25 mls/hr IV ONETIME ONE Stop: 09/03/18 21:50 Last Admin: 09/03/18 20:13 Dose: 25 mls/hr Potassium Chloride/Dextrose/Sod Cl (D5 1/2 Ns W/ 40 Meq/L Kcl) 1,000 mls @ 125 mls/hr [facility] Last Admin: 09/07/18 10:33 Dose: 75 mls/hr Magnesium Sulfate 2 gm/ Premix 50 mls @ 25 mls/hr IV ONETIME ONE Stop: 09/04/18 12:43 Last Admin: 09/04/18 11:09 Dose: 25 mls/hr Vancomycin HCl 1 gm/ Sodium (Chloride) 250 mls @ 250 mls/hr IV Q8H [facility] Last Admin: 09/06/18 09:10 Dose: Not Given Vancomycin HCl 1 gm/Vancomycin HCl 250 mg/ Sodium Chloride 250 mls @ 166.667 mls/hr IV Q8H [facility] Stop: 09/07/18 12:00 Last Admin: 09/07/18 08:11 Dose: 166.667 mls/hr Magnesium Sulfate/Dextrose 1 (gm/ Premix) 100 mls @ 100 mls/hr IV ONETIME ONE Stop: 09/06/18 15:12 Last Admin: 09/06/18 15:10 Dose: 100 mls/hr Sodium Chloride (Sodium Chloride 0.45%) 1,000 mls @ 999 mls/hr IV ASDIRECTED [facility] Last Admin: 09/08/18 14:02 Dose: 999 mls/hr Insulin Glargine (Lantus) 10 unit SUBCUT BID [facility] Last Admin: 09/08/18 08:46 Dose: 10 units Insulin Glargine (Lantus) 15 unit SUBCUT BID@0700,2200 [facility] Insulin Glargine (Lantus) 5 unit SUBCUT ONETIME ONE Stop: 09/08/18 12:11 Last Admin: 09/08/18 12:35 Dose: 5 units Insulin Glargine (Lantus) 10 unit SUBCUT ONETIME ONE Stop: 09/08/18 21:01 Last Admin: 09/08/18 21:17 Dose: 10 units Insulin Human Lispro (Humalog) 0 unit SUBCUT QIDACANDBED [facility]; Protocol Last Admin: 08/31/18 20:54 Dose: 3 unit Insulin Human Lispro (Humalog) 0 unit SUBCUT QIDACANDBED [facility]; Protocol Last Admin: 09/06/18 12:27 Dose: 10 units Insulin Human Regular (Humulin R) 8 unit SUBCUT ONETIME ONE Stop: 08/30/18 14:55 Last Admin: 08/30/18 15:06 Dose: 8 units Lorazepam (Ativan) 2 mg IVPUSH Q4H PRN PRN Reason: Seizures Lorazepam (Ativan) 2 mg IVPUSH Q6H PRN PRN Reason: Seizures Last Admin: 09/03/18 16:23 Dose: 2 mg Lorazepam (Ativan) 1 mg IVPUSH ONETIME ONE Stop: 09/04/18 11:57 Last Admin: 09/04/18 12:32 Dose: 1 mg Lorazepam (Ativan) 1 mg IVPUSH Q8H PRN PRN Reason: Anxiety Last Admin: 09/06/18 16:44 Dose: 1 mg Methylprednisolone Sodium Succinate (Solu-Medrol) 125 mg IVPUSH ONETIME ONE Stop: 09/03/18 19:33 Last Admin: 09/03/18 19:39 Dose: 125 mg Methylprednisolone Sodium Succinate (Solu-Medrol) 125 mg IVPUSH Q12H [facility] Methylprednisolone Sodium Succinate (Solu-Medrol) 125 mg IVPUSH DAILY [facility] Last Admin: 09/06/18 08:34 Dose: 125 mg Methylprednisolone Sodium Succinate (Solu-Medrol) 125 mg IVPUSH Q12H [facility] Last Admin: 09/08/18 08:17 Dose: 125 mg Morphine Sulfate (Morphine) 1 mg IVPUSH Q4H PRN PRN Reason: Shortness of Breath Last Admin: 09/03/18 06:35 Dose: 1 mg Morphine Sulfate (Morphine) 2 mg IVPUSH Q4H PRN PRN Reason: Shortness of Breath Last Admin: 09/03/18 19:43 Dose: 2 mg Morphine Sulfate (Morphine) 2 mg IVPUSH Q2H PRN PRN Reason: Shortness of Breath Last Admin: 09/04/18 12:35 Dose: 2 mg Morphine Sulfate (Morphine) 4 mg IVPUSH ONETIME ONE Stop: 09/04/18 11:54 Last Admin: 09/04/18 11:57 Dose: Not Given Morphine Sulfate (Morphine) 3 mg IVPUSH Q2H [facility] Last Admin: 09/04/18 15:48 Dose: 3 mg Morphine Sulfate (Morphine Sulfate) Confirm Administered Dose 4 mg IV .STK-MED ONE Stop: 09/04/18 15:45 Last Admin: 09/04/18 15:51 Dose: Not Given Morphine Sulfate (Morphine Sulfate) 3 mg IV Q2H [facility] Last Admin: 09/06/18 11:15 Dose: Not Given Morphine Sulfate (Morphine) 3 mg IVPUSH Q4H [facility] Last Admin: 09/08/18 08:18 Dose: 3 mg Ondansetron HCl (Zofran) 4 mg IVPUSH ONETIME ONE Stop: 08/30/18 14:19 Last Admin: 08/30/18 14:29 Dose: 4 mg Oseltamivir Phosphate (Tamiflu) 75 mg PO ONETIME ONE Stop: 08/30/18 14:43 Last Admin: 08/30/18 15:02 Dose: 75 mg Oseltamivir Phosphate (Tamiflu) 75 mg PO BID [facility] Stop: 09/03/18 21:01 Last Admin: 09/03/18 21:30 Dose: 75 mg Pantoprazole Sodium (Protonix) 40 mg PO ACBREAKFAST [facility] Last Admin: 09/08/18 10:17 Dose: Not Given Potassium Chloride (Klor-Con M20) 40 meq PO BID [facility] Last Admin: 09/08/18 08:19 Dose: 40 meq Sertraline HCl (Zoloft) 25 mg PO DAILY [facility] Last Admin: 09/08/18 08:19 Dose: 25 mg Vancomycin HCl (Pharmacy To Dose - Vancomycin) 1 dose .XX ASDIRECTED [facility] Vancomycin HCl (Pharmacy To Dose - Vancomycin) 1 dose .XX ASDIRECTED DAGOBERTO - Exam Quality Assessment: Supplemental Oxygen, Urine Catheter, DVT Prophylaxis General: Alert, Oriented, Cooperative, No Acute Distress HEENT: Pupils Equal, Pupils Reactive, EOMI Neck: Trachea Midline, No JVD Lungs: Normal Respiratory Effort Cardiovascular: Regular Rate, Regular Rhythm GI/Abdominal Exam: Normal Bowel Sounds, Soft, Non-Tender, No Organomegaly, No Distention (Female) Exam: Deferred Back Exam: Normal Inspection Extremities: Normal Inspection, Non-Tender, Normal Capillary Refill Skin: Warm Neurological: No New Focal Deficit, Normal Gait, Normal Speech Psy/Mental Status: Alert - Problem List & Annotations (1) Streptococcal pneumonia SNOMED Code(s): 03412836 Code(s): J15.4 - PNEUMONIA DUE TO OTHER STREPTOCOCCI Status: Acute Current Visit: Yes (2) Hypoxia SNOMED Code(s): 161333349 Code(s): R09.02 - HYPOXEMIA Status: Acute Current Visit: Yes (3) Respiratory distress, acute SNOMED Code(s): 183168754 Code(s): R06.03 - ACUTE RESPIRATORY DISTRESS Status: Acute Current Visit : Yes - Problem List Review Problem List Initiated/Reviewed/Updated: Yes - My Orders Last 24 Hours: My Active Orders 09/08/18 09:00 Pantoprazole [ProTONIX] 40 mg PO DAILY 09/08/18 09:23 hydrALAZINE [Apresoline] 20 mg IVPUSH Q6H PRN 09/08/18 11:11 Morphine Sulfate 3 mg IV Q6H PRN 09/08/18 14:00 Insulin Regular, Human [HumuLIN R] 100 unit Sodium Chloride 0.9% [Normal Saline] 99 ml IV TITRATE 09/08/18 14:45 Sodium Chloride 0.45% 1,000 ml IV ASDIRECTED 09/08/18 Lunch NPO [Nothing Per Oral Diet] [DIET] 09/09/18 07:00 Insulin Glarg,Human.Rec.Analog [LantUS] 15 unit SUBCUT BID@0700,2200 09/09/18 08:00 Chest 1V Frontal [CR] DAILY 09/09/18 09:00 methylPREDNISolone Sod Succ [Solu-MEDROL] 125 mg IVPUSH DAILY 09/10/18 05:11 BASIC METABOLIC PANEL,BMP [CHEM] AM CRP [C-REACTIVE PROTEIN] [CHEM] AM MG [MAGNESIUM] [CHEM] AM 09/11/18 05:11 CRP [C-REACTIVE PROTEIN] [CHEM] AM MG [MAGNESIUM] [CHEM] AM - Plan Plan:: Assessment/Plan: Acute: Influenza with secondary bacterial PNA, Strep Pneumo PNA L lower and mid lung w/ hypoxia, clinically improved * Fever, productive cough, SOB w/ exertion x 3 days * O2 82% RA--> 92% 4L NC--> 91% 12L mask--> 89-91% 15L non-rebreather--> 15L BiPAP; FIO2 0.70 07/01...O2 sat 97% on pulse ox/ABG pH 7.48 pCO2 31.0 pO2 70 sO2 94.8%; frequent changes required. * No leukocytosis, Neut 86% with 3% bandemia, CRP 15.4--> 17.6 * CXR 08/30/18: Findings felt compatible with mild bilateral bronchitis with areas of pneumonia within the left mid and lower lung. * CT Chest 08/31/18: * 1. Diffuse parenchymal densities throughout both size of the chest more confluent within the lingula and within both lower lungs. Findings have progressed from prior chest x-ray. Findings are most likely infectious in etiology. Continued follow-up is recommended. * 2. Mildly prominent lymph nodes most likely on an inflammatory basis from the lung process. * Mycoplasma negative * RVP was negative; Strep pneumo--->positive * RT/Duonebs/IS/Acapella/Chest Physiotherapy * ABG shows low O2 sat: 86.8%--> 89.7%--> 93.3 * Repeat CXR 09/01/18: * 1. Diffuse parenchymal densities as described above. Differential includes irregular areas of pulmonary edema vs diffuse multifocal areas of pneumonia. * 2. Heart is slightly enlarged Most recent ATB : Rocephin/Levoquin/Vanco--Vanco stopped 09/07/18; Rocephin stopped 09/09/18; continue Levoquin po on 09/10/18 * Dexamethasone BID x2 days-->completed; started solumedrol 125 mg daily, change to prednisone 40 mg day, 09/10/18. * Magnesium as needed * R/O PE: * D-dimer elevated at 1.1 * CTA negative for PE * ECHO LVEF--WNL; grade 2/4 diastolic dysfunction * Pulmonary toilet * Recommend PFT outpt Influenza A, * Fever and increased weakness x3 days--> Increased energy and alertness today * Tamiflu started in ED--> continue BID, stopped 09/09/18. Sepsis * Likely 2/2 above * Temperature 102.2F, Hypoxic, Tachypneic, Tachycardia, source of infection present * LA 3.2--> 2.1--> 0.9 * Procalcitonin elevated at 0.18 * Rocephin started in ED--> continue * IVF started in ED--> continue * Blood cultures show no growth Possible AMS * Per , seemed more confused than usual this AM * Risk Factors: Current illness/sepsis, increased O2 demand, unwitnessed fall yesterday ( unsure if she hit her head; she does have a scab on her forehead but per notes it is a couple days old) * CT Head 08/31/18: * 1. Diffuse parenchymal densities throughout both sides of the chest more confluent within the lingual and within both lower lungs. Findings have progressed from prior chest x-ray. Findings are most likely infectious in etiology. Continued follow-up is recommended. * 2. Mildly prominent lymph nodes most likely on an inflammatory basis from the lung process. * Normal neuro exam, A+O x3, seems to be very lethargic * If continues to worsen/has AMS: * ICU care * LP in AM --> Cancelled d/t improved clinical disposition * CT Head in AM if still lethargic or AMS--> not needed at this time Hyperglycemia w/ DM2 * She missed a dose of insulin yesterday, didn't take her insulin this AM * Blood sugar this AM 389, Blood sugar in ED 320 * Blood glucose checks, insulin sliding scale * A1C 7.7 * Solumedrol 125 mg BID-->decreased to once daily New-onset Afib, resolved maintaining SR * Risk factor: Sepsis * 12 lead EKG done, HR 100's-118 * Metoprolol 25 BID * Lovenox 40 restarted * ECHO ---nl LVEF, grade 2 diastolic dysfunction * Monitor on telemetry DHF * Diurese as needed; 2 D echo documented nl LVEF, grade 2 diastolic dysfunction * Increase Lasix 40 mg daily, decreased to 20 mg po daily on 09/10/18. Abnormal electrolytes * Correct K, Mg, Na as needed Nutrition Follow oral care and intake Resume diabetic meds. Resolved: Dehydration * Likely 2/2 decreased intake * AGap 17.5--> 14.1 * IVF started in ED--> Continue * Monitor Possible UTI--> CULTURE NEGATIVE * Risk factors: Frequency, Incontinence * UA suspicious for UTI * Urine culture shows no growth * Rocephin started in ED--> continue Chronic: HLD * Lipids WNL HTN GERD Seizures on Tegretol (last seizure 2002) DM2 Plan: Continue ICU care Decline for transfer, will follow closely and seek transfer if needed. Droplet precautions Routine AM Labs ADA diet as tolerated TPN may be needed, will follow; currently on D5 0.45 with KCL 40 mEq-->> stopped began eating, 09/06/18. DVT/GI prophylaxis CM/SW PT/OT Code Status: Full Code; PCP: Dr. Nasreen Edmond [facility] is needed for deconditioning [facility] LOS>96 hours with slow response to treatment for Influenza/PNA
[2018-09-09] MEDS ORDERED: Magnesium Sulfate/Water 2 GM in Premix Bag 1 BAG IV ONE (10:00)
--- NOTE | 2018-09-09 10:08 | CR ---
Chest: Portable view of the chest was obtained. Comparison: Prior chest x-ray of 09/08/18. Heart size is within normal limits. Tortuous thoracic aorta is seen. Increased density within both sides of the chest is seen which appears similar to previous exam. Bony structures are grossly intact. Impression: 1. Diffuse increased density on both sides of the chest without definite change from previous study. Diagnostic code #3
[2018-09-09] MEDS: Levofloxacin/Dextrose 5%-Water 750 MG in Premix Bag 1 BAG IV SCH (10:26)
--- NOTE | 2018-09-09 15:31 | CONS ---
CONSULTING PHYSICIAN: Mati Vick MD DATE OF CONSULTATION: 09/08/2018 This is a 60-minute inpatient telemedicine event. Site where the services are provided are [facility] in [place], [place]. Site where the services are provided from offices in [facility]. Length of service for this 60-minute inpatient clinical event is 60 minutes. IDENTIFICATION: The patient is a 63-year-old female who is admitted to the [facility] MICU in [place], [place]. She is seen for psychiatric consultation per request of the inpatient attending, Dr. Olvera, and her treatment team. CHIEF COMPLAINT: "I was bored." HISTORY OF PRESENT ILLNESS: The patient is a 63-year-old female who was admitted to the inpatient MICU at [facility] on 08/30/2018 for complications from pneumonia and CHF exacerbation. She is seen per request of the treatment team to evaluate for depression. On interview, the patient is having a hard time conversing in a meaningful fashion. She appears unable to answer questions regarding her mood, poor sleep patterns, energy levels, or her appetite. She is alert and oriented x2 to person and place, but it is with difficulty that she is able to answer these questions. Evidently, the patient was started on Zoloft 25 mg earlier in her stay and staff is wondering if this medication is appropriate for her in light of her current situation. She is not reporting any suicidal or homicidal ideation or any psychotic, delusional, or paranoid symptoms, but again when she is asked these questions, she is having difficulty even answering the questions. MEDICATIONS: Psychiatric medications at time of presentation, Zoloft 25 mg q.a.m. ALLERGIES: No known drug allergies. PAST MEDICAL HISTORY: 1. Pneumonia. 2. CHF exacerbation. 3. History of type 2 diabetes. REVIEW OF SYSTEMS: Aside from pulmonary, cardiovascular, and endocrine; all other major organ systems are negative at this point in time for acute difficulties or complications. FAMILY PSYCHIATRIC AND CD HISTORY: None reported. PAST PSYCHIATRIC AND CD HISTORY: None reported. SOCIAL HISTORY: None reported per the patient. Staff is reporting the patient is . She lives in [place], [place]. 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 MENTAL STATUS EXAM: The patient is a 63-year-old white female in no apparent distress. Speech is significant for increased latency, response, short duration of utterance. Psychomotor activity is within normal limits. The patient is cognitively oriented x2 to person and place, but does not know the date. She does display a tremor of her right hand during the course of the interview that appears unintentional, but does worsen with intention. Gait and station are not observed. This patient is seated in a chair for the purposes of the interview. Mood is "bored." Affect is cooperative overall for the purposes of the inpatient telemedicine consult. The patient does seem to attempt to answer the questions that are asked of her, but she is not able to answer them despite her attempts to do so. There is no behavioral or stated evidence of acute suicidal or homicidal ideation or acute psychotic or paranoid symptoms. Thought processes appear to be somewhat blocked. There are no manic symptoms or loose associations evident. Judgment and insight do appear impaired at this point in time. Motivation for help appears fair to poor. VITAL SIGNS: At time of presentation 145/61, 111, 20, 97.5 degrees. IMPRESSION: [place] I: 1. Depression, not otherwise specified, F32.9. 2. Rule out pseudodementia secondary to medical condition. 3. Rule out dementia, not otherwise specified. 4. Rule out major depressive disorder. [place] II: None. [place] III: 1. Pneumonia. 2. Congestive heart failure exacerbation. 3. Type 2 diabetes. [place] IV: Severe. [place] V: 50. PLAN: 1. Increase the patient's Zoloft from 25 to 50 mg q.a.m. to see if this will help improve the patient's mood and cognitive status. 2. Would recommend the patient being reassessed from medical standpoint to make sure that there are no medical complications that are exacerbating her current psychiatric presentation. 3. If able, would also recommend neurologic consult to make sure that there is no neurologic deficits that have occurred during the patient stay that might also be accounting for her current psychiatric presentation. 4. Other medications as dosed and prescribed by the patient's primary inpatient medical treatment team. 5. Would recommend that when the patient is eventually medically stabilized that strong consideration be given to transferring the patient to a structured transitional living environment so she can further be observed and assessed for the need for permanent placement or whether she can go back to her previous residential situation. 6. We will continue follow up with the patient on an as-needed basis while she remains on the inpatient MICU at [facility] in [place], [place]. 7. We will follow up with the patient sooner if there are any complications in the interim. 8. Crisis plan is in place. TABATHA /[id number]
[2018-09-09] MEDS ORDERED: Insulin Glarg,Human.Rec.Analog 100 UNIT/ML ML SUBCUT STA (17:44)
[2018-09-09] MEDS ORDERED: Sodium Chloride 0.45% 1,000 ML IV SCH (18:00)
[2018-09-09] MEDS ORDERED: Furosemide 40 MG/4 ML VIAL IVPUSH ONE (18:00)
[2018-09-09] MEDS ORDERED: Insulin Lispro 100 UNIT/ML 10 ML VIAL SUBCUT ONE (18:15)
[2018-09-09] MEDS: Sodium Chloride 0.45% 1,000 ML IV SCH ×2 (19:33→23:47)
[2018-09-10] MEDS: Sodium Chloride 0.45% 1,000 ML IV SCH (03:51)
[2018-09-10] MEDS: Ipratropium 0.02% 0.5 MG/2.5 ML Neb Soln NEB SCH ×4 (06:33→20:47)
[2018-09-10] MEDS: Levalbuterol HCl 1.25 MG/0.5 ML Neb NEB SCH ×4 (06:33→20:47)
[2018-09-10] MEDS: Insulin Glarg,Human.Rec.Analog 100 UNIT/ML ML SUBCUT SCH ×2 (06:46→21:12)
[2018-09-10] MEDS: predniSONE 20 MG Tab PO SCH (06:47)
[2018-09-10] MEDS: Insulin Lispro 100 UNIT/ML 10 ML VIAL SUBCUT SCH ×4 (09:00→21:13)
[2018-09-10] MEDS: Aspirin 81 MG Tab.EC PO SCH (09:01)
[2018-09-10] MEDS: carBAMazepine 200 MG Tab PO SCH ×2 (09:02→20:32)
[2018-09-10] MEDS: Metoprolol Succinate 25 MG Tab.ER PO SCH ×2 (09:03→20:31)
[2018-09-10] MEDS: Saccharomyces Boulardii (Probiotic) 250 MG Cap PO SCH ×2 (09:04→20:30)
[2018-09-10] MEDS: Sertraline 50 MG Tab PO SCH (09:04)
[2018-09-10] MEDS: guaiFENesin/Dextromethorphan 100-10 MG/5 ML Soln 5 ML Cup PO SCH ×3 (09:05→20:32)
[2018-09-10] MEDS: Pantoprazole 40 MG Tab.CR PO SCH (09:05)
[2018-09-10] MEDS: Furosemide 40 MG/4 ML VIAL IVPUSH SCH (09:05)
[2018-09-10] MEDS: Enoxaparin 40 MG/0.4 ML Syringe SUBCUT SCH (09:06)
[2018-09-10] MEDS ORDERED: Magnesium Sulfate/Water 2 GM in Premix Bag 1 BAG IV ONE (10:00)
[2018-09-10] MEDS: Levofloxacin 750 MG Tab PO SCH (10:24)
[2018-09-10] MEDS: Potassium Chloride 20 MEQ Tab.ER PO SCH ×2 (10:24→20:30)
--- NOTE | 2018-09-10 13:54 | PCM.PN ---
- General Info Date of Service: 09/10/18 Functional Status: Reports: Pain Controlled, Tolerating Diet, Ambulating, Urinating - Review of Systems General: Reports: Weakness HEENT: Reports: No Symptoms Pulmonary: Reports: Shortness of Breath Cardiovascular: Reports: No Symptoms Gastrointestinal: Reports: No Symptoms Genitourinary: Reports: No Symptoms Musculoskeletal: Reports: No Symptoms Skin: Reports: No Symptoms Neurological: Reports: No Symptoms Psychiatric: Reports: No Symptoms - Patient Data Vitals - Most Recent: Last Vital Signs Temp 37.0 C 09/10/18 11:34 Pulse 94 09/10/18 11:34 Resp 18 09/10/18 11:34 BP 114/73 09/10/18 11:34 Pulse Ox 9 L 09/10/18 11:34 Weight - Most Recent: 88.133 kg I&O - Last 24 Hours: Intake & Output 09/09/18 09/10/18 09/10/18 22:59 06:59 14:59 Intake Total 1340 3003 500 Output Total 895 775 555 Balance 445 2228 -55 Lab Results Last 24 Hours: Laboratory Results - last 24 hr 09/09/18 09/09/18 09/09/18 Range/Units 13:07 17:10 20:33 WBC (3.98-10.04) K/mm3 RBC (3.98-5.22) M/mm3 Hgb (11.2-15.7) gm/L Hct (34.1-44.9) % MCV (79.4-94.8) fl MCH (25.6-32.2) pg MCHC (32.2-35.5) g/dl RDW Std Deviation (36.4-46.3) fL Plt Count (182-369) K/mm3 MPV (9.4-12.3) fl Neut % (Auto) (34.0-71.1) % Lymph % (Auto) (19.3-51.7) % [place] % (Auto) (4.7-12.5) % Eos % (Auto) (0.7-5.8) Baso % (Auto) (0.1-1.2) % Neut # (Auto) (1.56-6.13) K/mm3 Lymph # (Auto) (1.18-3.74) K/mm3 [place] # (Auto) (0.24-0.36) K/mm3 Eos # (Auto) (0.04-0.36) K/mm3 Baso # (Auto) (0.01-0.08) K/mm3 Sodium (136-145) mEq/L Potassium (3.5-5.1) mEq/L Chloride (98-107) mEq/L Carbon Dioxide (21-32) mEq/L Anion Gap (5-15) BUN (7-18) mg/dL Creatinine (0.55-1.02) mg/dL Est Cr Clr Drug Dosing mL/min Estimated GFR (MDRD) (>60) mL/min BUN/Creatinine Ratio (14-18) Glucose 457 H 406 H (80-115) mg/dL POC Glucose (80-115) mg/dL Calcium (8.5-10.1) mg/dL Magnesium (1.8-2.4) mg/dl C-Reactive Protein (<1.0) mg/dL NT-Pro-B Natriuret Pep 335 H (0-125) pg/mL Urine Color (Yellow) Urine Appearance (Clear) Urine pH (5.0-8.0) Ur Specific [place] (1.005-1.030) Urine Protein (Negative) Urine Glucose (UA) (Negative) Urine Ketones (Negative) Urine Occult Blood (Negative) Urine Nitrite (Negative) Urine Bilirubin (Negative) Urine Urobilinogen (0.2-1.0) Ur Leukocyte Esterase (Negative) Urine RBC (0-5) /hpf Urine WBC (0-5) /hpf Ur Epithelial Cells (0-5) /hpf Amorphous Sediment (NOT SEEN) /hpf Urine Bacteria (FEW) /hpf Urine Mucus (FEW) /hpf 09/09/18 09/10/18 09/10/18 Range/Units 23:05 05:14 05:14 WBC (3.98-10.04) K/mm3 RBC (3.98-5.22) M/mm3 Hgb (11.2-15.7) gm/L Hct (34.1-44.9) % MCV (79.4-94.8) fl MCH (25.6-32.2) pg MCHC (32.2-35.5) g/dl RDW Std Deviation (36.4-46.3) fL Plt Count (182-369) K/mm3 MPV (9.4-12.3) fl Neut % (Auto) (34.0-71.1) % Lymph % (Auto) (19.3-51.7) % [place] % (Auto) (4.7-12.5) % Eos % (Auto) (0.7-5.8) Baso % (Auto) (0.1-1.2) % Neut # (Auto) (1.56-6.13) K/mm3 Lymph # (Auto) (1.18-3.74) K/mm3 [place] # (Auto) (0.24-0.36) K/mm3 Eos # (Auto) (0.04-0.36) K/mm3 Baso # (Auto) (0.01-0.08) K/mm3 Sodium 135 L (136-145) mEq/L Potassium 3.4 L (3.5-5.1) mEq/L Chloride 100 (98-107) mEq/L Carbon Dioxide 28 (21-32) mEq/L Anion Gap 10.4 (5-15) BUN 17 (7-18) mg/dL Creatinine 0.6 (0.55-1.02) mg/dL Est Cr Clr Drug Dosing 84.54 mL/min Estimated GFR (MDRD) > 60 (>60) mL/min BUN/Creatinine Ratio 28.3 H (14-18) Glucose 175 H (80-115) mg/dL POC Glucose 325 H (80-115) mg/dL Calcium 8.1 L (8.5-10.1) mg/dL Magnesium 1.9 (1.8-2.4) mg/dl C-Reactive Protein 3.2 H* (<1.0) mg/dL NT-Pro-B Natriuret Pep (0-125) pg/mL Urine Color (Yellow) Urine Appearance (Clear) Urine pH (5.0-8.0) Ur Specific [place] (1.005-1.030) Urine Protein (Negative) Urine Glucose (UA) (Negative) Urine Ketones (Negative) Urine Occult Blood (Negative) Urine Nitrite (Negative) Urine Bilirubin (Negative) Urine Urobilinogen (0.2-1.0) Ur Leukocyte Esterase (Negative) Urine RBC (0-5) /hpf Urine WBC (0-5) /hpf Ur Epithelial Cells (0-5) /hpf Amorphous Sediment (NOT SEEN) /hpf Urine Bacteria (FEW) /hpf Urine Mucus (FEW) /hpf 09/10/18 09/10/18 09/10/18 Range/Units 05:14 05:14 10:30 WBC 6.20 (3.98-10.04) K/mm3 RBC 3.60 L (3.98-5.22) M/mm3 Hgb 9.7 L (11.2-15.7) gm/L Hct 30.4 L (34.1-44.9) % MCV 84.4 (79.4-94.8) fl MCH 26.9 (25.6-32.2) pg MCHC 31.9 L (32.2-35.5) g/dl RDW Std Deviation 41.0 (36.4-46.3) fL Plt Count 366 (182-369) K/mm3 MPV 9.7 (9.4-12.3) fl Neut % (Auto) 74.6 H (34.0-71.1) % Lymph % (Auto) 14.8 L (19.3-51.7) % [place] % (Auto) 8.1 (4.7-12.5) % Eos % (Auto) 2.1 (0.7-5.8) Baso % (Auto) 0.2 (0.1-1.2) % Neut # (Auto) 4.63 (1.56-6.13) K/mm3 Lymph # (Auto) 0.92 L (1.18-3.74) K/mm3 [place] # (Auto) 0.50 H (0.24-0.36) K/mm3 Eos # (Auto) 0.13 (0.04-0.36) K/mm3 Baso # (Auto) 0.01 (0.01-0.08) K/mm3 Sodium (136-145) mEq/L Potassium (3.5-5.1) mEq/L Chloride (98-107) mEq/L Carbon Dioxide (21-32) mEq/L Anion Gap (5-15) BUN (7-18) mg/dL Creatinine (0.55-1.02) mg/dL Est Cr Clr Drug Dosing mL/min Estimated GFR (MDRD) (>60) mL/min BUN/Creatinine Ratio (14-18) Glucose (80-115) mg/dL POC Glucose 167 H (80-115) mg/dL Calcium (8.5-10.1) mg/dL Magnesium (1.8-2.4) mg/dl C-Reactive Protein (<1.0) mg/dL NT-Pro-B Natriuret Pep (0-125) pg/mL Urine Color Yellow (Yellow) Urine Appearance Clear (Clear) Urine pH 7.0 (5.0-8.0) Ur Specific [place] 1.015 (1.005-1.030) Urine Protein Negative (Negative) Urine Glucose (UA) Negative (Negative) Urine Ketones Negative (Negative) Urine Occult Blood Trace-lysed H (Negative) Urine Nitrite Negative (Negative) Urine Bilirubin Negative (Negative) Urine Urobilinogen 0.2 (0.2-1.0) Ur Leukocyte Esterase Negative (Negative) Urine RBC 5-10 H (0-5) /hpf Urine WBC 0-5 (0-5) /hpf Ur Epithelial Cells 0-5 (0-5) /hpf Amorphous Sediment Few H (NOT SEEN) /hpf Urine Bacteria Few (FEW) /hpf Urine Mucus Not seen (FEW) /hpf 09/10/ Range/Units 11:18 WBC (3.98-10.04) K/mm3 RBC (3.98-5.22) M/mm3 Hgb (11.2-15.7) gm/L Hct (34.1-44.9) % MCV (79.4-94.8) fl MCH (25.6-32.2) pg MCHC (32.2-35.5) g/dl RDW Std Deviation (36.4-46.3) fL Plt Count (182-369) K/mm3 MPV (9.4-12.3) fl Neut % (Auto) (34.0-71.1) % Lymph % (Auto) (19.3-51.7) % [place] % (Auto) (4.7-12.5) % Eos % (Auto) (0.7-5.8) Baso % (Auto) (0.1-1.2) % Neut # (Auto) (1.56-6.13) K/mm3 Lymph # (Auto) (1.18-3.74) K/mm3 [place] # (Auto) (0.24-0.36) K/mm3 Eos # (Auto) (0.04-0.36) K/mm3 Baso # (Auto) (0.01-0.08) K/mm3 Sodium (136-145) mEq/L Potassium (3.5-5.1) mEq/L Chloride (98-107) mEq/L Carbon Dioxide (21-32) mEq/L Anion Gap (5-15) BUN (7-18) mg/dL Creatinine (0.55-1.02) mg/dL Est Cr Clr Drug Dosing mL/min Estimated GFR (MDRD) (>60) mL/min BUN/Creatinine Ratio (14-18) Glucose (80-115) mg/dL POC Glucose 291 H (80-115) mg/dL Calcium (8.5-10.1) mg/dL Magnesium (1.8-2.4) mg/dl C-Reactive Protein (<1.0) mg/dL NT-Pro-B Natriuret Pep (0-125) pg/mL Urine Color (Yellow) Urine Appearance (Clear) Urine pH (5.0-8.0) Ur Specific [place] (1.005-1.030) Urine Protein (Negative) Urine Glucose (UA) (Negative) Urine Ketones (Negative) Urine Occult Blood (Negative) Urine Nitrite (Negative) Urine Bilirubin (Negative) Urine Urobilinogen (0.2-1.0) Ur Leukocyte Esterase (Negative) Urine RBC (0-5) /hpf Urine WBC (0-5) /hpf Ur Epithelial Cells (0-5) /hpf Amorphous Sediment (NOT SEEN) /hpf Urine Bacteria (FEW) /hpf Urine Mucus (FEW) /hpf Alireza Results Last 24 Hours: Microbiology 09/03/18 21:20 Aerobic Blood Culture - Preliminary Blood - Venous NO GROWTH AFTER 6 DAYS Anaerobic Blood Culture - Preliminary NO GROWTH AFTER 6 DAYS 09/03/18 21:25 Aerobic Blood Culture - Preliminary Blood - Venous - Lab Draw NO GROWTH AFTER 6 DAYS Anaerobic Blood Culture - Preliminary NO GROWTH AFTER 6 DAYS Med Orders - Current: Current Medications Acetaminophen (Tylenol) 650 mg PO Q4H PRN PRN Reason: Pain (Mild 1-3)/fever Last Admin: 08/31/18 20:10 Dose: 650 mg Alogliptin Benzoate (Alogliptin) 25 mg PO DAILY [facility] Last Admin: 09/10/18 09:02 Dose: 25 mg Aspirin (Halfprin) 81 mg PO DAILY [facility] Last Admin: 09/10/18 09:01 Dose: 81 mg Bisacodyl (Dulcolax) 5 mg PO DAILY PRN PRN Reason: Constipation Carbamazepine (Tegretol Tab) 400 mg PO BID [facility] Last Admin: 09/10/18 09:02 Dose: 400 mg Dextrose/Water (Dextrose 50% In Water) 50 ml IVPUSH ASDIRECTED PRN PRN Reason: Hypoglycemia Docusate Sodium (Colace) 100 mg PO BID PRN PRN Reason: Constipation Enoxaparin Sodium (Lovenox) 40 mg SUBCUT DAILY [facility] Last Admin: 09/10/18 09:06 Dose: 40 mg Furosemide (Lasix) 20 mg PO DAILY [facility] Guaifenesin/Phenylephrine HCl (Robitussin Dm) 10 ml PO TID [facility] Last Admin: 09/10/18 09:05 Dose: 10 ml Hydralazine HCl (Apresoline) 20 mg IVPUSH Q6H PRN PRN Reason: Hypertension Promethazine HCl 6.25 mg/ (Sodium Chloride) 50.25 mls @ 100 mls/hr IV Q6H PRN PRN Reason: Nausea/Vomiting Insulin Glargine (Lantus) 22 unit SUBCUT BID@0700,2200 [facility] Last Admin: 09/10/18 06:46 Dose: 22 units Insulin Human Lispro (Humalog) 0 unit SUBCUT QIDACANDBED [facility]; Protocol Last Admin: 09/10/18 11:54 Dose: 9 units Ipratropium Fitz[place]illiam (Atrovent) 0.5 mg NEB QIDRT [facility] Last Admin: 09/10/18 09:23 Dose: 0.5 mg Levalbuterol HCl (Xopenex) 1.25 mg NEB QIDRT [facility] Last Admin: 09/10/18 09:23 Dose: 1.25 mg Levalbuterol HCl (Xopenex) 1.25 mg NEB Q2H PRN PRN Reason: sob Last Admin: 09/03/18 19:24 Dose: 1.25 mg Levofloxacin (Levaquin) 750 mg PO Q24H [facility] Last Admin: 09/10/18 10:24 Dose: 750 mg Lorazepam (Ativan) 2 mg IVPUSH Q4H PRN PRN Reason: Seizures Lorazepam (Ativan) 2 mg IVPUSH Q6H PRN PRN Reason: Anxiety Last Admin: 09/07/18 23:17 Dose: 2 mg Magnesium Hydroxide (Milk Of Magnesia) 30 ml PO Q12H PRN PRN Reason: Constipation Metformin HCl (Glucophage) 850 mg PO TIDMEALS [facility] Last Admin: 09/10/18 11:29 Dose: 850 mg Metoprolol Succinate (Toprol Xl) 25 mg PO BID [facility] Last Admin: 09/10/18 09:03 Dose: 25 mg Metoprolol Tartrate (Lopressor) 5 mg IVPUSH Q4H PRN PRN Reason: Tachycardia Last Admin: 09/03/18 19:25 Dose: 5 mg Morphine Sulfate (Morphine Sulfate) 3 mg IV Q6H PRN PRN Reason: Dyspnea Pantoprazole Sodium (Protonix) 40 mg PO DAILY [facility] Last Admin: 09/10/18 09:05 Dose: 40 mg Polyethylene Glycol (Miralax) 17 gm PO DAILY PRN PRN Reason: Constipation Potassium Chloride (Klor-Con M20) 40 meq PO BID [facility] Stop: 09/11/18 21:01 Last Admin: 09/10/18 10:24 Dose: 40 meq Prednisone (Prednisone) 40 mg PO WITHBREAKFAST [facility] Last Admin: 09/10/18 06:47 Dose: 40 mg Promethazine HCl (Phenergan) 25 mg PO Q6H PRN PRN Reason: Nausea/Vomiting Saccharomyces Boulardii (Florastor) 500 mg PO BID [facility] Last Admin: 09/10/18 09:04 Dose: 500 mg Senna/Docusate Sodium (Senna Plus) 1 tab PO BID PRN PRN Reason: Constipation Sertraline HCl (Zoloft) 50 mg PO DAILY [facility] Last Admin: 09/10/18 09:04 Dose: 50 mg Temazepam (Restoril) 7.5 mg PO BEDTIME PRN PRN Reason: Sleep Discontinued Medications Acetaminophen (Tylenol) 975 mg PO NOW ONE Stop: 08/30/18 14:27 Last Admin: 08/30/18 14:51 Dose: 975 mg Hydrocodone Bitart/Acetaminophen ([place] 325-5 Mg) 1 tab PO Q4H PRN PRN Reason: Pain (moderate 4-6) Albuterol (Proventil Neb Soln) 2.5 mg NEB Q2H PRN PRN Reason: Shortness Of Breath/wheezing Last Admin: 08/31/18 23:15 Dose: 2.5 mg Albuterol/Ipratropium (Duoneb 3.0-0.5 Mg/3 Ml) 3 ml NEB Q4H PRN PRN Reason: Shortness Of Breath/wheezing Last Admin: 08/31/18 10:44 Dose: 3 ml Albuterol/Ipratropium (Duoneb 3.0-0.5 Mg/3 Ml) 3 ml NEB QIDRT [facility] Last Admin: 09/01/18 08:59 Dose: 3 ml Ampicillin Sodium (Ampicillin) Confirm Administered Dose 1 gm .ROUTE .STK-MED ONE Stop: 08/31/18 21:19 Last Admin: 08/31/18 21:33 Dose: Not Given Ceftriaxone Sodium (Rocephin) 2 gm IVPUSH Q24H [facility] Ceftriaxone Sodium (Rocephin) 2 gm IVPUSH Q12H [facility] Dexamethasone (Dexamethasone) Confirm Administered Dose 40 mg .ROUTE .STK-MED ONE Stop: 08/31/18 19:53 Last Admin: 08/31/18 20:15 Dose: Not Given Dexamethasone (Dexamethasone) 40 mg IVPUSH Q12HR [facility] Stop: 09/03/18 07:01 Diltiazem HCl (Cardizem) 10 mg IVPUSH Q4H PRN PRN Reason: tachy >110 Last Admin: 09/02/18 06:52 Dose: 10 mg Diphenhydramine HCl (Benadryl) 25 mg IVPUSH ONETIME ONE Stop: 09/04/18 10:25 Last Admin: 09/04/18 10:49 Dose: 25 mg Famotidine (Pepcid) 20 mg PO BID [facility] Last Admin: 09/03/18 09:06 Dose: 20 mg Famotidine (Pepcid) 20 mg IVPUSH BID [facility] Famotidine (Pepcid) 20 mg IVPUSH BID [facility] Last Admin: 09/07/18 09:02 Dose: 20 mg Famotidine (Pepcid) 20 mg PO BID [facility] Last Admin: 09/08/18 08:17 Dose: 20 mg Furosemide (Lasix) 40 mg IVPUSH NOW ONE Stop: 08/30/18 14:51 Last Admin: 08/30/18 14:58 Dose: 40 mg Furosemide (Lasix) 20 mg IVPUSH NOW ONE Stop: 09/02/18 12:18 Last Admin: 09/02/18 13:45 Dose: 20 mg Furosemide (Lasix) 20 mg IVPUSH NOW ONE Stop: 09/02/18 21:01 Last Admin: 09/02/18 20:18 Dose: 20 mg Furosemide (Lasix) 20 mg IVPUSH NOW ONE Stop: 09/03/18 09:49 Last Admin: 09/03/18 10:27 Dose: 20 mg Furosemide (Lasix) 20 mg IVPUSH ONETIME ONE Stop: 09/04/18 06:01 Last Admin: 09/04/18 05:48 Dose: 20 mg Furosemide (Lasix) 20 mg IVPUSH NOW ONE Stop: 09/04/18 12:31 Last Admin: 09/04/18 12:32 Dose: 20 mg Furosemide (Lasix) 20 mg IVPUSH ONETIME ONE Stop: 09/04/18 20:01 Last Admin: 09/04/18 20:15 Dose: 20 mg Furosemide (Lasix) 40 mg IVPUSH DAILY [facility] Stop: 09/10/18 11:00 Last Admin: 09/10/18 09:05 Dose: 40 mg Furosemide (Lasix) 40 mg IVPUSH NOW ONE Stop: 09/05/18 15:01 Last Admin: 09/05/18 14:42 Dose: 40 mg Furosemide (Lasix) 40 mg IVPUSH ONETIME ONE Stop: 09/09/18 18:01 Furosemide (Lasix) 40 mg IVPUSH ONETIME ONE Stop: 09/08/18 18:01 Last Admin: 09/08/18 18:37 Dose: 40 mg Glimepiride (Glimepiride) 4 mg PO BIDMEALS [facility] Last Admin: 09/03/18 09:05 Dose: 4 mg Guaifenesin/Phenylephrine HCl (Robitussin Dm) 10 ml PO TID@0700,1400,2100 [facility] Last Admin: 09/08/18 10:17 Dose: Not Given Hydralazine HCl (Apresoline) 10 mg IVPUSH Q4H PRN PRN Reason: Hypertension Last Admin: 09/08/18 00:14 Dose: 10 mg Hydromorphone HCl (Dilaudid) 0.25 mg IVPUSH Q2H PRN PRN Reason: Pain (severe 7-10) Sodium Chloride (Normal Saline) 1,000 mls @ 150 mls/hr IV ASDIRECTED [facility] Last Admin: 08/30/18 14:26 Dose: 150 mls/hr Sodium Chloride (Normal Saline) 1,000 mls @ 75 mls/hr IV ASDIRECTED [facility] Ceftriaxone Sodium 1 gm/ (Sodium Chloride) 100 mls @ 200 mls/hr IV ONETIME ONE Stop: 08/30/18 16:28 Last Admin: 08/30/18 16:57 Dose: 200 mls/hr Azithromycin 500 mg/ Sodium (Chloride) 250 mls @ 250 mls/hr IV Q24H [facility] Last Admin: 08/30/18 21:15 Dose: 250 mls/hr Sodium Chloride (Normal Saline) 1,000 mls @ 125 mls/hr IV ASDIRECTED [facility] Last Admin: 08/31/18 00:55 Dose: 125 mls/hr Ceftriaxone Sodium 1 gm/ (Sodium Chloride) 100 mls @ 200 mls/hr IV ONETIME ONE Stop: 08/30/18 19:14 Last Admin: 08/30/18 19:28 Dose: 200 mls/hr Ceftriaxone Sodium 2 gm/ (Sodium Chloride) 100 mls @ 200 mls/hr IV Q24H [facility] Dextrose/Sodium Chloride (Dextrose 5%-Normal Saline) 1,000 mls @ 125 mls/hr IV ASDIRECTED [facility] Last Admin: 08/31/18 08:05 Dose: 125 mls/hr Piperacillin Sod/Tazobactam (Sod 4.5 gm/ Sodium Chloride) 100 mls @ 200 mls/hr IV ONETIME ONE Stop: 08/31/18 10:29 Last Admin: 08/31/18 11:28 Dose: Not Given Piperacillin Sod/Tazobactam (Sod 4.5 gm/ Sodium Chloride) 100 mls @ 25 mls/hr IV Q8H [facility] Last Admin: 08/31/18 23:34 Dose: Not Given Vancomycin HCl 1 gm/ Sodium (Chloride) 250 mls @ 250 mls/hr IV Q12H [facility] Last Admin: 09/01/18 21:37 Dose: 250 mls/hr Sodium Chloride (Normal Saline) Confirm Administered Dose 100 mls @ as directed .ROUTE .STK-MED ONE Stop: 08/31/18 10:49 Last Admin: 08/31/18 11:29 Dose: Not Given Piperacillin Sod/Tazobactam (Sod 4.5 gm/ Sodium Chloride) 100 mls @ 200 mls/hr IV ONETIME ONE Stop: 08/31/18 11:44 Last Admin: 08/31/18 12:56 Dose: 200 mls/hr Sodium Chloride (Normal Saline) 1,000 mls @ 75 mls/hr IV ASDIRECTED [facility] Last Admin: 09/02/18 04:15 Dose: 75 mls/hr Magnesium Sulfate/Dextrose (Magnesium 1 Gm In D5w 100 Ml) Confirm Administered Dose 100 mls @ as directed .ROUTE .[facility] ONE Stop: 08/31/18 19:53 Last Admin: 08/31/18 20:15 Dose: Not Given Acyclovir 1,000 mg/ Sodium (Chloride) 120 mls @ 100 mls/hr IV Q8H [facility] Last Admin: 09/02/18 04:09 Dose: 100 mls/hr Ampicillin Sodium 1 gm/ Sodium (Chloride) 100 mls @ 200 mls/hr IV Q4H [facility] Last Admin: 08/31/18 23:34 Dose: Not Given Dexamethasone 40 mg/ Sodium (Chloride) 54 mls @ 108 mls/hr IV BID@0700,1900 [facility] Stop: 09/02/18 20:31 Last Admin: 09/02/18 18:08 Dose: 108 mls/hr Magnesium Sulfate 2 gm/ Premix 50 mls @ 25 mls/hr IV ONETIME ONE Stop: 08/31/18 22:13 Last Admin: 08/31/18 21:26 Dose: Not Given Magnesium Sulfate/Dextrose 1 (gm/ Premix) 100 mls @ 100 mls/hr IV ONETIME ONE Stop: 08/31/18 21:29 Last Admin: 08/31/18 20:35 Dose: 100 mls/hr Ampicillin Sodium 1 gm/ Sodium (Chloride) 100 mls @ 200 mls/hr IV Q4H [facility] Last Admin: 09/01/18 11:17 Dose: Not Given Sodium Chloride (Normal Saline) Confirm Administered Dose 100 mls @ as directed .ROUTE .[facility] ONE Stop: 08/31/18 21:21 Last Admin: 08/31/18 21:29 Dose: Not Given Sodium Chloride (Normal Saline) 250 mls @ 999 mls/hr IV ONETIME ONE Stop: 08/31/18 21:25 Last Admin: 08/31/18 23:07 Dose: Not Given Ceftriaxone Sodium 2 gm/ (Sodium Chloride) 100 mls @ 200 mls/hr IV Q24H [facility] Last Admin: 09/02/18 23:19 Dose: 200 mls/hr Ampicillin Sodium 1 gm/ Sodium (Chloride) 100 mls @ 200 mls/hr IV Q4H [facility] Last Admin: 09/02/18 05:41 Dose: 200 mls/hr Levofloxacin/Dextrose 750 mg/ (Premix) 150 mls @ 100 mls/hr IV Q24H [facility] Stop: 09/09/18 12:00 Last Admin: 09/09/18 10:26 Dose: 100 mls/hr Potassium Chloride/Dextrose/Sod Cl (D5 1/2 Ns W/ 40 Meq/L Kcl) 1,000 mls @ 75 mls/hr IV ASDIRECTED [facility] Last Infusion: 09/03/18 20:30 Dose: 125 mls/hr Vancomycin HCl 1 gm/ Sodium (Chloride) 250 mls @ 250 mls/hr IV Q12H [facility] Stop: 09/05/18 01:30 Last Admin: 09/04/18 23:52 Dose: 250 mls/hr Potassium Chloride 10 meq/ (Premix) 100 mls @ 100 mls/hr IV Q1H [facility] Stop: 09/03/18 11:59 Last Admin: 09/03/18 12:32 Dose: 100 mls/hr Magnesium Sulfate 2 gm/ Premix 50 mls @ 25 mls/hr IV ONETIME ONE Stop: 09/03/18 21:50 Last Admin: 09/03/18 20:13 Dose: 25 mls/hr Ceftriaxone Sodium 2 gm/ (Sodium Chloride) 100 mls @ 200 mls/hr IV Q12H [facility] Last Admin: 09/09/18 09:09 Dose: 200 mls/hr Potassium Chloride/Dextrose/Sod Cl (D5 1/2 Ns W/ 40 Meq/L Kcl) 1,000 mls @ 125 mls/hr IV ASDIRECTED [facility] Last Admin: 09/07/18 10:33 Dose: 75 mls/hr Magnesium Sulfate 2 gm/ Premix 50 mls @ 25 mls/hr IV ONETIME ONE Stop: 09/04/18 12:43 Last Admin: 09/04/18 11:09 Dose: 25 mls/hr Vancomycin HCl 1 gm/ Sodium (Chloride) 250 mls @ 250 mls/hr IV Q8H [facility] Last Admin: 09/06/18 09:10 Dose: Not Given Vancomycin HCl 1 gm/Vancomycin HCl 250 mg/ Sodium Chloride 250 mls @ 166.667 mls/hr IV Q8H [facility] Stop: 09/07/18 12:00 Last Admin: 09/07/18 08:11 Dose: 166.667 mls/hr Magnesium Sulfate/Dextrose 1 (gm/ Premix) 100 mls @ 100 mls/hr IV ONETIME ONE Stop: 09/06/18 15:12 Last Admin: 09/06/18 15:10 Dose: 100 mls/hr Sodium Chloride (Sodium Chloride 0.45%) 1,000 mls @ 999 mls/hr IV ASDIRECTED [facility] Last Admin: 09/08/18 14:02 Dose: 999 mls/hr Sodium Chloride (Sodium Chloride 0.45%) 1,000 mls @ 250 mls/hr IV ASDIRECTED [facility] Last Admin: 09/08/18 19:16 Dose: 250 mls/hr Insulin Human Regular 100 unit (/ Sodium Chloride) 100 mls @ 9.12 mls/hr IV TITRATE DAGOBERTO; Protocol Last Titration: 09/08/18 16:27 Dose: 0 units/kg/hr, 0 mls/hr Magnesium Sulfate 2 gm/ Premix 50 mls @ 25 mls/hr IV ONETIME ONE Stop: 09/09/18 11:59 Last Admin: 09/09/18 10:22 Dose: 25 mls/hr Sodium Chloride (Sodium Chloride 0.45%) 1,000 mls @ 999 mls/hr IV ASDIRECTED DAGOBERTO Stop: 09/09/18 20:02 Last Admin: 09/09/18 18:23 Dose: 999 mls/hr Sodium Chloride (Sodium Chloride 0.45%) 1,000 mls @ 250 mls/hr IV ASDIRECTED [facility] Last Admin: 09/10/18 03:51 Dose: 250 mls/hr Magnesium Sulfate 2 gm/ Premix 50 mls @ 25 mls/hr IV ONETIME ONE Stop: 09/10/18 11:59 Last Admin: 09/10/18 10:24 Dose: 25 mls/hr Insulin Glargine (Lantus) 10 unit SUBCUT BID DAGOBERTO Last Admin: 09/08/18 08:46 Dose: 10 units Insulin Glargine (Lantus) 15 unit SUBCUT BID@0700,2200 DAGOBERTO Insulin Glargine (Lantus) 5 unit SUBCUT ONETIME ONE Stop: 09/08/18 12:11 Last Admin: 09/08/18 12:35 Dose: 5 units Insulin Glargine (Lantus) 10 unit SUBCUT ONETIME ONE Stop: 09/08/18 21:01 Last Admin: 09/08/18 21:17 Dose: 10 units Insulin Glargine (Lantus) 15 unit SUBCUT BID@0700,2200 [facility] Last Admin: 09/09/18 21:19 Dose: 15 units Insulin Glargine (Lantus) 15 unit SUBCUT NOW STA Stop: 09/09/18 17:45 Last Admin: 09/09/18 17:57 Dose: 15 units Insulin Human Lispro (Humalog) 0 unit SUBCUT QIDACANDBED [facility]; Protocol Last Admin: 08/31/18 20:54 Dose: 3 unit Insulin Human Lispro (Humalog) 0 unit SUBCUT QIDACANDBED [facility]; Protocol Last Admin: 09/06/18 12:27 Dose: 10 units Insulin Human Lispro (Humalog) 18 unit SUBCUT STAT ONE Stop: 09/09/18 18:16 Last Admin: 09/09/18 18:22 Dose: 18 units Insulin Human Regular (Humulin R) 8 unit SUBCUT ONETIME ONE Stop: 08/30/18 14:55 Last Admin: 08/30/18 15:06 Dose: 8 units Lorazepam (Ativan) 2 mg IVPUSH Q4H PRN PRN Reason: Seizures Lorazepam (Ativan) 2 mg IVPUSH Q6H PRN PRN Reason: Seizures Last Admin: 09/03/18 16:23 Dose: 2 mg Lorazepam (Ativan) 1 mg IVPUSH ONETIME ONE Stop: 09/04/18 11:57 Last Admin: 09/04/18 12:32 Dose: 1 mg Lorazepam (Ativan) 1 mg IVPUSH Q8H PRN PRN Reason: Anxiety Last Admin: 09/06/18 16:44 Dose: 1 mg Methylprednisolone Sodium Succinate (Solu-Medrol) 125 mg IVPUSH ONETIME ONE Stop: 09/03/18 19:33 Last Admin: 09/03/18 19:39 Dose: 125 mg Methylprednisolone Sodium Succinate (Solu-Medrol) 125 mg IVPUSH Q12H [facility] Methylprednisolone Sodium Succinate (Solu-Medrol) 125 mg IVPUSH DAILY [facility] Last Admin: 09/06/18 08:34 Dose: 125 mg Methylprednisolone Sodium Succinate (Solu-Medrol) 125 mg IVPUSH Q12H [facility] Last Admin: 09/08/18 08:17 Dose: 125 mg Methylprednisolone Sodium Succinate (Solu-Medrol) 125 mg IVPUSH DAILY [facility] Last Admin: 09/09/18 09:08 Dose: 125 mg Morphine Sulfate (Morphine) 1 mg IVPUSH Q4H PRN PRN Reason: Shortness of Breath Last Admin: 09/03/18 06:35 Dose: 1 mg Morphine Sulfate (Morphine) 2 mg IVPUSH Q4H PRN PRN Reason: Shortness of Breath Last Admin: 09/03/18 19:43 Dose: 2 mg Morphine Sulfate (Morphine) 2 mg IVPUSH Q2H PRN PRN Reason: Shortness of Breath Last Admin: 09/04/18 12:35 Dose: 2 mg Morphine Sulfate (Morphine) 4 mg IVPUSH ONETIME ONE Stop: 09/04/18 11:54 Last Admin: 09/04/18 11:57 Dose: Not Given Morphine Sulfate (Morphine) 3 mg IVPUSH Q2H [facility] Last Admin: 09/04/18 15:48 Dose: 3 mg Morphine Sulfate (Morphine Sulfate) Confirm Administered Dose 4 mg IV .STK-MED ONE Stop: 09/04/18 15:45 Last Admin: 09/04/18 15:51 Dose: Not Given Morphine Sulfate (Morphine Sulfate) 3 mg IV Q2H [facility] Last Admin: 09/06/18 11:15 Dose: Not Given Morphine Sulfate (Morphine) 3 mg IVPUSH Q4H [facility] Last Admin: 09/08/18 08:18 Dose: 3 mg Ondansetron HCl (Zofran) 4 mg IVPUSH ONETIME ONE Stop: 08/30/18 14:19 Last Admin: 08/30/18 14:29 Dose: 4 mg Oseltamivir Phosphate (Tamiflu) 75 mg PO ONETIME ONE Stop: 08/30/18 14:43 Last Admin: 08/30/18 15:02 Dose: 75 mg Oseltamivir Phosphate (Tamiflu) 75 mg PO BID [facility] Stop: 09/03/18 21:01 Last Admin: 09/03/18 21:30 Dose: 75 mg Oseltamivir Phosphate (Tamiflu) 75 mg PO BID [facility] Last Admin: 09/09/18 09:07 Dose: 75 mg Pantoprazole Sodium (Protonix) 40 mg PO ACBREAKFAST [facility] Last Admin: 09/08/18 10:17 Dose: Not Given Potassium Chloride (Klor-Con M20) 40 meq PO BID [facility] Last Admin: 09/08/18 08:19 Dose: 40 meq Saccharomyces Boulardii (Florastor) 250 mg PO BID [facility] Last Admin: 09/09/18 09:08 Dose: 250 mg Sertraline HCl (Zoloft) 25 mg PO DAILY [facility] Last Admin: 09/08/18 08:19 Dose: 25 mg Vancomycin HCl (Pharmacy To Dose - Vancomycin) 1 dose .XX ASDIRECTED [facility] Vancomycin HCl (Pharmacy To Dose - Vancomycin) 1 dose .XX ASDIRECTED [facility] - Exam Quality Assessment: Supplemental Oxygen (1.5 l/m), DVT Prophylaxis General: Alert, Oriented, Cooperative, No Acute Distress HEENT: Pupils Equal, Pupils Reactive, EOMI Neck: Trachea Midline, No JVD Lungs: Normal Respiratory Effort, Decreased Breath Sounds Cardiovascular: Regular Rate, Regular Rhythm GI/Abdominal Exam: Normal Bowel Sounds, Soft, Non-Tender, No Organomegaly, No Distention (Female) Exam: Deferred Back Exam: Normal Inspection Extremities: Normal Inspection, Non-Tender, Normal Capillary Refill Skin: Warm Neurological: No New Focal Deficit Psy/Mental Status: Alert, Normal Affect, Normal Mood - Problem List & Annotations (1) Streptococcal pneumonia SNOMED Code(s): 96700555 Code(s): J15.4 - PNEUMONIA DUE TO OTHER STREPTOCOCCI Status: Acute Current Visit: Yes (2) Hypoxia SNOMED Code(s): 136228232 Code(s): R09.02 - HYPOXEMIA Status: Acute Current Visit: Yes (3) Respiratory distress, acute SNOMED Code(s): 313713660 Code(s): R06.03 - ACUTE RESPIRATORY DISTRESS Status: Acute Current Visit : Yes - Problem List Review Problem List Initiated/Reviewed/Updated: Yes - My Orders Last 24 Hours: My Active Orders 09/09/18 18:00 metFORMIN [Glucophage] 850 mg PO TIDMEALS 09/09/18 21:00 Saccharomyces Boulardii [Florastor] 500 mg PO BID 09/09/18 Dinner ADA Diabetic [[employer] Diet] [DIET] 09/10/18 07:00 Insulin Glarg,Human.Rec.Analog [LantUS] 22 unit SUBCUT BID@0700,2200 predniSONE 40 mg PO WITHBREAKFAST 09/10/18 10:00 Potassium Chloride [Klor-Con M20] 40 meq PO BID 09/10/18 10:30 levoFLOXacin [Levaquin] 750 mg PO Q24H 09/11/18 05:11 CRP [C-REACTIVE PROTEIN] [CHEM] AM MG [MAGNESIUM] [CHEM] AM 09/11/18 08:00 CXR [Chest 2V] [CR] Routine 09/11/18 09:00 Furosemide [Lasix] 20 mg PO DAILY - Plan Plan:: Assessment/Plan: Acute: Influenza with secondary bacterial PNA, Strep Pneumo PNA L lower and mid lung w/ hypoxia, clinically improved * Fever, productive cough, SOB w/ exertion x 3 days * O2 82% RA--> 92% 4L NC--> 91% 12L mask--> 89-91% 15L non-rebreather--> 15L BiPAP; FIO2 0.70 12/7...O2 sat 97% on pulse ox/ABG pH 7.48 pCO2 31.0 pO2 70 sO2 94.8%; frequent changes required. * No leukocytosis, Neut 86% with 3% bandemia, CRP 15.4--> 17.6 * CXR 08/30/18: Findings felt compatible with mild bilateral bronchitis with areas of pneumonia within the left mid and lower lung. * CT Chest 08/31/18: * 1. Diffuse parenchymal densities throughout both size of the chest more confluent within the lingula and within both lower lungs. Findings have progressed from prior chest x-ray. Findings are most likely infectious in etiology. Continued follow-up is recommended. * 2. Mildly prominent lymph nodes most likely on an inflammatory basis from the lung process. * Mycoplasma negative * RVP was negative; Strep pneumo--->positive * RT/Duonebs/IS/Acapella/Chest Physiotherapy * ABG shows low O2 sat: 86.8%--> 89.7%--> 93.3 * Repeat CXR 09/01/18: * 1. Diffuse parenchymal densities as described above. Differential includes irregular areas of pulmonary edema vs diffuse multifocal areas of pneumonia. * 2. Heart is slightly enlarged Most recent ATB : Rocephin/Levoquin/Vanco--Vanco stopped 09/07/18; Rocephin stopped 09/09/18; continue Levoquin po on 09/10/18 * Dexamethasone BID x2 days-->completed; started solumedrol 125 mg daily, change to prednisone 40 mg day, 09/10/18. * Magnesium as needed * R/O PE: * D-dimer elevated at 1.1 * CTA negative for PE * ECHO LVEF--WNL; grade 2/4 diastolic dysfunction * Pulmonary toilet * Recommend PFT outpt Influenza A, * Fever and increased weakness x3 days--> Increased energy and alertness today * Tamiflu started in ED--> continue BID, stopped 09/09/18. Sepsis * Likely 2/2 above * Temperature 102.2F, Hypoxic, Tachypneic, Tachycardia, source of infection present * LA 3.2--> 2.1--> 0.9 * Procalcitonin elevated at 0.18 * Rocephin started in ED--> continue * IVF started in ED--> continue * Blood cultures show no growth Possible AMS * Per , seemed more confused than usual this AM * Risk Factors: Current illness/sepsis, increased O2 demand, unwitnessed fall yesterday ( unsure if she hit her head; she does have a scab on her forehead but per notes it is a couple days old) * CT Head 08/31/18: * 1. Diffuse parenchymal densities throughout both sides of the chest more confluent within the lingual and within both lower lungs. Findings have progressed from prior chest x-ray. Findings are most likely infectious in etiology. Continued follow-up is recommended. * 2. Mildly prominent lymph nodes most likely on an inflammatory basis from the lung process. * Normal neuro exam, A+O x3, seems to be very lethargic * If continues to worsen/has AMS: * ICU care * LP in AM --> Cancelled d/t improved clinical disposition * CT Head in AM if still lethargic or AMS--> not needed at this time Hyperglycemia w/ DM2 * She missed a dose of insulin yesterday, didn't take her insulin this AM * Blood sugar this AM 389, Blood sugar in ED 320 * Blood glucose checks, insulin sliding scale * A1C 7.7 * Solumedrol 125 mg BID-->decreased to once daily New-onset Afib, resolved maintaining SR * Risk factor: Sepsis * 12 lead EKG done, HR 100's-118 * Metoprolol 25 BID * Lovenox 40 restarted * ECHO ---nl LVEF, grade 2 diastolic dysfunction * Monitor on telemetry DHF * Diurese as needed; 2 D echo documented nl LVEF, grade 2 diastolic dysfunction * Increase Lasix 40 mg daily, decreased to 20 mg po daily on 09/10/18. Abnormal electrolytes * Correct K, Mg, Na as needed Nutrition Follow oral care and intake Resume diabetic meds. Resolved: Dehydration * Likely 2/2 decreased intake * AGap 17.5--> 14.1 * IVF started in ED--> Continue * Monitor Possible UTI--> CULTURE NEGATIVE * Risk factors: Frequency, Incontinence * UA suspicious for UTI * Urine culture shows no growth * Rocephin started in ED--> continue Chronic: HLD * Lipids WNL HTN GERD Seizures on Tegretol (last seizure 2002) DM2 Plan: Continue ICU care-->down grade to MS with telemetry 09/11/18. Decline for transfer, will follow closely and seek transfer if needed. Droplet precautions-->DC Routine AM Labs ADA diet as tolerated TPN may be needed, will follow; currently on D5 0.45 with KCL 40 mEq-->> stopped began eating, 09/06/18. DVT/GI prophylaxis CM/SW PT/OT Increase activity as tolerated Titrate off O2 Code Status: Full Code; PCP: Dr. Nasreen Edmond [facility] is needed for deconditioning [facility] LOS>96 hours with slow response to treatment for Influenza/PNA
[2018-09-10] MEDS: Magnesium Oxide 400 MG Tab PO SCH (20:31)
[2018-09-11] MEDS: Insulin Glarg,Human.Rec.Analog 100 UNIT/ML ML SUBCUT SCH ×2 (06:12→21:41)
[2018-09-11] MEDS: predniSONE 20 MG Tab PO SCH (06:13)
[2018-09-11] MEDS: Ipratropium 0.02% 0.5 MG/2.5 ML Neb Soln NEB SCH ×4 (06:14→20:50)
[2018-09-11] MEDS: Levalbuterol HCl 1.25 MG/0.5 ML Neb NEB SCH ×4 (06:14→20:50)
[2018-09-11] MEDS: Metoprolol Succinate 25 MG Tab.ER PO SCH ×2 (09:19→21:26)
[2018-09-11] MEDS: Furosemide 20 MG Tab PO SCH (09:19)
[2018-09-11] MEDS: carBAMazepine 200 MG Tab PO SCH ×2 (09:19→21:25)
[2018-09-11] MEDS: Saccharomyces Boulardii (Probiotic) 250 MG Cap PO SCH ×2 (09:22→21:25)
[2018-09-11] MEDS: Pantoprazole 40 MG Tab.CR PO SCH (09:24)
[2018-09-11] MEDS: Magnesium Oxide 400 MG Tab PO SCH ×2 (09:24→21:24)
[2018-09-11] MEDS: Aspirin 81 MG Tab.EC PO SCH (09:24)
[2018-09-11] MEDS: Sertraline 50 MG Tab PO SCH (09:24)
[2018-09-11] MEDS: Insulin Lispro 100 UNIT/ML 10 ML VIAL SUBCUT SCH ×4 (09:24→21:42)
[2018-09-11] MEDS: guaiFENesin/Dextromethorphan 100-10 MG/5 ML Soln 5 ML Cup PO SCH ×3 (09:25→21:28)
[2018-09-11] MEDS: Enoxaparin 40 MG/0.4 ML Syringe SUBCUT SCH (09:25)
--- NOTE | 2018-09-11 09:28 | CR ---
Chest: 2 views of the chest were obtained. Comparison: Prior chest x-ray of 09/09/18. Coarse reticulonodular interstitial changes are seen which is more prominent than on previous exam. [place] densities seen previously within both lungs have resolved. Heart size at the upper limits of normal. Tortuous thoracic aorta is seen. Bony structures shows mild degenerative change. Impression: 1. Coarse reticulonodular interstitial change more prominent than on previous exam with areas of consolidation having resolved. Differential includes changing pattern of infectious change and/or pulmonary vascular congestion. Diagnostic code #3
--- NOTE | 2018-09-11 09:31 | PCM.PN ---
- General Info Date of Service: 09/11/18 Subjective Update: Increasing strength, ambulated twice to the window at the end of the corridor. Increase activity today as tolerated. CXR has improved, ready for DC 09/12/18 pending completion of paperwork for [facility]. Functional Status: Reports: Pain Controlled, Tolerating Diet, Ambulating, Urinating - Review of Systems General: Reports: Weakness HEENT: Reports: No Symptoms Pulmonary: Reports: No Symptoms Cardiovascular: Reports: No Symptoms Gastrointestinal: Reports: No Symptoms Genitourinary: Reports: No Symptoms Musculoskeletal: Reports: No Symptoms Skin: Reports: No Symptoms Neurological: Reports: No Symptoms Psychiatric: Reports: No Symptoms - Patient Data Vitals - Most Recent: Last Vital Signs Temp 36.2 C 09/11/18 04:00 Pulse 99 09/11/18 09:19 Resp 18 09/11/18 04:00 BP 122/78 09/11/18 09:19 Pulse Ox 95 09/11/18 09:07 Weight - Most Recent: 87.589 kg I&O - Last 24 Hours: Intake & Output 09/10/18 09/11/18 09/11/18 22:59 06:59 14:59 Intake Total 630 500 Output Total 650 300 Balance -20 200 Lab Results Last 24 Hours: Laboratory Results - last 24 hr 09/10/18 09/10/18 09/10/18 Range/Units 10:30 11:18 16:42 WBC (3.98-10.04) K/mm3 RBC (3.98-5.22) M/mm3 Hgb (11.2-15.7) gm/L Hct (34.1-44.9) % MCV (79.4-94.8) fl MCH (25.6-32.2) pg MCHC (32.2-35.5) g/dl RDW Std Deviation (36.4-46.3) fL Plt Count (182-369) K/mm3 MPV (9.4-12.3) fl Neut % (Auto) (34.0-71.1) % Lymph % (Auto) (19.3-51.7) % [place] % (Auto) (4.7-12.5) % Eos % (Auto) (0.7-5.8) Baso % (Auto) (0.1-1.2) % Neut # (Auto) (1.56-6.13) K/mm3 Lymph # (Auto) (1.18-3.74) K/mm3 [place] # (Auto) (0.24-0.36) K/mm3 Eos # (Auto) (0.04-0.36) K/mm3 Baso # (Auto) (0.01-0.08) K/mm3 Sodium (136-145) mEq/L Potassium (3.5-5.1) mEq/L Chloride (98-107) mEq/L Carbon Dioxide (21-32) mEq/L Anion Gap (5-15) BUN (7-18) mg/dL Creatinine (0.55-1.02) mg/dL Est Cr Clr Drug Dosing mL/min Estimated GFR (MDRD) (>60) mL/min BUN/Creatinine Ratio (14-18) Glucose (80-115) mg/dL POC Glucose 291 H 302 H (80-115) mg/dL Calcium (8.5-10.1) mg/dL Magnesium (1.8-2.4) mg/dl C-Reactive Protein (<1.0) mg/dL NT-Pro-B Natriuret Pep (0-125) pg/mL Urine Color Yellow (Yellow) Urine Appearance Clear (Clear) Urine pH 7.0 (5.0-8.0) Ur Specific [place] 1.015 (1.005-1.030) Urine Protein Negative (Negative) Urine Glucose (UA) Negative (Negative) Urine Ketones Negative (Negative) Urine Occult Blood Trace-lysed H (Negative) Urine Nitrite Negative (Negative) Urine Bilirubin Negative (Negative) Urine Urobilinogen 0.2 (0.2-1.0) Ur Leukocyte Esterase Negative (Negative) Urine RBC 5-10 H (0-5) /hpf Urine WBC 0-5 (0-5) /hpf Ur Epithelial Cells 0-5 (0-5) /hpf Amorphous Sediment Few H (NOT SEEN) /hpf Urine Bacteria Few (FEW) /hpf Urine Mucus Not seen (FEW) /hpf 09/10/18 09/11/18 09/11/18 Range/Units 20:28 05:13 05:13 WBC 5.83 (3.98-10.04) K/mm3 RBC 3.66 L (3.98-5.22) M/mm3 Hgb 10.0 L (11.2-15.7) gm/L Hct 31.0 L (34.1-44.9) % MCV 84.7 (79.4-94.8) fl MCH 27.3 (25.6-32.2) pg MCHC 32.3 (32.2-35.5) g/dl RDW Std Deviation 41.4 (36.4-46.3) fL Plt Count 393 H (182-369) K/mm3 MPV 9.6 (9.4-12.3) fl Neut % (Auto) 71.0 (34.0-71.1) % Lymph % (Auto) 19.6 (19.3-51.7) % [place] % (Auto) 8.4 (4.7-12.5) % Eos % (Auto) 0.5 L (0.7-5.8) Baso % (Auto) 0.3 (0.1-1.2) % Neut # (Auto) 4.14 (1.56-6.13) K/mm3 Lymph # (Auto) 1.14 L (1.18-3.74) K/mm3 [place] # (Auto) 0.49 H (0.24-0.36) K/mm3 Eos # (Auto) 0.03 L (0.04-0.36) K/mm3 Baso # (Auto) 0.02 (0.01-0.08) K/mm3 Sodium (136-145) mEq/L Potassium (3.5-5.1) mEq/L Chloride (98-107) mEq/L Carbon Dioxide (21-32) mEq/L Anion Gap (5-15) BUN (7-18) mg/dL Creatinine (0.55-1.02) mg/dL Est Cr Clr Drug Dosing mL/min Estimated GFR (MDRD) (>60) mL/min BUN/Creatinine Ratio (14-18) Glucose (80-115) mg/dL POC Glucose 265 H (80-115) mg/dL Calcium (8.5-10.1) mg/dL Magnesium 2.0 (1.8-2.4) mg/dl C-Reactive Protein 1.8 H* (<1.0) mg/dL NT-Pro-B Natriuret Pep (0-125) pg/mL Urine Color (Yellow) Urine Appearance (Clear) Urine pH (5.0-8.0) Ur Specific [place] (1.005-1.030) Urine Protein (Negative) Urine Glucose (UA) (Negative) Urine Ketones (Negative) Urine Occult Blood (Negative) Urine Nitrite (Negative) Urine Bilirubin (Negative) Urine Urobilinogen (0.2-1.0) Ur Leukocyte Esterase (Negative) Urine RBC (0-5) /hpf Urine WBC (0-5) /hpf Ur Epithelial Cells (0-5) /hpf Amorphous Sediment (NOT SEEN) /hpf Urine Bacteria (FEW) /hpf Urine Mucus (FEW) /hpf 09/11/18 09/11/18 09/11/18 Range/Units 05:13 05:13 06:11 WBC (3.98-10.04) K/mm3 RBC (3.98-5.22) M/mm3 Hgb (11.2-15.7) gm/L Hct (34.1-44.9) % MCV (79.4-94.8) fl MCH (25.6-32.2) pg MCHC (32.2-35.5) g/dl RDW Std Deviation (36.4-46.3) fL Plt Count (182-369) K/mm3 MPV (9.4-12.3) fl Neut % (Auto) (34.0-71.1) % Lymph % (Auto) (19.3-51.7) % [place] % (Auto) (4.7-12.5) % Eos % (Auto) (0.7-5.8) Baso % (Auto) (0.1-1.2) % Neut # (Auto) (1.56-6.13) K/mm3 Lymph # (Auto) (1.18-3.74) K/mm3 [place] # (Auto) (0.24-0.36) K/mm3 Eos # (Auto) (0.04-0.36) K/mm3 Baso # (Auto) (0.01-0.08) K/mm3 Sodium 137 (136-145) mEq/L Potassium 4.4 (3.5-5.1) mEq/L Chloride 103 (98-107) mEq/L Carbon Dioxide 29 (21-32) mEq/L Anion Gap 9.4 (5-15) BUN 17 (7-18) mg/dL Creatinine 0.6 (0.55-1.02) mg/dL Est Cr Clr Drug Dosing 84.54 mL/min Estimated GFR (MDRD) > 60 (>60) mL/min BUN/Creatinine Ratio 28.3 H (14-18) Glucose 163 H (80-115) mg/dL POC Glucose 170 H (80-115) mg/dL Calcium 8.0 L (8.5-10.1) mg/dL Magnesium (1.8-2.4) mg/dl C-Reactive Protein (<1.0) mg/dL NT-Pro-B Natriuret Pep 247 H (0-125) pg/mL Urine Color (Yellow) Urine Appearance (Clear) Urine pH (5.0-8.0) Ur Specific [place] (1.005-1.030) Urine Protein (Negative) Urine Glucose (UA) (Negative) Urine Ketones (Negative) Urine Occult Blood (Negative) Urine Nitrite (Negative) Urine Bilirubin (Negative) Urine Urobilinogen (0.2-1.0) Ur Leukocyte Esterase (Negative) Urine RBC (0-5) /hpf Urine WBC (0-5) /hpf Ur Epithelial Cells (0-5) /hpf Amorphous Sediment (NOT SEEN) /hpf Urine Bacteria (FEW) /hpf Urine Mucus (FEW) /hpf Alireza Results Last 24 Hours: Microbiology 09/03/18 21:20 Aerobic Blood Culture - Final Blood - Venous NO GROWTH AFTER 7 DAYS Anaerobic Blood Culture - Final NO GROWTH AFTER 7 DAYS 09/03/18 21:25 Aerobic Blood Culture - Final Blood - Venous - Lab Draw NO GROWTH AFTER 7 DAYS Anaerobic Blood Culture - Final NO GROWTH AFTER 7 DAYS Med Orders - Current: Current Medications Acetaminophen (Tylenol) 650 mg PO Q4H PRN PRN Reason: Pain (Mild 1-3)/fever Last Admin: 08/31/18 20:10 Dose: 650 mg Alogliptin Benzoate (Alogliptin) 25 mg PO DAILY [facility] Last Admin: 09/11/18 09:19 Dose: 25 mg Aspirin (Halfprin) 81 mg PO DAILY [facility] Last Admin: 09/11/18 09:24 Dose: 81 mg Bisacodyl (Dulcolax) 5 mg PO DAILY PRN PRN Reason: Constipation Carbamazepine (Tegretol Tab) 400 mg PO BID [facility] Last Admin: 09/11/18 09:19 Dose: 400 mg Dextrose/Water (Dextrose 50% In Water) 50 ml IVPUSH ASDIRECTED PRN PRN Reason: Hypoglycemia Docusate Sodium (Colace) 100 mg PO BID PRN PRN Reason: Constipation Enoxaparin Sodium (Lovenox) 40 mg SUBCUT DAILY [facility] Last Admin: 09/11/18 09:25 Dose: 40 mg Furosemide (Lasix) 20 mg PO DAILY [facility] Last Admin: 09/11/18 09:19 Dose: 20 mg Guaifenesin/Phenylephrine HCl (Robitussin Dm) 10 ml PO TID [facility] Last Admin: 09/11/18 09:25 Dose: 10 ml Hydralazine HCl (Apresoline) 20 mg IVPUSH Q6H PRN PRN Reason: Hypertension Promethazine HCl 6.25 mg/ (Sodium Chloride) 50.25 mls @ 100 mls/hr IV Q6H PRN PRN Reason: Nausea/Vomiting Insulin Glargine (Lantus) 22 unit SUBCUT BID@0700,2200 [facility] Last Admin: 09/11/18 06:12 Dose: 22 units Insulin Human Lispro (Humalog) 0 unit SUBCUT QIDACANDBED [facility]; Protocol Last Admin: 09/11/18 09:24 Dose: 3 units Ipratropium [place] (Atrovent) 0.5 mg NEB QIDRT [facility] Last Admin: 09/11/18 09:06 Dose: 0.5 mg Levalbuterol HCl (Xopenex) 1.25 mg NEB QIDRT [facility] Last Admin: 09/11/18 09:06 Dose: 1.25 mg Levalbuterol HCl (Xopenex) 1.25 mg NEB Q2H PRN PRN Reason: sob Last Admin: 09/03/18 19:24 Dose: 1.25 mg Levofloxacin (Levaquin) 750 mg PO Q24H [facility] Last Admin: 09/10/18 10:24 Dose: 750 mg Lorazepam (Ativan) 2 mg IVPUSH Q4H PRN PRN Reason: Seizures Lorazepam (Ativan) 2 mg IVPUSH Q6H PRN PRN Reason: Anxiety Last Admin: 09/07/18 23:17 Dose: 2 mg Magnesium Hydroxide (Milk Of Magnesia) 30 ml PO Q12H PRN PRN Reason: Constipation Magnesium Oxide (Magnesium Oxide) 400 mg PO BID [facility] Last Admin: 09/11/18 09:24 Dose: 400 mg Metformin HCl (Glucophage) 850 mg PO TIDMEALS [facility] Last Admin: 09/11/18 06:13 Dose: 850 mg Metoprolol Succinate (Toprol Xl) 25 mg PO BID [facility] Last Admin: 09/11/18 09:19 Dose: 25 mg Metoprolol Tartrate (Lopressor) 5 mg IVPUSH Q4H PRN PRN Reason: Tachycardia Last Admin: 09/03/18 19:25 Dose: 5 mg Morphine Sulfate (Morphine Sulfate) 3 mg IV Q8H PRN PRN Reason: Dyspnea Pantoprazole Sodium (Protonix) 40 mg PO DAILY [facility] Last Admin: 09/11/18 09:24 Dose: 40 mg Polyethylene Glycol (Miralax) 17 gm PO DAILY PRN PRN Reason: Constipation Potassium Chloride (Klor-Con M20) 40 meq PO BID [facility] Stop: 09/11/18 21:01 Last Admin: 09/10/18 20:30 Dose: 40 meq Prednisone (Prednisone) 40 mg PO WITHBREAKFAST [facility] Last Admin: 09/11/18 06:13 Dose: 40 mg Promethazine HCl (Phenergan) 25 mg PO Q6H PRN PRN Reason: Nausea/Vomiting Saccharomyces Boulardii (Florastor) 500 mg PO BID [facility] Last Admin: 09/11/18 09:22 Dose: 500 mg Senna/Docusate Sodium (Senna Plus) 1 tab PO BID PRN PRN Reason: Constipation Sertraline HCl (Zoloft) 50 mg PO DAILY [facility] Last Admin: 09/11/18 09:24 Dose: 50 mg Temazepam (Restoril) 7.5 mg PO BEDTIME PRN PRN Reason: Sleep Discontinued Medications Acetaminophen (Tylenol) 975 mg PO NOW ONE Stop: 08/30/18 14:27 Last Admin: 08/30/18 14:51 Dose: 975 mg Hydrocodone Bitart/Acetaminophen ([place] 325-5 Mg) 1 tab PO Q4H PRN PRN Reason: Pain (moderate 4-6) Albuterol (Proventil Neb Soln) 2.5 mg NEB Q2H PRN PRN Reason: Shortness Of Breath/wheezing Last Admin: 08/31/18 23:15 Dose: 2.5 mg Albuterol/Ipratropium (Duoneb 3.0-0.5 Mg/3 Ml) 3 ml NEB Q4H PRN PRN Reason: Shortness Of Breath/wheezing Last Admin: 08/31/18 10:44 Dose: 3 ml Albuterol/Ipratropium (Duoneb 3.0-0.5 Mg/3 Ml) 3 ml NEB QIDRT [facility] Last Admin: 09/01/18 08:59 Dose: 3 ml Ampicillin Sodium (Ampicillin) Confirm Administered Dose 1 gm .ROUTE .STK-MED ONE Stop: 08/31/18 21:19 Last Admin: 08/31/18 21:33 Dose: Not Given Ceftriaxone Sodium (Rocephin) 2 gm IVPUSH Q24H DAGOBERTO Ceftriaxone Sodium (Rocephin) 2 gm IVPUSH Q12H [facility] Dexamethasone (Dexamethasone) Confirm Administered Dose 40 mg .ROUTE .STK-MED ONE Stop: 08/31/18 19:53 Last Admin: 08/31/18 20:15 Dose: Not Given Dexamethasone (Dexamethasone) 40 mg IVPUSH Q12HR [facility] Stop: 09/03/18 07:01 Diltiazem HCl (Cardizem) 10 mg IVPUSH Q4H PRN PRN Reason: tachy >110 Last Admin: 09/02/18 06:52 Dose: 10 mg Diphenhydramine HCl (Benadryl) 25 mg IVPUSH ONETIME ONE Stop: 09/04/18 10:25 Last Admin: 09/04/18 10:49 Dose: 25 mg Famotidine (Pepcid) 20 mg PO BID [facility] Last Admin: 09/03/18 09:06 Dose: 20 mg Famotidine (Pepcid) 20 mg IVPUSH BID [facility] Famotidine (Pepcid) 20 mg IVPUSH BID [facility] Last Admin: 09/07/18 09:02 Dose: 20 mg Famotidine (Pepcid) 20 mg PO BID [facility] Last Admin: 09/08/18 08:17 Dose: 20 mg Furosemide (Lasix) 40 mg IVPUSH NOW ONE Stop: 08/30/18 14:51 Last Admin: 08/30/18 14:58 Dose: 40 mg Furosemide (Lasix) 20 mg IVPUSH NOW ONE Stop: 09/02/18 12:18 Last Admin: 09/02/18 13:45 Dose: 20 mg Furosemide (Lasix) 20 mg IVPUSH NOW ONE Stop: 09/02/18 21:01 Last Admin: 09/02/18 20:18 Dose: 20 mg Furosemide (Lasix) 20 mg IVPUSH NOW ONE Stop: 09/03/18 09:49 Last Admin: 09/03/18 10:27 Dose: 20 mg Furosemide (Lasix) 20 mg IVPUSH ONETIME ONE Stop: 09/04/18 06:01 Last Admin: 09/04/18 05:48 Dose: 20 mg Furosemide (Lasix) 20 mg IVPUSH NOW ONE Stop: 09/04/18 12:31 Last Admin: 09/04/18 12:32 Dose: 20 mg Furosemide (Lasix) 20 mg IVPUSH ONETIME ONE Stop: 09/04/18 20:01 Last Admin: 09/04/18 20:15 Dose: 20 mg Furosemide (Lasix) 40 mg IVPUSH DAILY [facility] Stop: 09/10/18 11:00 Last Admin: 09/10/18 09:05 Dose: 40 mg Furosemide (Lasix) 40 mg IVPUSH NOW ONE Stop: 09/05/18 15:01 Last Admin: 09/05/18 14:42 Dose: 40 mg Furosemide (Lasix) 40 mg IVPUSH ONETIME ONE Stop: 09/09/18 18:01 Furosemide (Lasix) 40 mg IVPUSH ONETIME ONE Stop: 09/08/18 18:01 Last Admin: 09/08/18 18:37 Dose: 40 mg Glimepiride (Glimepiride) 4 mg PO BIDMEALS [facility] Last Admin: 09/03/18 09:05 Dose: 4 mg Guaifenesin/Phenylephrine HCl (Robitussin Dm) 10 ml PO TID@0700,1400,2100 [facility] Last Admin: 09/08/18 10:17 Dose: Not Given Hydralazine HCl (Apresoline) 10 mg IVPUSH Q4H PRN PRN Reason: Hypertension Last Admin: 09/08/18 00:14 Dose: 10 mg Hydromorphone HCl (Dilaudid) 0.25 mg IVPUSH Q2H PRN PRN Reason: Pain (severe 7-10) Sodium Chloride (Normal Saline) 1,000 mls @ 150 mls/hr IV ASDIRECTED [facility] Last Admin: 08/30/18 14:26 Dose: 150 mls/hr Sodium Chloride (Normal Saline) 1,000 mls @ 75 mls/hr IV ASDIRECTED [facility] Ceftriaxone Sodium 1 gm/ (Sodium Chloride) 100 mls @ 200 mls/hr IV ONETIME ONE Stop: 08/30/18 16:28 Last Admin: 08/30/18 16:57 Dose: 200 mls/hr Azithromycin 500 mg/ Sodium (Chloride) 250 mls @ 250 mls/hr IV Q24H [facility] Last Admin: 08/30/18 21:15 Dose: 250 mls/hr Sodium Chloride (Normal Saline) 1,000 mls @ 125 mls/hr IV ASDIRECTED [facility] Last Admin: 08/31/18 00:55 Dose: 125 mls/hr Ceftriaxone Sodium 1 gm/ (Sodium Chloride) 100 mls @ 200 mls/hr IV ONETIME ONE Stop: 08/30/18 19:14 Last Admin: 08/30/18 19:28 Dose: 200 mls/hr Ceftriaxone Sodium 2 gm/ (Sodium Chloride) 100 mls @ 200 mls/hr IV Q24H [facility] Dextrose/Sodium Chloride (Dextrose 5%-Normal Saline) 1,000 mls @ 125 mls/hr IV ASDIRECTED [facility] Last Admin: 08/31/18 08:05 Dose: 125 mls/hr Piperacillin Sod/Tazobactam (Sod 4.5 gm/ Sodium Chloride) 100 mls @ 200 mls/hr IV ONETIME ONE Stop: 08/31/18 10:29 Last Admin: 08/31/18 11:28 Dose: Not Given Piperacillin Sod/Tazobactam (Sod 4.5 gm/ Sodium Chloride) 100 mls @ 25 mls/hr IV Q8H [facility] Last Admin: 08/31/18 23:34 Dose: Not Given Vancomycin HCl 1 gm/ Sodium (Chloride) 250 mls @ 250 mls/hr IV Q12H [facility] Last Admin: 09/01/18 21:37 Dose: 250 mls/hr Sodium Chloride (Normal Saline) Confirm Administered Dose 100 mls @ as directed .ROUTE .STK-MED ONE Stop: 08/31/18 10:49 Last Admin: 08/31/18 11:29 Dose: Not Given Piperacillin Sod/Tazobactam (Sod 4.5 gm/ Sodium Chloride) 100 mls @ 200 mls/hr IV ONETIME ONE Stop: 08/31/18 11:44 Last Admin: 08/31/18 12:56 Dose: 200 mls/hr Sodium Chloride (Normal Saline) 1,000 mls @ 75 mls/hr IV ASDIRECTED [facility] Last Admin: 09/02/18 04:15 Dose: 75 mls/hr Magnesium Sulfate/Dextrose (Magnesium 1 Gm In D5w 100 Ml) Confirm Administered Dose 100 mls @ as directed .ROUTE .STK-MED ONE Stop: 08/31/18 19:53 Last Admin: 08/31/18 20:15 Dose: Not Given Acyclovir 1,000 mg/ Sodium (Chloride) 120 mls @ 100 mls/hr IV Q8H [facility] Last Admin: 09/02/18 04:09 Dose: 100 mls/hr Ampicillin Sodium 1 gm/ Sodium (Chloride) 100 mls @ 200 mls/hr IV Q4H [facility] Last Admin: 08/31/18 23:34 Dose: Not Given Dexamethasone 40 mg/ Sodium (Chloride) 54 mls @ 108 mls/hr IV BID@0700,1900 [facility] Stop: 09/02/18 20:31 Last Admin: 09/02/18 18:08 Dose: 108 mls/hr Magnesium Sulfate 2 gm/ Premix 50 mls @ 25 mls/hr IV ONETIME ONE Stop: 08/31/18 22:13 Last Admin: 08/31/18 21:26 Dose: Not Given Magnesium Sulfate/Dextrose 1 (gm/ Premix) 100 mls @ 100 mls/hr IV ONETIME ONE Stop: 08/31/18 21:29 Last Admin: 08/31/18 20:35 Dose: 100 mls/hr Ampicillin Sodium 1 gm/ Sodium (Chloride) 100 mls @ 200 mls/hr IV Q4H [facility] Last Admin: 09/01/18 11:17 Dose: Not Given Sodium Chloride (Normal Saline) Confirm Administered Dose 100 mls @ as directed .ROUTE .STK-MED ONE Stop: 08/31/18 21:21 Last Admin: 08/31/18 21:29 Dose: Not Given Sodium Chloride (Normal Saline) 250 mls @ 999 mls/hr IV ONETIME ONE Stop: 08/31/18 21:25 Last Admin: 08/31/18 23:07 Dose: Not Given Ceftriaxone Sodium 2 gm/ (Sodium Chloride) 100 mls @ 200 mls/hr IV Q24H [facility] Last Admin: 09/02/18 23:19 Dose: 200 mls/hr Ampicillin Sodium 1 gm/ Sodium (Chloride) 100 mls @ 200 mls/hr IV Q4H [facility] Last Admin: 09/02/18 05:41 Dose: 200 mls/hr Levofloxacin/Dextrose 750 mg/ (Premix) 150 mls @ 100 mls/hr IV Q24H [facility] Stop: 09/09/18 12:00 Last Admin: 09/09/18 10:26 Dose: 100 mls/hr Potassium Chloride/Dextrose/Sod Cl (D5 1/2 Ns W/ 40 Meq/L Kcl) 1,000 mls @ 75 mls/hr IV ASDIRECTED [facility] Last Infusion: 09/03/18 20:30 Dose: 125 mls/hr Vancomycin HCl 1 gm/ Sodium (Chloride) 250 mls @ 250 mls/hr IV Q12H [facility] Stop: 09/05/18 01:30 Last Admin: 09/04/18 23:52 Dose: 250 mls/hr Potassium Chloride 10 meq/ (Premix) 100 mls @ 100 mls/hr IV Q1H [facility] Stop: 09/03/18 11:59 Last Admin: 09/03/18 12:32 Dose: 100 mls/hr Magnesium Sulfate 2 gm/ Premix 50 mls @ 25 mls/hr IV ONETIME ONE Stop: 09/03/18 21:50 Last Admin: 09/03/18 20:13 Dose: 25 mls/hr Ceftriaxone Sodium 2 gm/ (Sodium Chloride) 100 mls @ 200 mls/hr IV Q12H [facility] Last Admin: 09/09/18 09:09 Dose: 200 mls/hr Potassium Chloride/Dextrose/Sod Cl (D5 1/2 Ns W/ 40 Meq/L Kcl) 1,000 mls @ 125 mls/hr IV ASDIRECTED [facility] Last Admin: 09/07/18 10:33 Dose: 75 mls/hr Magnesium Sulfate 2 gm/ Premix 50 mls @ 25 mls/hr IV ONETIME ONE Stop: 09/04/18 12:43 Last Admin: 09/04/18 11:09 Dose: 25 mls/hr Vancomycin HCl 1 gm/ Sodium (Chloride) 250 mls @ 250 mls/hr IV Q8H [facility] Last Admin: 09/06/18 09:10 Dose: Not Given Vancomycin HCl 1 gm/Vancomycin HCl 250 mg/ Sodium Chloride 250 mls @ 166.667 mls/hr IV Q8H [facility] Stop: 09/07/18 12:00 Last Admin: 09/07/18 08:11 Dose: 166.667 mls/hr Magnesium Sulfate/Dextrose 1 (gm/ Premix) 100 mls @ 100 mls/hr IV ONETIME ONE Stop: 09/06/18 15:12 Last Admin: 09/06/18 15:10 Dose: 100 mls/hr Sodium Chloride (Sodium Chloride 0.45%) 1,000 mls @ 999 mls/hr IV ASDIRECTED [facility] Last Admin: 09/08/18 14:02 Dose: 999 mls/hr Sodium Chloride (Sodium Chloride 0.45%) 1,000 mls @ 250 mls/hr IV ASDIRECTED [facility] Last Admin: 09/08/18 19:16 Dose: 250 mls/hr Insulin Human Regular 100 unit (/ Sodium Chloride) 100 mls @ 9.12 mls/hr IV TITRATE [facility]; Protocol Last Titration: 09/08/18 16:27 Dose: 0 units/kg/hr, 0 mls/hr Magnesium Sulfate 2 gm/ Premix 50 mls @ 25 mls/hr IV ONETIME ONE Stop: 09/09/18 11:59 Last Admin: 09/09/18 10:22 Dose: 25 mls/hr Sodium Chloride (Sodium Chloride 0.45%) 1,000 mls @ 999 mls/hr IV ASDIRECTED [facility] Stop: 09/09/18 20:02 Last Admin: 09/09/18 18:23 Dose: 999 mls/hr Sodium Chloride (Sodium Chloride 0.45%) 1,000 mls @ 250 mls/hr IV ASDIRECTED [facility] Last Admin: 09/10/18 03:51 Dose: 250 mls/hr Magnesium Sulfate 2 gm/ Premix 50 mls @ 25 mls/hr IV ONETIME ONE Stop: 09/10/18 11:59 Last Admin: 09/10/18 10:24 Dose: 25 mls/hr Insulin Glargine (Lantus) 10 unit SUBCUT BID [facility] Last Admin: 09/08/18 08:46 Dose: 10 units Insulin Glargine (Lantus) 15 unit SUBCUT BID@0700,2200 [facility] Insulin Glargine (Lantus) 5 unit SUBCUT ONETIME ONE Stop: 09/08/18 12:11 Last Admin: 09/08/18 12:35 Dose: 5 units Insulin Glargine (Lantus) 10 unit SUBCUT ONETIME ONE Stop: 09/08/18 21:01 Last Admin: 09/08/18 21:17 Dose: 10 units Insulin Glargine (Lantus) 15 unit SUBCUT BID@0700,2200 [facility] Last Admin: 09/09/18 21:19 Dose: 15 units Insulin Glargine (Lantus) 15 unit SUBCUT NOW STA Stop: 09/09/18 17:45 Last Admin: 09/09/18 17:57 Dose: 15 units Insulin Human Lispro (Humalog) 0 unit SUBCUT QIDACANDBED [facility]; Protocol Last Admin: 08/31/18 20:54 Dose: 3 unit Insulin Human Lispro (Humalog) 0 unit SUBCUT QIDACANDBED [facility]; Protocol Last Admin: 09/06/18 12:27 Dose: 10 units Insulin Human Lispro (Humalog) 18 unit SUBCUT STAT ONE Stop: 09/09/18 18:16 Last Admin: 09/09/18 18:22 Dose: 18 units Insulin Human Regular (Humulin R) 8 unit SUBCUT ONETIME ONE Stop: 08/30/18 14:55 Last Admin: 08/30/18 15:06 Dose: 8 units Lorazepam (Ativan) 2 mg IVPUSH Q4H PRN PRN Reason: Seizures Lorazepam (Ativan) 2 mg IVPUSH Q6H PRN PRN Reason: Seizures Last Admin: 09/03/18 16:23 Dose: 2 mg Lorazepam (Ativan) 1 mg IVPUSH ONETIME ONE Stop: 09/04/18 11:57 Last Admin: 09/04/18 12:32 Dose: 1 mg Lorazepam (Ativan) 1 mg IVPUSH Q8H PRN PRN Reason: Anxiety Last Admin: 09/06/18 16:44 Dose: 1 mg Methylprednisolone Sodium Succinate (Solu-Medrol) 125 mg IVPUSH ONETIME ONE Stop: 09/03/18 19:33 Last Admin: 09/03/18 19:39 Dose: 125 mg Methylprednisolone Sodium Succinate (Solu-Medrol) 125 mg IVPUSH Q12H [facility] Methylprednisolone Sodium Succinate (Solu-Medrol) 125 mg IVPUSH DAILY [facility] Last Admin: 09/06/18 08:34 Dose: 125 mg Methylprednisolone Sodium Succinate (Solu-Medrol) 125 mg IVPUSH Q12H [facility] Last Admin: 09/08/18 08:17 Dose: 125 mg Methylprednisolone Sodium Succinate (Solu-Medrol) 125 mg IVPUSH DAILY [facility] Last Admin: 09/09/18 09:08 Dose: 125 mg Morphine Sulfate (Morphine) 1 mg IVPUSH Q4H PRN PRN Reason: Shortness of Breath Last Admin: 09/03/18 06:35 Dose: 1 mg Morphine Sulfate (Morphine) 2 mg IVPUSH Q4H PRN PRN Reason: Shortness of Breath Last Admin: 09/03/18 19:43 Dose: 2 mg Morphine Sulfate (Morphine) 2 mg IVPUSH Q2H PRN PRN Reason: Shortness of Breath Last Admin: 09/04/18 12:35 Dose: 2 mg Morphine Sulfate (Morphine) 4 mg IVPUSH ONETIME ONE Stop: 09/04/18 11:54 Last Admin: 09/04/18 11:57 Dose: Not Given Morphine Sulfate (Morphine) 3 mg IVPUSH Q2H [facility] Last Admin: 09/04/18 15:48 Dose: 3 mg Morphine Sulfate (Morphine Sulfate) Confirm Administered Dose 4 mg IV .STK-MED ONE Stop: 09/04/18 15:45 Last Admin: 09/04/18 15:51 Dose: Not Given Morphine Sulfate (Morphine Sulfate) 3 mg IV Q2H [facility] Last Admin: 09/06/18 11:15 Dose: Not Given Morphine Sulfate (Morphine) 3 mg IVPUSH Q4H [facility] Last Admin: 09/08/18 08:18 Dose: 3 mg Morphine Sulfate (Morphine Sulfate) 3 mg IV Q6H PRN PRN Reason: Dyspnea Ondansetron HCl (Zofran) 4 mg IVPUSH ONETIME ONE Stop: 08/30/18 14:19 Last Admin: 08/30/18 14:29 Dose: 4 mg Oseltamivir Phosphate (Tamiflu) 75 mg PO ONETIME ONE Stop: 08/30/18 14:43 Last Admin: 08/30/18 15:02 Dose: 75 mg Oseltamivir Phosphate (Tamiflu) 75 mg PO BID [facility] Stop: 09/03/18 21:01 Last Admin: 09/03/18 21:30 Dose: 75 mg Oseltamivir Phosphate (Tamiflu) 75 mg PO BID [facility] Last Admin: 09/09/18 09:07 Dose: 75 mg Pantoprazole Sodium (Protonix) 40 mg PO ACBREAKFAST [facility] Last Admin: 09/08/18 10:17 Dose: Not Given Potassium Chloride (Klor-Con M20) 40 meq PO BID [facility] Last Admin: 09/08/18 08:19 Dose: 40 meq Saccharomyces Boulardii (Florastor) 250 mg PO BID [facility] Last Admin: 09/09/18 09:08 Dose: 250 mg Sertraline HCl (Zoloft) 25 mg PO DAILY [facility] Last Admin: 09/08/18 08:19 Dose: 25 mg Vancomycin HCl (Pharmacy To Dose - Vancomycin) 1 dose .XX ASDIRECTED [facility] Vancomycin HCl (Pharmacy To Dose - Vancomycin) 1 dose .XX ASDIRECTED [facility] - Exam Quality Assessment: Supplemental Oxygen, DVT Prophylaxis General: Alert, Oriented, Cooperative, No Acute Distress HEENT: Pupils Equal, Pupils Reactive, EOMI Neck: Trachea Midline, No JVD Lungs: Normal Respiratory Effort Cardiovascular: Regular Rate, Regular Rhythm GI/Abdominal Exam: Normal Bowel Sounds, Soft, Non-Tender, No Organomegaly, No Distention (Female) Exam: Deferred Back Exam: Normal Inspection Extremities: Normal Inspection, Non-Tender, Normal Capillary Refill Skin: Warm Neurological: No New Focal Deficit Psy/Mental Status: Alert, Normal Affect, Normal Mood - Problem List & Annotations (1) Streptococcal pneumonia SNOMED Code(s): 67207799 Code(s): J15.4 - PNEUMONIA DUE TO OTHER STREPTOCOCCI Status: Acute Current Visit: Yes (2) Hypoxia SNOMED Code(s): 770676935 Code(s): R09.02 - HYPOXEMIA Status: Resolved Current Visit: Yes (3) Respiratory distress, acute SNOMED Code(s): 140141155 Code(s): R06.03 - ACUTE RESPIRATORY DISTRESS Status: Resolved Current Visit: Yes (4) Influenza A SNOMED Code(s): 556577633 Code(s): J10.1 - FLU DUE TO OTH IDENT INFLUENZA VIRUS W OTH RESP MANIFEST Status: Resolved Priority: High Current Visit: Yes (5) Sepsis SNOMED Code(s): 77505580 Code(s): A41.9 - SEPSIS, UNSPECIFIED ORGANISM Status: Acute Priority: High Current Visit: Yes Qualifiers: Sepsis type: sepsis due to unspecified organism Qualified Code(s): A41.9 - Sepsis, unspecified organism (6) Type 2 diabetes mellitus SNOMED Code(s): 50961495 Code(s): E11.9 - TYPE 2 DIABETES MELLITUS WITHOUT COMPLICATIONS Status: Chronic Priority: High Current Visit: Yes Qualifiers: Diabetes mellitus detention insulin use: with termite renewal inspector use Diabetes mellitus complication status: with hyperglycemia Qualified Code(s): E11.65 - Type 2 diabetes mellitus with hyperglycemia; Z79.4 - residential (current) use of insulin (7) Congestive heart failure SNOMED Code(s): 32927868 Code(s): I50.9 - HEART FAILURE, UNSPECIFIED Status: Resolved Priority: Medium Current Visit: Yes Qualifiers: Heart failure type: diastolic Heart failure chronicity: acute on chronic Qualified Code(s): I50.33 - Acute on chronic diastolic (congestive) heart failure - Problem List Review Problem List Initiated/Reviewed/Updated: Yes - My Orders Last 24 Hours: My Active Orders 09/10/18 10:00 Potassium Chloride [Klor-Con M20] 40 meq PO BID 09/10/18 10:30 levoFLOXacin [Levaquin] 750 mg PO Q24H 09/10/18 13:55 Morphine Sulfate 3 mg IV Q8H PRN 09/10/18 21:00 Magnesium Oxide 400 mg PO BID 09/11/18 09:00 Furosemide [Lasix] 20 mg PO DAILY 09/12/18 05:00 BMP [BASIC METABOLIC PANEL,BMP] [CHEM] DAILY CBC WITH AUTO DIFF [HEME] DAILY PRO B-TYPE NATRIUR PEPT,BNPPRO [CHEM] DAILY 09/13/18 05:00 BMP [BASIC METABOLIC PANEL,BMP] [CHEM] DAILY CBC WITH AUTO DIFF [HEME] DAILY PRO B-TYPE NATRIUR PEPT,BNPPRO [CHEM] DAILY 09/14/18 05:00 BMP [BASIC METABOLIC PANEL,BMP] [CHEM] DAILY - Plan Plan:: Assessment/Plan: Acute: Influenza with secondary bacterial PNA, Strep Pneumo PNA L lower and mid lung w/ hypoxia, clinically improved * Fever, productive cough, SOB w/ exertion x 3 days * O2 82% RA--> 92% 4L NC--> 91% 12L mask--> 89-91% 15L non-rebreather--> 15L BiPAP; FIO2 0.70 12/7...O2 sat 97% on pulse ox/ABG pH 7.48 pCO2 31.0 pO2 70 sO2 94.8%; frequent changes required. * No leukocytosis, Neut 86% with 3% bandemia, CRP 15.4--> 17.6 * CXR 08/30/18: Findings felt compatible with mild bilateral bronchitis with areas of pneumonia within the left mid and lower lung. * CT Chest 08/31/18: * 1. Diffuse parenchymal densities throughout both size of the chest more confluent within the lingula and within both lower lungs. Findings have progressed from prior chest x-ray. Findings are most likely infectious in etiology. Continued follow-up is recommended. * 2. Mildly prominent lymph nodes most likely on an inflammatory basis from the lung process. * Mycoplasma negative * RVP was negative; Strep pneumo--->positive * RT/Duonebs/IS/Acapella/Chest Physiotherapy * ABG shows low O2 sat: 86.8%--> 89.7%--> 93.3 * Repeat CXR 09/01/18: * 1. Diffuse parenchymal densities as described above. Differential includes irregular areas of pulmonary edema vs diffuse multifocal areas of pneumonia. * 2. Heart is slightly enlarged Most recent ATB : Rocephin/Levoquin/Vanco--Vanco stopped 09/07/18; Rocephin stopped 09/09/18; continue Levoquin po on 09/10/18 * Dexamethasone BID x2 days-->completed; started solumedrol 125 mg daily, change to prednisone 40 mg day, 09/10/18. * Magnesium as needed * R/O PE: * D-dimer elevated at 1.1 * CTA negative for PE * ECHO LVEF--WNL; grade 2/4 diastolic dysfunction * Pulmonary toilet * Recommend PFT outpt Influenza A, * Fever and increased weakness x3 days--> Increased energy and alertness today * Tamiflu started in ED--> continue BID, stopped 09/09/18. Sepsis * Likely 2/2 above * Temperature 102.2F, Hypoxic, Tachypneic, Tachycardia, source of infection present * LA 3.2--> 2.1--> 0.9 * Procalcitonin elevated at 0.18 * Rocephin started in ED--> continue * IVF started in ED--> continue * Blood cultures show no growth Possible AMS * Per , seemed more confused than usual this AM * Risk Factors: Current illness/sepsis, increased O2 demand, unwitnessed fall yesterday ( unsure if she hit her head; she does have a scab on her forehead but per notes it is a couple days old) * CT Head 08/31/18: * 1. Diffuse parenchymal densities throughout both sides of the chest more confluent within the lingual and within both lower lungs. Findings have progressed from prior chest x-ray. Findings are most likely infectious in etiology. Continued follow-up is recommended. * 2. Mildly prominent lymph nodes most likely on an inflammatory basis from the lung process. * Normal neuro exam, A+O x3, seems to be very lethargic * If continues to worsen/has AMS: * ICU care * LP in AM --> Cancelled d/t improved clinical disposition * CT Head in AM if still lethargic or AMS--> not needed at this time Hyperglycemia w/ DM2 * She missed a dose of insulin yesterday, didn't take her insulin this AM * Blood sugar this AM 389, Blood sugar in ED 320 * Blood glucose checks, insulin sliding scale * A1C 7.7 * Solumedrol 125 mg BID-->decreased to once daily New-onset Afib, resolved maintaining SR * Risk factor: Sepsis * 12 lead EKG done, HR 100's-118 * Metoprolol 25 BID * Lovenox 40 restarted * ECHO ---nl LVEF, grade 2 diastolic dysfunction * Monitor on telemetry DHF * Diurese as needed; 2 D echo documented nl LVEF, grade 2 diastolic dysfunction * Increase Lasix 40 mg daily, decreased to 20 mg po daily on 09/10/18. Abnormal electrolytes * Correct K, Mg, Na as needed Nutrition--tolerating 2000 ADA Follow oral care and intake Resume diabetic meds. Resolved: Dehydration * Likely 2/2 decreased intake * AGap 17.5--> 14.1 * IVF started in ED--> Continue * Monitor Possible UTI--> CULTURE NEGATIVE * Risk factors: Frequency, Incontinence * UA suspicious for UTI * Urine culture shows no growth * Rocephin started in ED--> continue Chronic: HLD * Lipids WNL HTN GERD Seizures on Tegretol (last seizure 2002) DM2 Plan: Continue ICU care-->down grade to MS with telemetry 09/11/18. Decline for transfer, will follow closely and seek transfer if needed. Droplet precautions-->DC Routine AM Labs ADA diet as tolerated TPN may be needed, will follow; currently on D5 0.45 with KCL 40 mEq-->> stopped began eating, 09/06/18. DVT/GI prophylaxis CM/SW PT/OT Increase activity as tolerated Titrate off O2--->decreased to 1.5 l/m Code Status: Full Code; PCP: Dr. Nasreen Edmond [facility] is needed for deconditioning, DC expected Wed-Tu LOS>96 hours with slow response to treatment for Influenza/PNA
[2018-09-11] MEDS: Potassium Chloride 20 MEQ Tab.ER PO SCH ×2 (11:34→21:24)
[2018-09-11] MEDS: Levofloxacin 750 MG Tab PO SCH (11:56)
[2018-09-11] MEDS ORDERED: Furosemide 20 MG/2 ML VIAL IVPUSH ONE (15:00)
--- NOTE | 2018-09-11 17:43 | PCM.DCSUM1 ---
Discharge Summary - Hospital Course Free Text/Narrative:: 63 year old female developed acute respiratory distress, declined intubation and was treated with noninvasive ventilation in the ICU. She required prolong BiPAP, and responded slowly. The patient had Influenza A, and also was subsequently found to have strep pneumo. She was treated over a week with triple antibiotics and Tamiflu. Aggressive pulmonary care was provided by the RT service. Kam cath was placed for critical care monitoring. She required diuresis for pulmonary edema. The patient developed PAF, and converted back to sinus rhythm during her ICU stay. She is deconditioned and will need inpatient rehab, she has been accepted to [facility]. Primary Dx Acute respiratory distress Acute respiratory failure Hypoxemia Hypercapnia Sepsis Pulmonary edema Acute decompensation of diastolic heart failure (HFpEF, LVEF>60) Influenza A Viral pneumonia Bilateral pneumonia, strep pneumo Paroxysmal A fib Hyperglycemia HPI Initial Comments: This is a 63 yo female with past medical h/o HLD, HTN, GERD, Seizures on tegretol (last seizure 2002), DM2 who comes in for PNA, Influenza A, possible UTI, Sepsis. She c/o of F/C, productive cough, SOB w/ exertion, nausea, increased weakness x3 days. Denies chest pain, abdominal pain, vomiting, diarrhea or other GI/ complaints. Her initial workup in the ED shows a CBC remarkable for MPV 9.2, Neut 86% with 3 % bandemia, Lymph 9%, ESR 22. Coagulation studies show PT 10.8, INR 0.99. Her chemistry is remarkable for Na 129, Cl 93, AGap 17.5, BUN 32, GFR 56, Glu 296, POC Glu 320, LA 3.2, AST 49, CRP 15.4, Albumin 3.2. Temperature 102.2F. O2 82% RA. Mycoplasma negative. Influenza A positive. UA suspicious for UTI. CXR shows mild bilateral bronchitis with areas of PNA within the left mid and lower lung. She is subsequently admitted to the medical floor. She is a Full Code. PCP is Dr. Nasreen Edmond. Diagnosis: Stroke: No - Discharge Data Discharge Date: 09/12/18 Discharge Disposition: DC/Tfer to SNF 03 Condition: Good - Discharge Diagnosis/Problem(s) (1) Streptococcal pneumonia SNOMED Code(s): 57305769 ICD Code: J15.4 - PNEUMONIA DUE TO OTHER STREPTOCOCCI Status: Acute Current Visit: Yes (2) Hypoxia SNOMED Code(s): 528303129 ICD Code: R09.02 - HYPOXEMIA Status: Resolved Current Visit: Yes (3) Respiratory distress, acute SNOMED Code(s): 933491991 ICD Code: R06.03 - ACUTE RESPIRATORY DISTRESS Status: Resolved Current Visit: Yes (4) Influenza A SNOMED Code(s): 704773685 ICD Code: J10.1 - FLU DUE TO OTH IDENT INFLUENZA VIRUS W OTH RESP MANIFEST Status: Resolved Priority: High Current Visit: Yes (5) Sepsis SNOMED Code(s): 95149913 ICD Code: A41.9 - SEPSIS, UNSPECIFIED ORGANISM Status: Acute Priority: High Current Visit: Yes Qualifiers: Sepsis type: sepsis due to unspecified organism Qualified Code(s): A41.9 - Sepsis, unspecified organism (6) Type 2 diabetes mellitus SNOMED Code(s): 86394781 ICD Code: E11.9 - TYPE 2 DIABETES MELLITUS WITHOUT COMPLICATIONS Status: Chronic Priority: High Current Visit: Yes Qualifiers: Diabetes mellitus mcfp insulin use: with mcfp use Diabetes mellitus complication status: with hyperglycemia Qualified Code(s): E11.65 - Type 2 diabetes mellitus with hyperglycemia; 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 (7) Congestive heart failure SNOMED Code(s): 49331117 ICD Code: I50.9 - HEART FAILURE, UNSPECIFIED Status: Resolved Priority: Medium Current Visit: Yes Qualifiers: Heart failure type: diastolic Heart failure chronicity: acute on chronic Qualified Code(s): I50.33 - Acute on chronic diastolic (congestive) heart failure - Patient Summary/Data Consults: Consultations 08/30/18 17:49 Consult to Case Management/Phonograph Mechanic [CONS] Routine Consult to Diabetic Nurse Specialist [CONS] Routine OT Evaluation and Treatment [CONS] Routine PT Evaluation and Treatment [CONS] Routine Respiratory Care Assess and Treatment [CONS] Routine 09/06/18 13:37 Consult to Physician [CONS] Routine - Patient Instructions Diet: Diabetic Diet Activity: As Tolerated Driving: Do Not Drive Showering/Bathing: May Shower Notify Provider of: Fever, Increased Pain, Nausea and/or Vomiting - Discharge Plan *PRESCRIPTION DRUG MONITORING PROGRAM REVIEWED*: Not Applicable *COPY OF PRESCRIPTION DRUG MONITORING REPORT IN PATIENT ISIAH: Not Applicable Home Medications: Home Meds Aspirin [Halfprin] 81 mg PO DAILY 08/31/18 [History] Glimepiride 4 mg PO BIDMEALS 08/31/18 [History] Insulin Glargine,Hum.Rec.Anlog [Lantus Solostar] 48 unit SQ DAILY 08/31/18 [ History] Losartan [Cozaar] 50 mg PO DAILY 08/31/18 [History] Pantoprazole [ProTONIX] 40 mg PO DAILY 08/31/18 [History] Simvastatin 20 mg PO DAILY 08/31/18 [History] SitaGLIPtin [Januvia] 100 mg PO DAILY 08/31/18 [History] carBAMazepine [Carbamazepine ER] 400 mg PO BID 08/31/18 [History] metFORMIN [Glucophage] 1,000 mg PO 2100 08/31/18 [History] metFORMIN [Glucophage] 1,500 mg PO 0800 08/31/18 [History] Patient Handouts: Influenza, Adult, [id number], Sepsis, Adult, Acute Bronchitis, Adult Referrals: PCP,Unknown [Ordering Only Provider] - - Discharge Summary/Plan Comment DC Time >30 min.: No Discharge Summary/Plan Comment: Assessment/Plan: Acute: Influenza with secondary bacterial PNA, Strep Pneumo PNA L lower and mid lung w/ hypoxia, clinically improved * Fever, productive cough, SOB w/ exertion x 3 days * O2 82% RA--> 92% 4L NC--> 91% 12L mask--> 89-91% 15L non-rebreather--> 15L BiPAP; FIO2 0.70 12/7...O2 sat 97% on pulse ox/ABG pH 7.48 pCO2 31.0 pO2 70 sO2 94.8%; frequent changes required. * No leukocytosis, Neut 86% with 3% bandemia, CRP 15.4--> 17.6 * CXR 08/30/18: Findings felt compatible with mild bilateral bronchitis with areas of pneumonia within the left mid and lower lung. * CT Chest 08/31/18: * 1. Diffuse parenchymal densities throughout both size of the chest more confluent within the lingula and within both lower lungs. Findings have progressed from prior chest x-ray. Findings are most likely infectious in etiology. Continued follow-up is recommended. * 2. Mildly prominent lymph nodes most likely on an inflammatory basis from the lung process. * Mycoplasma negative * RVP was negative; Strep pneumo--->positive * RT/Duonebs/IS/Acapella/Chest Physiotherapy * ABG shows low O2 sat: 86.8%--> 89.7%--> 93.3 * Repeat CXR 09/01/18: * 1. Diffuse parenchymal densities as described above. Differential includes irregular areas of pulmonary edema vs diffuse multifocal areas of pneumonia. * 2. Heart is slightly enlarged Most recent ATB : Rocephin/Levoquin/Vanco--Vanco stopped 09/07/18; Rocephin stopped 09/09/18; continue Levoquin po on 09/10/18 * Dexamethasone BID x2 days-->completed; started solumedrol 125 mg daily, change to prednisone 40 mg day, 09/10/18. * Magnesium as needed * R/O PE: * D-dimer elevated at 1.1 * CTA negative for PE * ECHO LVEF--WNL; grade 2/4 diastolic dysfunction * Pulmonary toilet * Recommend PFT outpt Influenza A, * Fever and increased weakness x3 days--> Increased energy and alertness today * Tamiflu started in ED--> continue BID, stopped 09/09/18. Sepsis * Likely 2/2 above * Temperature 102.2F, Hypoxic, Tachypneic, Tachycardia, source of infection present * LA 3.2--> 2.1--> 0.9 * Procalcitonin elevated at 0.18 * Rocephin started in ED--> continue * IVF started in ED--> continue * Blood cultures show no growth Possible AMS * Per , seemed more confused than usual this AM * Risk Factors: Current illness/sepsis, increased O2 demand, unwitnessed fall yesterday ( unsure if she hit her head; she does have a scab on her forehead but per notes it is a couple days old) * CT Head 08/31/18: * 1. Diffuse parenchymal densities throughout both sides of the chest more confluent within the lingual and within both lower lungs. Findings have progressed from prior chest x-ray. Findings are most likely infectious in etiology. Continued follow-up is recommended. * 2. Mildly prominent lymph nodes most likely on an inflammatory basis from the lung process. * Normal neuro exam, A+O x3, seems to be very lethargic * If continues to worsen/has AMS: * ICU care * LP in AM --> Cancelled d/t improved clinical disposition * CT Head in AM if still lethargic or AMS--> not needed at this time Hyperglycemia w/ DM2 * She missed a dose of insulin yesterday, didn't take her insulin this AM * Blood sugar this AM 389, Blood sugar in ED 320 * Blood glucose checks, insulin sliding scale * A1C 7.7 * Solumedrol 125 mg BID-->decreased to once daily New-onset Afib, resolved maintaining SR * Risk factor: Sepsis * 12 lead EKG done, HR 100's-118 * Metoprolol 25 BID * Lovenox 40 restarted * ECHO ---nl LVEF, grade 2 diastolic dysfunction * Monitor on telemetry DHF * Diurese as needed; 2 D echo documented nl LVEF, grade 2 diastolic dysfunction * Increase Lasix 40 mg daily, decreased to 20 mg po daily on 09/10/18. Abnormal electrolytes * Correct K, Mg, Na as needed Nutrition--tolerating 2000 ADA Follow oral care and intake Resume diabetic meds. Resolved: Dehydration * Likely 2/2 decreased intake * AGap 17.5--> 14.1 * IVF started in ED--> Continue * Monitor Possible UTI--> CULTURE NEGATIVE * Risk factors: Frequency, Incontinence * UA suspicious for UTI * Urine culture shows no growth * Rocephin started in ED--> continue Chronic: HLD * Lipids WNL HTN GERD Seizures on Tegretol (last seizure 2002) DM2 Plan: Continue ICU care-->down grade to MS with telemetry 09/11/18. Decline for transfer, will follow closely and seek transfer if needed. Droplet precautions-->DC Routine AM Labs ADA diet as tolerated TPN may be needed, will follow; currently on D5 0.45 with KCL 40 mEq-->> stopped began eating, 09/06/18. DVT/GI prophylaxis CM/SW PT/OT Increase activity as tolerated Titrate off O2--->decreased to 1.5 l/m Code Status: Full Code; PCP: Dr. Nasreen Edmond SNF is needed for deconditioning, DC expected Wed-Tu LOS>96 hours with slow response to treatment for Influenza/PNA - General Info Date of Service: 08/30/18 Functional Status: Reports: Pain Controlled, Tolerating Diet, Ambulating, Urinating - Review of Systems General: Reports: Weakness (decreased) HEENT: Reports: No Symptoms Pulmonary: Reports: Shortness of Breath (decreased) Cardiovascular: Reports: No Symptoms Gastrointestinal: Reports: No Symptoms Genitourinary: Reports: No Symptoms Musculoskeletal: Reports: No Symptoms Skin: Reports: No Symptoms Neurological: Reports: No Symptoms Psychiatric: Reports: No Symptoms - Patient Data Vitals - Most Recent: Last Vital Signs Temp 36.8 C 09/11/18 16:00 Pulse 99 09/11/18 09:19 Resp 17 09/11/18 16:00 BP 142/68 H 09/11/18 16:00 Pulse Ox 96 09/11/18 16:00 Weight - Most Recent: 87.589 kg I&O - Last 24 hours: Intake & Output 09/11/18 09/11/18 09/11/18 06:59 14:59 22:59 Intake Total 500 1120 Output Total 300 1200 Balance 200 -1200 1120 Lab Results - Last 24 hrs: Laboratory Results - last 24 hr 09/10/18 09/11/18 09/11/18 Range/Units 20:28 05:13 05:13 WBC 5.83 (3.98-10.04) K/mm3 RBC 3.66 L (3.98-5.22) M/mm3 Hgb 10.0 L (11.2-15.7) gm/L Hct 31.0 L (34.1-44.9) % MCV 84.7 (79.4-94.8) fl MCH 27.3 (25.6-32.2) pg MCHC 32.3 (32.2-35.5) g/dl RDW Std Deviation 41.4 (36.4-46.3) fL Plt Count 393 H (182-369) K/mm3 MPV 9.6 (9.4-12.3) fl Neut % (Auto) 71.0 (34.0-71.1) % Lymph % (Auto) 19.6 (19.3-51.7) % [place] % (Auto) 8.4 (4.7-12.5) % Eos % (Auto) 0.5 L (0.7-5.8) Baso % (Auto) 0.3 (0.1-1.2) % Neut # (Auto) 4.14 (1.56-6.13) K/mm3 Lymph # (Auto) 1.14 L (1.18-3.74) K/mm3 [place] # (Auto) 0.49 H (0.24-0.36) K/mm3 Eos # (Auto) 0.03 L (0.04-0.36) K/mm3 Baso # (Auto) 0.02 (0.01-0.08) K/mm3 Sodium (136-145) mEq/L Potassium (3.5-5.1) mEq/L Chloride (98-107) mEq/L Carbon Dioxide (21-32) mEq/L Anion Gap (5-15) BUN (7-18) mg/dL Creatinine (0.55-1.02) mg/dL Est Cr Clr Drug Dosing mL/min Estimated GFR (MDRD) (>60) mL/min BUN/Creatinine Ratio (14-18) Glucose (80-115) mg/dL POC Glucose 265 H (80-115) mg/dL Calcium (8.5-10.1) mg/dL Magnesium 2.0 (1.8-2.4) mg/dl C-Reactive Protein 1.8 H* (<1.0) mg/dL NT-Pro-B Natriuret Pep (0-125) pg/mL 09/11/18 09/11/18 09/11/18 Range/Units 05:13 05:13 06:11 WBC (3.98-10.04) K/mm3 RBC (3.98-5.22) M/mm3 Hgb (11.2-15.7) gm/L Hct (34.1-44.9) % MCV (79.4-94.8) fl MCH (25.6-32.2) pg MCHC (32.2-35.5) g/dl RDW Std Deviation (36.4-46.3) fL Plt Count (182-369) K/mm3 MPV (9.4-12.3) fl Neut % (Auto) (34.0-71.1) % Lymph % (Auto) (19.3-51.7) % [place] % (Auto) (4.7-12.5) % Eos % (Auto) (0.7-5.8) Baso % (Auto) (0.1-1.2) % Neut # (Auto) (1.56-6.13) K/mm3 Lymph # (Auto) (1.18-3.74) K/mm3 [place] # (Auto) (0.24-0.36) K/mm3 Eos # (Auto) (0.04-0.36) K/mm3 Baso # (Auto) (0.01-0.08) K/mm3 Sodium 137 (136-145) mEq/L Potassium 4.4 (3.5-5.1) mEq/L Chloride 103 (98-107) mEq/L Carbon Dioxide 29 (21-32) mEq/L Anion Gap 9.4 (5-15) BUN 17 (7-18) mg/dL Creatinine 0.6 (0.55-1.02) mg/dL Est Cr Clr Drug Dosing 84.54 mL/min Estimated GFR (MDRD) > 60 (>60) mL/min BUN/Creatinine Ratio 28.3 H (14-18) Glucose 163 H (80-115) mg/dL POC Glucose 170 H (80-115) mg/dL Calcium 8.0 L (8.5-10.1) mg/dL Magnesium (1.8-2.4) mg/dl C-Reactive Protein (<1.0) mg/dL NT-Pro-B Natriuret Pep 247 H (0-125) pg/mL 09/11/18 09/11/18 Range/Units 11:27 16:43 WBC (3.98-10.04) K/mm3 RBC (3.98-5.22) M/mm3 Hgb (11.2-15.7) gm/L Hct (34.1-44.9) % MCV (79.4-94.8) fl MCH (25.6-32.2) pg MCHC (32.2-35.5) g/dl RDW Std Deviation (36.4-46.3) fL Plt Count (182-369) K/mm3 MPV (9.4-12.3) fl Neut % (Auto) (34.0-71.1) % Lymph % (Auto) (19.3-51.7) % [place] % (Auto) (4.7-12.5) % Eos % (Auto) (0.7-5.8) Baso % (Auto) (0.1-1.2) % Neut # (Auto) (1.56-6.13) K/mm3 Lymph # (Auto) (1.18-3.74) K/mm3 [place] # (Auto) (0.24-0.36) K/mm3 Eos # (Auto) (0.04-0.36) K/mm3 Baso # (Auto) (0.01-0.08) K/mm3 Sodium (136-145) mEq/L Potassium (3.5-5.1) mEq/L Chloride (98-107) mEq/L Carbon Dioxide (21-32) mEq/L Anion Gap (5-15) BUN (7-18) mg/dL Creatinine (0.55-1.02) mg/dL Est Cr Clr Drug Dosing mL/min Estimated GFR (MDRD) (>60) mL/min BUN/Creatinine Ratio (14-18) Glucose (80-115) mg/dL POC Glucose 199 H 196 H (80-115) mg/dL Calcium (8.5-10.1) mg/dL Magnesium (1.8-2.4) mg/dl C-Reactive Protein (<1.0) mg/dL NT-Pro-B Natriuret Pep (0-125) pg/mL DIMPLE Results - Last 24 hrs: Microbiology 09/03/18 21:20 Aerobic Blood Culture - Final Blood - Venous NO GROWTH AFTER 7 DAYS Anaerobic Blood Culture - Final NO GROWTH AFTER 7 DAYS 09/03/18 21:25 Aerobic Blood Culture - Final Blood - Venous - Lab Draw NO GROWTH AFTER 7 DAYS Anaerobic Blood Culture - Final NO GROWTH AFTER 7 DAYS Med Orders - Current: Current Medications Acetaminophen (Tylenol) 650 mg PO Q4H PRN PRN Reason: Pain (Mild 1-3)/fever Last Admin: 08/31/18 20:10 Dose: 650 mg Alogliptin Benzoate (Alogliptin) 25 mg PO DAILY [facility] Last Admin: 09/11/18 09:19 Dose: 25 mg Aspirin (Halfprin) 81 mg PO DAILY [facility] Last Admin: 09/11/18 09:24 Dose: 81 mg Bisacodyl (Dulcolax) 5 mg PO DAILY PRN PRN Reason: Constipation Carbamazepine (Tegretol Tab) 400 mg PO BID [facility] Last Admin: 09/11/18 09:19 Dose: 400 mg Dextrose/Water (Dextrose 50% In Water) 50 ml IVPUSH ASDIRECTED PRN PRN Reason: Hypoglycemia Docusate Sodium (Colace) 100 mg PO BID PRN PRN Reason: Constipation Enoxaparin Sodium (Lovenox) 40 mg SUBCUT DAILY [facility] Last Admin: 09/11/18 09:25 Dose: 40 mg Furosemide (Lasix) 20 mg PO DAILY [facility] Last Admin: 09/11/18 09:19 Dose: 20 mg Guaifenesin/Phenylephrine HCl (Robitussin Dm) 10 ml PO TID [facility] Last Admin: 09/11/18 16:38 Dose: Not Given Hydralazine HCl (Apresoline) 20 mg IVPUSH Q6H PRN PRN Reason: Hypertension Promethazine HCl 6.25 mg/ (Sodium Chloride) 50.25 mls @ 100 mls/hr IV Q6H PRN PRN Reason: Nausea/Vomiting Insulin Glargine (Lantus) 22 unit SUBCUT BID@0700,2200 [facility] Last Admin: 09/11/18 06:12 Dose: 22 units Insulin Human Lispro (Humalog) 0 unit SUBCUT QIDACANDBED [facility]; Protocol Last Admin: 09/11/18 11:55 Dose: 3 units Ipratropium [place] (Atrovent) 0.5 mg NEB QIDRT [facility] Last Admin: 09/11/18 15:38 Dose: 0.5 mg Levalbuterol HCl (Xopenex) 1.25 mg NEB QIDRT [facility] Last Admin: 09/11/18 15:38 Dose: 1.25 mg Levalbuterol HCl (Xopenex) 1.25 mg NEB Q2H PRN PRN Reason: sob Last Admin: 09/03/18 19:24 Dose: 1.25 mg Levofloxacin (Levaquin) 750 mg PO Q24H [facility] Last Admin: 09/11/18 11:56 Dose: 750 mg Lorazepam (Ativan) 2 mg IVPUSH Q4H PRN PRN Reason: Seizures Lorazepam (Ativan) 2 mg IVPUSH Q6H PRN PRN Reason: Anxiety Last Admin: 09/07/18 23:17 Dose: 2 mg Magnesium Hydroxide (Milk Of Magnesia) 30 ml PO Q12H PRN PRN Reason: Constipation Magnesium Oxide (Magnesium Oxide) 400 mg PO BID [facility] Last Admin: 09/11/18 09:24 Dose: 400 mg Metformin HCl (Glucophage) 850 mg PO TIDMEALS [facility] Last Admin: 09/11/18 16:41 Dose: 850 mg Metoprolol Succinate (Toprol Xl) 25 mg PO BID [facility] Last Admin: 09/11/18 09:19 Dose: 25 mg Metoprolol Tartrate (Lopressor) 5 mg IVPUSH Q4H PRN PRN Reason: Tachycardia Last Admin: 09/03/18 19:25 Dose: 5 mg Morphine Sulfate (Morphine Sulfate) 3 mg IV Q8H PRN PRN Reason: Dyspnea Pantoprazole Sodium (Protonix) 40 mg PO DAILY [facility] Last Admin: 09/11/18 09:24 Dose: 40 mg Polyethylene Glycol (Miralax) 17 gm PO DAILY PRN PRN Reason: Constipation Potassium Chloride (Klor-Con M20) 40 meq PO BID [facility] Stop: 09/11/18 21:01 Last Admin: 09/11/18 11:34 Dose: Not Given Prednisone (Prednisone) 40 mg PO WITHBREAKFAST [facility] Last Admin: 09/11/18 06:13 Dose: 40 mg Promethazine HCl (Phenergan) 25 mg PO Q6H PRN PRN Reason: Nausea/Vomiting Saccharomyces Boulardii (Florastor) 500 mg PO BID [facility] Last Admin: 09/11/18 09:22 Dose: 500 mg Senna/Docusate Sodium (Senna Plus) 1 tab PO BID PRN PRN Reason: Constipation Sertraline HCl (Zoloft) 50 mg PO DAILY [facility] Last Admin: 09/11/18 09:24 Dose: 50 mg Temazepam (Restoril) 7.5 mg PO BEDTIME PRN PRN Reason: Sleep Discontinued Medications Acetaminophen (Tylenol) 975 mg PO NOW ONE Stop: 08/30/18 14:27 Last Admin: 08/30/18 14:51 Dose: 975 mg Hydrocodone Bitart/Acetaminophen ([place] 325-5 Mg) 1 tab PO Q4H PRN PRN Reason: Pain (moderate 4-6) Albuterol (Proventil Neb Soln) 2.5 mg NEB Q2H PRN PRN Reason: Shortness Of Breath/wheezing Last Admin: 08/31/18 23:15 Dose: 2.5 mg Albuterol/Ipratropium (Duoneb 3.0-0.5 Mg/3 Ml) 3 ml NEB Q4H PRN PRN Reason: Shortness Of Breath/wheezing Last Admin: 08/31/18 10:44 Dose: 3 ml Albuterol/Ipratropium (Duoneb 3.0-0.5 Mg/3 Ml) 3 ml NEB QIDRT [facility] Last Admin: 09/01/18 08:59 Dose: 3 ml Ampicillin Sodium (Ampicillin) Confirm Administered Dose 1 gm .ROUTE .STK-MED ONE Stop: 08/31/18 21:19 Last Admin: 08/31/18 21:33 Dose: Not Given Ceftriaxone Sodium (Rocephin) 2 gm IVPUSH Q24H DAGOBERTO Ceftriaxone Sodium (Rocephin) 2 gm IVPUSH Q12H [facility] Dexamethasone (Dexamethasone) Confirm Administered Dose 40 mg .ROUTE .STK-MED ONE Stop: 08/31/18 19:53 Last Admin: 08/31/18 20:15 Dose: Not Given Dexamethasone (Dexamethasone) 40 mg IVPUSH Q12HR [facility] Stop: 09/03/18 07:01 Diltiazem HCl (Cardizem) 10 mg IVPUSH Q4H PRN PRN Reason: tachy >110 Last Admin: 09/02/18 06:52 Dose: 10 mg Diphenhydramine HCl (Benadryl) 25 mg IVPUSH ONETIME ONE Stop: 09/04/18 10:25 Last Admin: 09/04/18 10:49 Dose: 25 mg Famotidine (Pepcid) 20 mg PO BID [facility] Last Admin: 09/03/18 09:06 Dose: 20 mg Famotidine (Pepcid) 20 mg IVPUSH BID [facility] Famotidine (Pepcid) 20 mg IVPUSH BID [facility] Last Admin: 09/07/18 09:02 Dose: 20 mg Famotidine (Pepcid) 20 mg PO BID [facility] Last Admin: 09/08/18 08:17 Dose: 20 mg Furosemide (Lasix) 40 mg IVPUSH NOW ONE Stop: 08/30/18 14:51 Last Admin: 08/30/18 14:58 Dose: 40 mg Furosemide (Lasix) 20 mg IVPUSH NOW ONE Stop: 09/02/18 12:18 Last Admin: 09/02/18 13:45 Dose: 20 mg Furosemide (Lasix) 20 mg IVPUSH NOW ONE Stop: 09/02/18 21:01 Last Admin: 09/02/18 20:18 Dose: 20 mg Furosemide (Lasix) 20 mg IVPUSH NOW ONE Stop: 09/03/18 09:49 Last Admin: 09/03/18 10:27 Dose: 20 mg Furosemide (Lasix) 20 mg IVPUSH ONETIME ONE Stop: 09/04/18 06:01 Last Admin: 09/04/18 05:48 Dose: 20 mg Furosemide (Lasix) 20 mg IVPUSH NOW ONE Stop: 09/04/18 12:31 Last Admin: 09/04/18 12:32 Dose: 20 mg Furosemide (Lasix) 20 mg IVPUSH ONETIME ONE Stop: 09/04/18 20:01 Last Admin: 09/04/18 20:15 Dose: 20 mg Furosemide (Lasix) 40 mg IVPUSH DAILY [facility] Stop: 09/10/18 11:00 Last Admin: 09/10/18 09:05 Dose: 40 mg Furosemide (Lasix) 40 mg IVPUSH NOW ONE Stop: 09/05/18 15:01 Last Admin: 09/05/18 14:42 Dose: 40 mg Furosemide (Lasix) 40 mg IVPUSH ONETIME ONE Stop: 09/09/18 18:01 Furosemide (Lasix) 40 mg IVPUSH ONETIME ONE Stop: 09/08/18 18:01 Last Admin: 09/08/18 18:37 Dose: 40 mg Furosemide (Lasix) 20 mg IVPUSH ONETIME ONE Stop: 09/11/18 15:01 Last Admin: 09/11/18 16:38 Dose: 20 mg Glimepiride (Glimepiride) 4 mg PO BIDMEALS [facility] Last Admin: 09/03/18 09:05 Dose: 4 mg Guaifenesin/Phenylephrine HCl (Robitussin Dm) 10 ml PO TID@0700,1400,2100 [facility] Last Admin: 09/08/18 10:17 Dose: Not Given Hydralazine HCl (Apresoline) 10 mg IVPUSH Q4H PRN PRN Reason: Hypertension Last Admin: 09/08/18 00:14 Dose: 10 mg Hydromorphone HCl (Dilaudid) 0.25 mg IVPUSH Q2H PRN PRN Reason: Pain (severe 7-10) Sodium Chloride (Normal Saline) 1,000 mls @ 150 mls/hr IV ASDIRECTED [facility] Last Admin: 08/30/18 14:26 Dose: 150 mls/hr Sodium Chloride (Normal Saline) 1,000 mls @ 75 mls/hr IV ASDIRECTED [facility] Ceftriaxone Sodium 1 gm/ (Sodium Chloride) 100 mls @ 200 mls/hr IV ONETIME ONE Stop: 08/30/18 16:28 Last Admin: 08/30/18 16:57 Dose: 200 mls/hr Azithromycin 500 mg/ Sodium (Chloride) 250 mls @ 250 mls/hr IV Q24H [facility] Last Admin: 08/30/18 21:15 Dose: 250 mls/hr Sodium Chloride (Normal Saline) 1,000 mls @ 125 mls/hr IV ASDIRECTED [facility] Last Admin: 08/31/18 00:55 Dose: 125 mls/hr Ceftriaxone Sodium 1 gm/ (Sodium Chloride) 100 mls @ 200 mls/hr IV ONETIME ONE Stop: 08/30/18 19:14 Last Admin: 08/30/18 19:28 Dose: 200 mls/hr Ceftriaxone Sodium 2 gm/ (Sodium Chloride) 100 mls @ 200 mls/hr IV Q24H [facility] Dextrose/Sodium Chloride (Dextrose 5%-Normal Saline) 1,000 mls @ 125 mls/hr IV ASDIRECTED [facility] Last Admin: 08/31/18 08:05 Dose: 125 mls/hr Piperacillin Sod/Tazobactam (Sod 4.5 gm/ Sodium Chloride) 100 mls @ 200 mls/hr IV ONETIME ONE Stop: 08/31/18 10:29 Last Admin: 08/31/18 11:28 Dose: Not Given Piperacillin Sod/Tazobactam (Sod 4.5 gm/ Sodium Chloride) 100 mls @ 25 mls/hr IV Q8H [facility] Last Admin: 08/31/18 23:34 Dose: Not Given Vancomycin HCl 1 gm/ Sodium (Chloride) 250 mls @ 250 mls/hr IV Q12H [facility] Last Admin: 09/01/18 21:37 Dose: 250 mls/hr Sodium Chloride (Normal Saline) Confirm Administered Dose 100 mls @ as directed .ROUTE .STK-MED ONE Stop: 08/31/18 10:49 Last Admin: 08/31/18 11:29 Dose: Not Given Piperacillin Sod/Tazobactam (Sod 4.5 gm/ Sodium Chloride) 100 mls @ 200 mls/hr IV ONETIME ONE Stop: 08/31/18 11:44 Last Admin: 08/31/18 12:56 Dose: 200 mls/hr Sodium Chloride (Normal Saline) 1,000 mls @ 75 mls/hr IV ASDIRECTED [facility] Last Admin: 09/02/18 04:15 Dose: 75 mls/hr Magnesium Sulfate/Dextrose (Magnesium 1 Gm In D5w 100 Ml) Confirm Administered Dose 100 mls @ as directed .ROUTE .[facility]-MED ONE Stop: 08/31/18 19:53 Last Admin: 08/31/18 20:15 Dose: Not Given Acyclovir 1,000 mg/ Sodium (Chloride) 120 mls @ 100 mls/hr IV Q8H [facility] [facility] Last Admin: 09/02/18 04:09 Dose: 100 mls/hr Ampicillin Sodium 1 gm/ Sodium (Chloride) 100 mls @ 200 mls/hr IV Q4H [facility] Last Admin: 08/31/18 23:34 Dose: Not Given Dexamethasone 40 mg/ Sodium (Chloride) 54 mls @ 108 mls/hr IV BID@0700,1900 [facility] Stop: 09/02/18 20:31 Last Admin: 09/02/18 18:08 Dose: 108 mls/hr Magnesium Sulfate 2 gm/ Premix 50 mls @ 25 mls/hr IV ONETIME ONE Stop: 08/31/18 22:13 Last Admin: 08/31/18 21:26 Dose: Not Given Magnesium Sulfate/Dextrose 1 (gm/ Premix) 100 mls @ 100 mls/hr IV ONETIME ONE Stop: 08/31/18 21:29 Last Admin: 08/31/18 20:35 Dose: 100 mls/hr Ampicillin Sodium 1 gm/ Sodium (Chloride) 100 mls @ 200 mls/hr IV Q4H [facility] Last Admin: 09/01/18 11:17 Dose: Not Given Sodium Chloride (Normal Saline) Confirm Administered Dose 100 mls @ as directed .ROUTE .STK-MED ONE Stop: 08/31/18 21:21 Last Admin: 08/31/18 21:29 Dose: Not Given Sodium Chloride (Normal Saline) 250 mls @ 999 mls/hr IV ONETIME ONE Stop: 08/31/18 21:25 Last Admin: 08/31/18 23:07 Dose: Not Given Ceftriaxone Sodium 2 gm/ (Sodium Chloride) 100 mls @ 200 mls/hr IV Q24H [facility] Last Admin: 09/02/18 23:19 Dose: 200 mls/hr Ampicillin Sodium 1 gm/ Sodium (Chloride) 100 mls @ 200 mls/hr IV Q4H [facility] Last Admin: 09/02/18 05:41 Dose: 200 mls/hr Levofloxacin/Dextrose 750 mg/ (Premix) 150 mls @ 100 mls/hr IV Q24H [facility] Stop: 09/09/18 12:00 Last Admin: 09/09/18 10:26 Dose: 100 mls/hr Potassium Chloride/Dextrose/Sod Cl (D5 1/2 Ns W/ 40 Meq/L Kcl) 1,000 mls @ 75 mls/hr IV ASDIRECTED [facility] Last Infusion: 09/03/18 20:30 Dose: 125 mls/hr Vancomycin HCl 1 gm/ Sodium (Chloride) 250 mls @ 250 mls/hr IV Q12H [facility] Stop: 09/05/18 01:30 Last Admin: 09/04/18 23:52 Dose: 250 mls/hr Potassium Chloride 10 meq/ (Premix) 100 mls @ 100 mls/hr IV Q1H [facility] Stop: 09/03/18 11:59 Last Admin: 09/03/18 12:32 Dose: 100 mls/hr Magnesium Sulfate 2 gm/ Premix 50 mls @ 25 mls/hr IV ONETIME ONE Stop: 09/03/18 21:50 Last Admin: 09/03/18 20:13 Dose: 25 mls/hr Ceftriaxone Sodium 2 gm/ (Sodium Chloride) 100 mls @ 200 mls/hr IV Q12H [facility] Last Admin: 09/09/18 09:09 Dose: 200 mls/hr Potassium Chloride/Dextrose/Sod Cl (D5 1/2 Ns W/ 40 Meq/L Kcl) 1,000 mls @ 125 mls/hr IV ASDIRECTED [facility] Last Admin: 09/07/18 10:33 Dose: 75 mls/hr Magnesium Sulfate 2 gm/ Premix 50 mls @ 25 mls/hr IV ONETIME ONE Stop: 09/04/18 12:43 Last Admin: 09/04/18 11:09 Dose: 25 mls/hr Vancomycin HCl 1 gm/ Sodium (Chloride) 250 mls @ 250 mls/hr IV Q8H [facility] Last Admin: 09/06/18 09:10 Dose: Not Given Vancomycin HCl 1 gm/Vancomycin HCl 250 mg/ Sodium Chloride 250 mls @ 166.667 mls/hr IV Q8H [facility] Stop: 09/07/18 12:00 Last Admin: 09/07/18 08:11 Dose: 166.667 mls/hr Magnesium Sulfate/Dextrose 1 (gm/ Premix) 100 mls @ 100 mls/hr IV ONETIME ONE Stop: 09/06/18 15:12 Last Admin: 09/06/18 15:10 Dose: 100 mls/hr Sodium Chloride (Sodium Chloride 0.45%) 1,000 mls @ 999 mls/hr IV ASDIRECTED [facility] Last Admin: 09/08/18 14:02 Dose: 999 mls/hr Sodium Chloride (Sodium Chloride 0.45%) 1,000 mls @ 250 mls/hr IV ASDIRECTED [facility] Last Admin: 09/08/18 19:16 Dose: 250 mls/hr Insulin Human Regular 100 unit (/ Sodium Chloride) 100 mls @ 9.12 mls/hr IV TITRATE [facility]; Protocol Last Titration: 09/08/18 16:27 Dose: 0 units/kg/hr, 0 mls/hr Magnesium Sulfate 2 gm/ Premix 50 mls @ 25 mls/hr IV ONETIME ONE Stop: 09/09/18 11:59 Last Admin: 09/09/18 10:22 Dose: 25 mls/hr Sodium Chloride (Sodium Chloride 0.45%) 1,000 mls @ 999 mls/hr IV ASDIRECTED [facility] Stop: 09/09/18 20:02 Last Admin: 09/09/18 18:23 Dose: 999 mls/hr Sodium Chloride (Sodium Chloride 0.45%) 1,000 mls @ 250 mls/hr IV ASDIRECTED [facility] Last Admin: 09/10/18 03:51 Dose: 250 mls/hr Magnesium Sulfate 2 gm/ Premix 50 mls @ 25 mls/hr IV ONETIME ONE Stop: 09/10/18 11:59 Last Admin: 09/10/18 10:24 Dose: 25 mls/hr Insulin Glargine (Lantus) 10 unit SUBCUT BID [facility] Last Admin: 09/08/18 08:46 Dose: 10 units Insulin Glargine (Lantus) 15 unit SUBCUT BID@0700,2200 [facility] Insulin Glargine (Lantus) 5 unit SUBCUT ONETIME ONE Stop: 09/08/18 12:11 Last Admin: 09/08/18 12:35 Dose: 5 units Insulin Glargine (Lantus) 10 unit SUBCUT ONETIME ONE Stop: 09/08/18 21:01 Last Admin: 09/08/18 21:17 Dose: 10 units Insulin Glargine (Lantus) 15 unit SUBCUT BID@0700,2200 [facility] Last Admin: 09/09/18 21:19 Dose: 15 units Insulin Glargine (Lantus) 15 unit SUBCUT NOW STA Stop: 09/09/18 17:45 Last Admin: 09/09/18 17:57 Dose: 15 units Insulin Human Lispro (Humalog) 0 unit SUBCUT QIDACANDBED [facility]; Protocol Last Admin: 08/31/18 20:54 Dose: 3 unit Insulin Human Lispro (Humalog) 0 unit SUBCUT QIDACANDBED [facility]; Protocol Last Admin: 09/06/18 12:27 Dose: 10 units Insulin Human Lispro (Humalog) 18 unit SUBCUT STAT ONE Stop: 09/09/18 18:16 Last Admin: 09/09/18 18:22 Dose: 18 units Insulin Human Regular (Humulin R) 8 unit SUBCUT ONETIME ONE Stop: 08/30/18 14:55 Last Admin: 08/30/18 15:06 Dose: 8 units Lorazepam (Ativan) 2 mg IVPUSH Q4H PRN PRN Reason: Seizures Lorazepam (Ativan) 2 mg IVPUSH Q6H PRN PRN Reason: Seizures Last Admin: 09/03/18 16:23 Dose: 2 mg Lorazepam (Ativan) 1 mg IVPUSH ONETIME ONE Stop: 09/04/18 11:57 Last Admin: 09/04/18 12:32 Dose: 1 mg Lorazepam (Ativan) 1 mg IVPUSH Q8H PRN PRN Reason: Anxiety Last Admin: 09/06/18 16:44 Dose: 1 mg Methylprednisolone Sodium Succinate (Solu-Medrol) 125 mg IVPUSH ONETIME ONE Stop: 09/03/18 19:33 Last Admin: 09/03/18 19:39 Dose: 125 mg Methylprednisolone Sodium Succinate (Solu-Medrol) 125 mg IVPUSH Q12H [facility] Methylprednisolone Sodium Succinate (Solu-Medrol) 125 mg IVPUSH DAILY [facility] Last Admin: 09/06/18 08:34 Dose: 125 mg Methylprednisolone Sodium Succinate (Solu-Medrol) 125 mg IVPUSH Q12H [facility] Last Admin: 09/08/18 08:17 Dose: 125 mg Methylprednisolone Sodium Succinate (Solu-Medrol) 125 mg IVPUSH DAILY [facility] Last Admin: 09/09/18 09:08 Dose: 125 mg Morphine Sulfate (Morphine) 1 mg IVPUSH Q4H PRN PRN Reason: Shortness of Breath Last Admin: 09/03/18 06:35 Dose: 1 mg Morphine Sulfate (Morphine) 2 mg IVPUSH Q4H PRN PRN Reason: Shortness of Breath Last Admin: 09/03/18 19:43 Dose: 2 mg Morphine Sulfate (Morphine) 2 mg IVPUSH Q2H PRN PRN Reason: Shortness of Breath Last Admin: 09/04/18 12:35 Dose: 2 mg Morphine Sulfate (Morphine) 4 mg IVPUSH ONETIME ONE Stop: 09/04/18 11:54 Last Admin: 09/04/18 11:57 Dose: Not Given Morphine Sulfate (Morphine) 3 mg IVPUSH Q2H [facility] Last Admin: 09/04/18 15:48 Dose: 3 mg Morphine Sulfate (Morphine Sulfate) Confirm Administered Dose 4 mg IV .STK-MED ONE Stop: 09/04/18 15:45 Last Admin: 09/04/18 15:51 Dose: Not Given Morphine Sulfate (Morphine Sulfate) 3 mg IV Q2H [facility] Last Admin: 09/06/18 11:15 Dose: Not Given Morphine Sulfate (Morphine) 3 mg IVPUSH Q4H [facility] Last Admin: 09/08/18 08:18 Dose: 3 mg Morphine Sulfate (Morphine Sulfate) 3 mg IV Q6H PRN PRN Reason: Dyspnea Ondansetron HCl (Zofran) 4 mg IVPUSH ONETIME ONE Stop: 08/30/18 14:19 Last Admin: 08/30/18 14:29 Dose: 4 mg Oseltamivir Phosphate (Tamiflu) 75 mg PO ONETIME ONE Stop: 08/30/18 14:43 Last Admin: 08/30/18 15:02 Dose: 75 mg Oseltamivir Phosphate (Tamiflu) 75 mg PO BID [facility] Stop: 09/03/18 21:01 Last Admin: 09/03/18 21:30 Dose: 75 mg Oseltamivir Phosphate (Tamiflu) 75 mg PO BID [facility] Last Admin: 09/09/18 09:07 Dose: 75 mg Pantoprazole Sodium (Protonix) 40 mg PO ACBREAKFAST [facility] Last Admin: 09/08/18 10:17 Dose: Not Given Potassium Chloride (Klor-Con M20) 40 meq PO BID [facility] Last Admin: 09/08/18 08:19 Dose: 40 meq Saccharomyces Boulardii (Florastor) 250 mg PO BID [facility] Last Admin: 09/09/18 09:08 Dose: 250 mg Sertraline HCl (Zoloft) 25 mg PO DAILY [facility] Last Admin: 09/08/18 08:19 Dose: 25 mg Vancomycin HCl (Pharmacy To Dose - Vancomycin) 1 dose .XX ASDIRECTED [facility] Vancomycin HCl (Pharmacy To Dose - Vancomycin) 1 dose .XX ASDIRECTED [facility] - Exam Quality Assessment: Reports: Supplemental Oxygen (with exertion), DVT Prophylaxis General: Reports: Alert, Oriented, Cooperative, No Acute Distress HEENT: Reports: Pupils Equal, Pupils Reactive, EOMI Neck: Reports: Trachea Midline, No JVD Lungs: Reports: Normal Respiratory Effort, Decreased Breath Sounds Cardiovascular: Reports: Regular Rate, Regular Rhythm GI/Abdominal Exam: Normal Bowel Sounds, Soft, Non-Tender, No Organomegaly, No Distention (Female) Exam: Deferred Rectal (Female) Exam: Deferred Back Exam: Reports: Normal Inspection Extremities: Normal Inspection, Non-Tender, Normal Capillary Refill Skin: Reports: Warm Neurological: Reports: No New Focal Deficit, Normal Gait, Normal Speech Psy/Mental Status: Reports: Alert, Normal Affect, Normal Mood
[2018-09-12] MEDS: Insulin Lispro 100 UNIT/ML 10 ML VIAL SUBCUT SCH ×2 (06:09→11:15)
[2018-09-12] MEDS: Levalbuterol HCl 1.25 MG/0.5 ML Neb NEB SCH ×2 (06:30→09:06)
[2018-09-12] MEDS: Ipratropium 0.02% 0.5 MG/2.5 ML Neb Soln NEB SCH ×2 (06:30→09:05)
[2018-09-12] MEDS: Insulin Glarg,Human.Rec.Analog 100 UNIT/ML ML SUBCUT SCH (06:41)
[2018-09-12] MEDS: predniSONE 20 MG Tab PO SCH (06:41)
--- NOTE | 2018-09-12 06:46 | CONS ---
CONSULTING PHYSICIAN: Mati Vick MD DATE OF CONSULTATION: 09/08/2018 ADDENDUM: Per staff request, this is to make clear that the terms are used in the plan for the patient a structured living environment be understood to also include if need be placement in a prison facility, whether that be transitional or [facility] finished [facility]. It should also be specifically understood to include nursing facilities and the need for transitional or [facility] [employer] can be determined by the inpatient treating staff, but the residential facility such as the prison would be appropriate placement for this patient once she is medically stabilized and ready to be discharged from the hospital. If this addendum could be included with the patient's original Tele consult, that would be good, so treating staff and anyone else working on the case can better understand the recommendations that are included in the plan for this patient going forward. TABATHA /[id number]
[2018-09-12] MEDS: Metoprolol Succinate 25 MG Tab.ER PO SCH (08:08)
[2018-09-12] MEDS: Saccharomyces Boulardii (Probiotic) 250 MG Cap PO SCH (08:09)
[2018-09-12] MEDS: Aspirin 81 MG Tab.EC PO SCH (08:10)
[2018-09-12] MEDS: Magnesium Oxide 400 MG Tab PO SCH (08:11)
[2018-09-12] MEDS: carBAMazepine 200 MG Tab PO SCH (08:11)
[2018-09-12] MEDS: Furosemide 20 MG Tab PO SCH (08:11)
[2018-09-12] MEDS: Pantoprazole 40 MG Tab.CR PO SCH (08:12)
[2018-09-12] MEDS: Enoxaparin 40 MG/0.4 ML Syringe SUBCUT SCH (08:12)
[2018-09-12] MEDS: Sertraline 50 MG Tab PO SCH (08:12)
[2018-09-12] MEDS: guaiFENesin/Dextromethorphan 100-10 MG/5 ML Soln 5 ML Cup PO SCH (08:12)
[2018-09-12] MEDS: Levofloxacin 750 MG Tab PO SCH (11:06)
== END 2018-09-12 13:12 | DRG 720 ==
LOC: JD.ED 13:46 → JD.MS 17:16 → UNDOADMIN 17:16 → JD.MS 17:17 → JD.ICU 08-31 18:45 → JD.MS 08-31 19:53
PROVIDERS: ADMIT Internal Medicine; ATTEND Internal Medicine
PROC: 5A09557 Assistance with Respiratory Ventilation, Greater than 96 Consecutive Hours, Continuous Positive Airway Pressure (ICD-10-PCS; principal; 2018-09-01)
DX: A41.9 Sepsis, unspecified organism (principal); J96.01 Acute respiratory failure with hypoxia; J96.02 Acute respiratory failure with hypercapnia; I50.33 Acute on chronic diastolic (congestive) heart failure; J10.08 Influenza due to other identified influenza virus with other specified pneumonia; J13 Pneumonia due to Streptococcus pneumoniae; I11.0 Hypertensive heart disease with heart failure; R56.9 Unspecified convulsions; J12.9 Viral pneumonia, unspecified; I48.0 Paroxysmal atrial fibrillation; E11.65 Type 2 diabetes mellitus with hyperglycemia; E78.5 Hyperlipidemia, unspecified; K21.9 Gastro-esophageal reflux disease without esophagitis; E86.0 Dehydration; E78.00 Pure hypercholesterolemia, unspecified; G89.29 Other chronic pain; M54.9 Dorsalgia, unspecified; N39.3 Stress incontinence (female) (male); R25.1 Tremor, unspecified; H02.402 Unspecified ptosis of left eyelid; F32.9 Major depressive disorder, single episode, unspecified; L98.9 Disorder of the skin and subcutaneous tissue, unspecified; Z79.4 Long term (current) use of insulin; Z79.899 Other long term (current) drug therapy; Z79.82 Long term (current) use of aspirin
CPT/HCPCS: 36415; 36600; 51702; 70450; 70450-26; 71045; 71045-26; 71046; 71046-26; 71250; 71250-26; 71275; 71275-26; 80048; 80053; 80061; 80202; 81001; 82553; 82803; 82947; 82962; 83036; 83605; 83735; 83880; 84145; 84484; 85007; 85025; 85027; 85379; 85610; 85652; 86140; 86738; 87040; 87086; 87486; 87493; 87581; 87632; 87641; 87798; 87804; 87899; 93005; 93010; 93306; 94640; 94660; 94667; 94668; 94761; 96361; 96365; 96372; 96375; 97110-GO; 97110-GP; 97116-GP; 97162-GP; 97163-GP; 97166-GO; 97530-GO; 97530-GP; 99285; 99285-25; A9270-GY; J0133; J0290; J0360; J0456; J0696; J1100; J1200; J1650; J1815-GY; J1940; J1956; J2060; J2270; J2405; J2543; J2930; J3370; J3475; J3480; J3490; J7030; J7040; J7042; J7050; J7612-GY; J7620-GY

== ENCOUNTER 2024-08-04 17:13 | Emergency (ER) | payer MEDICARE, OTHER ==
[2024-08-04] MEDS: Acetaminophen 325 MG Tab PO ONE (18:33)
[2024-08-04] MEDS ORDERED: Naloxone 0.4 MG/ML SDV IVPUSH PRN (18:38)
[2024-08-04] MEDS ORDERED: fentaNYL 100 MCG/2 ML SDV IVPUSH ONE (18:39)
[2024-08-04] MEDS: fentaNYL 100 MCG/2 ML SDV IVPUSH ONE (18:59)
[2024-08-04] MEDS: Acetaminophen/HYDROcodone 325-5 MG Tab PO ONE (19:31)
== END 2024-08-04 19:35 | disposition home or self-care (01) ==
LOC: JD.ED 17:13
DX: S82.841A Displaced bimalleolar fracture of right lower leg, initial encounter for closed fracture (principal); S29.012A Strain of muscle and tendon of back wall of thorax, initial encounter; S30.0XXA Contusion of lower back and pelvis, initial encounter; S40.211A Abrasion of right shoulder, initial encounter; I10 Essential (primary) hypertension; E78.00 Pure hypercholesterolemia, unspecified; K21.9 Gastro-esophageal reflux disease without esophagitis; E11.9 Type 2 diabetes mellitus without complications; Z79.82 Long term (current) use of aspirin; Z79.899 Other long term (current) drug therapy; Z79.4 Long term (current) use of insulin; Z79.84 Long term (current) use of oral hypoglycemic drugs; Z79.52 Long term (current) use of systemic steroids; W10.9XXA Fall (on) (from) unspecified stairs and steps, initial encounter
CPT/HCPCS: 29515; 73600; 73610; 82947; 96374; 99283; A9270; J3010

== ENCOUNTER 2024-08-21 10:46 | Day surgery (SDC) | payer MEDICARE, OTHER ==
[~2024-08-21 10:46] MED LIST: HYDROmorphone 0.5 MG/0.5 ML Syringe IVPUSH PRN; Lactated Ringers 1,000 ML IV SCH; Midazolam 1 MG/ML 2 ML SDV ONE; Ondansetron 4 MG/2 ML SDV IVPUSH PRN; Ropivacaine 0.5% 5 MG/ML 30 ML SDV ONE; Sodium Chloride 0.9% 10 ML Syringe FLUSH PRN; Sodium Chloride 0.9% 10 ML Syringe FLUSH SCH; ePHEDrine 50 MG/ML SDV ONE; fentaNYL 100 MCG/2 ML SDV IVPUSH PRN; fentaNYL 100 MCG/2 ML SDV ONE
[2024-08-21] MEDS ORDERED: Lactated Ringers 1,000 ML IV ONE ×2 (10:47→12:50)
[2024-08-21] MEDS ORDERED: Propofol 200 MG/20 ML SDV ONE (12:00)
[2024-08-21] MEDS ORDERED: ceFAZolin 2 GM Vial ONE (12:55)
[2024-08-21] MEDS ORDERED: ePHEDrine 50 MG/ML SDV ONE (13:06)
== END 2024-08-21 16:15 | disposition home or self-care (01) ==
LOC: JD.SDS 10:46
PROVIDERS: ATTEND Orthopaedic Surgery
DX: S82.841A Displaced bimalleolar fracture of right lower leg, initial encounter for closed fracture (principal); I10 Essential (primary) hypertension; E78.00 Pure hypercholesterolemia, unspecified; K21.9 Gastro-esophageal reflux disease without esophagitis; E11.9 Type 2 diabetes mellitus without complications; Z79.4 Long term (current) use of insulin; Z79.84 Long term (current) use of oral hypoglycemic drugs; Z79.82 Long term (current) use of aspirin; Z79.899 Other long term (current) drug therapy; X58.XXXA Exposure to other specified factors, initial encounter
CPT/HCPCS: 27814; 76000; C1713; C1769; C1776; J0690; J2250; J2704; J2795; J3010; J7120; 01480; 64447; 99100; J3490

== ENCOUNTER 2024-08-24 08:32 | Inpatient (IN) | payer MEDICARE, OTHER ==
[2024-08-24] MEDS: 50% Dextrose in Water 50 ML Syringe IVPUSH ONE (08:40)
[2024-08-24 08:49] LABS: BASOPHILS PERCENT AUTO 0.3 % (0.0-1.0); EOSINOPHILS PERCENT AUTO 0.2 % (0.0-6.0); HEMATOCRIT 33.9 % (37.0-47.0); HEMOGLOBIN 11.3 gm/dl (12.0-16.0); IMMATURE GRAN ABSOLUTE AUTO 0.05 K/mm3 (0.00-0.05); IMMATURE GRAN PERCENT AUTO 0.4 % (0.0-0.4); LYMPHOCYTES ABSOLUTE AUTO 0.9 K/mm3 (1.0-4.8); LYMPHOCYTES PERCENT AUTO 7.6 % (24.0-44.0); MEAN CORPUSCULAR HEMOGLOBIN 28.8 pg (28.0-32.0); MEAN CORPUSCULAR HGB CONC 33.3 g/dl (32.0-36.0); MEAN CORPUSCULAR VOLUME 86.5 fl (83.0-99.0); MEAN PLATELET VOLUME 11.3 fl (9.4-12.3); MONOCYTES ABSOLUTE AUTO 0.9 K/mm3 (0.0-0.8); MONOCYTES PERCENT AUTO 7.3 % (0.0-8.0); NEUTROPHILS PERCENT AUTO 84.2 % (41.0-71.0); PLATELET COUNT,PLT 186 K/mm3 (150-400); RED BLOOD CELL COUNT 3.92 M/mm3 (4.10-5.30); WHITE BLOOD CELL COUNT,WBC 11.85 K/mm3 (3.9-11.3)
[2024-08-24 09:04] LABS: INR 1.23; PROTHROMBIN TIME 12.9 SECONDS (9.7-12.0)
[2024-08-24 09:06] LABS: PTT,PARTIAL THROMBOPLSTIN TIME 32.2 SECONDS (21.7-31.4)
[2024-08-24 09:07] LABS: A/G RATIO 0.6 (1-2); ALANINE AMINOTRANSFERASE,ALT 41 U/L (14-59); ALBUMIN 2.3 g/dl (3.4-5.0); ALKALINE PHOSPHATASE 282 U/L (46-116); ANION GAP 12.2 (5-15); ASPARTATE AMNIOTRANSFERASE,AST 212 U/L (15-37); BILIRUBIN TOTAL 0.8 mg/dL (0.2-1.0); BLOOD UREA NITROGEN,BUN 27 mg/dL (7-18); BUN/CREATININE RATIO 38.6 (14-18); CALCIUM 9.3 mg/dL (8.5-10.1); CARBON DIOXIDE,CO2 25 mEq/L (21-32); CHLORIDE,CL 106 mEq/L (98-107); CREATININE 0.7 mg/dL (0.55-1.02); ESTIMATED GFR 93 mL/min (>60); POTASSIUM,K 3.2 mEq/L (3.5-5.1); PROTEIN TOTAL,TP 6.3 g/dl (6.4-8.2); SODIUM,NA 140 mEq/L (136-145); TROPONIN I HIGH SENSITIVITY 12 pg/mL (<=51)
[2024-08-24 09:12] LABS: GLUCOSE RANDOM 37 mg/dL (70-99)
[2024-08-24] MEDS: Sodium Chloride 0.9% 100 ML IV SCH ×2 (09:23→10:06)
[2024-08-24] MEDS: Iopamidol 755 Mg/ML 100 ML Bottle IVPUSH ONE ×2 (09:23→10:06)
[2024-08-24] MEDS: Sodium Chloride 0.9% 10 ML Syringe FLUSH PRN (09:23)
[2024-08-24] MEDS: Dextrose 5%-0.9% NaCl 1,000 ML IV SCH (10:20)
[2024-08-24 12:22] LABS: APPEARANCE,URINE CLEAR (Clear); BILIRUBIN,URINE NEGATIVE (Negative); COLOR,URINE DARK YELLOW (Yellow); GLUCOSE,URINE NEGATIVE (Negative); KETONES,URINE NEGATIVE (Negative); LEUKOCYTE ESTERASE,URINE NEGATIVE (Negative); NITRITE,URINE NEGATIVE (Negative); OCCULT BLOOD,URINE NEGATIVE (Negative); PROTEIN,URINE 1+ (Negative); UROBILINOGEN,URINE 0.2 (0.2-1.0)
[2024-08-24 12:28] LABS: BACTERIA,URINE FEW /hpf (FEW); HYALINE CASTS,URINE 0-5 /lpf (0-5); MUCUS,URINE MODERATE /hpf (FEW); RBC,URINE 0-5 /hpf (0-5); SQUAMOUS EPITHELIAL CELLS,UR 0-5 /hpf (0-5); WBC,URINE 0-5 /hpf (0-5)
[2024-08-24] MEDS ORDERED: Ondansetron 4 MG/2 ML SDV IV PRN (14:34)
[2024-08-24] MEDS ORDERED: Polyethylene Glycol 3350 Powder 17 GM Packet PO PRN (14:34)
[2024-08-24] MEDS ORDERED: Acetaminophen 325 MG Tab PO PRN (14:34)
[2024-08-24] MEDS ORDERED: oxyCODONE 5 MG Tab PO PRN (14:34)
[2024-08-24] MEDS ORDERED: Docusate Sodium 100 MG Cap PO PRN (14:34)
[2024-08-24] MEDS: Enoxaparin 40 MG/0.4 ML Syringe SUBCUT SCH (14:50)
[2024-08-24 15:50] LABS: PHOSPHORUS 3.7 mg/dL (2.6-4.7)
[2024-08-24] MEDS: Potassium Chloride 20 MEQ Tab.ER PO SCH (16:39)
[2024-08-24] MEDS: Enoxaparin 100 MG/1 ML Syringe SUBCUT SCH (16:39)
[2024-08-24] MEDS: D5 1/2 NS w/ 20 mEq/L KCl 1,000 ML IV SCH (18:06)
[2024-08-24] MEDS: Non-Formulary Medication 1 Each (Fluorouracil [Fluorouracil] 30 GM Cream..G.) TOP SCH (21:03)
[2024-08-24] MEDS: CARBAMAZEPINE 400 MG PO SCH (21:06)
[2024-08-24] MEDS: carBAMazepine 200 MG Tab PO SCH (22:02)
[2024-08-25 04:57] LABS: BASOPHILS PERCENT AUTO 0.4 % (0.0-1.0); EOSINOPHILS ABSOLUTE AUTO 0.1 K/mm3 (0.0-0.4); HEMATOCRIT 30.7 % (37.0-47.0); HEMOGLOBIN 10.1 gm/dl (12.0-16.0); IMMATURE GRAN ABSOLUTE AUTO 0.02 K/mm3 (0.00-0.05); IMMATURE GRAN PERCENT AUTO 0.2 % (0.0-0.4); LYMPHOCYTES PERCENT AUTO 11.6 % (24.0-44.0); MEAN CORPUSCULAR HGB CONC 32.9 g/dl (32.0-36.0); MONOCYTES ABSOLUTE AUTO 0.6 K/mm3 (0.0-0.8); MONOCYTES PERCENT AUTO 6.9 % (0.0-8.0); NEUTROPHILS ABSOLUTE AUTO 6.6 K/mm3 (1.8-7.7); NEUTROPHILS PERCENT AUTO 79.9 % (41.0-71.0); PLATELET COUNT,PLT 180 K/mm3 (150-400); RED BLOOD CELL COUNT 3.61 M/mm3 (4.10-5.30); WHITE BLOOD CELL COUNT,WBC 8.26 K/mm3 (3.9-11.3)
[2024-08-25 05:29] LABS: A/G RATIO 0.6 (1-2); ANION GAP 13.1 (5-15); BILIRUBIN TOTAL 0.5 mg/dL (0.2-1.0); BUN/CREATININE RATIO 35.7 (14-18); CALCIUM 8.5 mg/dL (8.5-10.1); CREATININE 0.7 mg/dL (0.55-1.02); EST CRCL DRUG DOSING (CG) 61.86 mL/min; POTASSIUM,K 4.1 mEq/L (3.5-5.1); PROTEIN TOTAL,TP 5.6 g/dl (6.4-8.2)
[2024-08-25] MEDS: amLODIPine 2.5 MG Tab PO SCH (08:43)
[2024-08-25] MEDS: Losartan 25 MG Tab PO SCH (08:43)
[2024-08-25] MEDS: Sertraline 50 MG Tab PO SCH (08:45)
[2024-08-25] MEDS: Spironolactone 25 MG Tab PO SCH (08:45)
[2024-08-25] MEDS: Insulin Lispro 100 Unit/ML 3 ML KwikPen SUBCUT SCH (12:28)
[2024-08-25] MEDS: Non-Formulary Medication 1 Each (Fluorouracil [Fluorouracil] 30 GM Cream..G.) TOP SCH (14:21)
[2024-08-26 05:25] LABS: BASOPHILS PERCENT AUTO 0.5 % (0.0-1.0); EOSINOPHILS ABSOLUTE AUTO 0.1 K/mm3 (0.0-0.4); EOSINOPHILS PERCENT AUTO 0.9 % (0.0-6.0); HEMATOCRIT 30.3 % (37.0-47.0); HEMOGLOBIN 10.1 gm/dl (12.0-16.0); IMMATURE GRAN ABSOLUTE AUTO 0.03 K/mm3 (0.00-0.05); IMMATURE GRAN PERCENT AUTO 0.4 % (0.0-0.4); LYMPHOCYTES ABSOLUTE AUTO 0.9 K/mm3 (1.0-4.8); MEAN CORPUSCULAR HEMOGLOBIN 28.9 pg (28.0-32.0); MEAN CORPUSCULAR HGB CONC 33.3 g/dl (32.0-36.0); MEAN CORPUSCULAR VOLUME 86.8 fl (83.0-99.0); MEAN PLATELET VOLUME 10.3 fl (9.4-12.3); MONOCYTES ABSOLUTE AUTO 0.6 K/mm3 (0.0-0.8); MONOCYTES PERCENT AUTO 7.5 % (0.0-8.0); NEUTROPHILS ABSOLUTE AUTO 5.9 K/mm3 (1.8-7.7); NEUTROPHILS PERCENT AUTO 78.7 % (41.0-71.0); PLATELET COUNT,PLT 175 K/mm3 (150-400); RED BLOOD CELL COUNT 3.49 M/mm3 (4.10-5.30); WHITE BLOOD CELL COUNT,WBC 7.48 K/mm3 (3.9-11.3)
[2024-08-26 06:24] LABS: A/G RATIO 0.6 (1-2); ALBUMIN 2.1 g/dl (3.4-5.0); BILIRUBIN TOTAL 0.5 mg/dL (0.2-1.0); BUN/CREATININE RATIO 38.6 (14-18); CALCIUM 8.3 mg/dL (8.5-10.1); CREATININE 0.7 mg/dL (0.55-1.02); EST CRCL DRUG DOSING (CG) 61.86 mL/min; POTASSIUM,K 4.2 mEq/L (3.5-5.1); PROTEIN TOTAL,TP 5.8 g/dl (6.4-8.2)
[2024-08-26 06:37] LABS: ANION GAP 15.2 (5-15)
[2024-08-26] MEDS: Insulin Lispro 100 Unit/ML 3 ML KwikPen SUBCUT SCH (11:56)
[2024-08-26] MEDS: Insulin Glargine,Human Rec. Analog 100 Units/ML 3 ML Pen SUBCUT SCH (11:58)
[2024-08-26] MEDS: Nystatin Topical Powder 15 GM Bottle TOP PRN (13:45)
[2024-08-27 05:31] LABS: BASOPHILS PERCENT AUTO 0.6 % (0.0-1.0); EOSINOPHILS ABSOLUTE AUTO 0.1 K/mm3 (0.0-0.4); EOSINOPHILS PERCENT AUTO 1.2 % (0.0-6.0); HEMATOCRIT 29.8 % (37.0-47.0); HEMOGLOBIN 9.7 gm/dl (12.0-16.0); IMMATURE GRAN ABSOLUTE AUTO 0.03 K/mm3 (0.00-0.05); IMMATURE GRAN PERCENT AUTO 0.4 % (0.0-0.4); LYMPHOCYTES ABSOLUTE AUTO 0.8 K/mm3 (1.0-4.8); LYMPHOCYTES PERCENT AUTO 11.5 % (24.0-44.0); MEAN CORPUSCULAR HEMOGLOBIN 28.2 pg (28.0-32.0); MEAN CORPUSCULAR HGB CONC 32.6 g/dl (32.0-36.0); MEAN CORPUSCULAR VOLUME 86.6 fl (83.0-99.0); MEAN PLATELET VOLUME 10.5 fl (9.4-12.3); MONOCYTES ABSOLUTE AUTO 0.5 K/mm3 (0.0-0.8); MONOCYTES PERCENT AUTO 7.2 % (0.0-8.0); NEUTROPHILS ABSOLUTE AUTO 5.3 K/mm3 (1.8-7.7); NEUTROPHILS PERCENT AUTO 79.1 % (41.0-71.0); PLATELET COUNT,PLT 180 K/mm3 (150-400); RED BLOOD CELL COUNT 3.44 M/mm3 (4.10-5.30); WHITE BLOOD CELL COUNT,WBC 6.71 K/mm3 (3.9-11.3)
[2024-08-27 05:52] LABS: A/G RATIO 0.6 (1-2); ANION GAP 15.1 (5-15); BILIRUBIN TOTAL 0.5 mg/dL (0.2-1.0); BUN/CREATININE RATIO 34.3 (14-18); CREATININE 0.7 mg/dL (0.55-1.02); EST CRCL DRUG DOSING (CG) 61.86 mL/min; POTASSIUM,K 4.1 mEq/L (3.5-5.1); PROTEIN TOTAL,TP 5.6 g/dl (6.4-8.2)
[2024-08-28] MEDS: Insulin Glargine,Human Rec. Analog 100 Units/ML 3 ML Pen SUBCUT SCH (09:13)
[2024-08-29] MEDS: Losartan 50 MG Tab PO SCH (09:11)
== END 2024-08-29 13:10 | DRG 637 ==
LOC: JD.ED 08:32 → JD.MS 14:33 → OBSVTOIN 08-25 13:29
PROVIDERS: ADMIT Family Medicine; ATTEND Internal Medicine
DX: E11.649 Type 2 diabetes mellitus with hypoglycemia without coma (principal); E11.641 Type 2 diabetes mellitus with hypoglycemia with coma; C80.1 Malignant (primary) neoplasm, unspecified; I81 Portal vein thrombosis; R41.0 Disorientation, unspecified; I10 Essential (primary) hypertension; C78.01 Secondary malignant neoplasm of right lung; I50.32 Chronic diastolic (congestive) heart failure; C78.02 Secondary malignant neoplasm of left lung; Z79.82 Long term (current) use of aspirin; Z79.84 Long term (current) use of oral hypoglycemic drugs; R18.8 Other ascites; Z66 Do not resuscitate; E78.00 Pure hypercholesterolemia, unspecified; K21.9 Gastro-esophageal reflux disease without esophagitis; S82.841D Displaced bimalleolar fracture of right lower leg, subsequent encounter for closed fracture with routine healing; R59.0 Localized enlarged lymph nodes; I11.0 Hypertensive heart disease with heart failure; F32.A Depression, unspecified; I48.91 Unspecified atrial fibrillation; G40.909 Epilepsy, unspecified, not intractable, without status epilepticus; C44.91 Basal cell carcinoma of skin, unspecified; D09.9 Carcinoma in situ, unspecified; K86.89 Other specified diseases of pancreas; K80.20 Calculus of gallbladder without cholecystitis without obstruction; E87.6 Hypokalemia; R53.81 Other malaise; R53.1 Weakness; Z79.899 Other long term (current) drug therapy; Z98.890 Other specified postprocedural states; Z79.4 Long term (current) use of insulin
CPT/HCPCS: 36415 ×2; 70450; 70496; 70498; 71045; 71260; 74177; 80053 ×2; 81001; 82947 ×9; 83735; 84100; 84484; 85025 ×2; 85610; 85730; 87428; 93005; 96361; 96374; 97110; 97162; 97530; 99285; A9270 ×7; J1650 ×2; J1815; J3480 ×2; J7042; Q9967 ×2; U0002

== ENCOUNTER 2024-09-17 13:57 | Emergency (ER) | payer MEDICARE, OTHER ==
[2024-09-17 14:44] LABS: BASOPHILS ABSOLUTE AUTO 0.1 K/mm3 (0.0-0.2); BASOPHILS PERCENT AUTO 0.6 % (0.0-1.0); EOSINOPHILS PERCENT AUTO 0.5 % (0.0-6.0); HEMATOCRIT 33.6 % (37.0-47.0); HEMOGLOBIN 11.3 gm/dl (12.0-16.0); IMMATURE GRAN ABSOLUTE AUTO 0.02 K/mm3 (0.00-0.05); IMMATURE GRAN PERCENT AUTO 0.3 % (0.0-0.4); LYMPHOCYTES ABSOLUTE AUTO 0.9 K/mm3 (1.0-4.8); LYMPHOCYTES PERCENT AUTO 11.4 % (24.0-44.0); MEAN CORPUSCULAR HEMOGLOBIN 28.8 pg (28.0-32.0); MEAN CORPUSCULAR HGB CONC 33.6 g/dl (32.0-36.0); MEAN CORPUSCULAR VOLUME 85.5 fl (83.0-99.0); MEAN PLATELET VOLUME 10.9 fl (9.4-12.3); MONOCYTES ABSOLUTE AUTO 0.7 K/mm3 (0.0-0.8); MONOCYTES PERCENT AUTO 8.3 % (0.0-8.0); NEUTROPHILS ABSOLUTE AUTO 6.2 K/mm3 (1.8-7.7); NEUTROPHILS PERCENT AUTO 78.9 % (41.0-71.0); PLATELET COUNT,PLT 252 K/mm3 (150-400); RED BLOOD CELL COUNT 3.93 M/mm3 (4.10-5.30); WHITE BLOOD CELL COUNT,WBC 7.91 K/mm3 (3.9-11.3)
[2024-09-17 15:09] LABS: A/G RATIO 0.6 (1-2); ALBUMIN 2.1 g/dl (3.4-5.0); ANION GAP 16.7 (5-15); BILIRUBIN TOTAL 0.4 mg/dL (0.2-1.0); CALCIUM 9.1 mg/dL (8.5-10.1); POTASSIUM,K 4.7 mEq/L (3.5-5.1); PROTEIN TOTAL,TP 5.6 g/dl (6.4-8.2)
[2024-09-17] MEDS: cefTRIAXone 2 GM in Sodium Chloride 0.9% 100 ML IV ONE (15:55)
== END 2024-09-17 16:35 | disposition home or self-care (01) ==
LOC: JD.ED 13:57
DX: L03.116 Cellulitis of left lower limb (principal); R18.0 Malignant ascites; C79.9 Secondary malignant neoplasm of unspecified site; I10 Essential (primary) hypertension; E78.00 Pure hypercholesterolemia, unspecified; K21.9 Gastro-esophageal reflux disease without esophagitis; E11.9 Type 2 diabetes mellitus without complications; Z79.4 Long term (current) use of insulin; Z79.82 Long term (current) use of aspirin; Z79.899 Other long term (current) drug therapy
CPT/HCPCS: 36415; 80053; 85025; 96365; 99284; J0696